=== PATIENT | male | born 1955 | race American Indian/Alaskan Native ===

== ENCOUNTER 2017-01-30 12:06 | Emergency (ER) | payer MEDICARE ==
[2017-01-30] MEDS ORDERED: THERMAZENE 50 GRAM TP ONE (14:55)
--- NOTE | 2017-01-30 14:55 | Emergency Department Report ---
ED Burn/Smoke HPI - General Chief complaint: Burn/Smoke Inhalation Stated complaint: RT FOOT BURNED TOES Time Seen by Provider: 01/30/17 14:39 Source: patient Mode of arrival: Ambulatory Limitations: Physical Limitation - History of Present Illness Initial comments: Patient here reports that he obtained waldrop to his right foot on all his toes last night while taking a shower. He said the hot water burn to him on his toes. He said he has blisters. Pain is 7 out of 10 and dull. Patient is a diabetic he said his blood sugar was 218 this morning in and he takes medication for diabetes. He also has neuropathy from diabetes. Patient has previous amputation of left low, pacemaker , CHF with EF of 30%, ME with CAD, TIA and chronic kidney disease. Patient said he does have a primary care physician and a french instructor that he follows frequently. He does not have a sharepoint manager. Denies any fever or chills. No [id number] medication taken for pain. MD Complaint: burn -: Last night Type of Exposure: hot liquid Smoke Inhalation: none Place: home Location - Extremities: Right: Foot (all toes) Severity: moderate Severity scale (0 -10): 7 Associated Symptoms: denies: headache, vision changes, cough, diaphoresis, fever /chills, chest pain, flushing, neck pain, nausea/vomiting Treatment Prior to Arrival: other - Related Data Home Medications Medication Instructions Recorded Confirmed Last Taken cloNIDine [Catapres] 0.1 mg PO DAILY 07/20/15 05/15/16 03/05/16 Previous Rx's Medication Instructions Recorded Last Taken Type Aspirin [Aspirin BABY CHEW TAB] 81 mg PO QDAY #30 tab.chew 06/10/15 03/05/16 Rx Metoprolol Xl [Metoprolol 100 mg PO QDAY #30 tablet 06/10/15 03/05/16 Rx SUCCINATE ER TAB] Pantoprazole [Protonix TAB] 40 mg PO QDAY #10 tablet 07/20/15 Unknown Rx NIFEdipine XL [Procardia Xl] 90 mg PO QDAY tablet 05/13/16 Unknown Rx Simvastatin [Zocor TAB] 10 mg PO QHS tablet 05/13/16 Unknown Rx ALBUTEROL NEB's [Proventil 0.083% 2.5 mg IH TIDRT PRN #1 nebu 05/25/16 Unknown Rx NEBS] Acetaminophen [Acetaminophen TAB] 650 mg PO Q4H PRN #1 tablet 05/25/16 Unknown Rx Bisacodyl [Dulcolax suppos] 10 mg NM QDAY PRN #1 supp.rect 05/25/16 Unknown Rx Docusate Sodium [Colace CAP] 100 mg PO BID capsule 05/25/16 Unknown Rx Epoetin Ben 10,000 Unit [Procrit] 10,000 unit SUB-Q QWEEK vial 05/25/16 Unknown Rx Furosemide [Lasix TAB] 80 mg PO 0600,1800 tablet 05/25/16 Unknown Rx Gabapentin [Neurontin] 100 mg PO Q8HR capsule 05/25/16 Unknown Rx Insulin Glargine [Lantus VIAL] 10 units SUB-Q QHS units 05/25/16 Unknown Rx Insulin Glulisine [Apidra] 0 units SUB-Q ACHS units 05/25/16 Unknown Rx Metolazone [Zaroxolyn] 5 mg PO QDAY tablet 05/25/16 Unknown Rx Sennosides Tab [Senokot] 8.6 mg PO Q12H PRN #1 tablet 05/25/16 Unknown Rx HYDROcodone/APAP 7.5-325 [[place] 1 each PO Q8H PRN #40 tablet 05/26/16 Unknown Rx 7.5-325 mg TAB] SILVER sulfADIAZINE 50 GRAM 1 applicatio TP BID #1 tube 01/30/17 Unknown Rx [Thermazene 50 Gram] Sulfamethoxazole/Trimethoprim 1 each PO BID #20 tablet 01/30/17 Unknown Rx [Bactrim DS TAB] traMADol [Ultram] 50 mg PO Q6HR PRN #12 tablet 01/30/17 Unknown Rx Allergies Allergy/AdvReac Type Severity Reaction Status Date / Time No Known Allergies Allergy Verified 01/30/17 13:11 Burn HPI - History Stated Complaint: RT FOOT BURNED TOES Chief Complaint: Burn/Smoke Inhalation Time Seen by Provider: 01/30/17 14:39 - Home Meds and Allergies Home Medications: Home Medications Medication Instructions Recorded Confirmed Last Taken cloNIDine [Catapres] 0.1 mg PO DAILY 07/20/15 05/15/16 03/05/16 Previous Rx's Medication Instructions Recorded Last Taken Type Aspirin [Aspirin BABY CHEW TAB] 81 mg PO QDAY #30 tab.chew 06/10/15 03/05/16 Rx Metoprolol Xl [Metoprolol 100 mg PO QDAY #30 tablet 06/10/15 03/05/16 Rx SUCCINATE ER TAB] Pantoprazole [Protonix TAB] 40 mg PO QDAY #10 tablet 07/20/15 Unknown Rx NIFEdipine XL [Procardia Xl] 90 mg PO QDAY tablet 05/13/16 Unknown Rx Simvastatin [Zocor TAB] 10 mg PO QHS tablet 05/13/16 Unknown Rx ALBUTEROL NEB's [Proventil 0.083% 2.5 mg IH TIDRT PRN #1 nebu 05/25/16 Unknown Rx NEBS] Acetaminophen [Acetaminophen TAB] 650 mg PO Q4H PRN #1 tablet 05/25/16 Unknown Rx Bisacodyl [Dulcolax suppos] 10 mg NM QDAY PRN #1 supp.rect 05/25/16 Unknown Rx Docusate Sodium [Colace CAP] 100 mg PO BID capsule 05/25/16 Unknown Rx Epoetin Ben 10,000 Unit [Procrit] 10,000 unit SUB-Q QWEEK vial 05/25/16 Unknown Rx Furosemide [Lasix TAB] 80 mg PO 0600,1800 tablet 05/25/16 Unknown Rx Gabapentin [Neurontin] 100 mg PO Q8HR capsule 05/25/16 Unknown Rx Insulin Glargine [Lantus VIAL] 10 units SUB-Q QHS units 05/25/16 Unknown Rx Insulin Glulisine [Apidra] 0 units SUB-Q ACHS units 05/25/16 Unknown Rx Metolazone [Zaroxolyn] 5 mg PO QDAY tablet 05/25/16 Unknown Rx Sennosides Tab [Senokot] 8.6 mg PO Q12H PRN #1 tablet 05/25/16 Unknown Rx HYDROcodone/APAP 7.5-325 [[place] 1 each PO Q8H PRN #40 tablet 05/26/16 Unknown Rx 7.5-325 mg TAB] SILVER sulfADIAZINE 50 GRAM 1 applicatio TP BID #1 tube 01/30/17 Unknown Rx [Thermazene 50 Gram] Sulfamethoxazole/Trimethoprim 1 each PO BID #20 tablet 01/30/17 Unknown Rx [Bactrim DS TAB] traMADol [Ultram] 50 mg PO Q6HR PRN #12 tablet 01/30/17 Unknown Rx Allergies/Adverse Reactions: Allergies Allergy/AdvReac Type Severity Reaction Status Date / Time No Known Allergies Allergy Verified 01/30/17 13:11 ED Review of Systems ROS: Stated complaint: RT FOOT BURNED TOES Other details as noted in HPI Comment: All other systems reviewed and negative Constitutional: denies: chills, fever Eyes: denies: eye pain, vision change ENT: denies: ear pain, throat pain, congestion Respiratory: no symptoms reported Cardiovascular: denies: chest pain, palpitations, edema, syncope Gastrointestinal: denies: nausea, vomiting, diarrhea, constipation Musculoskeletal: denies: back pain, joint swelling, arthralgia, myalgia Skin: denies: rash Neurological: denies: headache, weakness, numbness, paresthesias, confusion, abnormal gait, vertigo ED Past Medical Hx - Past Medical History Previous Medical History?: Yes Hx Hypertension: Yes (CHF EF 30%) Hx CVA: Yes (mini stroke) Hx Heart Attack/AMI: Yes Hx Congestive Heart Failure: Yes Hx Diabetes: Yes Hx Deep Vein Thrombosis: No Hx Renal Disease: Yes (creatinine 5.4) Hx Seizures: No Hx Asthma: No Hx COPD: No Hx HIV: No - Surgical History Past Surgical History?: Yes Hx Pacemaker: Yes (2006) Hx Internal Defibrillator: No Additional Surgical History: L great toe amputated - Family History Family history: CAD/ME, hypertension - Social History Smoking Status: Never Smoker Substance Use Type: None - Medications Home Medications: Home Medications Medication Instructions Recorded Confirmed Last Taken Type Aspirin [Aspirin BABY CHEW TAB] 81 mg PO QDAY #30 tab.chew 06/10/15 05/15/16 Rx Metoprolol Xl [Metoprolol 100 mg PO QDAY #30 tablet 06/10/15 05/15/16 03/05/16 Rx SUCCINATE ER TAB] Pantoprazole [Protonix TAB] 40 mg PO QDAY #10 tablet 07/20/15 05/15/16 Unknown Rx cloNIDine [Catapres] 0.1 mg PO DAILY 07/20/15 05/15/16 03/05/16 History NIFEdipine XL [Procardia Xl] 90 mg PO QDAY tablet 05/13/16 05/15/16 Unknown Rx Simvastatin [Zocor TAB] 10 mg PO QHS tablet 05/13/16 05/15/16 Unknown Rx ALBUTEROL NEB's [Proventil 0.083% 2.5 mg IH TIDRT PRN #1 nebu 05/25/16 Unknown Rx NEBS] Acetaminophen [Acetaminophen TAB] 650 mg PO Q4H PRN #1 tablet 05/25/16 Unknown Rx Bisacodyl [Dulcolax suppos] 10 mg NM QDAY PRN #1 supp.rect 05/25/16 Unknown Rx Docusate Sodium [Colace CAP] 100 mg PO BID capsule 05/25/16 Unknown Rx Epoetin Ben 10,000 Unit [Procrit] 10,000 unit SUB-Q QWEEK vial 05/25/16 Unknown Rx Furosemide [Lasix TAB] 80 mg PO 0600,1800 tablet 05/25/16 Unknown Rx Gabapentin [Neurontin] 100 mg PO Q8HR capsule 05/25/16 Unknown Rx Insulin Glargine [Lantus VIAL] 10 units SUB-Q QHS units 05/25/16 Unknown Rx Insulin Glulisine [Apidra] 0 units SUB-Q ACHS units 05/25/16 Unknown Rx Metolazone [Zaroxolyn] 5 mg PO QDAY tablet 05/25/16 Unknown Rx Sennosides Tab [Senokot] 8.6 mg PO Q12H PRN #1 tablet 05/25/16 Unknown Rx HYDROcodone/APAP 7.5-325 [[place] 1 each PO Q8H PRN #40 tablet 05/26/16 Unknown Rx 7.5-325 mg TAB] SILVER sulfADIAZINE 50 GRAM 1 applicatio TP BID #1 tube 01/30/17 Unknown Rx [Thermazene 50 Gram] Sulfamethoxazole/Trimethoprim 1 each PO BID #20 tablet 01/30/17 Unknown Rx [Bactrim DS TAB] traMADol [Ultram] 50 mg PO Q6HR PRN #12 tablet 01/30/17 Unknown Rx ED Physical Exam - General Limitations: Physical Limitation General appearance: alert, in no apparent distress - Head Head exam: Present: atraumatic, normocephalic, normal inspection - Eye Eye exam: Present: normal appearance, PERRL, EOMI. Absent: periorbital swelling , periorbital tenderness Pupils: Present: normal accommodation - ENT ENT exam: Present: normal exam, normal orophraynx, mucous membranes moist, TM's normal bilaterally, normal external ear exam - Neck Neck exam: Present: normal inspection, full ROM. Absent: tenderness, meningismus, lymphadenopathy - Expanded Neck Exam Expanded Neck exam: Absent: tenderness, midline deformity, anterior neck swelling, tracheal deviation - Respiratory Respiratory exam: Present: normal lung sounds bilaterally. Absent: respiratory distress, wheezes, rales, rhonchi, stridor, chest wall tenderness - Cardiovascular Cardiovascular Exam: Present: regular rate, normal rhythm, normal heart sounds - GI/Abdominal GI/Abdominal exam: Present: soft, normal bowel sounds. Absent: distended, tenderness, guarding, rebound, rigid - Extremities Exam Extremities exam: Present: normal inspection, full ROM, tenderness (tender to palpate at right great toe, second third fourth and fifth toe. Distal phalanx ) , normal capillary refill, other (patient with good color, sensation, temperature and movement to right foot. Pedal pulses at 2+. No neurovascular compromise. Capillary refill is less than 3 seconds. Patient with burn to distal phalanx at great to and second through fifth toe.). Absent: pedal edema , joint swelling, calf tenderness - Back Exam Back exam: Present: normal inspection, full ROM. Absent: tenderness - Neurological Exam Neurological exam: Present: alert, oriented X3, normal gait, reflexes normal. Absent: motor sensory deficit - Psychiatric Psychiatric exam: Present: normal affect, normal mood - Skin Skin exam: Present: warm, dry, other (second-degree burn to great toe and second through fifth toe with blister.) - Expanded Skin Exam Expanded Type of lesion: Present: other (burn) Distribution of rash: RLE (RT foot distal phalyns all toes) Description of rash: Present: tenderness, erythematous, swelling, blisters ( blisters, rt great second through fifth toes.), other. Absent: crusting, discharge ED Course Vital Signs 01/30/17 13:11 Temperature 98.1 F Pulse Rate 73 Respiratory 18 Rate Blood Pressure 147/63 O2 Sat by Pulse 95 Oximetry - Reevaluation(s) Reevaluation #1: 01/30/17 15:47 Patient reports that his tetanus vaccine is up-to-date. Right foot soaked in Betadine for 15 minutes, cleansed with normal saline. Blisters to al toes open opened. Silvadene ointment applied to site followed by nonadhesive and sterile gauze dressing. See procedure note for details on splinted. - Orthopedic Splinting/Casting Injury #1 Side: right Lower Extremity Immobilizer: post-op shoe ED Medical Decision Making - Medical Decision Making ED course: Patient with second degree waldrop to have right foot at distal phalanx great toe and second through fifth toe. Patient reports his tetanus vaccine is up-to-date. Area soaked with Betadine and flushed with normal saline. Silvadene cream placed to Derrek, nonadhesive dressing followed by Enrique dressing. Patient placed and postop shoe and to follow-up with sharepoint manager Dr. Boogie. I discussed the patient that he needs to refer to discharge instruction paperwork for Dr. Soler address and phone number and to call and Wednesday to schedule an appointment. Patient was understanding that diagnosis, treatment plan and importance of following up with sharepoint manager due to diabetic status. Patient discharged home with prescription for Bactrim, Ultram and Silvadene ointment. Critical care attestation.: If time is entered above; I have spent that time in minutes in the direct care of this critically ill patient, excluding procedure time. ED Disposition Clinical Impression: Arthralgia of right foot Second degree burn of right foot Qualifiers: Encounter type: initial encounter Qualified Code(s): T25.221A - Burn of second degree of right foot, initial encounter Disposition: TO HOME OR SELFCARE Is pt being admited?: No Does the pt Need Aspirin: No Condition: Stable Instructions: Arthralgia (ED), Acute Wound Care (ED) Additional Instructions: You have second-degree burn to toes on right foot. Due to your diabetic status , he will need to follow-up with a sharepoint manager for management of wound care to toes. If you develop fever, chills, drainage and crusting on toes you will need to return to the emergency room. Your sharepoint manager should be able to take care of burn sites to your foot. Please apply Silvadene antibiotic ointment twice daily followed by gauze dressing to right foot Please use post op shoe to prevent friction again this Natalia. Please take antibiotic as prescribed. Keep blood sugar level within normal limits to prevent infection Prescriptions: SILVER sulfADIAZINE 50 GRAM [Thermazene 50 Gram] 1 applicatio TP BID #1 tube Sulfamethoxazole/Trimethoprim [Bactrim DS TAB] 1 each PO BID #20 tablet traMADol [Ultram] 50 mg PO Q6HR PRN #12 tablet PRN Reason: Pain Referrals: PRIMARY CARE,MD [Primary Care Provider] - 2-3 Days TIMBO BOOGIE DPM [Staff Physician] - 2-3 Days
[2017-01-30 16:14] VITALS: BP 137/77
== END 2017-01-30 16:12 | disposition home or self-care (01) ==
LOC: ED 12:06
DX: T25.231A Burn of second degree of right toe(s) (nail), initial encounter (principal); T25.221A Burn of second degree of right foot, initial encounter; I10 Essential (primary) hypertension; I63.9 Cerebral infarction, unspecified; I25.2 Old myocardial infarction; I50.9 Heart failure, unspecified; E11.9 Type 2 diabetes mellitus without complications; Z79.82 Long term (current) use of aspirin; Z79.4 Long term (current) use of insulin; X11.8XXA Contact with other hot tap-water, initial encounter; Y93.9 Activity, unspecified; Y99.9 Unspecified external cause status; Y92.009 Unspecified place in unspecified non-institutional (private) residence as the place of occurrence of the external cause

== ENCOUNTER 2017-02-23 10:55 | Day surgery (SDC) | payer MEDICARE ==
[2017-02-23] MEDS ORDERED: NACL 0.9% 1,000 ML, VANCOMYCIN VIAL 1,000 MG IR NR (11:22)
[2017-02-23] MEDS ORDERED: ANCEF/STERILE WATER 2 GM/20 ML 2 GM/20 ML SYRINGE IV NR (12:00)
[2017-02-23] MEDS ORDERED: NACL 0.45% 1000 ML 1,000 ML IV SCH (12:00)
[2017-02-23 12:42] LABS: Basophils % (Auto) 0.9 % (0.0-1.8); Eosinophils % (Auto) 3.2 % (0.0-4.3); Hematocrit 34.8 % (35.5-45.6); Hemoglobin 11.6 gm/dl (11.8-15.2); Mean Corpuscular HGB Conc 33 % (32-34); Mean Corpuscular Hemoglobin 31 pg (28-32); Mean Corpuscular Volume 95 fl (84-94); Platelet Count 316 K/mm3 (140-440); Red Blood Count 3.68 M/mm3 (3.65-5.03); Red Cell Distribution Width 13.4 % (13.2-15.2); White Blood Count 10.3 K/mm3 (4.5-11.0)
[2017-02-23 12:53] LABS: INR 1.02 (0.87-1.13)
[2017-02-23 12:54] LABS: BUN/Creatinine Ratio 36.4; Calcium 9.3 mg/dL (8.4-10.2); Chloride 101.7 mmol/L (98-107); Potassium 4.7 mmol/L (3.6-5.0)
[2017-02-23 13:04] LABS: Partial Thromboplastin Time 24.5 Sec. (24.2-36.6)
[2017-02-23] MEDS ORDERED: NACL 0.9% 500 ML IR ONE (13:34)
[2017-02-23] MEDS ORDERED: ANCEF/STERILE WATER 2 GM/20 ML 2 GM/20 ML SYRINGE IV ONE (13:35)
[2017-02-23] MEDS ORDERED: MARCAINE 0.5% 60 ML INFILTRATI ONE (13:35)
[2017-02-23] MEDS: SUBLIMAZE ONE ×2 (14:30→14:40)
[2017-02-23] MEDS: VERSED ONE ×2 (14:32→14:42)
[2017-02-23] MEDS: XYLOCAINE 1% 20 mL ONE ×2 (14:32→14:38)
[2017-02-23] MEDS ORDERED: VANCOMYCIN VIAL 1,000 MG in NACL 0.9% 1,000 ML IRRIGATION ONE (14:33)
[2017-02-23] MEDS ORDERED: VERSED ONE (15:04)
[2017-02-23] MEDS ORDERED: SUBLIMAZE ONE (15:05)
[2017-02-23] MEDS ORDERED: APRESOLINE ONE (15:05)
--- NOTE | 2017-02-23 15:22 | Short Stay Summary ---
Short Stay Documentation Date of service: 02/23/17 Narrative H&P: see outpatient h and p from office - History H&P: obtained from office - Allergies and Medications Current Medications: Allergies No Known Allergies Allergy (Verified 01/30/17 13:11) Home Medications Medication Instructions Recorded Confirmed Last Taken Type Aspirin [Aspirin BABY CHEW TAB] 81 mg PO QDAY #30 tab.chew 06/10/15 02/23/17 Rx Pantoprazole [Protonix TAB] 40 mg PO QDAY #10 tablet 07/20/15 02/23/17 02/22/17 Rx Acetaminophen [Acetaminophen TAB] 650 mg PO Q4H PRN #1 tablet 05/25/16 02/23/17 Unknown Rx Gabapentin [Neurontin] 100 mg PO Q8HR capsule 05/25/16 02/23/17 02/22/17 Rx Insulin Glargine [Lantus VIAL] 10 units SUB-Q QHS units 05/25/16 02/23/1702/22 Rx Insulin Glulisine [Apidra] 0 units SUB-Q ACHS units 05/25/16 02/23/17 02/22/17 Rx traMADol [Ultram] 50 mg PO Q6HR PRN #12 tablet 01/30/17 02/23/17 02/22/17 Rx AtorvaSTATin [Lipitor] 40 mg PO DAILY 02/23/17 02/23/17 02/22/17 History Isosorbide Dinitrate [Isordil 20 mg PO TID 02/23/17 02/23/17 02/22/17 History Titradose] Klor-Con M10 10 meq PO DAILY 02/23/17 02/23/17 02/22/17 History Lisinopril [Zestril TAB] 20 mg PO DAILY 02/23/17 02/23/17 02/22/17 History Metolazone [Zaroxolyn] 5 mg PO 2XW 02/23/17 02/23/17 02/21/17 History Torsemide [Demadex] 20 mg PO DAILY 02/23/17 02/23/17 02/22/17 History hydrALAZINE [Apresoline TAB] 100 mg PO TID 02/23/17 02/23/17 02/22/17 History Active Medications Sodium Chloride 1,000 ml/ (Vancomycin HCl 1,000 mg) 0 ml IR INTRAOP NR Stop: 02/23/17 23:59 Sodium Chloride (Nacl 0.45% 1000 Ml) 1,000 mls @ 50 mls/hr IV DIRECT LOVE Last Admin: 02/23/17 12:29 Dose: 50 mls/hr Cefazolin Sodium (Ancef/Sterile Water 2 Gm/20 Ml) 2 gm in 20 mls @ 80 mls/hr IV PREOP NR PRN Reason: Protocol Stop: 02/23/17 23:59 - Brief post op/procedure progress note Date of procedure: 02/23/17 Procedure: Pacemaker generator change - see procedure report - Hospital course Hospital course: uncomplicated procedure - Disposition Condition at discharge: Good Disposition: [id number] TO HOME OR SELFCARE - Discharge Diagnoses (1) Pacemaker battery depletion Status: Acute Short Stay Discharge Plan Activity: no restrictions Diet: low fat, low cholesterol Wound: open to air Follow up with: ROB TREJO MD [Staff Physician] - 7 Days Prescriptions: Cephalexin [Keflex] 500 mg PO Q8HR #9 cap oxyCODONE /ACETAMINOPHEN [Percocet 5/325] 1 tab PO Q6HR PRN #10 tablet PRN Reason: Pain
[2017-02-23 16:52] VITALS: BP 159/71
== END 2017-02-23 17:35 | disposition home or self-care (01) ==
LOC: OPU 10:55
PROVIDERS: ATTEND Internal Medicine Cardiovascular Disease
DX: Z45.010 Encounter for checking and testing of cardiac pacemaker pulse generator [battery] (principal); K21.9 Gastro-esophageal reflux disease without esophagitis; E10.9 Type 1 diabetes mellitus without complications; E78.5 Hyperlipidemia, unspecified; I11.0 Hypertensive heart disease with heart failure; I50.23 Acute on chronic systolic (congestive) heart failure; I27.2 Other secondary pulmonary hypertension; F10.21 Alcohol dependence, in remission; J44.9 Chronic obstructive pulmonary disease, unspecified; I49.5 Sick sinus syndrome; Z79.82 Long term (current) use of aspirin; Z79.899 Other long term (current) drug therapy; Z79.4 Long term (current) use of insulin; Z86.73 Personal history of transient ischemic attack (TIA), and cerebral infarction without residual deficits; Z89.612 Acquired absence of left leg above knee; Z98.890 Other specified postprocedural states; Z86.79 Personal history of other diseases of the circulatory system; Z87.891 Personal history of nicotine dependence; Z83.49 Family history of other endocrine, nutritional and metabolic diseases; Z82.49 Family history of ischemic heart disease and other diseases of the circulatory system
CPT/HCPCS: 33228; 36415; 80048; 85025; 85610; 85730; 93005; 93010; C1781; C1785; J0360; J0690; J2250; J3010; J3370

== ENCOUNTER 2018-03-17 13:50 | Emergency (ER) | payer MEDICARE ==
--- NOTE | 2018-03-17 15:19 | Emergency Department Report ---
Blank Doc - Documentation Documentation: Patient is a 62-year-old [place] male who is presenting with right lower extremity swelling. Patient states is swollen for several days. Patient was sent here by his global process owner rule out DVT. Patient also has a history of congestive heart failure as well as a pacemaker. Patient denies any chest pain but does have exertional shortness of breath. His CHF and is definitely on the differential for this patient's leg swelling. Ultrasound be done with the patient also had a BMP and labs ordered as well. Patient be reassessed.
[2018-03-17 16:38] LABS: Basophils # (Auto) 0.2 K/mm3 (0.0-0.1); Basophils % (Auto) 1.4 % (0.0-1.8); Eosinophils # (Auto) 0.3 K/mm3 (0.0-0.4); Eosinophils % (Auto) 2.6 % (0.0-4.3); Hematocrit 29.4 % (35.5-45.6); Lymphocytes # (Auto) 1.8 K/mm3 (1.2-5.4); Lymphocytes % (Auto) 16.4 % (13.4-35.0); Mean Corpuscular HGB Conc 34 % (32-34); Mean Corpuscular Hemoglobin 32 pg (28-32); Mean Corpuscular Volume 94 fl (84-94); Monocytes % (Auto) 9.2 % (0.0-7.3); Platelet Count 445 K/mm3 (140-440); Red Blood Count 3.14 M/mm3 (3.65-5.03); Red Cell Distribution Width 14.1 % (13.2-15.2)
[2018-03-17 17:00] LABS: Calcium 9.2 mg/dL (8.4-10.2)
[2018-03-17 17:31] LABS: Chol/HDL Ratio 3.92 %
--- NOTE | 2018-03-17 17:32 | Emergency Department Report ---
Blank Doc - Documentation Documentation: Patient troponin is elevated and he is in renal failure acute versus chronic. His BNP is also elevated. Patient was moved to room 34 to be monitored and he is to go to the main side to be seen by M.D. notified charge nurse that patient needs to be transferred to the main side due to abnormal labs. Patient still shortness of breath but no chest pain at present.
[2018-03-17 17:49] VITALS: BP 163/69
--- NOTE | 2018-03-17 17:53 | Emergency Department Report ---
ED Extremity Problem HPI - General Chief complaint: Dyspnea/Respdistress Stated complaint: LEGS/ARMS SWOLLEN Time Seen by Provider: 03/17/18 15:06 Source: patient Mode of arrival: Ambulatory Limitations: No Limitations - History of Present Illness Initial comments: Patient is a 62-year-old [place] male who is presenting with right lower extremity swelling. Patient states is swollen for several days. Patient was sent here by his precision jig grinder rule out DVT. Patient also has a history of congestive heart failure as well as a pacemaker. Patient denies any chest pain but does have exertional shortness of breath. The patient is over his dry weight and took double dose of his Lasix yesterday and was instructed to take the same today according to his precision jig grinder. - Related Data Home Medications Medication Instructions Recorded Confirmed Last Taken AtorvaSTATin [Lipitor] 40 mg PO DAILY 02/23/17 02/26/18 02/22/17 Isosorbide Dinitrate [Isordil 20 mg PO TID 02/23/17 02/26/18 02/22/17 Titradose] Previous Rx's Medication Instructions Recorded Last Taken Type Gabapentin [Neurontin] 100 mg PO Q8HR capsule 05/25/16 02/22/17 Rx ALBUTEROL NEB's [Proventil 0.083% 2.5 mg IH Q4HRT PRN 30 Days #30 03/07/18 Unknown Rx NEBS] nebu Acetaminophen [Acetaminophen TAB] 650 mg PO Q6H PRN #30 tablet 03/07/18 Unknown Rx Insulin Glargine [Lantus VIAL] 10 units SUB-Q QHS 30 Days #100 03/07/18 Unknown Rx units Insulin Regular, Human [HumuLIN R] 1 dose SUB-Q ACHS PRN #30 units 03/07/18 Unknown Rx Levofloxacin [Levaquin TAB] 500 mg PO Q48H #1 tablet 03/07/18 Unknown Rx Pantoprazole [Protonix TAB] 40 mg PO QDAY #30 tablet 03/07/18 Unknown Rx Sodium Bicarbonate 650 mg PO TID #90 tablet 03/07/18 Unknown Rx hydrALAZINE [Apresoline TAB] 100 mg PO TID #90 tab 03/07/18 Unknown Rx oxyCODONE /ACETAMINOPHEN [Percocet 1 tab PO Q6HR PRN #12 tablet 03/07/18 Unknown Rx 5/325 mg] Allergies Allergy/AdvReac Type Severity Reaction Status Date / Time No Known Allergies Allergy Verified 03/17/18 14:47 ED Review of Systems ROS: Stated complaint: LEGS/ARMS SWOLLEN Other details as noted in HPI Comment: All other systems reviewed and negative ED Past Medical Hx - Past Medical History Previous Medical History?: Yes Hx Hypertension: Yes (CHF EF 45-50% (03/02/18)) Hx CVA: Yes (mini stroke) Hx Heart Attack/AMI: Yes (x 2 (2010, 2004)) Hx Congestive Heart Failure: Yes Hx Diabetes: Yes Hx Deep Vein Thrombosis: No Hx Renal Disease: Yes (creatinine 5.4 (CKD)) Hx Arthritis: Yes (hands) Hx Seizures: No Hx Asthma: No Hx COPD: No Hx HIV: No - Surgical History Past Surgical History?: Yes Hx Pacemaker: Yes (2006) Hx Internal Defibrillator: No Additional Surgical History: L BKA - Social History Smoking Status: Former Smoker Substance Use Type: Alcohol - Medications Home Medications: Home Medications Medication Instructions Recorded Confirmed Last Taken Type Gabapentin [Neurontin] 100 mg PO Q8HR capsule 05/25/16 02/26/18 02/22/17 Rx AtorvaSTATin [Lipitor] 40 mg PO DAILY 02/23/17 02/26/18 02/22/17 History Isosorbide Dinitrate [Isordil 20 mg PO TID 02/23/17 02/26/18 02/22/17 History Titradose] ALBUTEROL NEB's [Proventil 0.083% 2.5 mg IH Q4HRT PRN 30 Days #30 03/07/18 Unknown Rx NEBS] nebu Acetaminophen [Acetaminophen TAB] 650 mg PO Q6H PRN #30 tablet 03/07/18 Unknown Rx Insulin Glargine [Lantus VIAL] 10 units SUB-Q QHS 30 Days #100 03/07/18 Unknown Rx units Insulin Regular, Human [HumuLIN R] 1 dose SUB-Q ACHS PRN #30 units 03/07/18 Unknown Rx Levofloxacin [Levaquin TAB] 500 mg PO Q48H #1 tablet 03/07/18 Unknown Rx Pantoprazole [Protonix TAB] 40 mg PO QDAY #30 tablet 03/07/18 Unknown Rx Sodium Bicarbonate 650 mg PO TID #90 tablet 03/07/18 Unknown Rx hydrALAZINE [Apresoline TAB] 100 mg PO TID #90 tab 03/07/18 Unknown Rx oxyCODONE /ACETAMINOPHEN [Percocet 1 tab PO Q6HR PRN #12 tablet 03/07/18 Unknown Rx 5/325 mg] ED Physical Exam - General Limitations: No Limitations General appearance: alert, in no apparent distress - Head Head exam: Present: atraumatic, normocephalic - Eye Eye exam: Present: normal appearance - ENT ENT exam: Present: mucous membranes moist - Neck Neck exam: Present: normal inspection - Respiratory Respiratory exam: Present: normal lung sounds bilaterally. Absent: respiratory distress, wheezes, rales, rhonchi - Cardiovascular Cardiovascular Exam: Present: regular rate, normal rhythm. Absent: systolic murmur, diastolic murmur, rubs, gallop - GI/Abdominal GI/Abdominal exam: Present: soft, distended, normal bowel sounds. Absent: tenderness, guarding, rebound, rigid - Rectal Rectal exam: Present: deferred - Extremities Exam Extremities exam: Present: normal inspection, other (she has 2+ edema in the right lower extremity up to the knee. Patient is a amputee on the left lower extremity.) - Back Exam Back exam: Present: normal inspection - Neurological Exam Neurological exam: Present: alert, oriented X3 - Psychiatric Psychiatric exam: Present: normal affect, normal mood - Skin Skin exam: Present: warm, dry, intact, normal color. Absent: rash ED Course Vital Signs 03/17/18 14:44 Temperature 98.6 F Pulse Rate 95 H Respiratory 18 Rate Blood Pressure 142/54 O2 Sat by Pulse 99 Oximetry ED Medical Decision Making - Lab Data Result diagrams: 03/17/18 16:26 03/17/18 16:26 Labs 03/17/18 03/17/18 16:26 16:26 WBC 10.8 RBC 3.14 L Hgb 10.0 L Hct 29.4 L MCV 94 MCH 32 MCHC 34 RDW 14.1 Plt Count 445 H Lymph % (Auto) 16.4 Brantley % (Auto) 9.2 H Eos % (Auto) 2.6 Baso % (Auto) 1.4 Lymph # 1.8 Brantley # 1.0 H Eos # 0.3 Baso # 0.2 H Seg Neutrophils % 70.4 H Seg Neutrophils # 7.6 Sodium 139 Potassium 4.2 Chloride 96.6 L Carbon Dioxide 29 Anion Gap 18 BUN 46 H Creatinine 2.3 H Estimated GFR 35 BUN/Creatinine Ratio 20 Glucose 198 H Calcium 9.2 Troponin T 0.540 H* NT-Pro-B Natriuret Pep 2320 H Triglycerides 179 H Cholesterol 153 LDL Cholesterol Direct 98 HDL Cholesterol 39 L Cholesterol/HDL Ratio 3.92 - EKG Data -: EKG Interpreted by Me - EKG Data 03/17/18 17:52 Patient has a atrial paced rhythm at a rate of 78 patient has anterior Q waves as well as inferior Q waves present but no ST segment elevations or depressions patient has a leftward axis intervals are within normal limits. Temperature dictation 1441. - Radiology Data interpreted by me: Patient has a borderline enlarged cardiac silhouette with some mild pulmonary vascular congestion but no overt edema - Medical Decision Making Patient's ultrasound of his right lower extremity shows a small amount of of thrombophlebitis just distal to the knee in the posterior calf. There is no DVT present. Patient takes aspirin daily he has been told to use warm compresses area as well. Patient's leg swelling most likely secondary to mild CHF exacerbation. Patient has been instructed to increase his Lasix dose. Patient's renal function is at his baseline for the patient patient has no issues with urinating. Patient states he did have good diuresis last night with the first day of his increased dose of Lasix. Patient is does have a elevated troponin on his laboratory studies here in the emergency department however is chronically elevated. The patient's EKG is not consistent with an acute VA and the patient is chest pain-free. Critical care attestation.: If time is entered above; I have spent that time in minutes in the direct care of this critically ill patient, excluding procedure time. ED Disposition Clinical Impression: Superficial thrombophlebitis Qualifiers: Superficial thrombophlebitis-Involved body area: lower extremity Laterality: right Qualified Code(s): I80.01 - Phlebitis and thrombophlebitis of superficial vessels of right lower extremity Congestive heart failure Qualifiers: Heart failure type: systolic Heart failure chronicity: acute on chronic Qualified Code(s): I50.23 - Acute on chronic systolic (congestive) heart failure Disposition: TO HOME OR SELFCARE Is pt being admited?: No Does the pt Need Aspirin: No Condition: Stable Instructions: Heart Failure (ED), Superficial Thrombophlebitis (ED) Referrals: PRIMARY CARE,MD [Primary Care Provider] - 3-5 Days
--- NOTE | 2018-03-17 17:57 | XRay Report ---
FINAL REPORT EXAM: XR CHEST ROUTINE 2V HISTORY: WINN TECHNIQUE: 2 view examination of the chest PRIORS: One-view chest 02/27/[address] 03/05/2018 FINDINGS: Slight cardiomegaly persists. An electronic cardiac device remains in place and again obscures a portion of the left chest, limiting the examination. Cable entry is via the left subclavian vein.. no evidence of vascular congestion. Minimal new density in the right minor fissure suggestive of small pleural effusion. Visible CP angles remain sharp. No pneumothorax or new pulmonary consolidation. No acute displaced fracture. IMPRESSION: Suggestion of very small right pleural effusion tracking in the minor fissure Slight cardiomegaly
[2018-03-17] MEDS ORDERED: ASPIRIN PO SCH (18:00)
--- NOTE | 2018-03-21 15:17 | Vascular Lab Report ---
Right Lower Extremity Venous Duplex Study: Reason for Exam: Pain and swelling of the right lower extremity. Comments on the Right: Superficial venous thrombosis is seen in the lesser saphenous vein in the mid calf. The remaining veins visualized are freely compressible without evidence of internal echogenicity. Spontaneous and phasic flow is present proximally. A soft tissue change in the right knee area is consistent with a Michael's cyst. Comments on the Left: A limited duplex study was done of the proximal veins of the left lower extremity. All veins visualized are freely compressible without evidence of internal echogenicity. Flow is spontaneous and phasic throughout. No evidence of acute or chronic thrombus is seen in any of the vessels visualized. Impression: Superficial venous thrombosis of the right lesser saphenous vein. No evidence of acute deep venous thrombosis in the right lower extremity. A soft tissue change in the right knee area is consistent with a Michael's cyst.
== END 2018-03-17 18:04 | disposition home or self-care (01) ==
LOC: ED 13:50
DX: I80.01 Phlebitis and thrombophlebitis of superficial vessels of right lower extremity (principal); I50.23 Acute on chronic systolic (congestive) heart failure; I13.0 Hypertensive heart and chronic kidney disease with heart failure and stage 1 through stage 4 chronic kidney disease, or unspecified chronic kidney disease; E11.22 Type 2 diabetes mellitus with diabetic chronic kidney disease; N18.9 Chronic kidney disease, unspecified; I25.2 Old myocardial infarction; Z79.4 Long term (current) use of insulin; Z86.73 Personal history of transient ischemic attack (TIA), and cerebral infarction without residual deficits; Z87.891 Personal history of nicotine dependence; Z98.890 Other specified postprocedural states
CPT/HCPCS: 36415; 71046; 80048; 80061; 83880; 84484; 85025; 93005; 93010

== ENCOUNTER 2018-05-23 08:02 | Day surgery (SDC) | payer MEDICARE ==
[~2018-05-23 08:02] MED LIST: ANCEF/STERILE WATER 2 GM/20 ML 2 GM/20 ML SYRINGE IV NR; HEPARIN 10,000 UNITS/10 ML ONE; MARCAINE 0.5% INFILTRATI ONE; NACL 0.9% 1000 ML 1,000 ML IV SCH; NACL 0.9% 500 ML 0 ML ONE
[2018-05-23] MEDS ORDERED: SUBLIMAZE IV PRN (10:09)
--- NOTE | 2018-05-23 10:09 | Anesthesia Day of Surgery ---
Anesthesia Day of Surgery - Day of Surgery Patient Examined: Yes Patient H&P Reviewed: Yes Patient is NPO: Yes
--- NOTE | 2018-05-23 10:09 | Anesthesia Consultation ---
Anesthesia Consult and Med Hx Date of service: 05/23/18 - Airway Anesthetic Teeth Evaluation: Dentures, Partials ROM Head & Neck: Adequate Mental/Hyoid Distance: Adequate Mallampati Class: Class III Intubation Access Assessment: Possibly Difficult - Pulmonary Exam CTA: Yes - Cardiac Exam Cardiac Exam: RRR - Pre-Operative Health Status ASA Pre-Surgery Classification: ASA3 Proposed Anesthetic Plan: General - Pulmonary Hx Smoking: No (1 pk/week- Quit 2003) Hx Respiratory Symptoms: No COPD: No - Cardiovascular System Hx Hypertension: Yes Hx Heart Attack/AMI: Yes (x 2 (2010, 2004)) Hx Percutaneous Transluminal Coronary Angioplasty (PTCA): No Hx Cardia Arrhythmia: Yes (bradycardia) Hx Pacemaker: 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) Hx Internal Defibrillator: Yes - Central Nervous System Hx Seizures: No CVA: Yes (2 years ago, no residual weakness) Hx Psychiatric Problems: No - Gastrointestinal Hx Gastroesophageal Reflux Disease: No - Endocrine Hx End Stage Renal Disease: Yes (not yet started on HD.) Hx Insulin Dependent Diabetes: Yes Hx Thyroid Disease: No - Hematic Hx Anemia: Yes - Other Systems Hx Obesity: Yes - Additional Comments Anesthesia Medical History Comments: TTE on chart shows EF 45-50%. Reports 3 days of loose stool up to 3 bowel movements daily. Non-bloody. No abdominal pain , nausea, vomiting, fevers, or chills. No sick contact. Tolerating PO.
[2018-05-23] MEDS ORDERED: HumuLIN R SUB-Q NR (10:10)
[2018-05-23] MEDS ORDERED: HumuLIN R ONE (10:20)
[2018-05-23] MEDS ORDERED: VERSED IV NR (11:00)
[2018-05-23] MEDS ORDERED: MARCAINE 0.5% INFILTRATI ONE ×3 (11:03→12:01)
[2018-05-23] MEDS ORDERED: NACL 0.9% 500 ML 500 ML ONE (11:04)
[2018-05-23] MEDS ORDERED: RIFADIN ONE (11:04)
[2018-05-23] MEDS ORDERED: HEPARIN 10,000 UNITS/10 ML ONE (11:04)
[2018-05-23] MEDS ORDERED: NACL P/F VIAL (10 ML) 0 ML ONE (11:04)
[2018-05-23] MEDS ORDERED: XYLOCAINE MPF 2% ONE (11:05)
[2018-05-23] MEDS ORDERED: SUBLIMAZE ONE ×3 (11:06→13:15)
[2018-05-23] MEDS ORDERED: DIPRIVAN 10 MG/ML IV ONE ×2 (11:06→11:25)
[2018-05-23] MEDS ORDERED: HEPARIN 10,000 UNITS/10 ML 2,000 UNIT in NACL 0.9% 500 ML 500 ML IR ONE (11:40)
[2018-05-23] MEDS ORDERED: NACL 0.9% IR ONE (12:00)
[2018-05-23] MEDS ORDERED: NEO SYNEPHRINE/NS Syringe(OR USE) IV ONE ×2 (12:32→13:32)
[2018-05-23] MEDS ORDERED: ZOFRAN ONE ×2 (12:32→15:02)
[2018-05-23] MEDS ORDERED: ROBINUL ONE (12:32)
--- NOTE | 2018-05-23 14:26 | Short Stay Summary ---
Short Stay Documentation Date of service: 05/23/18 Narrative H&P: See H&P - History H&P: obtained from office - Allergies and Medications Current Medications: Allergies No Known Allergies Allergy (Verified 03/17/18 14:47) Home Medications Medication Instructions Recorded Confirmed Last Taken Type Gabapentin [Neurontin] 100 mg PO Q8HR capsule 05/25/16 04/26/18 02/22/17 Rx AtorvaSTATin [Lipitor] 40 mg PO DAILY 02/23/17 04/26/18 02/22/17 History Isosorbide Dinitrate [Isordil 20 mg PO TID 02/23/17 04/26/18 02/22/17 History Titradose] ALBUTEROL NEB's [Proventil 0.083% 2.5 mg IH Q4HRT PRN 30 Days #30 03/07/1804/26 Unknown Rx NEBS] nebu Insulin Glargine [Lantus VIAL] 10 units SUB-Q QHS 30 Days #100 03/07/18 Unknown Rx units Insulin Regular, Human [HumuLIN R] 1 dose SUB-Q ACHS PRN #30 units 03/07/1807/03 Unknown Rx Pantoprazole [Protonix TAB] 40 mg PO QDAY #30 tablet 03/07/18 04/26/18 Unknown Rx Sodium Bicarbonate 650 mg PO TID #90 tablet 03/07/18 04/26/18 Unknown Rx hydrALAZINE [Apresoline TAB] 100 mg PO TID #90 tab 03/07/18 04/26/18 Unknown Rx oxyCODONE /ACETAMINOPHEN [Percocet 1 tab PO Q6HR PRN #12 tablet 03/07/18 Unknown Rx 5/325 mg] Ferrous Sulfate [Feosol 325 MG tab] 325 mg PO BID #60 tablet 04/28/18 Unknown Rx Metoprolol Xl [Metoprolol 50 mg PO QDAY #30 tablet 04/28/18 Unknown Rx SUCCINATE ER TAB] Active Medications Fentanyl (Sublimaze) 50 mcg IV Q15MIN PRN PRN Reason: Pain , Severe (7-10) Stop: 05/23/18 20:00 Cefazolin Sodium (Ancef/Sterile Water 2 Gm/20 Ml) 2 gm in 20 mls @ 80 mls/hr IV PREOP NR; Protocol Stop: 05/23/18 23:59 Sodium Chloride (Nacl 0.9% 1000 Ml) 1,000 mls @ 42 mls/hr IV DIRECT LOVE Last Admin: 05/23/18 10:00 Dose: 42 mls/hr Midazolam HCl (Versed) 2 mg IV PREOP NR Stop: 05/23/18 23:59 Last Admin: 05/23/18 10:24 Dose: 2 mg - Brief post op/procedure progress note Date of procedure: 05/23/18 Pre-op diagnosis: End-Stage Renal Disease Post-op diagnosis: same Procedure: Creation of Left Brachial Basilic Arteriovenous Fistula Anesthesia: ERIKA Surgeon: BARBER BE Estimated blood loss: minimal Pathology: none Condition: stable - Disposition Condition at discharge: Good Disposition: DC-01 TO HOME OR SELFCARE Short Stay Discharge Plan Activity: other (no heavy lifting with left arm) Wound: open to air, keep clean and dry, other (okay to wash the wound with soap and water but do not soak in water) Follow up with: BARBER BE MD [Staff Physician] - 14 Days Prescriptions: HYDROcodone/APAP 7.5-325 [[place] 7.5/325] 1 each PO Q6HR PRN #40 tablet PRN Reason: Pain
--- NOTE | 2018-05-23 14:31 | Operative Report ---
Operative Report Operative Report: Date of procedure: 05/23/2018 Pre-operative diagnosis: End-stage Renal Disease Post-operative diagnosis: End-stage Renal Disease Procedure(s): Creation of Left Brachial Artery to Basilic Arteriovenous Fistula Surgeon: Michele Mitchell MD Upper Cutter: None Anesthesia: Gen. endotracheal anesthesia EBL: Minimal Counts: Correct Complications: None Condition: Stable Findings: Successful creation of left brachial basilic arteriovenous fistula palpable thrill and palpable radial pulse at the completion of the case. Specimen: None Indication: The patient is a 62-year-old male with a history of end-stage renal disease disease on hemodialysis through a right internal jugular permacath. He is in need of long-term access and had adequate vein for creation of an arteriovenous vessel. He was given the risks, benefits, and alternative procedures and consented to the procedure. Description of Procedure: The patient was brought to the operating room and laid in supine position after general endotracheal anesthesia was administered the patient was prepped and draped in normal sterile fashion. After anesthetizing the skin a transverse incision was created just below the antecubital crease. Dissection was carried down to the the basilic vein using sharp dissection. The vein was dissected out both proximally and distally and suture ligated and divided distally. I then ran a 3 Laura proximally in the vein, to ensure patency of the vein. I then flushed the vein with heparinized saline and controlled flow with a bulldog clamp. I then dissected out the brachial artery through this incision circumferentially both proximal and distal and controlled th artery with vessel loops. I placed the vessel loops on tension, controlling the flow through the artery, and created an arteriotomy using an 11 blade and Billy scissors. I created an end to side anastomosis between the basilic vein and brachial artery using a 6-0 Prolene in running fashion. Prior to completing the anastomosis I flushed the artery both proximally and distally and then advanced a 3 Laura proximally to break the spasm in the artery. I completed the anastomosis and removed all vessel loops allowing flow into the fistula which had an excellent thrill. I achieved hemostasis with a combination of direct pressure and electrocautery. Once hemostasis was achieved I anesthetized the wound with Marcaine. I closed the wound in 2 layers using 3-0 Vicryl in a running fashion to close the deep dermal layer and 4-0 Monocryl in a running fashion in the subcuticular layer. I dressed the wound with Surgicel. The patient tolerated the procedure well, all sponge needle and instrument counts were correct. The patient was taken to recovery in stable condition.
[2018-05-23] MEDS ORDERED: NORCO 7.5/325 PO ONE (15:52)
[2018-05-23 17:32] VITALS: BP 134/64
--- NOTE | 2018-05-23 20:16 | Post Anesthesia Evaluation ---
- Post Anesthesia Evaluation Patient Participated: Yes Airway Patent: Yes Stable Respiratory Function: Yes Nausea/Vomiting: No Temp > 96.8F: Yes Pain Manageable: Yes Adequeate Hydration: Yes Anesthesia Complications: No Block Receding Appropriately: Not Applicable Patient on Ventilator: No
== END 2018-05-23 17:17 | disposition home or self-care (01) ==
LOC: OR 08:02
PROVIDERS: ATTEND Surgery Vascular Surgery
DX: I13.2 Hypertensive heart and chronic kidney disease with heart failure and with stage 5 chronic kidney disease, or end stage renal disease (principal); E11.22 Type 2 diabetes mellitus with diabetic chronic kidney disease; N18.6 End stage renal disease; I50.23 Acute on chronic systolic (congestive) heart failure; E11.52 Type 2 diabetes mellitus with diabetic peripheral angiopathy with gangrene; E11.65 Type 2 diabetes mellitus with hyperglycemia; E11.69 Type 2 diabetes mellitus with other specified complication; I25.10 Atherosclerotic heart disease of native coronary artery without angina pectoris; E78.5 Hyperlipidemia, unspecified; I42.9 Cardiomyopathy, unspecified; I25.2 Old myocardial infarction; E78.00 Pure hypercholesterolemia, unspecified; M19.90 Unspecified osteoarthritis, unspecified site; E66.9 Obesity, unspecified; Z68.31 Body mass index [BMI] 31.0-31.9, adult; Z91.81 History of falling; Z79.899 Other long term (current) drug therapy; Z79.4 Long term (current) use of insulin; Z87.891 Personal history of nicotine dependence; Z89.512 Acquired absence of left leg below knee; Z98.41 Cataract extraction status, right eye; Z99.2 Dependence on renal dialysis; Z98.42 Cataract extraction status, left eye; Z86.73 Personal history of transient ischemic attack (TIA), and cerebral infarction without residual deficits; Z86.2 Personal history of diseases of the blood and blood-forming organs and certain disorders involving the immune mechanism; Z98.890 Other specified postprocedural states
CPT/HCPCS: 36415; 36821; 80048; 82962; C1757; J0690; J1644; J2250; J2370; J2405; J2704; J3010; J7030; J7040; J1815; J3490

== ENCOUNTER 2019-04-21 11:14 | Emergency (ER) | payer MEDICARE ==
[2019-04-21 11:58] VITALS: BP 141/58
--- NOTE | 2019-04-21 12:24 | Emergency Department Report ---
- General Chief complaint: Wound/Laceration Stated complaint: (L) LEG BRUISES/PAIN Time Seen by Provider: 04/21/19 12:17 Source: family Mode of arrival: Wheelchair Limitations: No Limitations - History of Present Illness Initial comments: 63 y/o male comes in for skin tear on left stump. Patient reports that he has just gotten a new prosthesis. Denies any fever or chills. No swelling or discharge from stump. Has history of diabetes. MD complaint: rash Onset/Timin -: days(s) Location: LLE ( stump) Severity: mild Quality: burning Consistency: constant Context: other (ne prosthesis) Associated symptoms: denies other symptoms - Related Data Home Medications Medication Instructions Recorded Confirmed Last Taken AtorvaSTATin [Lipitor] 40 mg PO DAILY 02/23/17 07/19/18 07/20/18 Isosorbide Dinitrate [Isordil 20 mg PO TID 02/23/17 07/19/18 07/20/18 Titradose] traMADol [Ultram] 50 mg PO QDAY 07/21/18 07/21/18 07/14/18 Previous Rx's Medication Instructions Recorded Last Taken Type Gabapentin [Neurontin] 100 mg PO Q8HR capsule 05/25/16 07/20/18 Rx ALBUTEROL NEB's [Proventil 0.083% 2.5 mg IH Q4HRT PRN 30 Days #30 03/07/18 07/07/18 Rx NEBS] nebu Insulin Glargine [Lantus VIAL] 10 units SUB-Q QHS 30 Days #100 03/07/18 07/20/18 19:00 Rx units Insulin Regular, Human [HumuLIN R] 1 dose SUB-Q ACHS PRN #30 units 03/07/18 07/20/18 Rx Pantoprazole [Protonix TAB] 40 mg PO QDAY #30 tablet 03/07/18 07/20/18 Rx Sodium Bicarbonate 650 mg PO TID #90 tablet 03/07/18 07/20/18 Rx hydrALAZINE [Apresoline TAB] 100 mg PO TID #90 tab 03/07/18 07/21/18 06:00 Rx oxyCODONE /ACETAMINOPHEN [Percocet 1 tab PO Q6HR PRN #12 tablet 03/07/18 07/20/18 Rx 5/325 mg] Ferrous Sulfate [Feosol 325 MG tab] 325 mg PO BID #60 tablet 04/28/18 07/19/18 Rx Metoprolol Xl [Metoprolol 50 mg PO QDAY #30 tablet 04/28/18 07/20/18 16:00 Rx SUCCINATE ER TAB] Oxycodone HCl/Acetaminophen 1 each PO Q6HR PRN #30 tablet 07/21/18 Unknown Rx [Percocet 7.5/325 mg] Allergies Allergy/AdvReac Type Severity Reaction Status Date / Time No Known Allergies Allergy Verified 04/21/19 11:20 Abscess Boil HPI - HPI Chief Complaint: Wound/Laceration Stated Complaint: (L) LEG BRUISES/PAIN Time Seen by Provider: 04/21/19 12:17 Home Medications: Home Medications Medication Instructions Recorded Confirmed Last Taken AtorvaSTATin [Lipitor] 40 mg PO DAILY 02/23/17 07/19/18 07/20/18 Isosorbide Dinitrate [Isordil 20 mg PO TID 02/23/17 07/19/18 07/20/18 Titradose] traMADol [Ultram] 50 mg PO QDAY 07/21/18 07/21/18 07/14/18 Previous Rx's Medication Instructions Recorded Last Taken Type Gabapentin [Neurontin] 100 mg PO Q8HR capsule 05/25/16 07/20/18 Rx ALBUTEROL NEB's [Proventil 0.083% 2.5 mg IH Q4HRT PRN 30 Days #30 03/07/18 07/07/18 Rx NEBS] nebu Insulin Glargine [Lantus VIAL] 10 units SUB-Q QHS 30 Days #100 03/07/18 07/20/18 19:00 Rx units Insulin Regular, Human [HumuLIN R] 1 dose SUB-Q ACHS PRN #30 units 03/07/18 07/20/18 Rx Pantoprazole [Protonix TAB] 40 mg PO QDAY #30 tablet 03/07/18 07/20/18 Rx Sodium Bicarbonate 650 mg PO TID #90 tablet 03/07/18 07/20/18 Rx hydrALAZINE [Apresoline TAB] 100 mg PO TID #90 tab 03/07/18 07/21/18 06:00 Rx oxyCODONE /ACETAMINOPHEN [Percocet 1 tab PO Q6HR PRN #12 tablet 03/07/18 07/20/18 Rx 5/325 mg] Ferrous Sulfate [Feosol 325 MG tab] 325 mg PO BID #60 tablet 04/28/18 07/19/18 Rx Metoprolol Xl [Metoprolol 50 mg PO QDAY #30 tablet 04/28/18 07/20/18 16:00 Rx SUCCINATE ER TAB] Oxycodone HCl/Acetaminophen 1 each PO Q6HR PRN #30 tablet 07/21/18 Unknown Rx [Percocet 7.5/325 mg] Allergies/Adverse Reactions: Allergies Allergy/AdvReac Type Severity Reaction Status Date / Time No Known Allergies Allergy Verified 04/21/19 11:20 ED Review of Systems ROS: Stated complaint: (L) LEG BRUISES/PAIN Other details as noted in HPI Comment: All other systems reviewed and negative 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) Hx Internal Defibrillator: Yes Additional Surgical History: L BKA - Social History Smoking Status: Former Smoker - Medications Home Medications: Home Medications Medication Instructions Recorded Confirmed Last Taken Type Gabapentin [Neurontin] 100 mg PO Q8HR capsule 05/25/16 07/19/18 07/20/18 Rx AtorvaSTATin [Lipitor] 40 mg PO DAILY 02/23/17 07/19/18 07/20/18 History Isosorbide Dinitrate [Isordil 20 mg PO TID 02/23/17 07/19/18 07/20/18 History Titradose] ALBUTEROL NEB's [Proventil 0.083% 2.5 mg IH Q4HRT PRN 30 Days #30 03/07/18 07/21/18 07/07/18 Rx NEBS] nebu Insulin Glargine [Lantus VIAL] 10 units SUB-Q QHS 30 Days #100 03/07/18 07/21/18 07/20/18 19:00 Rx units Insulin Regular, Human [HumuLIN R] 1 dose SUB-Q ACHS PRN #30 units 03/07/18 07/19/18 07/20/18 Rx Pantoprazole [Protonix TAB] 40 mg PO QDAY #30 tablet 03/07/18 07/19/18 07/20/18 Rx Sodium Bicarbonate 650 mg PO TID #90 tablet 03/07/18 07/19/18 07/20/18 Rx hydrALAZINE [Apresoline TAB] 100 mg PO TID #90 tab 03/07/18 07/19/18 07/21/18 06:00 Rx oxyCODONE /ACETAMINOPHEN [Percocet 1 tab PO Q6HR PRN #12 tablet 03/07/18 07/19/18 07/20/18 Rx 5/325 mg] Ferrous Sulfate [Feosol 325 MG tab] 325 mg PO BID #60 tablet 04/28/18 07/21/18 07/19/18 Rx Metoprolol Xl [Metoprolol 50 mg PO QDAY #30 tablet 04/28/18 07/21/18 07/20/18 16:00 Rx SUCCINATE ER TAB] Oxycodone HCl/Acetaminophen 1 each PO Q6HR PRN #30 tablet 07/21/18 Unknown Rx [Percocet 7.5/325 mg] traMADol [Ultram] 50 mg PO QDAY 07/21/18 07/21/18 07/14/18 History ED Physical Exam - General Limitations: No Limitations General appearance: alert, in no apparent distress - Head Head exam: Present: atraumatic, normocephalic - Eye Eye exam: Present: normal appearance - ENT ENT exam: Present: mucous membranes moist - Neurological Exam Neurological exam: Present: alert, oriented X3 - Psychiatric Psychiatric exam: Present: normal affect, normal mood - Expanded Skin Exam Expanded Type of lesion: Present: abrasion (Skin tear no edematous no drainage erythmatous. ) Description of rash: Present: tenderness ED Course Vital Signs 04/21/19 11:56 Temperature 98.5 F Pulse Rate 74 Respiratory 20 Rate Blood Pressure 141/58 [Right] O2 Sat by Pulse 95 Oximetry ED Medical Decision Making - Medical Decision Making 63 y/o male comes in for skin tear on left stump. Patient reports that he has just gotten a new prosthesis. Denies any fever or chills. No swelling or discharge from stump. Has history of diabetes. Clean wound with wound drain cleaner and referral to wound clinic. Critical care attestation.: If time is entered above; I have spent that time in minutes in the direct care of this critically ill patient, excluding procedure time. ED Disposition Clinical Impression: Skin tear of left lower leg without complication Disposition: DC-01 TO HOME OR SELFCARE Is pt being admited?: No Does the pt Need Aspirin: No Condition: Stable Instructions: Skin Tear (ED) Additional Instructions: keep wound clean and follow up at the wound clinic in the next 24-48 hours. Do Not Wear prosthesis until wound has healed. [facility]errals[facility]Outside[facility] - 3-5 Days Forms: Accompanied Note, Work/School Release Form(ED)
== END 2019-04-21 14:45 | disposition home or self-care (01) ==
LOC: ED 11:14
DX: S80.812A Abrasion, left lower leg, initial encounter (principal); I11.0 Hypertensive heart disease with heart failure; I50.9 Heart failure, unspecified; I25.2 Old myocardial infarction; M19.90 Unspecified osteoarthritis, unspecified site; E11.9 Type 2 diabetes mellitus without complications; Z95.5 Presence of coronary angioplasty implant and graft; Z79.899 Other long term (current) drug therapy; Z79.4 Long term (current) use of insulin; X58.XXXA Exposure to other specified factors, initial encounter; Y93.89 Activity, other specified; Y92.89 Other specified places as the place of occurrence of the external cause; Y99.8 Other external cause status
CPT/HCPCS: 99282

== ENCOUNTER 2019-07-21 08:01 | Inpatient (IN) | payer MEDICARE ==
--- NOTE | 2019-07-21 08:22 | Emergency Department Report ---
HPI - General Chief Complaint: Dyspnea/Respdistress Time Seen by Provider: 07/21/19 08:10 - HPI HPI: 63-year-old male presents to the emergency department with a complaint of a two-week history of progressively worsening shortness of breath and lower extremity swelling. He has a past medical history of NC 2, CVA 2 without residual deficits, insulin dependent diabetes, hypertension, CHF and chronic kidney disease. The patient has been using his home medications including Lasix, an inhaler, without any relief. His shortness of breath worsens with laying flat and he has been unable to get much sleep. No recent travel or sick contacts at home. His symptoms are also associated with an occasional cough and occasional wheezing. His primary care physician is Dr. Florian and his senior capital markets specialist is Dr Prasanth Andino. ED Past Medical Hx - Past Medical History Hx Hypertension: Yes Hx CVA: Yes (mini stroke) Hx Heart Attack/AMI: Yes (x 2 (2010, 2004)) Hx Congestive Heart Failure: Yes Hx Diabetes: Yes Hx Arthritis: Yes (hands) Additional medical history: h/o staph infection 2009 - Surgical History Hx Pacemaker: 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) Hx Internal Defibrillator: Yes Additional Surgical History: L BKA - Social History Smoking Status: Never Smoker Substance Use Type: None - Medications Home Medications: Home Medications Medication Instructions Recorded Confirmed Last Taken Type AtorvaSTATin [Lipitor] 40 mg PO QHS 07/21/19 07/21/19 Unknown History Insulin Aspart (Nf) [NovoLOG 8 units SUB-Q TID 07/21/19 07/21/19 Unknown History Flexpen] Insulin Degludec [Tresiba 40 unit SQ QDAY 07/21/19 07/21/19 Unknown History Flextouch U-100] Isosorbide Dinitrate [Isordil 20 mg PO TID 07/21/19 07/21/19 Unknown History Titradose] Metoprolol [Lopressor] 100 mg PO QDAY 07/21/19 07/21/19 Unknown History NIFEdipine [Nifedipine ER] 90 mg PO QDAY 07/21/19 07/21/19 Unknown History Nitroglycerin [Nitrostat] 0.4 mg SL QDAY 07/21/19 07/21/19 Unknown History Torsemide [Demadex] 20 mg PO TID 07/21/19 07/21/19 Unknown History hydrALAZINE [Apresoline TAB] 100 mg PO QDAY 07/21/19 07/21/19 Unknown History ED Review of Systems ROS: Stated complaint: SONIA Other details as noted in HPI Comment: All other systems reviewed and negative Constitutional: denies: chills, fever Eyes: denies: eye pain, vision change ENT: denies: ear pain, throat pain Respiratory: cough, orthopnea, shortness of breath, SOB with exertion, SOB at rest Cardiovascular: edema. denies: chest pain Gastrointestinal: denies: abdominal pain, vomiting Genitourinary: denies: dysuria, discharge Musculoskeletal: denies: back pain, arthralgia Skin: denies: rash, lesions Neurological: denies: headache, weakness Physical Exam - Physical Exam Vital Signs: Vital Signs 07/21/19 08:06 Temperature 97.7 F Pulse Rate 85 Respiratory 22 Rate Blood Pressure 128/50 O2 Sat by Pulse 91 Oximetry Physical Exam: GENERAL: The patient is well-developed well-nourished. HENT: Normocephalic. Atraumatic. Patient has moist mucous membranes. EYES: Extraocular motions are intact. NECK: Supple. Trachea is midline. CHEST/LUNGS: Coarse breath sounds throughout the chest. There is tachypnea but no accessory muscle use. Occasional productive sounding cough is heard during examination. There is no respiratory distress noted. HEART/CARDIOVASCULAR: Regular. There is no tachycardia. There is no murmur. ABDOMEN: Abdomen is soft, nontender. Patient has normal bowel sounds. There is no abdominal distention. SKIN: Skin is warm and dry. +2 pitting edema to the right lower extremity all the way up to the hip, as well as some swelling/edema to the abdominal wall. NEURO: The patient is awake, alert, and oriented. The patient is cooperative. The patient has no focal neurologic deficits. Normal speech. MUSCULOSKELETAL: There is no tenderness or deformity. Left below-knee amputation. There is no evidence of acute injury. ED Course Vital Signs 07/21/19 08:06 Temperature 97.7 F Pulse Rate 85 Respiratory 22 Rate Blood Pressure 128/50 O2 Sat by Pulse 91 Oximetry - ABG Interpretation Ph: 7.33 PCO2: 39 PO2: 104 Bicarbonate: 20 Interpretation: normal ED Medical Decision Making - Lab Data Result diagrams: 07/22/19 04:24 07/22/19 04:24 - EKG Data -: EKG Interpreted by Me - EKG Data Interpretation: unchanged when compared t (04/30/18), other (atrial paced, rate of 74, prolonged TN interval QTC intervals, left axis deviation, Q waves to the anterior and lateral leads, nonspecific intraventricular conduction delay) - Radiology Data Radiology results: report reviewed, image reviewed interpreted by me: Chest x-ray shows some pulmonary vascular congestion and cardiomegaly. Inhaled administration followed by immediate static images of chest in multiple projections coordinated with breathing instructions. Followed by immediate static images of chest in multiple projections post I.V. injection. 9.87 millicuries of 133 Xenon is administered by inhalation. Pulmonary wash-in, equilibrium, and washout phases are performed. Then, 4.66 millicuries of 99m Tc MAA is administered intravenously. FINDINGS: Chest imaging study same day is compared The ventilation scan is normal without evidence of delayed washout. The perfusion scan demonstrates homogeneous uptake without evidence of segmental or subsegmental defects. IMPRESSION: Normal lung scan. - Medical Decision Making This patient presented with progressively worsening shortness of breath and lower extremity swelling despite compliance with his medications including Lasix. Labs show acute on chronic renal insufficiency/failure, anemia of chronic kidney disease, elevated troponin and an elevated BNP level. Chest x-ra y shows some pulmonary vascular congestion but no overt pleural effusions. He had a elevated and equivocal d-dimer so a VQ scan was done that was low probability for a pulmonary embolism. Patient was given breathing treatments. I spoke with the patient's primary care physician, Dr Florian, who says that he no longer admits his own patients to this Hospital. Patient was accepted for admission by the hospitalist service. - Differential Diagnosis CHF, hyperkalemia, NC, PE, pneumonia Critical care attestation.: If time is entered above; I have spent that time in minutes in the direct care of this critically ill patient, excluding procedure time. ED Disposition Clinical Impression: Acute exacerbation of CHF (congestive heart failure), Acute on chronic renal failure, Elevated troponin Disposition: OP ADMIT IP TO THIS HOSP Is pt being admited?: Yes Condition: Fair Time of Disposition: 10:23
--- NOTE | 2019-07-21 09:07 | XRay Report ---
CHEST 1 VIEW INDICATION: SOB. COMPARISON: 04/24/2018 FINDINGS: Support devices: Pacemaker device is unchanged. Heart: Stable borderline cardiomegaly. Lungs/Pleura: Mild central pulmonary venous congestion has developed. No pleural effusion or pneumoth orax. Additional findings: None. IMPRESSION: Borderline heart size. Mild pulmonary venous congestion. Signer Name: Herrera Tanner Jr, MD Signed: 07/21/2019 9:03 AM Workstation Name: [id number]
[2019-07-21 09:36] LABS: Basophils # (Auto) 0.1 K/mm3 (0.0-0.1); Basophils % (Auto) 1.1 % (0.0-1.8); Eosinophils # (Auto) 0.1 K/mm3 (0.0-0.4); Eosinophils % (Auto) 1.5 % (0.0-4.3); Hematocrit 25.5 % (35.5-45.6); Hemoglobin 8.6 gm/dl (11.8-15.2); Lymphocytes # (Auto) 0.9 K/mm3 (1.2-5.4); Lymphocytes % (Auto) 9.9 % (13.4-35.0); Mean Corpuscular HGB Conc 34 % (32-34); Mean Corpuscular Volume 98 fl (84-94); Monocytes # (Auto) 0.7 K/mm3 (0.0-0.8); Monocytes % (Auto) 7.3 % (0.0-7.3); Platelet Count 239 K/mm3 (140-440); Red Blood Count 2.59 M/mm3 (3.65-5.03); Red Cell Distribution Width 14.8 % (13.2-15.2)
[2019-07-21 10:03] LABS: Albumin 3.9 g/dL (3.9-5); Calcium 8.8 mg/dL (8.4-10.2)
[2019-07-21] MEDS ORDERED: FUROSEMIDE 40 MG/4 ML INJ IV ONE (10:10)
[2019-07-21 10:21] LABS: Chol/HDL Ratio 2.56 %
--- NOTE | 2019-07-21 10:58 | Nuclear Medicine Report ---
TECHNICAL DATA: Inhaled administration followed by immediate static images of chest in multiple projections coordin ed with breathing instructions. Followed by immediate static images of chest in multiple projections post I.V. injection. 9.87 millicuries of 133 Xenon is administered by inhalation. Pulmonary wash-in, equilibrium, and washout phases are performed. Then, 4.66 millicuries of 99m Tc MA A is administered intravenously. FINDINGS: Chest imaging study same day is compared The ventilation scan is normal without evidence of delayed washout. The perfusion scan demonstrates h omogeneous uptake without evidence of segmental or subsegmental defects. IMPRESSION: Normal lung scan. Signer Name: Ganga Luis MD Signed: 07/21/2019 10:54 AM Workstation Name: [id number]
--- NOTE | 2019-07-21 13:16 | History and Physical Report ---
History of Present Illness Date of examination: 07/21/19 Date of admission: 07/21/19 10:23 Chief complaint: Shortness of breath History of present illness: Patient is a 63 yo AA man with a plethora of severe co-morbidities including hypertension, DM type 2, CKD 3, AOCD (s/p EGD/Colonoscopy on 03/04/18 with multiple large colonic polyps removed ), TIA, OA hands, AMI x 2, CHF with EF 30- 35%, UTI, chronic constipation, PAD and dyslipidemia who presents to [facility] ED with severe progressive worsening, constant shortness of breath over 2 weeks associated with increase leg swelling, decrease urinary output and weight gain. He takes 60mg of lasix at home and was told if he gains 3 lbs overnight to increase to 120mg of lasix/day which he did without any improvement in symptoms. There is no aggravating or relieving factors. He has symptoms related to orthopnea. The patient has been using his home medications including Lasix, an inhaler, without any relief. No recent travel or sick contacts at home. His symptoms are also associated with an occasional cough and occasional wheezing. His primary care physician is Dr. Florian, however, he does not admit to this hospital anymore (I spoke with him also) and his wheat grower is Dr Prasanth Andino. PMH: as hpi PSH: AICD/PPM, Left AKA SH: smoking (smoked for 20 years, QUIT IN 1999. ), alcohol abuse (abused alcohol for 15 years but quit in 2001), other (he denies illicit drug use) FH: cancer (pancreatic, lung and stomach), diabetes, hypertension ROS: Constitutional: denies: fever ENT: denies: throat or neck pain Respiratory: denies: cough, +shortness of breath Cardiovascular: denies: chest pain Endocrine: denies unexplained weight loss or gain Gastrointestinal: denies: abdominal pain, nausea +abd swelling, +constipation Genitourinary: denies: dysuria Rectal: denies no incontinence, no bleeding, no itching, no discharge Musculoskeletal: denies swelling, myaglia, muscle weakness Skin: denies: rash Neurological: denies: headache Hematological/Lymphatic: denies: easy bleeding or easy bruising Allergic/Immunologic: no urticaria, no allergic rhinitis, no anaphylaxis Psych: denies sadness or hopelessness, SI/HI Gen: chronically disable, ill appearing, mild increase accessory muscle usage, Awake, Alert, Orientated x 3 HEENT: NCAT, EOMI, PERRL, OP Clear Neck: supple, no adenopathy, no thyromegaly, JVD CVS/Heart: RRR, normal S1S2, pulses present bilaterally Chest/Lungs: diminished with bibasilar crackles, Symmetrical chest expansion, good air entry bilaterally GI/Abdomen: distended, nontender, good bowel sounds, no guarding or rebound /Bladder: no suprapubic tenderness, no CVA or paraspinal tenderness Extermity/Skin: pitting right leg, no obvious rash MSK: FROM x 3, left AKA with prosthesis intact Neuro: CN 2-12 grossly intact, no new focal deficits Psych: calm Medications and Allergies Allergies Allergy/AdvReac Type Severity Reaction Status Date / Time No Known Allergies Allergy Verified 07/21/19 08:02 Home Medications Medication Instructions Recorded Confirmed Last Taken Type AtorvaSTATin [Lipitor] 40 mg PO QHS 07/21/19 07/21/19 Unknown History Insulin Aspart (Nf) [NovoLOG 8 units SUB-Q TID 07/21/19 07/21/19 Unknown History Flexpen] Insulin Degludec [Tresiba 40 unit SQ QDAY 07/21/19 07/21/19 Unknown History Flextouch U-100] Isosorbide Dinitrate [Isordil 20 mg PO TID 07/21/19 07/21/19 Unknown History Titradose] Metoprolol [Lopressor] 100 mg PO QDAY 07/21/19 07/21/19 Unknown History NIFEdipine [Nifedipine ER] 90 mg PO QDAY 07/21/19 07/21/19 Unknown History Nitroglycerin [Nitrostat] 0.4 mg SL QDAY 07/21/19 07/21/19 Unknown History Torsemide [Demadex] 20 mg PO TID 07/21/19 07/21/19 Unknown History hydrALAZINE [Apresoline TAB] 100 mg PO QDAY 07/21/19 07/21/19 Unknown History Exam - Constitutional Vitals: Temp Pulse Resp BP Pulse Ox 97.7 F 80 16 142/73 98 07/21/19 08:06 07/21/19 11:00 07/21/19 11:00 07/21/19 11:00 07/21/19 11:00 Results - Labs CBC & Chem 7: 07/21/19 08:58 07/21/19 08:58 Labs: Laboratory Last Values WBC 8.9 K/mm3 (4.5-11.0) 07/21/19 08:58 RBC 2.59 M/mm3 (3.65-5.03) L 07/21/19 08:58 Hgb 8.6 gm/dl (11.8-15.2) L 07/21/19 08:58 Hct 25.5 % (35.5-45.6) L 07/21/19 08:58 MCV 98 fl (84-94) H 07/21/19 08:58 MCH 33 pg (28-32) H 07/21/19 08:58 MCHC 34 % (32-34) 07/21/19 08:58 RDW 14.8 % (13.2-15.2) 07/21/19 08:58 Plt Count 239 K/mm3 (140-440) 07/21/19 08:58 Lymph % (Auto) 9.9 % (13.4-35.0) L 07/21/19 08:58 Tyler % (Auto) 7.3 % (0.0-7.3) 07/21/19 08:58 Eos % (Auto) 1.5 % (0.0-4.3) 07/21/19 08:58 Baso % (Auto) 1.1 % (0.0-1.8) 07/21/19 08:58 Lymph # 0.9 K/mm3 (1.2-5.4) L 07/21/19 08:58 Tyler # 0.7 K/mm3 (0.0-0.8) 07/21/19 08:58 Eos # 0.1 K/mm3 (0.0-0.4) 07/21/19 08:58 Baso # 0.1 K/mm3 (0.0-0.1) 07/21/19 08:58 Seg Neutrophils % 80.2 % (40.0-70.0) H 07/21/19 08:58 Seg Neutrophils # 7.1 K/mm3 (1.8-7.7) 07/21/19 08:58 D-Dimer 274.10 ng/mlDDU (0-234) H 07/21/19 08:58 POC ABG pH 7.330 (7.35-7.45) L 07/21/19 09:46 POC ABG pCO2 39.0 (35-45) 07/21/19 09:46 POC ABG pO2 104 (80-105) 07/21/19 09:46 POC ABG HCO3 20.6 (22-26 mml/L) 07/21/19 09:46 POC ABG Total CO2 22 (23-27mmol/L) 07/21/19 09:46 POC ABG O2 Sat 98 07/21/19 09:46 POC ABG Base Excess -5 ((-2) - (+3)mmol/L) 07/21/19 09:46 FiO2 28 % 07/21/19 09:46 Sodium 143 mmol/L (137-145) 07/21/19 08:58 Potassium 3.9 mmol/L (3.6-5.0) 07/21/19 08:58 Chloride 106.3 mmol/L (98-107) 07/21/19 08:58 Carbon Dioxide 17 mmol/L (22-30) L 07/21/19 08:58 Anion Gap 24 mmol/L 07/21/19 08:58 BUN 82 mg/dL (9-20) H 07/21/19 08:58 Creatinine 3.0 mg/dL (0.8-1.5) H 07/21/19 08:58 Estimated GFR 26 ml/min 07/21/19 08:58 BUN/Creatinine Ratio 27 % 07/21/19 08:58 Glucose 148 mg/dL (75-100) H 07/21/19 08:58 Calcium 8.8 mg/dL (8.4-10.2) 07/21/19 08:58 Total Bilirubin 0.40 mg/dL (0.1-1.2) 07/21/19 08:58 AST 20 units/L (5-40) 07/21/19 08:58 ALT 33 units/L (7-56) 07/21/19 08:58 Alkaline Phosphatase 129 units/L (35-129) 07/21/19 08:58 Troponin T 0.388 ng/mL (0.00-0.029) H* 07/21/19 08:58 NT-Pro-B Natriuret Pep 4204 pg/mL (0-900) H 07/21/19 08:58 Total Protein 7.7 g/dL (6.3-8.2) 07/21/19 08:58 Albumin 3.9 g/dL (3.9-5) 07/21/19 08:58 Albumin/Globulin Ratio 1.0 % 07/21/19 08:58 Triglycerides 63 mg/dL (2-149) 07/21/19 08:58 Cholesterol 131 mg/dL (50-199) 07/21/19 08:58 LDL Cholesterol Direct 80 mg/dL (50-130) 07/21/19 08:58 HDL Cholesterol 51 mg/dL (40-59) 07/21/19 08:58 Cholesterol/HDL Ratio 2.56 % 07/21/19 08:58 Assessment and Plan Assessment and plan: Patient is a 63 yo AA man with a plethora of severe co-morbidities including hypertension, DM type 2, CKD 3, AOCD (s/p EGD/Colonoscopy on 03/04/18 with multiple large colonic polyps removed ), TIA, OA hands, AMI x 2, CHF with EF 30- 35%, UTI, chronic constipation, PAD and dyslipidemia who presents to [facility] ED with severe progressive worsening, constant shortness of breath over 2 weeks associated with increase leg swelling, decrease urinary output and weight gain. He takes 60mg of lasix at home and was told if he gains 3 lbs overnight to increase to 120mg of lasix/day which he did without any improvement in symptoms. There is no aggravating or relieving factors. He has symptoms related to orthopnea. The patient has been using his home medications including Lasix, an inhaler, without any relief. No recent travel or sick contacts at home. His symptoms are also associated with an occasional cough and occasional wheezing. His primary care physician is Dr. Florian, however, he does not admit to this hospital anymore (I spoke with him also) and his wheat grower is Dr Prasanth Andino. Acute and chronic decompensation of systolic heart failure -treat with IV lasix bid -Consulted cardiology Acute on chronic kidney disease stage IV -On IV diuretic, will monitor his renal function levels -Consult his bulb brander Elevated troponin probably NSTEMI type 2 -Tele monitoring -Consulted his wheat grower Acute metabolic acidosis secondary to the renal dysfunction -will monitor and replete as needed DM2 with hypoglycemia, poa -hold Lantus and treat with SSI -ada diet -accu check HTN, stable DVT Prophylaxis -sq heparin Constipation -Dulcolax pr -miralax daily Preventive health screening 16 minutes Advance Care planning 30 minutes
[2019-07-21] MEDS ORDERED: DEXTROSE 50% IN WATER (25GM) 50 ML SYRINGE IV ONE (13:39)
[2019-07-21] MEDS ORDERED: DEXTROSE 50% IN WATER (25GM) 50 ML SYRINGE IV PRN (13:39)
[2019-07-21] MEDS ORDERED: NON-FORMULARY EACH (Nifedipine [Nifedipine Er] 90 MG) PO SCH (13:45)
[2019-07-21] MEDS: ASPIRIN 81 MG TAB CHEW PO SCH (14:15)
[2019-07-21] MEDS: NIFEdipine XL 90 MG TAB PO SCH (14:15)
[2019-07-21] MEDS: METOPROLOL TARTRATE 100 MG TAB PO SCH (14:15)
[2019-07-21] MEDS: ISOSORBIDE DINITRATE 20 MG TAB PO SCH ×2 (14:16→21:26)
[2019-07-21] MEDS: POLYETHYLENE GLYCOL 3350 17 GM POWDER PO SCH (14:16)
--- NOTE | 2019-07-21 15:28 | XRay Report ---
ABDOMEN 2 VIEW(S) INDICATION / CLINICAL INFORMATION: abd distension. COMPARISON: None available. FINDINGS: TUBES / LINES: None. BOWEL GAS PATTERN: No significant abnormality. FREE AIR / EXTRALUMINAL GAS: None seen. ADDITIONAL FINDINGS: No significant additional findings. IMPRESSION: No significant abnormality. Signer Name: Herrera Tanner Jr, MD Signed: 07/21/2019 3:24 PM Workstation Name: [id number]
[2019-07-21] MEDS: INSULIN LISPRO 100 UNIT/ML SUB-Q SCH (17:17)
[2019-07-21] MEDS: FUROSEMIDE 40 MG/4 ML INJ IV SCH (17:18)
[2019-07-21] MEDS: HEPARIN 5,000 UNIT/1 ML VIAL SUB-Q SCH (21:26)
[2019-07-22] MEDS: INSULIN LISPRO 100 UNIT/ML SUB-Q SCH ×5 (01:30→21:37)
[2019-07-22 05:32] LABS: Hematocrit 26.7 % (35.5-45.6); Hemoglobin 8.9 gm/dl (11.8-15.2); Mean Corpuscular HGB Conc 33 % (32-34); Mean Corpuscular Volume 99 fl (84-94); Red Blood Count 2.71 M/mm3 (3.65-5.03); Red Cell Distribution Width 14.6 % (13.2-15.2)
[2019-07-22] MEDS: FUROSEMIDE 40 MG/4 ML INJ IV SCH ×3 (05:38→21:37)
[2019-07-22 05:55] LABS: Calcium 8.8 mg/dL (8.4-10.2)
--- NOTE | 2019-07-22 09:10 | Consultation ---
History of Present Illness Consult date: 07/22/19 Consult reason: congestive heart failure History of present illness: Patient is a 63 yo AA man with a history including hypertension, DM type 2, CKD 3, AOCD (s/p EGD/Colonoscopy on 03/04/18 with multiple large colonic polyps removed), TIA, OA hands, AMI x 2, CHF with EF 30-35%, UTI, chronic constipation, PAD and dyslipidemia who presents to [facility] ED with severe progressive worsening, constant shortness of breath over 2 weeks associated with increase leg swelling, decrease urinary output and weight gain. The patient notes that he takes lasix at home, but in the last several weeks the medication has not made him void. The patient endorses orthopnea, or pnd. Patient denies chest pain, dizzienss or syncope. Past History Past Medical History: diabetes, heart failure, stroke, other (kidney disease) Past Surgical History: Other (ppm) Medications and Allergies Allergies Allergy/AdvReac Type Severity Reaction Status Date / Time No Known Allergies Allergy Verified 07/21/19 08:02 Home Medications Medication Instructions Recorded Confirmed Last Taken Type AtorvaSTATin [Lipitor] 40 mg PO QHS 07/21/19 07/21/19 Unknown History Insulin Aspart (Nf) [NovoLOG 8 units SUB-Q TID 07/21/19 07/21/19 Unknown History Flexpen] Insulin Degludec [Tresiba 40 unit SQ QDAY 07/21/19 07/21/19 Unknown History Flextouch U-100] Isosorbide Dinitrate [Isordil 20 mg PO TID 07/21/19 07/21/19 Unknown History Titradose] Metoprolol [Lopressor] 100 mg PO QDAY 07/21/19 07/21/19 Unknown History NIFEdipine [Nifedipine ER] 90 mg PO QDAY 07/21/19 07/21/19 Unknown History Nitroglycerin [Nitrostat] 0.4 mg SL QDAY 07/21/19 07/21/19 Unknown History Torsemide [Demadex] 20 mg PO TID 07/21/19 07/21/19 Unknown History hydrALAZINE [Apresoline TAB] 100 mg PO QDAY 07/21/19 07/21/19 Unknown History Active Meds: Active Medications Aspirin (Baby Aspirin) 81 mg PO QDAY [facility] Last Admin: 07/21/19 14:15 Dose: 81 mg Documented by: Atorvastatin Calcium (Lipitor) 40 mg PO QHS [facility] Last Admin: 07/21/19 21:26 Dose: 40 mg Documented by: Dextrose (D50w (25gm) Syringe) 50 ml IV Q30MIN PRN; Protocol PRN Reason: Hypoglycemia Furosemide (Lasix) 40 mg IV 0600,1800 [facility] Last Admin: 07/22/19 05:38 Dose: 40 mg Documented by: Heparin Sodium (Porcine) (Heparin) 5,000 unit SUB-Q Q12HR [facility] Last Admin: 07/21/19 21:26 Dose: 5,000 unit Documented by: Hydralazine HCl (Apresoline) 100 mg PO QDAY [facility] Insulin Glargine (Lantus) 40 units SUB-Q QDAY [facility] Insulin Human Lispro (Humalog) 0 unit SUB-Q ACHS [facility]; Protocol Last Admin: 07/22/19 08:30 Dose: Not Given Documented by: Isosorbide Dinitrate (Isordil Titradose) 20 mg PO TID [facility] Last Admin: 07/21/19 21:26 Dose: 20 mg Documented by: Metoprolol Tartrate (Metoprolol) 100 mg PO QDAY [facility] Last Admin: 07/21/19 14:15 Dose: 100 mg Documented by: Nifedipine (Procardia Xl) 90 mg PO QDAY [facility] Last Admin: 07/21/19 14:15 Dose: 90 mg Documented by: Pneumococcal Polyvalent Vaccine (Pneumovax 23) 0.5 ml IM .ONCE ONE Stop: 07/22/19 12:01 Polyethylene Glycol (Miralax 3350) 17 gm PO QDAY [facility] Last Admin: 07/21/19 14:16 Dose: 17 gm Documented by: Physical Examination Vital Signs Temp Pulse Resp BP Pulse Ox 97.7 F 85 22 128/50 91 07/21/19 08:06 07/21/19 08:06 07/21/19 08:06 07/21/19 08:06 07/21/19 08:06 General appearance: no acute distress HEENT: Positive: PERRL, EOMI Neck: Positive: neck supple Cardiac: Positive: Reg Rate and Rhythm, S1/S2 Lungs: Positive: Rales Neuro: Positive: Grossly Intact Abdomen: Positive: Unremarkable, Soft Extremities: Present: +1 Edema Results 07/22/19 04:24 07/22/19 04:24 Cardiac Enzymes 07/21/19 Range/Units 08:58 AST 20 (5-40) units/L Lipids 07/21/19 Range/Units 08:58 Triglycerides 63 (2-149) mg/dL Cholesterol 131 (50-199) mg/dL HDL Cholesterol 51 (40-59) mg/dL Cholesterol/HDL Ratio 2.56 % CBC 07/21/19 07/22/19 Range/Units 08:58 04:24 WBC 8.9 8.7 (4.5-11.0) K/mm3 RBC 2.59 L 2.71 L (3.65-5.03) M/mm3 Hgb 8.6 L 8.9 L (11.8-15.2) gm/dl Hct 25.5 L 26.7 L (35.5-45.6) % Plt Count 239 (140-440) K/mm3 Lymph # 0.9 L (1.2-5.4) K/mm3 Armstrong # 0.7 (0.0-0.8) K/mm3 Eos # 0.1 (0.0-0.4) K/mm3 Baso # 0.1 (0.0-0.1) K/mm3 Comprehensive Metabolic Panel 07/21/19 07/22/19 Range/Units 08:58 04:24 Sodium 143 146 H (137-145) mmol/L Potassium 3.9 4.4 (3.6-5.0) mmol/L Chloride 106.3 109.1 H (98-107) mmol/L Carbon Dioxide 17 L 17 L (22-30) mmol/L BUN 82 H 82 H (9-20) mg/dL Creatinine 3.0 H 2.7 H (0.8-1.5) mg/dL Glucose 148 H 98 (75-100) mg/dL Calcium 8.8 8.8 (8.4-10.2) mg/dL AST 20 (5-40) units/L ALT 33 (7-56) units/L Alkaline Phosphatase 129 (35-129) units/L Total Protein 7.7 (6.3-8.2) g/dL Albumin 3.9 (3.9-5) g/dL Assessment and Plan 1. Acute and chronic decompensation of systolic heart failure - strict I/Os. daily weight. continue gentle diuresis. Continue goal directed medical therapy. check echo for evaluation of LV function. 2. Acute on chronic kidney disease stage IV - management per nephrology 3. Elevated troponin secondary NSTEMI type 2 in the setting of cardiomyopathy 4. Acute metabolic acidosis secondary to the renal dysfunction - management per nephrology 5. DM2 - management per primary 6. HTN - maximize medical therapy as blood pressure requires
[2019-07-22] MEDS: ASPIRIN 81 MG TAB CHEW PO SCH (09:20)
[2019-07-22] MEDS: METOPROLOL TARTRATE 100 MG TAB PO SCH (09:20)
[2019-07-22] MEDS: HEPARIN 5,000 UNIT/1 ML VIAL SUB-Q SCH ×2 (09:21→21:36)
[2019-07-22] MEDS: POLYETHYLENE GLYCOL 3350 17 GM POWDER PO SCH (09:21)
[2019-07-22] MEDS: hydrALAZINE 100 MG TAB PO SCH (09:21)
[2019-07-22] MEDS: ISOSORBIDE DINITRATE 20 MG TAB PO SCH ×3 (09:21→21:37)
[2019-07-22] MEDS: NIFEdipine XL 90 MG TAB PO SCH (09:21)
[2019-07-22] MEDS ORDERED: INSULIN DEGLUDEC 40 UNIT SQ SCH (10:00)
[2019-07-22 10:08] LABS: Platelet Count 241 K/mm3 (140-440)
[2019-07-22] MEDS: INSULIN GLARGINE 100 UNITS/ML SUB-Q SCH (10:44)
[2019-07-22] MEDS ORDERED: FLU VACC QUAD 2019-20 (3 YR UP)/PF 60 MCG/0.5 ML SYRINGE IM ONE (12:00)
[2019-07-22] MEDS ORDERED: PNEUMOCOCCAL 23 Valent 0.5 ML VIAL IM ONE (12:00)
--- NOTE | 2019-07-22 12:51 | Consultation ---
History of Present Illness - Reason for Consult Consult date: 07/22/19 chronic renal failure - History of Present Illness RFC: CKD, volume overload HPI: Mr Peres is a 63 year old M with a PMH of DM2, HTN, CKD, AOCD, TIA, OA, CHF, PAD, HLD who has been admitted to the [facility] with SHOB along with leg swelling. He has also had dec UOP and weight gain. He says his home lasix is not working much. He has 2-3+ RLE swelling (has left leg amputation). He currently denies N/V, CP, fever, belly pain, diarrhea. PMH: DM2, HTN, CKD, AOCD, TIA, OA, CHF, PAD, HLD PSH: AICD/PPM, Left AKA SH: smoking (smoked for 20 years, QUIT IN 1999. ), alcohol abuse (abused alcohol for 15 years but quit in 2001), other (he denies illicit drug use) FH: cancer (pancreatic, lung and stomach), diabetes, hypertension Past History Past Medical History: diabetes, heart failure, stroke, other (kidney disease) Past Surgical History: Other (ppm) Medications and Allergies Allergies Allergy/AdvReac Type Severity Reaction Status Date / Time No Known Allergies Allergy Verified 07/21/19 08:02 Home Medications Medication Instructions Recorded Confirmed Last Taken Type AtorvaSTATin [Lipitor] 40 mg PO QHS 07/21/19 07/21/19 Unknown History Insulin Aspart (Nf) [NovoLOG 8 units SUB-Q TID 07/21/19 07/21/19 Unknown History Flexpen] Insulin Degludec [Tresiba 40 unit SQ QDAY 07/21/19 07/21/19 Unknown History Flextouch U-100] Isosorbide Dinitrate [Isordil 20 mg PO TID 07/21/19 07/21/19 Unknown History Titradose] Metoprolol [Lopressor] 100 mg PO QDAY 07/21/19 07/21/19 Unknown History NIFEdipine [Nifedipine ER] 90 mg PO QDAY 07/21/19 07/21/19 Unknown History Nitroglycerin [Nitrostat] 0.4 mg SL QDAY 07/21/19 07/21/19 Unknown History Torsemide [Demadex] 20 mg PO TID 12/06/19 12/06/19 Unknown History hydrALAZINE [Apresoline TAB] 100 mg PO QDAY 07/21/19 07/21/19 Unknown History Active Meds: Active Medications Aspirin (Baby Aspirin) 81 mg PO QDAY [facility] Last Admin: 07/22/19 09:20 Dose: 81 mg Documented by: Atorvastatin Calcium (Lipitor) 40 mg PO QHS [facility] Last Admin: 07/21/19 21:26 Dose: 40 mg Documented by: Dextrose (D50w (25gm) Syringe) 50 ml IV Q30MIN PRN; Protocol PRN Reason: Hypoglycemia Furosemide (Lasix) 40 mg IV 0600,1800 [facility] Last Admin: 07/22/19 05:38 Dose: 40 mg Documented by: Heparin Sodium (Porcine) (Heparin) 5,000 unit SUB-Q Q12HR [facility] Last Admin: 07/22/19 09:21 Dose: 5,000 unit Documented by: Hydralazine HCl (Apresoline) 100 mg PO QDAY [facility] Last Admin: 07/22/19 09:21 Dose: 100 mg Documented by: Insulin Glargine (Lantus) 40 units SUB-Q QDAY [facility] Last Admin: 07/22/19 10:44 Dose: Not Given Documented by: Insulin Human Lispro (Humalog) 0 unit SUB-Q [facility]; Protocol Last Admin: 07/22/19 08:30 Dose: Not Given Documented by: Isosorbide Dinitrate (Isordil Titradose) 20 mg PO TID [facility] Last Admin: 07/22/19 09:21 Dose: 20 mg Documented by: Metoprolol Tartrate (Metoprolol) 100 mg PO QDAY [facility] Last Admin: 07/22/19 09:20 Dose: 100 mg Documented by: Nifedipine (Procardia Xl) 90 mg PO QDAY [facility] Last Admin: 07/22/19 09:21 Dose: 90 mg Documented by: Polyethylene Glycol (Miralax 3350) 17 gm PO QDAY [facility] Last Admin: 07/22/19 09:21 Dose: 17 gm Documented by: Exam - Vital Signs Vital signs: Vital Signs Temp Pulse Resp BP Pulse Ox 97.7 F 85 22 128/50 91 07/21/19 08:06 07/21/19 08:06 07/21/19 08:06 07/21/19 08:06 07/21/19 08:06 - Physical Exam Narrative exam: GE:AAOX3 HEENT:Normocephalic Neck:Supple Chest:BL Crackles CVS:RRR Abd:Soft/BS+ Ext:2-3+ RLE edema, Left leg amputated Neuro:AAOX3 Psyche:Appropriate mood Results - Lab Results 07/22/19 04:24 07/22/19 04:24 Most recent lab results Calcium 8.8 mg/dL (8.4-10.2) 07/22/19 04:24 Magnesium 2.30 mg/dL (1.7-2.3) 07/22/19 04:24 Assessment and Plan Acute Kidney injury likely cardiorenal syndrome on top of CKD: Volume overload: Hypoxic respiratory failure: Acute on chronic congestive CHF: Metabolic acidosis: Hypernatremia, Hypertonic: HTN: DM2: HLD: -Has leg edema, CXR congested -Inc lasix to 40 mg TID IV -Oral lasix has very erratic absorption and in CHF its absorption is even more reduced due to gut wall edema, he may need to be changed to PO bumex on discharge which is better absorbed -Monitor Renal function -Encourage PO water intake for hypernatremia (free water has minimal risk of volume overload as only 10% stays in the intravascular space) -Start Epogen for ACD -Check Iron panel for ACD in am -Start NaHCO3 tabs for acidosis -Renally dose all meds -Avoid Nephrotoxic meds -Strict I/Os Alessandro Brown MD [phone]
[2019-07-22] MEDS: SODIUM BICARBONATE 650 MG TAB PO SCH ×2 (14:00→21:37)
[2019-07-22] MEDS ORDERED: EPOETIN ALFA 10,000 UNIT/1 ML INJ SUB-Q PRN (14:00)
--- NOTE | 2019-07-22 16:13 | Progress Note ---
Assessment and Plan Assessment and plan: Patient is a 63 yo AA man with a plethora of severe co-morbidities including hypertension, DM type 2, CKD 5, AOCD (s/p EGD/Colonoscopy on 03/04/18 with multiple large colonic polyps removed ), TIA, OA hands, AMI x 2, CHF with EF 30- 35%, PPM, UTI, chronic constipation, PAD and dyslipidemia who presents to [facility] ED with severe progressive worsening, constant shortness of breath over 2 weeks associated with increase leg swelling, decrease urinary output and weight gain. He takes 60mg of lasix at home and was told if he gains 3 lbs overnight to increase to 120mg of lasix/day which he did without any improvement in symptoms. There is no aggravating or relieving factors. He has symptoms related to orthop lane. The patient has been using his home medications including Lasix, an inhaler, without any relief. No recent travel or sick contacts at home. His symptoms are also associated with an occasional cough and occasional wheezing. His primary care physician is Dr. Florian, however, he does not admit to this hospital anymore (I spoke with him also) and his [employer] dry [employer] manager is Dr Prasanth Andino. Acute and chronic decompensation of systolic heart failure -treat with IV lasix bid -Consulted cardiology Acute on chronic kidney disease stage 5 -On IV diuretic, will monitor his renal function levels -Consult his header up Elevated troponin probably NSTEMI type 2 -Tele monitoring -Consulted his [employer] manager Acute metabolic acidosis secondary to the renal dysfunction -will monitor and replete as needed DM2 with hypoglycemia, poa -hold Lantus and treat with SSI -ada diet -accu check HTN, stable DVT Prophylaxis -sq heparin Constipation -Dulcolax pr worked -miralax daily History Interval history: Patient was seen and examined. Follow-up on current diagnosis. No overnight events reported to me. Patient denies any chest pain, shortness breath, nausea/vomiting or severe headaches. Imaging, nursing note, chart, labs and old chart reviewed. Discussed with patient. Hospitalist Physical - Physical exam Narrative exam: Gen: chronically disable, ill appearing, NAD, Awake, Alert, Orientated x 3 HEENT: NCAT, EOMI, PERRL, OP Clear Neck: supple, no adenopathy, no thyromegaly, JVD CVS/Heart: RRR, normal S1S2, pulses present bilaterally Chest/Lungs: diminished with bibasilar crackles, Symmetrical chest expansion, good air entry bilaterally GI/Abdomen: distended, nontender, good bowel sounds, no guarding or rebound /Bladder: no suprapubic tenderness, no CVA or paraspinal tenderness Extermity/Skin: pitting right leg, no obvious rash MSK: FROM x 3, left AKA with prosthesis intact Neuro: CN 2-12 grossly intact, no new focal deficits Psych: calm - Constitutional Vitals: Temp Pulse Resp BP Pulse Ox 97.7 F 75 22 126/70 97 07/22/19 04:16 07/22/19 13:59 07/22/19 04:16 07/22/19 13:59 07/22/19 04:16 General appearance: Present: no acute distress Results - Labs CBC & Chem 7: 07/22/19 04:24 07/22/19 04:24 Labs: Laboratory Last Values WBC 8.7 K/mm3 (4.5-11.0) 07/22/19 04:24 RBC 2.71 M/mm3 (3.65-5.03) L 07/22/19 04:24 Hgb 8.9 gm/dl (11.8-15.2) L 07/22/19 04:24 Hct 26.7 % (35.5-45.6) L 07/22/19 04:24 MCV 99 fl (84-94) H 07/22/19 04:24 MCH 33 pg (28-32) H 07/22/19 04:24 MCHC 33 % (32-34) 07/22/19 04:24 RDW 14.6 % (13.2-15.2) 07/22/19 04:24 Plt Count 241 K/mm3 (140-440) 07/22/19 04:24 Lymph % (Auto) 9.9 % (13.4-35.0) L 07/21/19 08:58 Rapides % (Auto) 7.3 % (0.0-7.3) 07/21/19 08:58 Eos % (Auto) 1.5 % (0.0-4.3) 07/21/19 08:58 Baso % (Auto) 1.1 % (0.0-1.8) 07/21/19 08:58 Lymph # 0.9 K/mm3 (1.2-5.4) L 07/21/19 08:58 Rapides # 0.7 K/mm3 (0.0-0.8) 07/21/19 08:58 Eos # 0.1 K/mm3 (0.0-0.4) 07/21/19 08:58 Baso # 0.1 K/mm3 (0.0-0.1) 07/21/19 08:58 Seg Neutrophils % 80.2 % (40.0-70.0) H 07/21/19 08:58 Seg Neutrophils # 7.1 K/mm3 (1.8-7.7) 07/21/19 08:58 D-Dimer 274.10 ng/mlDDU (0-234) H 07/21/19 08:58 POC ABG pH 7.330 (7.35-7.45) L 07/21/19 09:46 POC ABG pCO2 39.0 (35-45) 07/21/19 09:46 POC ABG pO2 104 (80-105) 07/21/19 09:46 POC ABG HCO3 20.6 (22-26 mml/L) 07/21/19 09:46 POC ABG Total CO2 22 (23-27mmol/L) 07/21/19 09:46 POC ABG O2 Sat 98 07/21/19 09:46 POC ABG Base Excess -5 ((-2) - (+3)mmol/L) 07/21/19 09:46 FiO2 28 % 07/21/19 09:46 Sodium 146 mmol/L (137-145) H 07/22/19 04:24 Potassium 4.4 mmol/L (3.6-5.0) 07/22/19 04:24 Chloride 109.1 mmol/L (98-107) H 07/22/19 04:24 Carbon Dioxide 17 mmol/L (22-30) L 07/22/19 04:24 Anion Gap 24 mmol/L 07/22/19 04:24 BUN 82 mg/dL (9-20) H 07/22/19 04:24 Creatinine 2.7 mg/dL (0.8-1.5) H 07/22/19 04:24 Estimated GFR 29 ml/min 07/22/19 04:24 BUN/Creatinine Ratio 30 % 07/22/19 04:24 Glucose 98 mg/dL (75-100) 07/22/19 04:24 POC Glucose 177 (70-105) H 07/22/19 12:58 Calcium 8.8 mg/dL (8.4-10.2) 07/22/19 04:24 Magnesium 2.30 mg/dL (1.7-2.3) 07/22/19 04:24 Total Bilirubin 0.40 mg/dL (0.1-1.2) 07/21/19 08:58 AST 20 units/L (5-40) 07/21/19 08:58 ALT 33 units/L (7-56) 07/21/19 08:58 Alkaline Phosphatase 129 units/L (35-129) 07/21/19 08:58 Troponin T 0.356 ng/mL (0.00-0.029) H* 07/22/19 00:24 NT-Pro-B Natriuret Pep 4204 pg/mL (0-900) H 07/21/19 08:58 Total Protein 7.7 g/dL (6.3-8.2) 07/21/19 08:58 Albumin 3.9 g/dL (3.9-5) 07/21/19 08:58 Albumin/Globulin Ratio 1.0 % 07/21/19 08:58 Triglycerides 63 mg/dL (2-149) 07/21/19 08:58 Cholesterol 131 mg/dL (50-199) 07/21/19 08:58 LDL Cholesterol Direct 80 mg/dL (50-130) 07/21/19 08:58 HDL Cholesterol 51 mg/dL (40-59) 07/21/19 08:58 Cholesterol/HDL Ratio 2.56 % 07/21/19 08:58 Active Medications - Current Medications Current Medications: Generic Name Dose Route Start Last Admin Trade Name Freq PRN Reason Stop Dose Admin Aspirin 81 mg 07/21/19 14:00 07/22/19 09:20 Baby Aspirin PO 81 mg QDAY [facility] Administration Atorvastatin Calcium 40 mg 07/21/19 22:00 07/21/19 21:26 Lipitor PO 40 mg QHS [facility] Administration Dextrose 50 ml 07/21/19 13:39 D50w (25gm) Syringe IV Q30MIN PRN Hypoglycemia Protocol Epoetin Ben 10,000 unit 07/22/19 14:00 Procrit SUB-Q [facility] PRN DIALYSIS Furosemide 40 mg 07/22/19 14:00 07/22/19 14:00 Lasix IV 40 mg TID [facility] Administration Heparin Sodium (Porcine) 5,000 unit 07/21/19 22:00 07/22/19 09:21 Heparin SUB-Q 5,000 unit Q12HR [facility] Administration Hydralazine HCl 100 mg 07/22/19 10:00 07/22/19 09:21 Apresoline PO 100 mg QDAY [facility] Administration Insulin Glargine 40 units 07/22/19 10:00 07/22/19 10:44 Lantus SUB-Q Not Given QDAY [facility] Insulin Human Lispro 0 unit 07/21/19 16:30 07/22/19 14:08 Humalog SUB-Q 1 unit ACHS [facility] Administration Protocol Isosorbide Dinitrate 20 mg 07/21/19 14:00 07/22/19 13:59 Isordil Titradose PO 20 mg TID [facility] Administration Metoprolol Tartrate 100 mg 07/21/19 14:00 07/22/19 09:20 Metoprolol PO 100 mg QDAY [facility] Administration Nifedipine 90 mg 07/21/19 13:45 07/22/19 09:21 Procardia Xl PO 90 mg QDAY [facility] Administration Polyethylene Glycol 17 gm 07/21/19 14:00 07/22/19 09:21 Miralax 3350 PO 17 gm QDAY [facility] Administration Sodium Bicarbonate 650 mg 07/22/19 14:00 07/22/19 14:00 Sodium Bicarbonate PO 650 mg TID [facility] Administration
[2019-07-22] MEDS ORDERED: diphenhydrAMINE 25 MG CAP PO PRN (23:25)
[2019-07-23 08:10] LABS: Iron 31 ug/dL (49-181)
[2019-07-23 08:11] LABS: Total Iron Binding Capacity 253 mcg/dL (250-450)
--- NOTE | 2019-07-23 08:54 | Progress Note ---
Assessment and Plan 1. Acute and chronic decompensation of systolic heart failure - strict I/Os. daily weight. continue gentle diuresis. Continue goal directed medical therapy. Echo shows EF 45-50% with severe pulmonary hypertension. increase lasix as current dose is not resulting in significant output if okay with nephrology. 2. Acute on chronic kidney disease stage IV - management per nephrology 3. Elevated troponin secondary NSTEMI type 2 in the setting of cardiomyopathy 4. Acute metabolic acidosis secondary to the renal dysfunction - management per nephrology 5. DM2 - management per primary 6. HTN - maximize medical therapy as blood pressure requires Subjective Date of service: 07/23/19 Interval history: No acute events. Resting comfortably. No chest pain or SOB. Objective Vital Signs Temp Pulse Resp BP Pulse Ox 07/23/19 04:47 98.3 F 80 20 131/75 97 07/23/19 00:17 98.0 F 79 20 122/69 97 07/22/19 23:00 80 18 07/22/19 20:53 98.3 F 74 20 122/72 99 07/22/19 16:51 78 112/67 98 07/22/19 13:59 75 126/70 07/22/19 12:49 112/68 07/22/19 09:21 77 110/62 07/22/19 09:20 77 110/62 - Physical Examination HEENT: Positive: PERRL, EOMI Neck: Positive: neck supple Neuro: Positive: Grossly Intact Abdomen: Positive: Unremarkable, Soft Extremities: Present: +1 Edema - Labs and Meds CBC 07/22/19 Range/Units 04:24 Plt Count 241 (140-440) K/mm3
[2019-07-23] MEDS: INSULIN LISPRO 100 UNIT/ML SUB-Q SCH ×4 (10:12→22:18)
[2019-07-23] MEDS: FUROSEMIDE 40 MG/4 ML INJ IV SCH ×3 (10:31→22:20)
[2019-07-23] MEDS: HEPARIN 5,000 UNIT/1 ML VIAL SUB-Q SCH ×2 (10:31→22:18)
[2019-07-23] MEDS: ASPIRIN 81 MG TAB CHEW PO SCH (10:32)
[2019-07-23] MEDS: POLYETHYLENE GLYCOL 3350 17 GM POWDER PO SCH (10:32)
[2019-07-23] MEDS: NIFEdipine XL 90 MG TAB PO SCH (10:32)
[2019-07-23] MEDS: ISOSORBIDE DINITRATE 20 MG TAB PO SCH ×3 (10:40→22:17)
[2019-07-23] MEDS: SODIUM BICARBONATE 650 MG TAB PO SCH ×3 (10:40→22:17)
[2019-07-23] MEDS: hydrALAZINE 100 MG TAB PO SCH (10:41)
[2019-07-23] MEDS: METOPROLOL TARTRATE 100 MG TAB PO SCH (12:18)
--- NOTE | 2019-07-23 13:08 | Progress Note ---
Assessment and Plan Acute Kidney injury likely cardiorenal syndrome on top of CKD: Volume overload: Hypoxic respiratory failure: Acute on chronic congestive CHF: Metabolic acidosis: Hypernatremia, Hypertonic: HTN: DM2: HLD: -Has leg edema, CXR congested -On lasix to 40 mg TID IV. Will inc to QID as still having SHOB on exertion. -Need to monitor strict UOP. -Oral lasix has very erratic absorption and in CHF its absorption is even more reduced due to gut wall edema, he may need to be changed to PO bumex on discharge which is better absorbed -Monitor Renal function -Encourage PO water intake for hypernatremia (free water has minimal risk of volume overload as only 10% stays in the intravascular space) -Started Epogen for ACD -Started NaHCO3 tabs for acidosis -Renally dose all meds -Avoid Nephrotoxic meds -Strict I/Os Plan d/w bedside RN. Alessandro Brown MD [phone] Subjective Date of service: 07/23/19 Interval history: Making some urine. Having SHOB on exertion. Objective - Exam Narrative Exam: GE:AAOX3 HEENT:Normocephalic Neck:Supple Chest:BL Crackles CVS:RRR Abd:Soft/BS+ Ext:2-3+ RLE edema, Left leg amputated Neuro:AAOX3 Psyche:Appropriate mood - Vital Signs Vital signs: Vital Signs - 12hr 07/23/19 07/23/19 07/23/19 04:47 08:19 10:40 Temperature 98.3 F 97.7 F Pulse Rate 80 74 74 Respiratory 20 18 Rate Blood Pressure 131/75 132/72 132/72 O2 Sat by Pulse 97 97 Oximetry 07/23/19 07/23/19 11:29 12:18 Temperature 98.5 F Pulse Rate 73 73 Respiratory 18 Rate Blood Pressure 140/71 140/71 O2 Sat by Pulse 98 Oximetry - Lab 07/22/19 04:24 07/22/19 04:24 Most recent lab results Calcium 8.8 mg/dL (8.4-10.2) 07/22/19 04:24 Magnesium 2.30 mg/dL (1.7-2.3) 07/22/19 04:24 Medications & Allergies - Medications Allergies/Adverse Reactions: Allergies No Known Allergies Allergy (Verified 07/21/19 08:02) Home Medications: Home Medications Medication Instructions Recorded Confirmed Last Taken Type AtorvaSTATin [Lipitor] 40 mg PO QHS 07/21/19 07/21/19 Unknown History Insulin Aspart (Nf) [NovoLOG 8 units SUB-Q TID 07/21/19 07/21/19 Unknown History Flexpen] Insulin Degludec [Tresiba 40 unit SQ QDAY 07/21/19 07/21/19 Unknown History Flextouch U-100] Isosorbide Dinitrate [Isordil 20 mg PO TID 07/21/19 07/21/19 Unknown History Titradose] Metoprolol [Lopressor] 100 mg PO QDAY 07/21/19 07/21/19 Unknown History NIFEdipine [Nifedipine ER] 90 mg PO QDAY 07/21/19 07/21/19 Unknown History Nitroglycerin [Nitrostat] 0.4 mg SL QDAY 07/21/19 07/21/19 Unknown History Torsemide [Demadex] 20 mg PO TID 07/21/19 07/21/19 Unknown History hydrALAZINE [Apresoline TAB] 100 mg PO QDAY 07/21/19 07/21/19 Unknown History Active Medications: Generic Name Dose Route Start Last Admin Trade Name Freq PRN Reason Stop Dose Admin Aspirin 81 mg 07/21/19 14:00 07/23/19 10:32 Baby Aspirin PO 81 mg QDAY [facility] Administration Atorvastatin Calcium 40 mg 07/21/19 22:00 07/22/19 21:37 Lipitor PO 40 mg QHS [facility] Administration Dextrose 50 ml 07/21/19 13:39 D50w (25gm) Syringe IV Q30MIN PRN Hypoglycemia Protocol Diphenhydramine HCl 25 mg 07/22/19 23:25 07/22/19 23:40 Benadryl PO 25 mg QHS PRN Administration Sleep Epoetin Ben 10,000 unit 07/22/19 14:00 Procrit SUB-Q AUGIE PRN DIALYSIS Furosemide 40 mg 07/22/19 14:00 07/23/19 10:31 Lasix IV 40 mg TID LOVE Administration Heparin Sodium (Porcine) 5,000 unit 07/21/19 22:00 07/23/19 10:31 Heparin SUB-Q 5,000 unit Q12HR [facility] Administration Hydralazine HCl 100 mg 07/22/19 10:00 07/23/19 10:41 Apresoline PO 100 mg QDAY [facility] Administration Insulin Glargine 40 units 07/22/19 10:00 07/22/19 10:44 Lantus SUB-Q Not Given QDAY LOVE Insulin Human Lispro 0 unit 07/21/19 16:30 07/23/19 12:19 Humalog SUB-Q 1 unit ACHS [facility] Administration Protocol Isosorbide Dinitrate 20 mg 07/21/19 14:00 07/23/19 10:40 Isordil Titradose PO 20 mg TID [facility] Administration Metoprolol Tartrate 100 mg 07/21/19 14:00 07/23/19 12:18 Metoprolol PO 100 mg QDAY [facility] Administration Nifedipine 90 mg 07/21/19 13:45 07/23/19 10:32 Procardia Xl PO 90 mg QDAY [facility] Administration Polyethylene Glycol 17 gm 07/21/19 14:00 07/23/19 10:32 Miralax 3350 PO 17 gm QDAY [facility] Administration Sodium Bicarbonate 650 mg 07/22/19 14:00 07/23/19 10:40 Sodium Bicarbonate PO 650 mg TID [facility] Administration
[2019-07-23 14:35] LABS: Calcium 8.3 mg/dL (8.4-10.2)
[2019-07-23] MEDS: INSULIN GLARGINE 100 UNITS/ML SUB-Q SCH (14:36)
--- NOTE | 2019-07-23 15:53 | Progress Note ---
Assessment and Plan Assessment and plan: Patient is a 63 yo AA man with a plethora of severe co-morbidities including hypertension, DM type 2, CKD 5, AOCD (s/p EGD/Colonoscopy on 03/04/18 with multiple large colonic polyps removed ), TIA, OA hands, AMI x 2, CHF with EF 30- 35%, PPM, UTI, chronic constipation, PAD and dyslipidemia who presents to [facility] ED with severe progressive worsening, constant shortness of breath over 2 weeks associated with increase leg swelling, decrease urinary output and weight gain. He takes 60mg of lasix at home and was told if he gains 3 lbs overnight to increase to 120mg of lasix/day which he did without any improvement in symptoms. There is no aggravating or relieving factors. He has symptoms related to orthop lane. The patient has been using his home medications including Lasix, an inhaler, without any relief. No recent travel or sick contacts at home. His symptoms are also associated with an occasional cough and occasional wheezing. His primary care physician is Dr. Florian, however, he does not admit to this hospital anymore (I spoke with him also) and his rangelands conservation laborer is Dr Prasanth Andino. Acute and chronic decompensation of systolic heart failure -treat with IV lasix bid -Consulted cardiology Acute on chronic kidney disease stage 5 -On IV diuretic, will monitor his renal function levels -Consult his bag worker Elevated troponin probably NSTEMI type 2 -Tele monitoring -Consulted his [employer]angel[employer] conservation laborer Acute metabolic acidosis secondary to the renal dysfunction -will monitor and replete as needed DM2 with hypoglycemia, poa -hold Lantus and treat with SSI -ada diet -accu check HTN, stable DVT Prophylaxis -sq heparin Constipation -Dulcolax pr worked -miralax daily History Interval history: Patient was seen and examined. Follow-up on current diagnosis. No overnight events reported to me. Patient denies any chest pain, shortness breath, nausea/vomiting or severe headaches. Imaging, nursing note, chart, labs and old chart reviewed. Discussed with patient. Hospitalist Physical - Physical exam Narrative exam: Gen: chronically disable, ill appearing, NAD, Awake, Alert, Orientated x 3 HEENT: NCAT, EOMI, PERRL, OP Clear Neck: supple, no adenopathy, no thyromegaly, JVD CVS/Heart: RRR, normal S1S2, pulses present bilaterally Chest/Lungs: diminished with bibasilar crackles, Symmetrical chest expansion, good air entry bilaterally GI/Abdomen: distended, nontender, good bowel sounds, no guarding or rebound /Bladder: no suprapubic tenderness, no CVA or paraspinal tenderness Extermity/Skin: pitting right leg, no obvious rash MSK: FROM x 3, left AKA with prosthesis intact Neuro: CN 2-12 grossly intact, no new focal deficits Psych: calm - Constitutional Vitals: Temp Pulse Resp BP Pulse Ox 98.5 F 76 18 131/66 98 07/23/19 11:29 07/23/19 15:15 07/23/19 11:29 07/23/19 15:15 07/23/19 11:29 General appearance: Present: no acute distress Results - Labs CBC & Chem 7: 07/22/19 04:24 07/23/19 13:41 Labs: Laboratory Last Values WBC 8.7 K/mm3 (4.5-11.0) 07/22/19 04:24 RBC 2.71 M/mm3 (3.65-5.03) L 07/22/19 04:24 Hgb 8.9 gm/dl (11.8-15.2) L 07/22/19 04:24 Hct 26.7 % (35.5-45.6) L 07/22/19 04:24 MCV 99 fl (84-94) H 07/22/19 04:24 MCH 33 pg (28-32) H 07/22/19 04:24 MCHC 33 % (32-34) 07/22/19 04:24 RDW 14.6 % (13.2-15.2) 07/22/19 04:24 Plt Count 241 K/mm3 (140-440) 07/22/19 04:24 Lymph % (Auto) 9.9 % (13.4-35.0) L 07/21/19 08:58 Vernon % (Auto) 7.3 % (0.0-7.3) 07/21/19 08:58 Eos % (Auto) 1.5 % (0.0-4.3) 07/21/19 08:58 Baso % (Auto) 1.1 % (0.0-1.8) 07/21/19 08:58 Lymph # 0.9 K/mm3 (1.2-5.4) L 07/21/19 08:58 Vernon # 0.7 K/mm3 (0.0-0.8) 07/21/19 08:58 Eos # 0.1 K/mm3 (0.0-0.4) 07/21/19 08:58 Baso # 0.1 K/mm3 (0.0-0.1) 07/21/19 08:58 Seg Neutrophils % 80.2 % (40.0-70.0) H 07/21/19 08:58 Seg Neutrophils # 7.1 K/mm3 (1.8-7.7) 07/21/19 08:58 D-Dimer 274.10 ng/mlDDU (0-234) H 07/21/19 08:58 POC ABG pH 7.330 (7.35-7.45) L 07/21/19 09:46 POC ABG pCO2 39.0 (35-45) 07/21/19 09:46 POC ABG pO2 104 (80-105) 07/21/19 09:46 POC ABG HCO3 20.6 (22-26 mml/L) 07/21/19 09:46 POC ABG Total CO2 22 (23-27mmol/L) 07/21/19 09:46 POC ABG O2 Sat 98 07/21/19 09:46 POC ABG Base Excess -5 ((-2) - (+3)mmol/L) 07/21/19 09:46 FiO2 28 % 07/21/19 09:46 Sodium 142 mmol/L (137-145) 07/23/19 13:41 Potassium 4.5 mmol/L (3.6-5.0) 07/23/19 13:41 Chloride 107.3 mmol/L (98-107) H 07/23/19 13:41 Carbon Dioxide 21 mmol/L (22-30) L 07/23/19 13:41 Anion Gap 18 mmol/L 07/23/19 13:41 BUN 85 mg/dL (9-20) H 07/23/19 13:41 Creatinine 3.0 mg/dL (0.8-1.5) H 07/23/19 13:41 Estimated GFR 26 ml/min 07/23/19 13:41 BUN/Creatinine Ratio 28 % 07/23/19 13:41 Glucose 175 mg/dL (75-100) H 07/23/19 13:41 POC Glucose 198 (70-105) H 07/23/19 11:37 Calcium 8.3 mg/dL (8.4-10.2) L 07/23/19 13:41 Magnesium 2.30 mg/dL (1.7-2.3) 07/22/19 04:24 Iron 31 ug/dL (49-181) L 07/23/19 07:43 TIBC 253 mcg/dL (250-450) 07/23/19 07:43 Total Bilirubin 0.40 mg/dL (0.1-1.2) 07/21/19 08:58 AST 20 units/L (5-40) 07/21/19 08:58 ALT 33 units/L (7-56) 07/21/19 08:58 Alkaline Phosphatase 129 units/L (35-129) 07/21/19 08:58 Troponin T 0.356 ng/mL (0.00-0.029) H* 07/22/19 00:24 NT-Pro-B Natriuret Pep 4204 pg/mL (0-900) H 07/21/19 08:58 Total Protein 7.7 g/dL (6.3-8.2) 07/21/19 08:58 Albumin 3.9 g/dL (3.9-5) 07/21/19 08:58 Albumin/Globulin Ratio 1.0 % 07/21/19 08:58 Triglycerides 63 mg/dL (2-149) 07/21/19 08:58 Cholesterol 131 mg/dL (50-199) 07/21/19 08:58 LDL Cholesterol Direct 80 mg/dL (50-130) 07/21/19 08:58 HDL Cholesterol 51 mg/dL (40-59) 07/21/19 08:58 Cholesterol/HDL Ratio 2.56 % 07/21/19 08:58 Active Medications - Current Medications Current Medications: Generic Name Dose Route Start Last Admin Trade Name Freq PRN Reason Stop Dose Admin Aspirin 81 mg 07/21/19 14:00 07/23/19 10:32 Baby Aspirin PO 81 mg QDAY LOVE Administration Atorvastatin Calcium 40 mg 07/21/19 22:00 07/22/19 21:37 Lipitor PO 40 mg QHS LOVE Administration Dextrose 50 ml 07/21/19 13:39 D50w (25gm) Syringe IV Q30MIN PRN Hypoglycemia Protocol Diphenhydramine HCl 25 mg 07/22/19 23:25 07/22/19 23:40 Benadryl PO 25 mg QHS PRN Administration Sleep Epoetin Ben 10,000 unit 07/22/19 14:00 Procrit SUB-Q AUGIE PRN DIALYSIS Furosemide 40 mg 07/23/19 16:00 07/23/19 15:14 Lasix IV 40 mg Q6H LOVE Administration Heparin Sodium (Porcine) 5,000 unit 07/21/19 22:00 07/23/19 10:31 Heparin SUB-Q 5,000 unit Q12HR LOVE Administration Hydralazine HCl 100 mg 07/22/19 10:00 07/23/19 10:41 Apresoline PO 100 mg QDAY LOVE Administration Insulin Human Lispro 0 unit 07/21/19 16:30 07/23/19 12:19 Humalog SUB-Q 1 unit ACHS LOVE Administration Protocol Isosorbide Dinitrate 20 mg 07/21/19 14:00 07/23/19 15:15 Isordil Titradose PO 20 mg TID LOVE Administration Metoprolol Tartrate 100 mg 07/21/19 14:00 07/23/19 12:18 Metoprolol PO 100 mg QDAY LOVE Administration Nifedipine 90 mg 07/21/19 13:45 07/23/19 10:32 Procardia Xl PO 90 mg QDAY LOVE Administration Polyethylene Glycol 17 gm 07/21/19 14:00 07/23/19 10:32 Miralax 3350 PO 17 gm QDAY LOVE Administration Sodium Bicarbonate 650 mg 07/22/19 14:00 07/23/19 15:14 Sodium Bicarbonate PO 650 mg TID LOVE Administration
[2019-07-24] MEDS: FUROSEMIDE 40 MG/4 ML INJ IV SCH ×4 (05:04→22:37)
[2019-07-24] MEDS: INSULIN LISPRO 100 UNIT/ML SUB-Q SCH ×4 (08:26→21:42)
[2019-07-24] MEDS: SODIUM BICARBONATE 650 MG TAB PO SCH ×3 (08:47→21:43)
[2019-07-24] MEDS: ISOSORBIDE DINITRATE 20 MG TAB PO SCH ×3 (08:47→21:43)
[2019-07-24] MEDS: NIFEdipine XL 90 MG TAB PO SCH (10:32)
[2019-07-24] MEDS: hydrALAZINE 100 MG TAB PO SCH (10:32)
[2019-07-24] MEDS: HEPARIN 5,000 UNIT/1 ML VIAL SUB-Q SCH ×2 (10:32→21:43)
[2019-07-24] MEDS: ASPIRIN 81 MG TAB CHEW PO SCH (10:32)
[2019-07-24] MEDS: METOPROLOL TARTRATE 100 MG TAB PO SCH (10:32)
[2019-07-24] MEDS: POLYETHYLENE GLYCOL 3350 17 GM POWDER PO SCH (10:33)
--- NOTE | 2019-07-24 11:03 | Progress Note ---
Assessment and Plan Acute CHF exacerbation V/Q scan is negative for PE Volume overload Nonischemic cardiomyopathy -resolving EF 45-50% by echocardiogram this admission [facility] 2014: normal coronaries, EF 35% Chronic renal disease Anemia, chronic Diabetes Hypertension Prior left BKA Hx of SSS s/p pacemaker implant Hx of Transient Afib pt previously considered not a candidate for oral anticoagulation due to chronic anemia. on beta blockers for suppression. Recommend: Continue medical therapy for underlying, resolving nonischemic cardiomyopathy and paroxysmal afib. Subjective Date of service: 07/24/19 Interval history: Patient presented with shortness of breath and is admitted with volume overload and CHF exacerbation. He reports his breathing has improved since admission. Objective Vital Signs Temp Pulse Resp BP Pulse Ox 07/24/19 10:32 74 134/71 07/24/19 08:47 74 141/73 07/24/19 08:27 98.4 F 74 18 141/73 95 07/24/19 07:00 82 07/24/19 05:25 98.5 F 74 20 122/65 97 07/24/19 00:04 98.2 F 75 22 113/64 96 07/23/19 23:00 74 20 07/23/19 22:17 75 126/63 07/23/19 20:59 98.0 F 77 20 126/63 95 07/23/19 15:15 76 131/66 07/23/19 14:59 131/66 07/23/19 12:18 73 140/71 07/23/19 11:29 98.5 F 73 18 140/71 98 - Physical Examination General: No Apparent Distress HEENT: Positive: PERRL Neck: Positive: trachea midline Cardiac: Positive: Other (paced) Lungs: Positive: Decreased Breath Sounds Neuro: Positive: Grossly Intact Extremities: Present: +1 Edema, Other (left BKA) - Labs and Meds Comprehensive Metabolic Panel 07/23/19 Range/Units 13:41 Sodium 142 (137-145) mmol/L Potassium 4.5 (3.6-5.0) mmol/L Chloride 107.3 H (98-107) mmol/L Carbon Dioxide 21 L (22-30) mmol/L BUN 85 H (9-20) mg/dL Creatinine 3.0 H (0.8-1.5) mg/dL Glucose 175 H (75-100) mg/dL Calcium 8.3 L (8.4-10.2) mg/dL
[2019-07-24 12:07] LABS: Hematocrit 26.8 % (35.5-45.6); Hemoglobin 8.8 gm/dl (11.8-15.2); Mean Corpuscular HGB Conc 33 % (32-34); Mean Corpuscular Volume 98 fl (84-94); Platelet Count 253 K/mm3 (140-440); Red Blood Count 2.72 M/mm3 (3.65-5.03); Red Cell Distribution Width 14.6 % (13.2-15.2)
[2019-07-24 12:30] LABS: Calcium 8.6 mg/dL (8.4-10.2)
--- NOTE | 2019-07-24 15:23 | Progress Note ---
Assessment and Plan Acute Kidney injury likely cardiorenal syndrome on top of CKD: Volume overload: Hypoxic respiratory failure: Acute on chronic congestive CHF: Metabolic acidosis: Hypernatremia, Hypertonic: HTN: DM type 2: HLD: Plan: -Renal function reviewed, SCr level was 3.2 today, yesterday's SCr level was 3.0 -Obtain 24 hr urine creatinine clearance -On lasix to 40 mg IV QID for now -Oral lasix has very erratic absorption and in CHF its absorption is even more reduced due to gut wall edema, he may need to be changed to PO bumex on discharge which is better absorbed -Hypernatremia improved -Started Epogen for ACD -On sodium bicarbonate 650 mg po TID -Renally dose all meds -Avoid Nephrotoxic meds -Strict I/Os -Ramirez Catheter: No -Intake= 900 ml Output= 1320 ml ( Net= -420 ml) -Renal plan d/w Dr Corral Subjective Interval history: Pt seen in bed, c/o shortness of breath, states has good appetite, no acute distress, no family at bedside Objective - Vital Signs Vital signs: Vital Signs - 12hr 07/24/19 07/24/19 07/24/19 05:25 07:00 08:27 Temperature 98.5 F 98.4 F Pulse Rate 74 82 74 Respiratory 20 18 Rate Blood Pressure 122/65 141/73 O2 Sat by Pulse 97 95 Oximetry 07/24/19 07/24/19 07/24/19 08:47 10:31 10:32 Temperature Pulse Rate 74 74 Respiratory Rate Blood Pressure 141/73 134/71 134/71 O2 Sat by Pulse Oximetry 07/24/19 12:25 Temperature 97.9 F Pulse Rate 77 Respiratory 18 Rate Blood Pressure 138/73 O2 Sat by Pulse 98 Oximetry - General Appearance General appearance: well-developed EENT: ATNC Neck: supple Respiratory: Present: Decreased Breath Sounds Cardiology: regular, S1S2 Gastrointestinal: normoactive bowel sounds, distended Integumentary: warm and dry Neurologic: alert and oriented x3 Musculoskeletal: other (Left BKA with prothesis noted; Right LE 2+ edema) Psychiatric: cooperative - Lab 07/24/19 11:49 07/24/19 11:49 Most recent lab results Calcium 8.6 mg/dL (8.4-10.2) 07/24/19 11:49 Magnesium 2.30 mg/dL (1.7-2.3) 07/22/19 04:24 Medications & Allergies - Medications Allergies/Adverse Reactions: Allergies No Known Allergies Allergy (Verified 07/21/19 08:02) Home Medications: Home Medications Medication Instructions Recorded Confirmed Last Taken Type AtorvaSTATin [Lipitor] 40 mg PO QHS 07/21/19 07/21/19 Unknown History Insulin Aspart (Nf) [NovoLOG 8 units SUB-Q TID 07/21/19 07/21/19 Unknown History Flexpen] Insulin Degludec [Tresiba 40 unit SQ QDAY 07/21/19 07/21/19 Unknown History Flextouch U-100] Isosorbide Dinitrate [Isordil 20 mg PO TID 07/21/19 07/21/19 Unknown History Titradose] Metoprolol [Lopressor] 100 mg PO QDAY 07/21/19 07/21/19 Unknown History NIFEdipine [Nifedipine ER] 90 mg PO QDAY 07/21/19 07/21/19 Unknown History Nitroglycerin [Nitrostat] 0.4 mg SL QDAY 07/21/19 07/21/19 Unknown History Torsemide [Demadex] 20 mg PO TID 07/21/19 07/21/19 Unknown History hydrALAZINE [Apresoline TAB] 100 mg PO QDAY 07/21/19 07/21/19 Unknown History Active Medications: Generic Name Dose Route Start Last Admin Trade Name Freq PRN Reason Stop Dose Admin Aspirin 81 mg 07/21/19 14:00 07/24/19 10:32 Baby Aspirin PO 81 mg QDAY LOVE Administration Atorvastatin Calcium 40 mg 07/21/19 22:00 07/23/19 22:17 Lipitor PO 40 mg QHS LOVE Administration Dextrose 50 ml 07/21/19 13:39 D50w (25gm) Syringe IV Q30MIN PRN Hypoglycemia Protocol Diphenhydramine HCl 25 mg 07/22/19 23:25 07/22/19 23:40 Benadryl PO 25 mg QHS PRN Administration Sleep Epoetin Ben 10,000 unit 07/22/19 14:00 Procrit SUB-Q AUGIE PRN DIALYSIS Furosemide 40 mg 07/23/19 16:00 07/24/19 10:36 Lasix IV 40 mg Q6H LOVE Administration Heparin Sodium (Porcine) 5,000 unit 07/21/19 22:00 07/24/19 10:32 Heparin SUB-Q 5,000 unit Q12HR LOVE Administration Hydralazine HCl 100 mg 07/22/19 10:00 07/24/19 10:32 Apresoline PO 100 mg QDAY LOVE Administration Insulin Human Lispro 0 unit 07/21/19 16:30 07/24/19 08:26 Humalog SUB-Q Not Given ACHS [facility] Protocol Isosorbide Dinitrate 20 mg 07/21/19 14:00 07/24/19 08:47 Isordil Titradose PO 20 mg TID LOVE Administration Metoprolol Tartrate 100 mg 07/21/19 14:00 07/24/19 10:32 Metoprolol PO 100 mg QDAY LOVE Administration Nifedipine 90 mg 07/21/19 13:45 07/24/19 10:32 Procardia Xl PO 90 mg QDAY LOVE Administration Polyethylene Glycol 17 gm 07/21/19 14:00 07/24/19 10:33 Miralax 3350 PO 17 gm QDAY LOVE Administration Sodium Bicarbonate 650 mg 07/22/19 14:00 07/24/19 08:47 Sodium Bicarbonate PO 650 mg TID LOVE Administration
--- NOTE | 2019-07-24 15:53 | Progress Note ---
Assessment and Plan Assessment and plan: Patient is a 63 yo AA man with a plethora of severe co-morbidities including hypertension, DM type 2, CKD 5, AOCD (s/p EGD/Colonoscopy on 03/04/18 with multiple large colonic polyps removed ), TIA, OA hands, AMI x 2, CHF with EF 30- 35%, PPM, UTI, chronic constipation, PAD and dyslipidemia who presents to [facility] ED with severe progressive worsening, constant shortness of breath over 2 weeks associated with increase leg swelling, decrease urinary output and weight gain. He takes 60mg of lasix at home and was told if he gains 3 lbs overnight to increase to 120mg of lasix/day which he did without any improvement in symptoms. There is no aggravating or relieving factors. He has symptoms related to orthop lane. The patient has been using his home medications including Lasix, an inhaler, without any relief. No recent travel or sick contacts at home. His symptoms are also associated with an occasional cough and occasional wheezing. His primary care physician is Dr. Florian, however, he does not admit to this hospital anymore (I spoke with him also) and his dental laboratory technology teacher is Dr Prasanth Andino. Acute and chronic decompensation of systolic heart failure -treat with IV lasix bid -Consulted cardiology Acute on chronic kidney disease stage 5 -On IV diuretic, will monitor his renal function levels -Consult his rn cardiovascular Elevated troponin probably NSTEMI type 2 -Tele monitoring -Consulted his dental laboratory technology teacher Acute metabolic acidosis secondary to the renal dysfunction -will monitor and replete as needed DM2 with hypoglycemia, poa -hold Lantus and treat with SSI -ada diet -accu check HTN, stable DVT Prophylaxis -sq heparin Constipation -Dulcolax pr worked -miralax daily Disposition: continue inpatient care, still trying to wean off O2, started 40mg iv q6hr, await Cardiology clearance History Interval history: Patient was seen and examined. Follow-up on current diagnosis. No overnight events reported to me. Patient denies any chest pain, shortness breath, nausea/vomiting or severe headaches. Imaging, nursing note, chart, labs and old chart reviewed. Discussed with patient. Hospitalist Physical - Physical exam Narrative exam: Gen: chronically disable, ill appearing, NAD, Awake, Alert, Orientated x 3 HEENT: NCAT, EOMI, PERRL, OP Clear Neck: supple, no adenopathy, no thyromegaly, JVD CVS/Heart: RRR, normal S1S2, pulses present bilaterally Chest/Lungs: diminished with bibasilar crackles, Symmetrical chest expansion, good air entry bilaterally GI/Abdomen: distended, nontender, good bowel sounds, no guarding or rebound /Bladder: no suprapubic tenderness, no CVA or paraspinal tenderness Extermity/Skin: pitting right leg, no obvious rash MSK: FROM x 3, left AKA with prosthesis intact Neuro: CN 2-12 grossly intact, no new focal deficits Psych: calm - Constitutional Vitals: Temp Pulse Resp BP Pulse Ox 97.9 F 77 18 138/73 98 07/24/19 12:25 07/24/19 12:25 07/24/19 12:25 07/24/19 12:25 07/24/19 12:25 General appearance: Present: no acute distress Results - Labs CBC & Chem 7: 07/24/19 11:49 07/24/19 11:49 Labs: Laboratory Last Values WBC 7.2 K/mm3 (4.5-11.0) 07/24/19 11:49 RBC 2.72 M/mm3 (3.65-5.03) L 07/24/19 11:49 Hgb 8.8 gm/dl (11.8-15.2) L 07/24/19 11:49 Hct 26.8 % (35.5-45.6) L 07/24/19 11:49 MCV 98 fl (84-94) H 07/24/19 11:49 MCH 32 pg (28-32) 07/24/19 11:49 MCHC 33 % (32-34) 07/24/19 11:49 RDW 14.6 % (13.2-15.2) 07/24/19 11:49 Plt Count 253 K/mm3 (140-440) 07/24/19 11:49 Lymph % (Auto) 9.9 % (13.4-35.0) L 07/21/19 08:58 Lyman % (Auto) 7.3 % (0.0-7.3) 07/21/19 08:58 Eos % (Auto) 1.5 % (0.0-4.3) 07/21/19 08:58 Baso % (Auto) 1.1 % (0.0-1.8) 07/21/19 08:58 Lymph # 0.9 K/mm3 (1.2-5.4) L 07/21/19 08:58 Lyman # 0.7 K/mm3 (0.0-0.8) 07/21/19 08:58 Eos # 0.1 K/mm3 (0.0-0.4) 07/21/19 08:58 Baso # 0.1 K/mm3 (0.0-0.1) 07/21/19 08:58 Seg Neutrophils % 80.2 % (40.0-70.0) H 07/21/19 08:58 Seg Neutrophils # 7.1 K/mm3 (1.8-7.7) 07/21/19 08:58 D-Dimer 274.10 ng/mlDDU (0-234) H 07/21/19 08:58 POC ABG pH 7.330 (7.35-7.45) L 07/21/19 09:46 POC ABG pCO2 39.0 (35-45) 07/21/19 09:46 POC ABG pO2 104 (80-105) 07/21/19 09:46 POC ABG HCO3 20.6 (22-26 mml/L) 07/21/19 09:46 POC ABG Total CO2 22 (23-27mmol/L) 07/21/19 09:46 POC ABG O2 Sat 98 07/21/19 09:46 POC ABG Base Excess -5 ((-2) - (+3)mmol/L) 07/21/19 09:46 FiO2 28 % 07/21/19 09:46 Sodium 139 mmol/L (137-145) 07/24/19 11:49 Potassium 4.5 mmol/L (3.6-5.0) 07/24/19 11:49 Chloride 102.4 mmol/L (98-107) 07/24/19 11:49 Carbon Dioxide 20 mmol/L (22-30) L 07/24/19 11:49 Anion Gap 21 mmol/L 07/24/19 11:49 BUN 92 mg/dL (9-20) H 07/24/19 11:49 Creatinine 3.2 mg/dL (0.8-1.5) H 07/24/19 11:49 Estimated GFR 24 ml/min 07/24/19 11:49 BUN/Creatinine Ratio 29 % 07/24/19 11:49 Glucose 173 mg/dL (75-100) H 07/24/19 11:49 POC Glucose 155 (70-105) H 07/24/19 12:36 Calcium 8.6 mg/dL (8.4-10.2) 07/24/19 11:49 Magnesium 2.30 mg/dL (1.7-2.3) 07/22/19 04:24 Iron 31 ug/dL (49-181) L 07/23/19 07:43 TIBC 253 mcg/dL (250-450) 07/23/19 07:43 Total Bilirubin 0.40 mg/dL (0.1-1.2) 07/21/19 08:58 AST 20 units/L (5-40) 07/21/19 08:58 ALT 33 units/L (7-56) 07/21/19 08:58 Alkaline Phosphatase 129 units/L (35-129) 07/21/19 08:58 Troponin T 0.356 ng/mL (0.00-0.029) H* 07/22/19 00:24 NT-Pro-B Natriuret Pep 4204 pg/mL (0-900) H 07/21/19 08:58 Total Protein 7.7 g/dL (6.3-8.2) 07/21/19 08:58 Albumin 3.9 g/dL (3.9-5) 07/21/19 08:58 Albumin/Globulin Ratio 1.0 % 07/21/19 08:58 Triglycerides 63 mg/dL (2-149) 07/21/19 08:58 Cholesterol 131 mg/dL (50-199) 07/21/19 08:58 LDL Cholesterol Direct 80 mg/dL (50-130) 07/21/19 08:58 HDL Cholesterol 51 mg/dL (40-59) 07/21/19 08:58 Cholesterol/HDL Ratio 2.56 % 07/21/19 08:58 Active Medications - Current Medications Current Medications: Generic Name Dose Route Start Last Admin Trade Name Freq PRN Reason Stop Dose Admin Aspirin 81 mg 07/21/19 14:00 07/24/19 10:32 Baby Aspirin PO 81 mg QDAY LOVE Administration Atorvastatin Calcium 40 mg 07/21/19 22:00 07/23/19 22:17 Lipitor PO 40 mg QHS LOVE Administration Dextrose 50 ml 07/21/19 13:39 D50w (25gm) Syringe IV Q30MIN PRN Hypoglycemia Protocol Diphenhydramine HCl 25 mg 07/22/19 23:25 07/22/19 23:40 Benadryl PO 25 mg QHS PRN Administration Sleep Epoetin Ben 10,000 unit 07/22/19 14:00 Procrit SUB-Q AUGIE PRN DIALYSIS Furosemide 40 mg 07/23/19 16:00 07/24/19 10:36 Lasix IV 40 mg Q6H LOVE Administration Heparin Sodium (Porcine) 5,000 unit 07/21/19 22:00 07/24/19 10:32 Heparin SUB-Q 5,000 unit Q12HR LOVE Administration Hydralazine HCl 100 mg 07/22/19 10:00 07/24/19 10:32 Apresoline PO 100 mg QDAY LOVE Administration Insulin Human Lispro 0 unit 07/21/19 16:30 07/24/19 08:26 Humalog SUB-Q Not Given ACHS LOVE Protocol Isosorbide Dinitrate 20 mg 07/21/19 14:00 07/24/19 08:47 Isordil Titradose PO 20 mg TID LOVE Administration Metoprolol Tartrate 100 mg 07/21/19 14:00 07/24/19 10:32 Metoprolol PO 100 mg QDAY LOVE Administration Nifedipine 90 mg 07/21/19 13:45 07/24/19 10:32 Procardia Xl PO 90 mg QDAY LOVE Administration Polyethylene Glycol 17 gm 07/21/19 14:00 07/24/19 10:33 Miralax 3350 PO 17 gm QDAY LOVE Administration Sodium Bicarbonate 650 mg 07/22/19 14:00 07/24/19 08:47 Sodium Bicarbonate PO 650 mg TID LOVE Administration
[2019-07-25] MEDS: FUROSEMIDE 40 MG/4 ML INJ IV SCH ×4 (04:24→21:35)
[2019-07-25 05:36] LABS: Hematocrit 25.7 % (35.5-45.6); Hemoglobin 8.4 gm/dl (11.8-15.2); Mean Corpuscular HGB Conc 33 % (32-34); Mean Corpuscular Volume 99 fl (84-94); Platelet Count 263 K/mm3 (140-440); Red Blood Count 2.59 M/mm3 (3.65-5.03); Red Cell Distribution Width 14.5 % (13.2-15.2)
[2019-07-25 05:56] LABS: Calcium 8.5 mg/dL (8.4-10.2)
[2019-07-25] MEDS: INSULIN LISPRO 100 UNIT/ML SUB-Q SCH ×4 (08:23→21:35)
[2019-07-25] MEDS: SODIUM BICARBONATE 650 MG TAB PO SCH ×3 (08:26→21:34)
[2019-07-25] MEDS: ISOSORBIDE DINITRATE 20 MG TAB PO SCH ×3 (08:26→21:34)
--- NOTE | 2019-07-25 11:18 | Progress Note ---
Assessment and Plan Acute CHF exacerbation V/Q scan is negative for PE Volume overload Pulmonary Htn Nonischemic cardiomyopathy -resolving [facility] 2015: normal coronaries, EF 35% Chronic renal disease Anemia, chronic Diabetes Hypertension Prior left BKA Hx of SSS s/p pacemaker implant Hx of Transient Afib pt previously considered not a candidate for oral anticoagulation due to chronic anemia. on beta blockers for suppression. An echocardiogram on this presentation shows some significant resolution of his underlying cardiomyopathy, with ejection fraction now 45-50%. However, he has significant valvular disease with moderate to severe mitral regurgitation and at least moderate tricuspid regurgitation. In addition, there is persistence of his severe pulmonary hypertension, with pulmonary artery pressures measured at 72 by echo this admission Recommendations: Continue medical therapy for cardiomyopathy and systolic heart failure including diuretics, afterload agents and beta blockers as tolerated. Pulmonary evaluation of his severe pulmonary hypertension. Subjective Date of service: 07/25/19 Interval history: Patient is resting in bed comfortably. He reports shortness of breath on exertion overnight. Objective Vital Signs Temp Pulse Resp BP BP Pulse Ox 07/25/19 08:26 73 142/70 07/25/19 08:00 98.3 F 73 20 142/70 99 07/25/19 04:01 98.2 F 78 18 134/69 97 07/24/19 23:05 98.3 F 74 17 130/68 97 07/24/19 20:40 20 07/24/19 20:33 77 07/24/19 19:50 98.9 F 77 18 148/65 97 07/24/19 16:55 73 135/72 99 07/24/19 16:50 98.5 F 78 18 131/67 96 07/24/19 16:18 74 135/72 07/24/19 12:25 97.9 F 77 18 138/73 98 - Physical Examination General: No Apparent Distress HEENT: Positive: PERRL Neck: Positive: trachea midline Cardiac: Positive: Other (paced) Lungs: Positive: Decreased Breath Sounds Neuro: Positive: Grossly Intact Abdomen: Positive: Soft Extremities: Present: +1 Edema, Other (left BKA) - Labs and Meds CBC 07/24/19 07/25/19 Range/Units 11:49 04:13 WBC 7.2 6.9 (4.5-11.0) K/mm3 RBC 2.72 L 2.59 L (3.65-5.03) M/mm3 Hgb 8.8 L 8.4 L (11.8-15.2) gm/dl Hct 26.8 L 25.7 L (35.5-45.6) % Plt Count 253 263 (140-440) K/mm3 Comprehensive Metabolic Panel 07/24/19 07/25/19 Range/Units 11:49 04:13 Sodium 139 143 (137-145) mmol/L Potassium 4.5 4.5 (3.6-5.0) mmol/L Chloride 102.4 106.8 (98-107) mmol/L Carbon Dioxide 20 L 21 L (22-30) mmol/L BUN 92 H 95 H (9-20) mg/dL Creatinine 3.2 H 3.1 H (0.8-1.5) mg/dL Glucose 173 H 144 H (75-100) mg/dL Calcium 8.6 8.5 (8.4-10.2) mg/dL
--- NOTE | 2019-07-25 11:34 | Progress Note ---
Assessment and Plan Acute Kidney injury likely cardiorenal syndrome on top of CKD: Volume overload: Hypoxic respiratory failure: Acute on chronic congestive CHF: Metabolic acidosis: Hypernatremia, Hypertonic: HTN: DM type 2: HLD: Plan: -added Metolazone 5 mg to lasix -Obtain 24 hr urine creatinine clearance, may need to be started on HD -Epogen for ACD -On sodium bicarbonate 650 mg po TID -Renally dose all meds -Avoid Nephrotoxic meds -Strict I/Os -Ramirez Catheter: No Delvin Thompson MD [phone] Subjective Date of service: 07/25/19 Principal diagnosis: CKD Interval history: cont to have swelling Objective - Vital Signs Vital signs: Vital Signs - 12hr 07/25/19 07/25/19 07/25/19 04:01 08:00 08:26 Temperature 98.2 F 98.3 F Pulse Rate 78 73 73 Respiratory 18 20 Rate Blood Pressure 134/69 142/70 Blood Pressure 142/70 [Left] O2 Sat by Pulse 97 99 Oximetry - General Appearance General appearance: well-developed, well-nourished EENT: ATNC, PERRL Neck: no JVD, no carotid bruit Respiratory: Present: Clear to Ascultation. Absent: Rales, Ronchi Cardiology: regular, S1S2 Gastrointestinal: normoactive bowel sounds, no tenderness, distended Integumentary: no rash, warm and dry Neurologic: no focal deficit, no asterixis, alert and oriented x3 Musculoskeletal: other (edema in LLE) Psychiatric: mood/affect appropriate, cooperative - Lab 07/25/19 04:13 07/25/19 04:13 Most recent lab results Calcium 8.5 mg/dL (8.4-10.2) 07/25/19 04:13 Magnesium 2.30 mg/dL (1.7-2.3) 07/22/19 04:24 Medications & Allergies - Medications Allergies/Adverse Reactions: Allergies No Known Allergies Allergy (Verified 07/21/19 08:02) Home Medications: Home Medications Medication Instructions Recorded Confirmed Last Taken Type AtorvaSTATin [Lipitor] 40 mg PO QHS 07/21/19 07/21/19 Unknown History Insulin Aspart (Nf) [NovoLOG 8 units SUB-Q TID 07/21/19 07/21/19 Unknown History Flexpen] Insulin Degludec [Tresiba 40 unit SQ QDAY 07/21/19 07/21/19 Unknown History Flextouch U-100] Isosorbide Dinitrate [Isordil 20 mg PO TID 07/21/19 07/21/19 Unknown History Titradose] Metoprolol [Lopressor] 100 mg PO QDAY 07/21/19 07/21/19 Unknown History NIFEdipine [Nifedipine ER] 90 mg PO QDAY 07/21/19 07/21/19 Unknown History Nitroglycerin [Nitrostat] 0.4 mg SL QDAY 07/21/19 07/21/19 Unknown History Torsemide [Demadex] 20 mg PO TID 07/21/19 07/21/19 Unknown History hydrALAZINE [Apresoline TAB] 100 mg PO QDAY 07/21/19 07/21/19 Unknown History Active Medications: Generic Name Dose Route Start Last Admin Trade Name Freq PRN Reason Stop Dose Admin Acetaminophen 650 mg 07/25/19 09:00 Tylenol PO Q4H PRN Pain, Mild (1-3) Aspirin 81 mg 07/21/19 14:00 07/24/19 10:32 Baby Aspirin PO 81 mg QDAY LOVE Administration Atorvastatin Calcium 40 mg 07/21/19 22:00 07/24/19 21:43 Lipitor PO 40 mg QHS LOVE Administration Dextrose 50 ml 07/21/19 13:39 D50w (25gm) Syringe IV Q30MIN PRN Hypoglycemia Protocol Diphenhydramine HCl 25 mg 07/22/19 23:25 07/22/19 23:40 Benadryl PO 25 mg QHS PRN Administration Sleep Epoetin Ben 10,000 unit 07/22/19 14:00 Procrit SUB-Q AUGIE PRN DIALYSIS Furosemide 40 mg 07/23/19 16:00 07/25/19 04:24 Lasix IV 40 mg Q6H LOVE Administration Heparin Sodium (Porcine) 5,000 unit 07/21/19 22:00 07/24/19 21:43 Heparin SUB-Q 5,000 unit Q12HR LOVE Administration Hydralazine HCl 100 mg 07/22/19 10:00 07/24/19 10:32 Apresoline PO 100 mg QDAY LOVE Administration Insulin Human Lispro 0 unit 07/21/19 16:30 07/25/19 08:23 Humalog SUB-Q Not Given ACHS [facility] Protocol Isosorbide Dinitrate 20 mg 07/21/19 14:00 07/25/19 08:26 Isordil Titradose PO 20 mg TID LOVE Administration Metolazone 5 mg 07/25/19 12:00 Zaroxolyn PO QDAY LOVE Metoprolol Tartrate 100 mg 07/21/19 14:00 07/24/19 10:32 Metoprolol PO 100 mg QDAY LOVE Administration Nifedipine 90 mg 07/21/19 13:45 07/24/19 10:32 Procardia Xl PO 90 mg QDAY LOVE Administration Polyethylene Glycol 17 gm 07/21/19 14:00 07/24/19 10:33 Miralax 3350 PO 17 gm QDAY LOVE Administration Sodium Bicarbonate 650 mg 07/22/19 14:00 07/25/19 08:26 Sodium Bicarbonate PO 650 mg TID LOVE Administration
[2019-07-25] MEDS: ASPIRIN 81 MG TAB CHEW PO SCH (12:24)
[2019-07-25] MEDS: hydrALAZINE 100 MG TAB PO SCH (12:24)
[2019-07-25] MEDS: HEPARIN 5,000 UNIT/1 ML VIAL SUB-Q SCH ×2 (12:24→21:36)
[2019-07-25] MEDS: METOPROLOL TARTRATE 100 MG TAB PO SCH (12:25)
[2019-07-25] MEDS: POLYETHYLENE GLYCOL 3350 17 GM POWDER PO SCH (12:25)
[2019-07-25] MEDS: metOLazone 5 MG TAB PO SCH (12:26)
[2019-07-25] MEDS: NIFEdipine XL 90 MG TAB PO SCH (12:26)
[2019-07-25] MEDS: ACETAMINOPHEN 325 MG TAB PO PRN (12:30)
--- NOTE | 2019-07-25 13:48 | Consultation ---
History of Present Illness Consult date: 07/25/19 Reason for consult: dyspnea, other (peripheral edema) History of present illness: PULMONARY AND CRITICAL CARE CONSULTATION. DR. JAMISON THANK YOU FOR ASKING US TO PARTICIPATE IN THE CARE OF THIS PATIENT. 63-year-old male presents to the emergency department with a complaint of a two-week history of progressively worsening shortness of breath and lower extremity swelling. 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 The patient has been using his home medications including Lasix, an inhaler, without any relief. His shortness of breath worsens with laying flat and he has been unable to get much sleep. No recent travel or sick contacts at home. His symptoms are also associated with an occasional cough and occasional wheezing. Patient denies chest pain and has slight cough. No nasal congestion or sore throat. Patient has a history of smoking 2 packs a week for 20 years, stopped many years ago. History of alcohol abuse in the past. No history of drug abuse. Patient worked in [employer] before he retired. No known allergies. Patient and had one son who due to cardiac problems. Patient presently resting on 3L O2. O2 saturation is 99%. Patient's CXR shows borderline heart size and mild pulmonary vascular congestion. Patient had a pulmonary perfusion lung scan which was reported as normal. Past History Past Medical History: diabetes, heart failure, stroke, other (kidney disease) Past Surgical History: Other (ppm) Medications and Allergies Allergies Allergy/AdvReac Type Severity Reaction Status Date / Time No Known Allergies Allergy Verified 07/21/19 08:02 Home Medications Medication Instructions Recorded Confirmed Last Taken Type AtorvaSTATin [Lipitor] 40 mg PO QHS 07/21/19 07/21/19 Unknown History Insulin Aspart (Nf) [NovoLOG 8 units SUB-Q TID 07/21/19 07/21/19 Unknown History Flexpen] Insulin Degludec [Tresiba 40 unit SQ QDAY 07/21/19 07/21/19 Unknown History Flextouch U-100] Isosorbide Dinitrate [Isordil 20 mg PO TID 07/21/19 07/21/19 Unknown History Titradose] Metoprolol [Lopressor] 100 mg PO QDAY 07/21/19 07/21/19 Unknown History NIFEdipine [Nifedipine ER] 90 mg PO QDAY 07/21/19 07/21/19 Unknown History Nitroglycerin [Nitrostat] 0.4 mg SL QDAY 07/21/19 07/21/19 Unknown History Torsemide [Demadex] 20 mg PO TID 07/21/19 07/21/19 Unknown History hydrALAZINE [Apresoline TAB] 100 mg PO QDAY 07/21/19 07/21/19 Unknown History Active Meds: Active Medications Acetaminophen (Tylenol) 650 mg PO Q4H PRN PRN Reason: Pain, Mild (1-3) Last Admin: 07/25/19 12:30 Dose: 650 mg Documented by: Aspirin (Baby Aspirin) 81 mg PO QDAY [facility] Last Admin: 07/25/19 12:24 Dose: 81 mg Documented by: Atorvastatin Calcium (Lipitor) 40 mg PO QHS [facility] Last Admin: 07/24/19 21:43 Dose: 40 mg Documented by: Dextrose (D50w (25gm) Syringe) 50 ml IV Q30MIN PRN; Protocol PRN Reason: Hypoglycemia Diphenhydramine HCl (Benadryl) 25 mg PO QHS PRN PRN Reason: Sleep Last Admin: 07/22/19 23:40 Dose: 25 mg Documented by: Epoetin Ben (Procrit) 10,000 unit SUB-Q AUGIE PRN PRN Reason: DIALYSIS Furosemide (Lasix) 40 mg IV Q6H [facility] Last Admin: 07/25/19 12:24 Dose: 40 mg Documented by: Heparin Sodium (Porcine) (Heparin) 5,000 unit SUB-Q Q12HR [facility] Last Admin: 07/25/19 12:24 Dose: 5,000 unit Documented by: Hydralazine HCl (Apresoline) 100 mg PO QDAY [facility] Last Admin: 07/25/19 12:24 Dose: 100 mg Documented by: Insulin Human Lispro (Humalog) 0 unit SUB-Q [facility]; Protocol Last Admin: 07/25/19 12:53 Dose: 1 unit Documented by: Isosorbide Dinitrate (Isordil Titradose) 20 mg PO TID [facility] Last Admin: 07/25/19 08:26 Dose: 20 mg Documented by: Metolazone (Zaroxolyn) 5 mg PO QDAY [facility] Last Admin: 07/25/19 12:26 Dose: 5 mg Documented by: Metoprolol Tartrate (Metoprolol) 100 mg PO QDAY [facility] Last Admin: 07/25/19 12:25 Dose: 100 mg Documented by: Nifedipine (Procardia Xl) 90 mg PO QDAY [facility] Last Admin: 07/25/19 12:26 Dose: 90 mg Documented by: Polyethylene Glycol (Miralax 3350) 17 gm PO QDAY [facility] Last Admin: 07/25/19 12:25 Dose: 17 gm Documented by: Sodium Bicarbonate (Sodium Bicarbonate) 650 mg PO TID [facility] Last Admin: 07/25/19 08:26 Dose: 650 mg Documented by: Review of Systems All systems: negative Physical Examination Vital signs: Vital Signs Temp Pulse Resp BP Pulse Ox 97.7 F 85 22 128/50 91 07/21/19 08:06 07/21/19 08:06 07/21/19 08:06 07/21/19 08:06 07/21/19 08:06 General appearance: no acute distress, alert Eyes: non-icteric ENT: oropharynx moist Neck: supple, no JVD Ascultation: Bilateral: rales Cardiovascular: regular rate and rhythm Gastrointestinal: normoactive bowel sounds, soft, non-tender Integumentary: normal Extremities: edema Musculoskeletal: no deformities Gait: other (cannot assess now) normal mental status, non-focal exam, pupils equal and round, CN II-XII normal mood appropriate Results - Laboratory Findings CBC and BMP: 07/25/19 04:13 07/25/19 04:13 ABG POC ABG pH 7.330 (7.35-7.45) L 07/21/19 09:46 POC ABG pCO2 39.0 (35-45) 07/21/19 09:46 POC ABG pO2 104 (80-105) 07/21/19 09:46 POC ABG HCO3 20.6 (22-26 mml/L) 07/21/19 09:46 POC ABG Total CO2 22 (23-27mmol/L) 07/21/19 09:46 POC ABG O2 Sat 98 07/21/19 09:46 PT/INR, D-dimer D-Dimer 274.10 ng/mlDDU (0-234) H 07/21/19 08:58 Abnormal lab findings: Abnormal Labs 07/21/19 07/21/19 07/21/19 08:58 08:58 08:58 RBC 2.59 L Hgb 8.6 L Hct 25.5 L MCV 98 H MCH 33 H Lymph % (Auto) 9.9 L Lymph # 0.9 L Seg Neutrophils % 80.2 H D-Dimer 274.10 H POC ABG pH Sodium Chloride Carbon Dioxide 17 L BUN 82 H Creatinine 3.0 H Glucose 148 H POC Glucose Calcium Iron Troponin T NT-Pro-B Natriuret Pep 07/21/19 07/21/19 07/21/19 08:58 09:46 13:11 RBC Hgb Hct MCV MCH Lymph % (Auto) Lymph # Seg Neutrophils % D-Dimer POC ABG pH 7.330 L Sodium Chloride Carbon Dioxide BUN Creatinine Glucose POC Glucose 65 L Calcium Iron Troponin T 0.388 H* NT-Pro-B Natriuret Pep 4204 H 07/21/19 07/21/19 07/22/19 16:50 17:26 00:05 RBC Hgb Hct MCV MCH Lymph % (Auto) Lymph # Seg Neutrophils % D-Dimer POC ABG pH Sodium Chloride Carbon Dioxide BUN Creatinine Glucose POC Glucose 117 H 179 H Calcium Iron Troponin T 0.393 H* NT-Pro-B Natriuret Pep 07/22/19 07/22/19 07/22/19 00:24 04:24 04:24 RBC 2.71 L Hgb 8.9 L Hct 26.7 L MCV 99 H MCH 33 H Lymph % (Auto) Lymph # Seg Neutrophils % D-Dimer POC ABG pH Sodium 146 H Chloride 109.1 H Carbon Dioxide 17 L BUN 82 H Creatinine 2.7 H Glucose POC Glucose Calcium Iron Troponin T 0.356 H* NT-Pro-B Natriuret Pep 07/22/19 07/22/19 07/22/19 10:49 12:58 17:01 RBC Hgb Hct MCV MCH Lymph % (Auto) Lymph # Seg Neutrophils % D-Dimer POC ABG pH Sodium Chloride Carbon Dioxide BUN Creatinine Glucose POC Glucose 155 H 177 H 164 H Calcium Iron Troponin T NT-Pro-B Natriuret Pep 07/22/19 07/23/19 07/23/19 21:38 07:43 08:31 RBC Hgb Hct MCV MCH Lymph % (Auto) Lymph # Seg Neutrophils % D-Dimer POC ABG pH Sodium Chloride Carbon Dioxide BUN Creatinine Glucose POC Glucose 131 H 139 H Calcium Iron 31 L Troponin T NT-Pro-B Natriuret Pep 07/23/19 07/23/19 07/23/19 11:37 13:41 16:49 RBC Hgb Hct MCV MCH Lymph % (Auto) Lymph # Seg Neutrophils % D-Dimer POC ABG pH Sodium Chloride 107.3 H Carbon Dioxide 21 L BUN 85 H Creatinine 3.0 H Glucose 175 H POC Glucose 198 H 139 H Calcium 8.3 L Iron Troponin T NT-Pro-B Natriuret Pep 07/23/19 07/24/19 07/24/19 22:06 08:27 11:49 RBC 2.72 L Hgb 8.8 L Hct 26.8 L MCV 98 H MCH Lymph % (Auto) Lymph # Seg Neutrophils % D-Dimer POC ABG pH Sodium Chloride Carbon Dioxide BUN Creatinine Glucose POC Glucose 197 H 122 H Calcium Iron Troponin T NT-Pro-B Natriuret Pep 07/24/19 07/24/19 07/24/19 11:49 12:36 17:03 RBC Hgb Hct MCV MCH Lymph % (Auto) Lymph # Seg Neutrophils % D-Dimer POC ABG pH Sodium Chloride Carbon Dioxide 20 L BUN 92 H Creatinine 3.2 H Glucose 173 H POC Glucose 155 H 192 H Calcium Iron Troponin T NT-Pro-B Natriuret Pep 07/24/19 07/25/19 07/25/19 21:10 04:13 04:13 RBC 2.59 L Hgb 8.4 L Hct 25.7 L MCV 99 H MCH Lymph % (Auto) Lymph # Seg Neutrophils % D-Dimer POC ABG pH Sodium Chloride Carbon Dioxide 21 L BUN 95 H Creatinine 3.1 H Glucose 144 H POC Glucose 262 H Calcium Iron Troponin T NT-Pro-B Natriuret Pep 07/25/19 07/25/19 07:49 12:07 RBC Hgb Hct MCV MCH Lymph % (Auto) Lymph # Seg Neutrophils % D-Dimer POC ABG pH Sodium Chloride Carbon Dioxide BUN Creatinine Glucose POC Glucose 140 H 157 H Calcium Iron Troponin T NT-Pro-B Natriuret Pep - Diagnostic Findings Chest x-ray: report reviewed (REPORTED BIRDERLINE HEART SIZE AND MILD PULMONARY VASCULAR CONGESTION.), image reviewed Additional studies: Perfusion lung scan reported normal Assessment and Plan 63-year-old male presents to the emergency department with a complaint of a two-week history of progressively worsening shortness of breath and lower extremity swelling. 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 The patient has been using his home medications including Lasix, an inhaler, without any relief. His shortness of breath worsens with laying flat and he has been unable to get much sleep. No recent travel or sick contacts at home. His symptoms are also associated with an occasional cough and occasional wheezing. Patient denies chest pain and has slight cough. No nasal congestion or sore throat. Patient has a history of smoking 2 packs a week for 20 years, stopped many years ago. History of alcohol abuse in the past. No history of drug abuse. Patient worked in [employer] before he retired. No known allergies. Patient and had one son who due to cardiac problems. Patient presently resting on 3L O2. O2 saturation is 99%. Patient's CXR shows borderline heart size and mild pulmonary vascular congestion. Patient had a pulmonary perfusion lung scan which was reported as normal. - Patient Problems (1) Shortness of breath Current Visit: Yes Status: Acute Plan to address problem: O2 3L via nasal cannula albuterol and atrovent aerosol treatments q 6hrs Continue subq heparin recommend GI prophylaxis (2) Chest pain Current Visit: No Status: Acute Qualifiers: Chest pain type: unspecified Qualified Code(s): R07.9 - Chest pain, unspecified Plan to address problem: management as per cardiology (3) Acute exacerbation of CHF (congestive heart failure) Current Visit: Yes Status: Acute Plan to address problem: management as per cardiology (4) Acute on chronic renal failure Current Visit: Yes Status: Acute Plan to address problem: management as per nephrology
--- NOTE | 2019-07-25 16:22 | Progress Note ---
Assessment and Plan /Acute and chronic decompensation of systolic heart failure - Ef 30-35% -cont with IV diuretics -Consulted cardiology - monitor ins/os /Acute on chronic kidney disease stage 5 with cardiorenal syndrom -On IV diuretic, will monitor his renal function levels -Consulted his manager reading - getting 24 h urine collection - not diuresing well with diuretics - may need HD /Elevated troponin probably NSTEMI type 2 -Tele monitoring -Consulted his supervisor shearing /Acute metabolic acidosis secondary to the renal dysfunction -will monitor and replete as needed /DM2 with hypoglycemia, poa -hold Lantus and treat with SSI -ada diet -accu check /HTN, stable /DVT Prophylaxis -sq heparin /Constipation -Dulcolax pr worked -miralax daily Disposition: continue inpatient care, still trying to wean off O2, need renal clearance before discharge Brief History: Patient is a 63 yo AA man with a plethora of severe co-morbidities including hypertension, DM type 2, CKD 5, AOCD (s/p EGD/Colonoscopy on 03/04/18 with multip le large colonic polyps removed ), TIA, OA hands, AMI x 2, CHF with EF 30-35%, PPM, UTI, chronic constipation, PAD and dyslipidemia who presents to [facility] ED with severe progressive worsening, constant shortness of breath over 2 weeks associated with increase leg swelling, decrease urinary output and weight gain. Admitted for decompensated CHF and worsening renal function Hospitalist Physical Gen: chronically ill appearing, NAD, elderly male, Awake, Alert, Orientated x 3 HEENT: NCAT, EOMI, PERRL, OP Clear Neck: supple, no adenopathy, no thyromegaly, JVD CVS/Heart: RRR, normal S1S2, pulses present bilaterally Chest/Lungs: diminished with bibasilar crackles, Symmetrical chest expansion, good air entry bilaterally GI/Abdomen: distended, nontender, good bowel sounds, no guarding or rebound /Bladder: no suprapubic tenderness, no CVA or paraspinal tenderness Extermity/Skin: + pitting edema b/l, no obvious rash MSK: FROM x 3, left AKA with prosthesis intact Neuro: CN 2-12 grossly intact, no new focal deficits Psych: calm Subjective Date of service: 07/25/19 Principal diagnosis: CKD Interval history: Patient seen and examined denies chest pain still has significant B/L LE swelling states he feels tired and SOB even just going to rest room Objective - Constitutional Vitals: Vital Signs - 12hr 07/25/19 07/25/19 07/25/19 08:00 08:26 12:25 Temperature 98.3 F Pulse Rate 73 73 74 Respiratory 20 Rate Blood Pressure 142/70 153/72 Blood Pressure 142/70 [Left] O2 Sat by Pulse 99 Oximetry 07/25/19 15:42 Temperature Pulse Rate 75 Respiratory Rate Blood Pressure 128/79 Blood Pressure [Left] O2 Sat by Pulse Oximetry - Labs CBC & Chem 7: 07/27/19 07:22 07/27/19 03:55 Labs: Abnormal lab results 07/24/19 07/24/19 07/25/19 Range/Units 17:03 21:10 04:13 RBC 2.59 L (3.65-5.03) M/mm3 Hgb 8.4 L (11.8-15.2) gm/dl Hct 25.7 L (35.5-45.6) % MCV 99 H (84-94) fl Carbon Dioxide (22-30) mmol/L BUN (9-20) mg/dL Creatinine (0.8-1.5) mg/dL Glucose (75-100) mg/dL POC Glucose 192 H 262 H (70-105) 07/25/19 07/25/19 07/25/19 Range/Units 04:13 07:49 12:07 RBC (3.65-5.03) M/mm3 Hgb (11.8-15.2) gm/dl Hct (35.5-45.6) % MCV (84-94) fl Carbon Dioxide 21 L (22-30) mmol/L BUN 95 H (9-20) mg/dL Creatinine 3.1 H (0.8-1.5) mg/dL Glucose 144 H (75-100) mg/dL POC Glucose 140 H 157 H (70-105)
[2019-07-25 21:48] LABS: Patient Weight,Urine 243.8 lbs
[2019-07-26 05:06] LABS: Hematocrit 25.9 % (35.5-45.6); Hemoglobin 8.7 gm/dl (11.8-15.2); Mean Corpuscular HGB Conc 34 % (32-34); Mean Corpuscular Volume 97 fl (84-94); Platelet Count 257 K/mm3 (140-440); Red Blood Count 2.67 M/mm3 (3.65-5.03); Red Cell Distribution Width 14.4 % (13.2-15.2)
[2019-07-26 05:17] LABS: Calcium 8.7 mg/dL (8.4-10.2)
[2019-07-26] MEDS: FUROSEMIDE 40 MG/4 ML INJ IV SCH ×4 (05:50→22:01)
[2019-07-26] MEDS: INSULIN LISPRO 100 UNIT/ML SUB-Q SCH ×4 (08:06→22:02)
[2019-07-26] MEDS: ISOSORBIDE DINITRATE 20 MG TAB PO SCH ×3 (08:07→22:01)
[2019-07-26] MEDS: SODIUM BICARBONATE 650 MG TAB PO SCH ×3 (08:08→22:01)
[2019-07-26] MEDS: METOPROLOL TARTRATE 100 MG TAB PO SCH (09:48)
[2019-07-26] MEDS: NIFEdipine XL 90 MG TAB PO SCH (09:48)
[2019-07-26] MEDS: hydrALAZINE 100 MG TAB PO SCH (09:48)
[2019-07-26] MEDS: POLYETHYLENE GLYCOL 3350 17 GM POWDER PO SCH (09:48)
[2019-07-26] MEDS: ASPIRIN 81 MG TAB CHEW PO SCH (09:48)
[2019-07-26] MEDS: HEPARIN 5,000 UNIT/1 ML VIAL SUB-Q SCH ×2 (09:48→22:03)
[2019-07-26] MEDS: metOLazone 5 MG TAB PO SCH (09:49)
--- NOTE | 2019-07-26 10:28 | Progress Note ---
<NORBERTO DEAN - Last Filed: 07/26/19 10:26> Assessment and Plan Acute CHF exacerbation V/Q scan is negative for PE Volume overload Pulmonary Htn Nonischemic cardiomyopathy -resolving [facility] 2015: normal coronaries, EF 35% Chronic renal disease Anemia, chronic Diabetes Hypertension Prior left BKA Hx of SSS s/p pacemaker implant Hx of Transient Afib pt previously considered not a candidate for oral anticoagulation due to chronic anemia. on beta blockers for suppression. An echocardiogram on this presentation shows some significant resolution of his underlying cardiomyopathy, with ejection fraction now 45-50%. However, he has significant valvular disease with moderate to severe mitral regurgitation and at least moderate tricuspid regurgitation. In addition, there is persistence of his severe pulmonary hypertension, with pulmonary artery pressures measured at 72 by echo this admission Recommendations: Continue medical therapy for cardiomyopathy and systolic heart failure including diuretics, afterload agents and beta blockers as tolerated. Otherwise, conservative cardiac management. Subjective Date of service: 07/26/19 Principal diagnosis: CKD Interval history: Patient is resting in bed comfortably. No distress noted. Objective Vital Signs Temp Pulse Resp BP Pulse Ox 07/26/19 09:48 82 143/72 07/26/19 08:07 82 143/72 07/26/19 07:32 98.0 F 18 143/72 07/26/19 04:00 74 07/26/19 03:35 97.3 F L 74 18 128/71 98 07/25/19 23:02 98.5 F 74 18 135/62 97 07/25/19 21:34 81 131/65 07/25/19 19:36 74 07/25/19 19:25 95 07/25/19 19:16 98.4 F 81 18 131/65 88 07/25/19 17:01 98.3 F 74 20 128/66 96 07/25/19 15:44 128/79 07/25/19 15:42 75 128/79 07/25/19 12:25 74 153/72 07/25/19 12:23 74 98 07/25/19 12:22 74 153/72 96 07/25/19 12:00 80 - Physical Examination General: No Apparent Distress HEENT: Positive: PERRL Neck: Positive: trachea midline Cardiac: Positive: Other (paced) Lungs: Positive: Decreased Breath Sounds Neuro: Positive: Grossly Intact Abdomen: Positive: Soft Extremities: Present: +1 Edema, Other (left BKA) - Labs and Meds CBC 07/26/19 Range/Units 03:56 WBC 7.0 (4.5-11.0) K/mm3 RBC 2.67 L (3.65-5.03) M/mm3 Hgb 8.7 L (11.8-15.2) gm/dl Hct 25.9 L (35.5-45.6) % Plt Count 257 (140-440) K/mm3 Comprehensive Metabolic Panel 07/26/19 Range/Units 03:56 Sodium 144 (137-145) mmol/L Potassium 4.3 (3.6-5.0) mmol/L Chloride 105.7 (98-107) mmol/L Carbon Dioxide 25 (22-30) mmol/L BUN 97 H (9-20) mg/dL Creatinine 3.1 H (0.8-1.5) mg/dL Glucose 119 H (75-100) mg/dL Calcium 8.7 (8.4-10.2) mg/dL <DARIEN MERINO - Last Filed: 08/02/19 10:08> Assessment and Plan I have seen and evaluated the patient myself, and agree with the assessment and plan.
--- NOTE | 2019-07-26 13:45 | Progress Note ---
Assessment and Plan Patient alert and awake, resting on 3L O2. Pt says his breathing is better. No acute respiratory distress at rest. - Patient Problems (1) Shortness of breath Current Visit: Yes Status: Acute Plan to address problem: O2 3L via nasal cannula albuterol and atrovent aerosol treatments q 6hrs Continue subq heparin recommend GI prophylaxis (2) Chest pain Current Visit: No Status: Acute Qualifiers: Chest pain type: unspecified Qualified Code(s): R07.9 - Chest pain, unspecified Plan to address problem: management as per cardiology (3) Acute exacerbation of CHF (congestive heart failure) Current Visit: Yes Status: Acute Plan to address problem: management as per cardiology (4) Acute on chronic renal failure Current Visit: Yes Status: Acute Plan to address problem: management as per nephrology Subjective Date of service: 07/26/19 Principal diagnosis: CKD Interval history: Patient alert and awake, resting on 3L O2. Pt says his breathing is better. No acute respiratory distress at rest. Objective Vital Signs - 12hr 07/26/19 07/26/19 07/26/19 03:35 04:00 07:32 Temperature 97.3 F L 98.0 F Pulse Rate 74 74 Respiratory 18 18 Rate Blood Pressure 128/71 143/72 O2 Sat by Pulse 98 Oximetry 07/26/19 07/26/19 07/26/19 08:07 09:48 12:00 Temperature Pulse Rate 82 82 75 Respiratory Rate Blood Pressure 143/72 143/72 O2 Sat by Pulse Oximetry Constitutional: no acute distress, alert Eyes: non-icteric ENT: oropharynx moist Neck: supple, no JVD Ascultation: Bilateral: rales Cardiovascular: regular rate and rhythm Gastrointestinal: normoactive bowel sounds, soft, non-tender Integumentary: normal Extremities: edema Neurologic: normal mental status, non-focal exam, pupils equal and round, CN II- XII normal Psychiatric: mood appropriate CBC and BMP: 07/26/19 03:56 07/26/19 03:56 ABG, PT/INR, D-dimer: ABG POC ABG pH 7.330 (7.35-7.45) L 07/21/19 09:46 POC ABG pCO2 39.0 (35-45) 07/21/19 09:46 POC ABG pO2 104 (80-105) 07/21/19 09:46 POC ABG HCO3 20.6 (22-26 mml/L) 07/21/19 09:46 POC ABG Total CO2 22 (23-27mmol/L) 07/21/19 09:46 POC ABG O2 Sat 98 07/21/19 09:46 PT/INR, D-dimer D-Dimer 274.10 ng/mlDDU (0-234) H 07/21/19 08:58 Abnormal lab findings: Abnormal Labs 07/21/19 07/21/19 07/21/19 08:58 08:58 08:58 RBC 2.59 L Hgb 8.6 L Hct 25.5 L MCV 98 H MCH 33 H Lymph % (Auto) 9.9 L Lymph # 0.9 L Seg Neutrophils % 80.2 H D-Dimer 274.10 H POC ABG pH Sodium Chloride Carbon Dioxide 17 L BUN 82 H Creatinine 3.0 H Glucose 148 H POC Glucose Calcium Iron Troponin T NT-Pro-B Natriuret Pep Urine Creatinine 07/21/19 07/21/19 07/21/19 08:58 09:46 13:11 RBC Hgb Hct MCV MCH Lymph % (Auto) Lymph # Seg Neutrophils % D-Dimer POC ABG pH 7.330 L Sodium Chloride Carbon Dioxide BUN Creatinine Glucose POC Glucose 65 L Calcium Iron Troponin T 0.388 H* NT-Pro-B Natriuret Pep 4204 H Urine Creatinine 07/21/19 07/21/19 07/22/19 16:50 17:26 00:05 RBC Hgb Hct MCV MCH Lymph % (Auto) Lymph # Seg Neutrophils % D-Dimer POC ABG pH Sodium Chloride Carbon Dioxide BUN Creatinine Glucose POC Glucose 117 H 179 H Calcium Iron Troponin T 0.393 H* NT-Pro-B Natriuret Pep Urine Creatinine 07/22/19 07/22/19 07/22/19 00:24 04:24 04:24 RBC 2.71 L Hgb 8.9 L Hct 26.7 L MCV 99 H MCH 33 H Lymph % (Auto) Lymph # Seg Neutrophils % D-Dimer POC ABG pH Sodium 146 H Chloride 109.1 H Carbon Dioxide 17 L BUN 82 H Creatinine 2.7 H Glucose POC Glucose Calcium Iron Troponin T 0.356 H* NT-Pro-B Natriuret Pep Urine Creatinine 07/22/19 07/22/19 07/22/19 10:49 12:58 17:01 RBC Hgb Hct MCV MCH Lymph % (Auto) Lymph # Seg Neutrophils % D-Dimer POC ABG pH Sodium Chloride Carbon Dioxide BUN Creatinine Glucose POC Glucose 155 H 177 H 164 H Calcium Iron Troponin T NT-Pro-B Natriuret Pep Urine Creatinine 07/22/19 07/23/19 07/23/19 21:38 07:43 08:31 RBC Hgb Hct MCV MCH Lymph % (Auto) Lymph # Seg Neutrophils % D-Dimer POC ABG pH Sodium Chloride Carbon Dioxide BUN Creatinine Glucose POC Glucose 131 H 139 H Calcium Iron 31 L Troponin T NT-Pro-B Natriuret Pep Urine Creatinine 07/23/19 07/23/19 07/23/19 11:37 13:41 16:49 RBC Hgb Hct MCV MCH Lymph % (Auto) Lymph # Seg Neutrophils % D-Dimer POC ABG pH Sodium Chloride 107.3 H Carbon Dioxide 21 L BUN 85 H Creatinine 3.0 H Glucose 175 H POC Glucose 198 H 139 H Calcium 8.3 L Iron Troponin T NT-Pro-B Natriuret Pep Urine Creatinine 07/23/19 07/24/19 07/24/19 22:06 08:27 11:49 RBC 2.72 L Hgb 8.8 L Hct 26.8 L MCV 98 H MCH Lymph % (Auto) Lymph # Seg Neutrophils % D-Dimer POC ABG pH Sodium Chloride Carbon Dioxide BUN Creatinine Glucose POC Glucose 197 H 122 H Calcium Iron Troponin T NT-Pro-B Natriuret Pep Urine Creatinine 07/24/19 07/24/19 07/24/19 11:49 12:36 17:03 RBC Hgb Hct MCV MCH Lymph % (Auto) Lymph # Seg Neutrophils % D-Dimer POC ABG pH Sodium Chloride Carbon Dioxide 20 L BUN 92 H Creatinine 3.2 H Glucose 173 H POC Glucose 155 H 192 H Calcium Iron Troponin T NT-Pro-B Natriuret Pep Urine Creatinine 07/24/19 07/25/19 07/25/19 21:10 04:13 04:13 RBC 2.59 L Hgb 8.4 L Hct 25.7 L MCV 99 H MCH Lymph % (Auto) Lymph # Seg Neutrophils % D-Dimer POC ABG pH Sodium Chloride Carbon Dioxide BUN Creatinine Glucose POC Glucose 262 H Calcium Iron Troponin T NT-Pro-B Natriuret Pep Urine Creatinine 71.0 H 07/25/19 07/25/19 07/25/19 04:13 07:49 12:07 RBC Hgb Hct MCV MCH Lymph % (Auto) Lymph # Seg Neutrophils % D-Dimer POC ABG pH Sodium Chloride Carbon Dioxide 21 L BUN 95 H Creatinine 3.1 H Glucose 144 H POC Glucose 140 H 157 H Calcium Iron Troponin T NT-Pro-B Natriuret Pep Urine Creatinine 07/25/19 07/25/19 07/26/19 16:33 20:28 03:56 RBC 2.67 L Hgb 8.7 L Hct 25.9 L MCV 97 H MCH 33 H Lymph % (Auto) Lymph # Seg Neutrophils % D-Dimer POC ABG pH Sodium Chloride Carbon Dioxide BUN Creatinine Glucose POC Glucose 161 H 203 H Calcium Iron Troponin T NT-Pro-B Natriuret Pep Urine Creatinine 07/26/19 07/26/19 07/26/19 03:56 07:40 12:14 RBC Hgb Hct MCV MCH Lymph % (Auto) Lymph # Seg Neutrophils % D-Dimer POC ABG pH Sodium Chloride Carbon Dioxide BUN 97 H Creatinine 3.1 H Glucose 119 H POC Glucose 108 H 165 H Calcium Iron Troponin T NT-Pro-B Natriuret Pep Urine Creatinine
--- NOTE | 2019-07-26 15:25 | Progress Note ---
Assessment and Plan Acute Kidney injury likely cardiorenal syndrome on top of CKD: Volume overload: Hypoxic respiratory failure: Acute on chronic congestive CHF: Metabolic acidosis: Hypernatremia, Hypertonic: HTN: DM2: HLD: -Continue Lasix and Metolazone. -Obtain 24 hr urine creatinine clearance, may need to be started on HD -Need to monitor strict UOP. -Oral lasix has very erratic absorption and in CHF its absorption is even more reduced due to gut wall edema, he may need to be changed to PO bumex on discharge which is better absorbed -Monitor Renal function -On Epogen for ACD -On NaHCO3 tabs for acidosis -Renally dose all meds -Avoid Nephrotoxic meds -Strict I/Os Alessandro Brown MD [phone] Subjective Date of service: 07/26/19 Principal diagnosis: CKD Interval history: Making urine. Objective - Exam Narrative Exam: GE:AAOX3 HEENT:Normocephalic Neck:Supple Chest:Coarse BS BL CVS:RRR Abd:Soft/BS+ Ext:2-3+ RLE edema, Left leg amputated Neuro:AAOX3 Psyche:Appropriate mood - Vital Signs Vital signs: Vital Signs - 12hr 07/26/19 07/26/19 07/26/19 03:35 04:00 07:32 Temperature 97.3 F L 98.0 F Pulse Rate 74 74 Respiratory 18 18 Rate Blood Pressure 128/71 143/72 O2 Sat by Pulse 98 Oximetry 07/26/19 07/26/19 07/26/19 08:07 09:48 12:00 Temperature Pulse Rate 82 82 75 Respiratory Rate Blood Pressure 143/72 143/72 O2 Sat by Pulse Oximetry 07/26/19 14:50 Temperature Pulse Rate 75 Respiratory Rate Blood Pressure 130/75 O2 Sat by Pulse Oximetry - Lab 07/26/19 03:56 07/26/19 03:56 Most recent lab results Calcium 8.7 mg/dL (8.4-10.2) 07/26/19 03:56 Magnesium 2.30 mg/dL (1.7-2.3) 07/22/19 04:24 Urine Creatinine 71.0 mg/dL (0.1-20.0) H 07/25/19 04:13 Medications & Allergies - Medications Allergies/Adverse Reactions: Allergies No Known Allergies Allergy (Verified 07/21/19 08:02) Home Medications: Home Medications Medication Instructions Recorded Confirmed Last Taken Type AtorvaSTATin [Lipitor] 40 mg PO QHS 07/21/19 07/21/19 Unknown History Insulin Aspart (Nf) [NovoLOG 8 units SUB-Q TID 07/21/19 07/21/19 Unknown History Flexpen] Insulin Degludec [Tresiba 40 unit SQ QDAY 07/21/19 07/21/19 Unknown History Flextouch U-100] Isosorbide Dinitrate [Isordil 20 mg PO TID 07/21/19 07/21/19 Unknown History Titradose] Metoprolol [Lopressor] 100 mg PO QDAY 07/21/19 07/21/19 Unknown History NIFEdipine [Nifedipine ER] 90 mg PO QDAY 07/21/19 07/21/19 Unknown History Nitroglycerin [Nitrostat] 0.4 mg SL QDAY 07/21/19 07/21/19 Unknown History Torsemide [Demadex] 20 mg PO TID 07/21/19 07/21/19 Unknown History hydrALAZINE [Apresoline TAB] 100 mg PO QDAY 07/21/19 07/21/19 Unknown History Active Medications: Generic Name Dose Route Start Last Admin Trade Name Freq PRN Reason Stop Dose Admin Acetaminophen 650 mg 07/25/19 09:00 07/25/19 12:30 Tylenol PO 650 mg Q4H PRN Administration Pain, Mild (1-3) Aspirin 81 mg 07/21/19 14:00 07/26/19 09:48 Baby Aspirin PO 81 mg QDAY LOVE Administration Atorvastatin Calcium 40 mg 07/21/19 22:00 07/25/19 21:35 Lipitor PO 40 mg QHS LOVE Administration Dextrose 50 ml 07/21/19 13:39 D50w (25gm) Syringe IV Q30MIN PRN Hypoglycemia Protocol Diphenhydramine HCl 25 mg 07/22/19 23:25 07/22/19 23:40 Benadryl PO 25 mg QHS PRN Administration Sleep Epoetin Ben 10,000 unit 07/22/19 14:00 Procrit SUB-Q AUGIE PRN DIALYSIS Furosemide 40 mg 07/23/19 16:00 07/26/19 09:48 Lasix IV 40 mg Q6H LOVE Administration Heparin Sodium (Porcine) 5,000 unit 07/21/19 22:00 07/26/19 09:48 Heparin SUB-Q 5,000 unit Q12HR LOVE Administration Hydralazine HCl 100 mg 07/22/19 10:00 07/26/19 09:48 Apresoline PO 100 mg QDAY LOVE Administration Insulin Human Lispro 0 unit 07/21/19 16:30 07/26/19 12:49 Humalog SUB-Q 1 unit ACHS LOVE Administration Protocol Isosorbide Dinitrate 20 mg 07/21/19 14:00 07/26/19 14:50 Isordil Titradose PO 20 mg TID LOVE Administration Metolazone 5 mg 07/25/19 12:00 07/26/19 09:49 Zaroxolyn PO 5 mg QDAY LOVE Administration Metoprolol Tartrate 100 mg 07/21/19 14:00 07/26/19 09:48 Metoprolol PO 100 mg QDAY LOVE Administration Nifedipine 90 mg 07/21/19 13:45 07/26/19 09:48 Procardia Xl PO 90 mg QDAY LOVE Administration Polyethylene Glycol 17 gm 07/21/19 14:00 07/26/19 09:48 Miralax 3350 PO 17 gm QDAY LOVE Administration Sodium Bicarbonate 650 mg 07/22/19 14:00 07/26/19 14:50 Sodium Bicarbonate PO 650 mg TID LOVE Administration
--- NOTE | 2019-07-26 16:12 | Progress Note ---
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 /Acute metabolic acidosis secondary to the renal dysfunction -will monitor and replete as needed /DM2 with hypoglycemia, poa -hold Lantus and treat with SSI -ada diet -accu check /HTN, stable /DVT Prophylaxis -sq heparin /Constipation -Dulcolax pr worked -miralax daily Disposition: continue inpatient care, still trying to wean off O2, need renal clearance before discharge - may need to start on HD Brief History: Patient is a 63 yo AA man with a plethora of severe co-morbidities including hypertension, DM type 2, CKD 5, AOCD (s/p EGD/Colonoscopy on 03/04/18 with multiple large colonic polyps removed ), TIA, OA hands, AMI x 2, CHF with EF 30- 35%, PPM, UTI, chronic constipation, PAD and dyslipidemia who presents to [facility] ED with severe progressive worsening, constant shortness of breath over 2 weeks associated with increase leg swelling, decrease urinary output and weight gain. Admitted for decompensated CHF and worsening renal function Hospitalist Physical Gen: chronically ill appearing, NAD, elderly male, Awake, Alert, Orientated x 3 HEENT: NCAT, EOMI, PERRL, OP Clear Neck: supple, no adenopathy, no thyromegaly, JVD CVS/Heart: RRR, normal S1S2, pulses present bilaterally Chest/Lungs: diminished with bibasilar crackles, Symmetrical chest expansion, good air entry bilaterally GI/Abdomen: distended, nontender, good bowel sounds, no guarding or rebound /Bladder: no suprapubic tenderness, no CVA or paraspinal tenderness Extermity/Skin: + pitting edema b/l, no obvious rash MSK: FROM x 3, left AKA with prosthesis intact Neuro: CN 2-12 grossly intact, no new focal deficits Psych: calm Subjective Date of service: 07/26/19 Principal diagnosis: CKD Interval history: Patient seen and examined denies chest pain still has significant B/L LE swelling states he feels tired and SOB even just going to rest room 24h urine collection ends tonight Objective - Constitutional Vitals: Vital Signs - 12hr 07/26/19 07/26/19 07/26/19 07:32 08:07 09:48 Temperature 98.0 F Pulse Rate 82 82 Respiratory 18 Rate Blood Pressure 143/72 143/72 143/72 07/26/19 07/26/19 12:00 14:50 Temperature Pulse Rate 75 75 Respiratory Rate Blood Pressure 130/75 - Labs CBC & Chem 7: 07/27/19 07:22 07/27/19 03:55 Labs: Abnormal lab results 07/25/19 07/25/19 07/25/19 Range/Units 04:13 16:33 20:28 RBC (3.65-5.03) M/mm3 Hgb (11.8-15.2) gm/dl Hct (35.5-45.6) % MCV (84-94) fl MCH (28-32) pg BUN (9-20) mg/dL Creatinine (0.8-1.5) mg/dL Glucose (75-100) mg/dL POC Glucose 161 H 203 H (70-105) Urine Creatinine 71.0 H (0.1-20.0) mg/dL 07/26/19 07/26/19 07/26/19 Range/Units 03:56 03:56 07:40 RBC 2.67 L (3.65-5.03) M/mm3 Hgb 8.7 L (11.8-15.2) gm/dl Hct 25.9 L (35.5-45.6) % MCV 97 H (84-94) fl MCH 33 H (28-32) pg BUN 97 H (9-20) mg/dL Creatinine 3.1 H (0.8-1.5) mg/dL Glucose 119 H (75-100) mg/dL POC Glucose 108 H (70-105) Urine Creatinine (0.1-20.0) mg/dL 07/26/19 Range/Units 12:14 RBC (3.65-5.03) M/mm3 Hgb (11.8-15.2) gm/dl Hct (35.5-45.6) % MCV (84-94) fl MCH (28-32) pg BUN (9-20) mg/dL Creatinine (0.8-1.5) mg/dL Glucose (75-100) mg/dL POC Glucose 165 H (70-105) Urine Creatinine (0.1-20.0) mg/dL
[2019-07-27 05:16] LABS: Calcium 8.6 mg/dL (8.4-10.2)
[2019-07-27] MEDS: FUROSEMIDE 40 MG/4 ML INJ IV SCH ×4 (05:55→22:20)
[2019-07-27 08:21] LABS: Basophils % (Auto) 0.2 % (0.0-1.8); Eosinophils # (Auto) 0.2 K/mm3 (0.0-0.4); Eosinophils % (Auto) 2.7 % (0.0-4.3); Hemoglobin 8.4 gm/dl (11.8-15.2); Lymphocytes # (Auto) 0.9 K/mm3 (1.2-5.4); Lymphocytes % (Auto) 12.4 % (13.4-35.0); Mean Corpuscular HGB Conc 34 % (32-34); Mean Corpuscular Volume 98 fl (84-94); Monocytes # (Auto) 0.6 K/mm3 (0.0-0.8); Monocytes % (Auto) 7.8 % (0.0-7.3); Platelet Count 266 K/mm3 (140-440); Red Blood Count 2.56 M/mm3 (3.65-5.03); Red Cell Distribution Width 14.3 % (13.2-15.2)
[2019-07-27] MEDS: INSULIN LISPRO 100 UNIT/ML SUB-Q SCH ×4 (08:45→22:21)
[2019-07-27] MEDS: SODIUM BICARBONATE 650 MG TAB PO SCH ×3 (08:55→20:44)
[2019-07-27] MEDS: ISOSORBIDE DINITRATE 20 MG TAB PO SCH ×3 (08:56→20:44)
[2019-07-27] MEDS: NIFEdipine XL 90 MG TAB PO SCH (09:01)
[2019-07-27] MEDS: hydrALAZINE 100 MG TAB PO SCH (09:01)
[2019-07-27] MEDS: HEPARIN 5,000 UNIT/1 ML VIAL SUB-Q SCH ×2 (09:02→22:21)
[2019-07-27] MEDS: ASPIRIN 81 MG TAB CHEW PO SCH (09:02)
[2019-07-27] MEDS: metOLazone 5 MG TAB PO SCH (09:02)
[2019-07-27] MEDS: METOPROLOL TARTRATE 100 MG TAB PO SCH (09:02)
--- NOTE | 2019-07-27 09:08 | Progress Note ---
Assessment and Plan Acute Kidney injury likely cardiorenal syndrome on top of CKD: Volume overload: Hypoxic respiratory failure: Acute on chronic congestive CHF: Metabolic acidosis: Hypernatremia, Hypertonic: HTN: DM2: HLD: -Continue Lasix and Metolazone. -24 hours creatinine clearance was 14 ml/min, cont to have rising BUN and inade quate response to diuretics, R&B of dialysis explained to patient including risk of infection, low blood pressure and stroke, he verbalized understanding and agree with starting dialysis, vascular consult was placed, HD today and tomorrow after permcath placement, case management consult requested for HD placement in [facility] -Need to monitor strict UOP. -Monitor Renal function -On Epogen for ACD -On NaHCO3 tabs for acidosis -Renally dose all meds -Avoid Nephrotoxic meds -Strict I/Os Delvin vela MD [phone] Subjective Date of service: 07/27/19 Principal diagnosis: CKD Interval history: cont to have SOB and swelling Objective - Vital Signs Vital signs: Vital Signs - 12hr 07/26/19 07/26/19 07/27/19 22:01 23:17 03:29 Temperature 98.2 F Pulse Rate 76 75 74 Respiratory 18 Rate Blood Pressure 128/70 141/71 O2 Sat by Pulse 95 Oximetry 07/27/19 07/27/19 07/27/19 03:43 08:56 09:02 Temperature 98.2 F Pulse Rate 76 73 73 Respiratory 19 Rate Blood Pressure 141/65 151/71 151/71 O2 Sat by Pulse 92 Oximetry - General Appearance General appearance: well-developed, well-nourished, appears stated age EENT: ATNC, PERRL, mucous membranes moist Neck: no JVD, no carotid bruit Respiratory: Present: Decreased Breath Sounds. Absent: Rales, Ronchi Cardiology: regular, S1S2 Gastrointestinal: normoactive bowel sounds, no tenderness, distended Integumentary: no rash, warm and dry Neurologic: no focal deficit, no asterixis, alert and oriented x3 Musculoskeletal: other (edema in RLE) Psychiatric: mood/affect appropriate, cooperative - Lab 07/27/19 07:22 07/27/19 03:55 Most recent lab results Calcium 8.6 mg/dL (8.4-10.2) 07/27/19 03:55 Magnesium 2.30 mg/dL (1.7-2.3) 07/22/19 04:24 Urine Creatinine 71.0 mg/dL (0.1-20.0) H 07/25/19 04:13 Medications & Allergies - Medications Allergies/Adverse Reactions: Allergies No Known Allergies Allergy (Verified 07/21/19 08:02) Home Medications: Home Medications Medication Instructions Recorded Confirmed Last Taken Type AtorvaSTATin [Lipitor] 40 mg PO QHS 07/21/19 07/21/19 Unknown History Insulin Aspart (Nf) [NovoLOG 8 units SUB-Q TID 07/21/19 07/21/19 Unknown History Flexpen] Insulin Degludec [Tresiba 40 unit SQ QDAY 07/21/19 07/21/19 Unknown History Flextouch U-100] Isosorbide Dinitrate [Isordil 20 mg PO TID 07/21/19 07/21/19 Unknown History Titradose] Metoprolol [Lopressor] 100 mg PO QDAY 07/21/19 07/21/19 Unknown History NIFEdipine [Nifedipine ER] 90 mg PO QDAY 07/21/19 07/21/19 Unknown History Nitroglycerin [Nitrostat] 0.4 mg SL QDAY 07/21/19 07/21/19 Unknown History Torsemide [Demadex] 20 mg PO TID 07/21/19 07/21/19 Unknown History hydrALAZINE [Apresoline TAB] 100 mg PO QDAY 07/21/19 07/21/19 Unknown History Active Medications: Generic Name Dose Route Start Last Admin Trade Name Freq PRN Reason Stop Dose Admin Acetaminophen 650 mg 07/25/19 09:00 07/25/19 12:30 Tylenol PO 650 mg Q4H PRN Administration Pain, Mild (1-3) Aspirin 81 mg 07/21/19 14:00 07/27/19 09:02 Baby Aspirin PO 81 mg QDAY LOVE Administration Atorvastatin Calcium 40 mg 07/21/19 22:00 07/26/19 22:01 Lipitor PO 40 mg QHS LOVE Administration Dextrose 50 ml 07/21/19 13:39 D50w (25gm) Syringe IV Q30MIN PRN Hypoglycemia Protocol Diphenhydramine HCl 25 mg 07/22/19 23:25 07/22/19 23:40 Benadryl PO 25 mg QHS PRN Administration Sleep Epoetin Ben 10,000 unit 07/22/19 14:00 Procrit SUB-Q AUGIE PRN DIALYSIS Furosemide 40 mg 07/23/19 16:00 07/27/19 05:55 Lasix IV 40 mg Q6H LOVE Administration Heparin Sodium (Porcine) 5,000 unit 07/21/19 22:00 07/26/19 22:03 Heparin SUB-Q 5,000 unit Q12HR LOVE Administration Hydralazine HCl 100 mg 07/22/19 10:00 07/27/19 09:01 Apresoline PO 100 mg QDAY LOVE Administration Insulin Human Lispro 0 unit 07/21/19 16:30 07/27/19 08:45 Humalog SUB-Q Not Given [facility] Protocol Isosorbide Dinitrate 20 mg 07/21/19 14:00 07/27/19 08:56 Isordil Titradose PO 20 mg TID LOVE Administration Metolazone 5 mg 07/25/19 12:00 07/26/19 09:49 Zaroxolyn PO 5 mg QDAY LOVE Administration Metoprolol Tartrate 100 mg 07/21/19 14:00 07/27/19 09:02 Metoprolol PO 100 mg QDAY LOVE Administration Nifedipine 90 mg 07/21/19 13:45 07/27/19 09:01 Procardia Xl PO 90 mg QDAY LOVE Administration Polyethylene Glycol 17 gm 07/21/19 14:00 07/26/19 09:48 Miralax 3350 PO 17 gm QDAY LOVE Administration Sodium Bicarbonate 650 mg 07/22/19 14:00 07/27/19 08:55 Sodium Bicarbonate PO 650 mg TID LOVE Administration
[2019-07-27] MEDS: POLYETHYLENE GLYCOL 3350 17 GM POWDER PO SCH (09:14)
[2019-07-27] MEDS ORDERED: MIDAZOLAM 2 MG/2 ML INJ ONE (10:03)
[2019-07-27] MEDS ORDERED: fentaNYL 100 MCG/2 ML INJ ONE (10:03)
[2019-07-27] MEDS ORDERED: HEPARIN 10,000 UNITS/10 ML VIAL ONE (10:03)
[2019-07-27] MEDS ORDERED: HEPARIN/NS 5000 UNIT/500ML 500 ML IR ONE (10:03)
[2019-07-27] MEDS ORDERED: LIDOCAINE (2%) 20 MG/1 ML VIAL 20 ML MDV INFILTRATI ONE (10:04)
[2019-07-27] MEDS ORDERED: ceFAZolin/Water 2 GM/20 ML 2 GM/20 ML SYRINGE IV ONE (10:04)
[2019-07-27] MEDS ORDERED: SODIUM CHLORIDE 0.9% 250ML 250 ML ONE (10:29)
[2019-07-27 11:46] LABS: Hepatitis B Surface Antigen Non-Reactive (Negative); Hepatitis C Virus Antibody Non-Reactive (NonReactive)
--- NOTE | 2019-07-27 12:07 | Progress Note ---
Assessment and Plan Acute CHF exacerbation V/Q scan is negative for PE Volume overload Pulmonary Htn Nonischemic cardiomyopathy -resolving [facility] 2015: normal coronaries, EF 35% Chronic renal disease Anemia, chronic Diabetes Hypertension Prior left BKA Hx of SSS s/p pacemaker implant Hx of Transient Afib pt previously considered not a candidate for oral anticoagulation due to chronic anemia. on beta blockers for suppression. An echocardiogram on this presentation shows some significant resolution of his underlying cardiomyopathy, with ejection fraction now 45-50%. However, he has significant valvular disease with moderate to severe mitral regurgitation and at least moderate tricuspid regurgitation. In addition, there is persistence of his severe pulmonary hypertension, with pulmonary artery pressures measured at 72 by echo this admission. Recommend: Continue medical therapy for cardiomyopathy and systolic heart failure including diuretics, afterload agents and beta blockers as tolerated. Subjective Date of service: 07/27/19 Principal diagnosis: CKD Interval history: Patient is resting in bed comfortably. Lower extremity edema is slowly improving. Objective Vital Signs Temp Pulse Resp BP Pulse Ox 07/27/19 09:02 73 151/71 07/27/19 08:56 73 151/71 07/27/19 08:00 18 97 07/27/19 03:43 98.2 F 76 19 141/65 92 07/27/19 03:29 74 07/26/19 23:17 98.2 F 75 18 141/71 95 07/26/19 22:01 76 128/70 07/26/19 19:46 74 07/26/19 19:39 98.7 F 76 18 128/70 97 07/26/19 17:10 97.7 F 81 18 118/73 95 07/26/19 14:50 75 130/75 07/26/19 14:49 77 130/75 98 - Physical Examination General: No Apparent Distress HEENT: Positive: PERRL Neck: Positive: trachea midline Cardiac: Positive: Other (paced) Lungs: Positive: Decreased Breath Sounds Neuro: Positive: Grossly Intact Abdomen: Positive: Soft Extremities: Present: +1 Edema, Other (left BKA) - Labs and Meds CBC 07/27/19 Range/Units 07:22 WBC 7.3 (4.5-11.0) K/mm3 RBC 2.56 L (3.65-5.03) M/mm3 Hgb 8.4 L (11.8-15.2) gm/dl Hct 25.0 L (35.5-45.6) % Plt Count 266 (140-440) K/mm3 Lymph # 0.9 L (1.2-5.4) K/mm3 [place] # 0.6 (0.0-0.8) K/mm3 Eos # 0.2 (0.0-0.4) K/mm3 Baso # 0.0 (0.0-0.1) K/mm3 Comprehensive Metabolic Panel 07/27/19 Range/Units 03:55 Sodium 141 (137-145) mmol/L Potassium 5.0 (3.6-5.0) mmol/L Chloride 106.0 (98-107) mmol/L Carbon Dioxide 19 L (22-30) mmol/L BUN 102 H (9-20) mg/dL Creatinine 2.8 H (0.8-1.5) mg/dL Glucose 135 H (75-100) mg/dL Calcium 8.6 (8.4-10.2) mg/dL
--- NOTE | 2019-07-27 13:24 | Progress Note ---
Assessment and Plan Pulmonary Hypertension Shortness of breath Chest pain Acute exacerbation of CHF (HFrEF of 40%) Acute on chronic renal failure - tentatively to begin HD/UF - continue optimize cardiac therapy for combined heart failure - consider addition of Revatio - outpatient pulmonary clinic f/up - weight loss counseled - continue supplemental oxygen as needed to keep O2 sat's > 90% - prn bronchodilators with pulmonary hygiene per RT - continue diuresis per nephrology prescription - follow clinically off AB's - PT/OT as tolerated - mobility protocols for pressure ulcer prophylaxis - GI & VTE prophylaxis - tobacco abstinence strongly counseled at bedside - Flu & Pneumovax addressed per protocol .... re-evaluate in am & prn Subjective Date of service: 07/27/19 Principal diagnosis: Pulmonary HTN; SOB; Chest pain; Ac. exacerbation of CHF (HFrEF of 40%); SUJATHA Interval history: Patient is seen today for: Pulmonary Hypertension; Shortness of breath; Chest pain; Acute exacerbation of CHF (HFrEF of 40%); Acute on chronic renal failure Seen and examined at bedside; 24hour events reviewed; nursing and respiratory care staff consulted; no adverse overnight events reported to me; resting p eacefully in bed; tentatively to begin dialysis; no hemoptysis; denies acute chest pains or palpitations Objective Vital Signs - 12hr 07/27/19 07/27/19 07/27/19 03:29 03:43 07:20 Temperature 98.2 F Pulse Rate 74 76 74 Respiratory 19 Rate Blood Pressure 141/65 O2 Sat by Pulse 92 Oximetry 07/27/19 07/27/19 07/27/19 08:00 08:15 08:56 Temperature Pulse Rate 73 73 Respiratory 18 Rate Blood Pressure 151/71 151/71 O2 Sat by Pulse 97 95 Oximetry 07/27/19 07/27/19 09:02 11:58 Temperature Pulse Rate 73 Respiratory Rate Blood Pressure 151/71 131/69 O2 Sat by Pulse Oximetry Constitutional: no acute distress, alert Eyes: non-icteric ENT: oropharynx moist Neck: supple, no JVD, other (large neck circumference) Effort: mildly labored Ascultation: Bilateral: rales Percussion: Bilateral: not dull Cardiovascular: regular rate and rhythm Gastrointestinal: normoactive bowel sounds, soft, non-tender, non-distended, other (protuberant) Integumentary: normal Extremities: no cyanosis, pulses normal, no ischemia or petechiae, edema Neurologic: normal mental status, non-focal exam, pupils equal and round, CN II- XII normal Psychiatric: mood appropriate, affect normal CBC and BMP: 07/27/19 07:22 07/28/19 04:06 ABG, PT/INR, D-dimer: ABG POC ABG pH 7.330 (7.35-7.45) L 07/21/19 09:46 POC ABG pCO2 39.0 (35-45) 07/21/19 09:46 POC ABG pO2 104 (80-105) 07/21/19 09:46 POC ABG HCO3 20.6 (22-26 mml/L) 07/21/19 09:46 POC ABG Total CO2 22 (23-27mmol/L) 07/21/19 09:46 POC ABG O2 Sat 98 07/21/19 09:46 PT/INR, D-dimer D-Dimer 274.10 ng/mlDDU (0-234) H 07/21/19 08:58 Abnormal lab findings: Abnormal Labs 07/21/19 07/21/19 07/21/19 08:58 08:58 08:58 RBC 2.59 L Hgb 8.6 L Hct 25.5 L MCV 98 H MCH 33 H Lymph % (Auto) 9.9 L [place] % (Auto) Lymph # 0.9 L Seg Neutrophils % 80.2 H D-Dimer 274.10 H POC ABG pH Sodium Chloride Carbon Dioxide 17 L BUN 82 H Creatinine 3.0 H Glucose 148 H POC Glucose Calcium Iron Troponin T NT-Pro-B Natriuret Pep Urine Creatinine 07/21/19 07/21/19 07/21/19 08:58 09:46 13:11 RBC Hgb Hct MCV MCH Lymph % (Auto) [place] % (Auto) Lymph # Seg Neutrophils % D-Dimer POC ABG pH 7.330 L Sodium Chloride Carbon Dioxide BUN Creatinine Glucose POC Glucose 65 L Calcium Iron Troponin T 0.388 H* NT-Pro-B Natriuret Pep 4204 H Urine Creatinine 07/21/19 07/21/19 07/22/19 16:50 17:26 00:05 RBC Hgb Hct MCV MCH Lymph % (Auto) [place] % (Auto) Lymph # Seg Neutrophils % D-Dimer POC ABG pH Sodium Chloride Carbon Dioxide BUN Creatinine Glucose POC Glucose 117 H 179 H Calcium Iron Troponin T 0.393 H* NT-Pro-B Natriuret Pep Urine Creatinine 07/22/19 07/22/19 07/22/19 00:24 04:24 04:24 RBC 2.71 L Hgb 8.9 L Hct 26.7 L MCV 99 H MCH 33 H Lymph % (Auto) [place] % (Auto) Lymph # Seg Neutrophils % D-Dimer POC ABG pH Sodium 146 H Chloride 109.1 H Carbon Dioxide 17 L BUN 82 H Creatinine 2.7 H Glucose POC Glucose Calcium Iron Troponin T 0.356 H* NT-Pro-B Natriuret Pep Urine Creatinine 07/22/19 07/22/19 07/22/19 10:49 12:58 17:01 RBC Hgb Hct MCV MCH Lymph % (Auto) [place] % (Auto) Lymph # Seg Neutrophils % D-Dimer POC ABG pH Sodium Chloride Carbon Dioxide BUN Creatinine Glucose POC Glucose 155 H 177 H 164 H Calcium Iron Troponin T NT-Pro-B Natriuret Pep Urine Creatinine 07/22/19 07/23/19 07/23/19 21:38 07:43 08:31 RBC Hgb Hct MCV MCH Lymph % (Auto) [place] % (Auto) Lymph # Seg Neutrophils % D-Dimer POC ABG pH Sodium Chloride Carbon Dioxide BUN Creatinine Glucose POC Glucose 131 H 139 H Calcium Iron 31 L Troponin T NT-Pro-B Natriuret Pep Urine Creatinine 07/23/19 07/23/19 07/23/19 11:37 13:41 16:49 RBC Hgb Hct MCV MCH Lymph % (Auto) [place] % (Auto) Lymph # Seg Neutrophils % D-Dimer POC ABG pH Sodium Chloride 107.3 H Carbon Dioxide 21 L BUN 85 H Creatinine 3.0 H Glucose 175 H POC Glucose 198 H 139 H Calcium 8.3 L Iron Troponin T NT-Pro-B Natriuret Pep Urine Creatinine 07/23/19 07/24/19 07/24/19 22:06 08:27 11:49 RBC 2.72 L Hgb 8.8 L Hct 26.8 L MCV 98 H MCH Lymph % (Auto) [place] % (Auto) Lymph # Seg Neutrophils % D-Dimer POC ABG pH Sodium Chloride Carbon Dioxide BUN Creatinine Glucose POC Glucose 197 H 122 H Calcium Iron Troponin T NT-Pro-B Natriuret Pep Urine Creatinine 07/24/19 07/24/19 07/24/19 11:49 12:36 17:03 RBC Hgb Hct MCV MCH Lymph % (Auto) [place] % (Auto) Lymph # Seg Neutrophils % D-Dimer POC ABG pH Sodium Chloride Carbon Dioxide 20 L BUN 92 H Creatinine 3.2 H Glucose 173 H POC Glucose 155 H 192 H Calcium Iron Troponin T NT-Pro-B Natriuret Pep Urine Creatinine 07/24/19 07/25/19 07/25/19 21:10 04:13 04:13 RBC 2.59 L Hgb 8.4 L Hct 25.7 L MCV 99 H MCH Lymph % (Auto) [place] % (Auto) Lymph # Seg Neutrophils % D-Dimer POC ABG pH Sodium Chloride Carbon Dioxide BUN Creatinine Glucose POC Glucose 262 H Calcium Iron Troponin T NT-Pro-B Natriuret Pep Urine Creatinine 71.0 H 07/25/19 07/25/19 07/25/19 04:13 07:49 12:07 RBC Hgb Hct MCV MCH Lymph % (Auto) [place] % (Auto) Lymph # Seg Neutrophils % D-Dimer POC ABG pH Sodium Chloride Carbon Dioxide 21 L BUN 95 H Creatinine 3.1 H Glucose 144 H POC Glucose 140 H 157 H Calcium Iron Troponin T NT-Pro-B Natriuret Pep Urine Creatinine 07/25/19 07/25/19 07/26/19 16:33 20:28 03:56 RBC 2.67 L Hgb 8.7 L Hct 25.9 L MCV 97 H MCH 33 H Lymph % (Auto) [place] % (Auto) Lymph # Seg Neutrophils % D-Dimer POC ABG pH Sodium Chloride Carbon Dioxide BUN Creatinine Glucose POC Glucose 161 H 203 H Calcium Iron Troponin T NT-Pro-B Natriuret Pep Urine Creatinine 07/26/19 07/26/19 07/26/19 03:56 07:40 12:14 RBC Hgb Hct MCV MCH Lymph % (Auto) [place] % (Auto) Lymph # Seg Neutrophils % D-Dimer POC ABG pH Sodium Chloride Carbon Dioxide BUN 97 H Creatinine 3.1 H Glucose 119 H POC Glucose 108 H 165 H Calcium Iron Troponin T NT-Pro-B Natriuret Pep Urine Creatinine 07/26/19 07/26/19 07/27/19 17:09 21:09 03:55 RBC Hgb Hct MCV MCH Lymph % (Auto) [place] % (Auto) Lymph # Seg Neutrophils % D-Dimer POC ABG pH Sodium Chloride Carbon Dioxide 19 L BUN 102 H Creatinine 2.8 H Glucose 135 H POC Glucose 166 H 217 H Calcium Iron Troponin T NT-Pro-B Natriuret Pep Urine Creatinine 07/27/19 07/27/19 07/27/19 07:22 08:25 12:06 RBC 2.56 L Hgb 8.4 L Hct 25.0 L MCV 98 H MCH 33 H Lymph % (Auto) 12.4 L [place] % (Auto) 7.8 H Lymph # 0.9 L Seg Neutrophils % 76.9 H D-Dimer POC ABG pH Sodium Chloride Carbon Dioxide BUN Creatinine Glucose POC Glucose 136 H 126 H Calcium Iron Troponin T NT-Pro-B Natriuret Pep Urine Creatinine Chest x-ray: image reviewed (cardiomegaly and ICD) Allied health notes reviewed: nursing
--- NOTE | 2019-07-27 13:48 | Consultation ---
History of Present Illness - Reason for Consult Consult date: 07/27/19 end-stage renal disease requiring dialysis access - History of Present Illness Patient with a history of end-stage renal disease but now requires placement of the catheter for dialysis access. The patient has an established relationship with [facility]. [facility] were consulted to provide care for the patient in a non-emergent setting, but despite being active staff members of [facility], they refused and therefore our group was consult for placement of permacath. Past History Past Medical History: diabetes, ESRD, heart failure, stroke, other (kidney disease) Past Surgical History: Other (ppm) Medications and Allergies Allergies Allergy/AdvReac Type Severity Reaction Status Date / Time No Known Allergies Allergy Verified 07/21/19 08:02 Home Medications Medication Instructions Recorded Confirmed Last Taken Type AtorvaSTATin [Lipitor] 40 mg PO QHS 07/21/19 07/21/19 Unknown History Insulin Aspart (Nf) [NovoLOG 8 units SUB-Q TID 07/21/19 07/21/19 Unknown History Flexpen] Insulin Degludec [Tresiba 40 unit SQ QDAY 07/21/19 07/21/19 Unknown History Flextouch U-100] Isosorbide Dinitrate [Isordil 20 mg PO TID 07/21/19 07/21/19 Unknown History Titradose] Metoprolol [Lopressor] 100 mg PO QDAY 07/21/19 07/21/19 Unknown History NIFEdipine [Nifedipine ER] 90 mg PO QDAY 07/21/19 07/21/19 Unknown History Nitroglycerin [Nitrostat] 0.4 mg SL QDAY 07/21/19 07/21/19 Unknown History Torsemide [Demadex] 20 mg PO TID 07/21/19 07/21/19 Unknown History hydrALAZINE [Apresoline TAB] 100 mg PO QDAY 07/21/19 07/21/19 Unknown History Active Meds: Active Medications Acetaminophen (Tylenol) 650 mg PO Q4H PRN PRN Reason: Pain, Mild (1-3) Last Admin: 07/25/19 12:30 Dose: 650 mg Documented by: Aspirin (Baby Aspirin) 81 mg PO QDAY [facility] Last Admin: 07/27/19 09:02 Dose: 81 mg Documented by: Atorvastatin Calcium (Lipitor) 40 mg PO QHS [facility] Last Admin: 07/26/19 22:01 Dose: 40 mg Documented by: Dextrose (D50w (25gm) Syringe) 50 ml IV Q30MIN PRN; Protocol PRN Reason: Hypoglycemia Diphenhydramine HCl (Benadryl) 25 mg PO QHS PRN PRN Reason: Sleep Last Admin: 07/22/19 23:40 Dose: 25 mg Documented by: Epoetin Ben (Procrit) 10,000 unit SUB-Q AUGIE PRN PRN Reason: DIALYSIS Furosemide (Lasix) 40 mg IV Q6H [facility] Last Admin: 07/27/19 09:13 Dose: 40 mg Documented by: Heparin Sodium (Porcine) (Heparin) 5,000 unit SUB-Q Q12HR [facility] Last Admin: 07/27/19 09:02 Dose: 5,000 unit Documented by: Hydralazine HCl (Apresoline) 100 mg PO QDAY [facility] Last Admin: 07/27/19 09:01 Dose: 100 mg Documented by: Insulin Human Lispro (Humalog) 0 unit SUB-Q ACHS [facility]; Protocol Last Admin: 07/27/19 12:01 Dose: Not Given Documented by: Isosorbide Dinitrate (Isordil Titradose) 20 mg PO TID [facility] Last Admin: 07/27/19 08:56 Dose: 20 mg Documented by: Metolazone (Zaroxolyn) 5 mg PO QDAY [facility] Last Admin: 07/27/19 09:02 Dose: 5 mg Documented by: Metoprolol Tartrate (Metoprolol) 100 mg PO QDAY [facility] Last Admin: 07/27/19 09:02 Dose: 100 mg Documented by: Nifedipine (Procardia Xl) 90 mg PO QDAY [facility] Last Admin: 07/27/19 09:01 Dose: 90 mg Documented by: Polyethylene Glycol (Miralax 3350) 17 gm PO QDAY [facility] Last Admin: 07/27/19 09:14 Dose: Not Given Documented by: Sodium Bicarbonate (Sodium Bicarbonate) 650 mg PO TID [facility] Last Admin: 07/27/19 08:55 Dose: 650 mg Documented by: Review of Systems All systems: negative Exam - Constitutional Vitals: Temp Pulse Resp BP Pulse Ox 98.2 F 73 18 131/69 95 07/27/19 03:43 07/27/19 09:02 07/27/19 08:00 07/27/19 11:58 07/27/19 08:15 General appearance: Present: no acute distress - EENT Eyes: Present: EOM intact ENT: hearing intact - Neck Neck: Present: supple, normal ROM - Respiratory Respiratory effort: normal - Cardiovascular Rhythm: regular - Abdominal General gastrointestinal: Present: deferred Male genitourinary: Present: deferred - Rectal Rectal Exam: deferred - Psychiatric Psychiatric: appropriate mood/affect, cooperative Results - Labs CBC & Chem 7: 07/27/19 07:22 07/27/19 03:55 Labs: Abnormal lab results 07/26/19 07/26/19 07/27/19 Range/Units 17:09 21:09 03:55 RBC (3.65-5.03) M/mm3 Hgb (11.8-15.2) gm/dl Hct (35.5-45.6) % MCV (84-94) fl MCH (28-32) pg Lymph % (Auto) (13.4-35.0) % [place] % (Auto) (0.0-7.3) % Lymph # (1.2-5.4) K/mm3 Seg Neutrophils % (40.0-70.0) % Carbon Dioxide 19 L (22-30) mmol/L BUN 102 H (9-20) mg/dL Creatinine 2.8 H (0.8-1.5) mg/dL Glucose 135 H (75-100) mg/dL POC Glucose 166 H 217 H (70-105) 07/27/19 07/27/19 07/27/19 Range/Units 07:22 08:25 12:06 RBC 2.56 L (3.65-5.03) M/mm3 Hgb 8.4 L (11.8-15.2) gm/dl Hct 25.0 L (35.5-45.6) % MCV 98 H (84-94) fl MCH 33 H (28-32) pg Lymph % (Auto) 12.4 L (13.4-35.0) % [place] % (Auto) 7.8 H (0.0-7.3) % Lymph # 0.9 L (1.2-5.4) K/mm3 Seg Neutrophils % 76.9 H (40.0-70.0) % Carbon Dioxide (22-30) mmol/L BUN (9-20) mg/dL Creatinine (0.8-1.5) mg/dL Glucose (75-100) mg/dL POC Glucose 136 H 126 H (70-105) Assessment and Plan Patient will be scheduled for placement of permacath today.
--- NOTE | 2019-07-27 17:00 | Progress Note ---
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 /Acute metabolic acidosis secondary to the renal dysfunction -will monitor and replete as needed /DM2 with hypoglycemia, poa -hold Lantus and treat with SSI -ada diet -accu check /HTN, stable /DVT Prophylaxis -sq heparin /Constipation -Dulcolax pr worked -miralax daily Disposition: continue inpatient care, still trying to wean off O2, need renal clearance before discharge - may need to start on HD Brief History: Patient is a 63 yo AA man with a plethora of severe co-morbidities including hypertension, DM type 2, CKD 5, AOCD (s/p EGD/Colonoscopy on 03/04/18 with multiple large colonic polyps removed ), TIA, OA hands, AMI x 2, CHF with EF 30- 35%, PPM, UTI, chronic constipation, PAD and dyslipidemia who presents to [facility] ED with severe progressive worsening, constant shortness of breath over 2 weeks associated with increase leg swelling, decrease urinary output and weight gain. Admitted for decompensated CHF and worsening renal function Hospitalist Physical Gen: chronically ill appearing, NAD, elderly male, Awake, Alert, Orientated x 3 HEENT: NCAT, EOMI, PERRL, OP Clear Neck: supple, no adenopathy, no thyromegaly, JVD CVS/Heart: RRR, normal S1S2, pulses present bilaterally Chest/Lungs: diminished with bibasilar crackles, Symmetrical chest expansion, good air entry bilaterally GI/Abdomen: distended, nontender, good bowel sounds, no guarding or rebound /Bladder: no suprapubic tenderness, no CVA or paraspinal tenderness Extermity/Skin: + pitting edema b/l, no obvious rash MSK: FROM x 3, left AKA with prosthesis intact Neuro: CN 2-12 grossly intact, no new focal deficits Psych: calm Subjective Date of service: 07/27/19 Principal diagnosis: Pulmonary HTN; SOB; Chest pain; Ac. exacerbation of CHF (HFrEF of 40%); SUJATHA Interval history: Patient seen and examined denies chest pain still has significant B/L LE swelling Plan for HD today Objective - Constitutional Vitals: Vital Signs - 12hr 07/27/19 07/27/19 07/27/19 07:20 08:00 08:15 Pulse Rate 74 73 Respiratory 18 Rate Blood Pressure 151/71 O2 Sat by Pulse 97 95 Oximetry 07/27/19 07/27/19 07/27/19 08:56 09:02 11:58 Pulse Rate 73 73 Respiratory Rate Blood Pressure 151/71 151/71 131/69 O2 Sat by Pulse Oximetry - Labs CBC & Chem 7: 07/27/19 07:22 07/28/19 04:06 Labs: Abnormal lab results 07/26/19 07/26/19 07/27/19 Range/Units 17:09 21:09 03:55 RBC (3.65-5.03) M/mm3 Hgb (11.8-15.2) gm/dl Hct (35.5-45.6) % MCV (84-94) fl MCH (28-32) pg Lymph % (Auto) (13.4-35.0) % [place] % (Auto) (0.0-7.3) % Lymph # (1.2-5.4) K/mm3 Seg Neutrophils % (40.0-70.0) % Carbon Dioxide 19 L (22-30) mmol/L BUN 102 H (9-20) mg/dL Creatinine 2.8 H (0.8-1.5) mg/dL Glucose 135 H (75-100) mg/dL POC Glucose 166 H 217 H (70-105) 07/27/19 07/27/19 07/27/19 Range/Units 07:22 08:25 12:06 RBC 2.56 L (3.65-5.03) M/mm3 Hgb 8.4 L (11.8-15.2) gm/dl Hct 25.0 L (35.5-45.6) % MCV 98 H (84-94) fl MCH 33 H (28-32) pg Lymph % (Auto) 12.4 L (13.4-35.0) % [place] % (Auto) 7.8 H (0.0-7.3) % Lymph # 0.9 L (1.2-5.4) K/mm3 Seg Neutrophils % 76.9 H (40.0-70.0) % Carbon Dioxide (22-30) mmol/L BUN (9-20) mg/dL Creatinine (0.8-1.5) mg/dL Glucose (75-100) mg/dL POC Glucose 136 H 126 H (70-105)
[2019-07-28] MEDS: FUROSEMIDE 40 MG/4 ML INJ IV SCH ×4 (04:48→22:55)
[2019-07-28 05:07] LABS: Calcium 8.6 mg/dL (8.4-10.2)
[2019-07-28] MEDS: INSULIN LISPRO 100 UNIT/ML SUB-Q SCH ×4 (07:12→22:55)
[2019-07-28] MEDS: ISOSORBIDE DINITRATE 20 MG TAB PO SCH ×3 (08:14→21:40)
[2019-07-28] MEDS: SODIUM BICARBONATE 650 MG TAB PO SCH ×3 (08:15→21:40)
[2019-07-28] MEDS: ACETAMINOPHEN 325 MG TAB PO PRN (08:46)
--- NOTE | 2019-07-28 10:08 | Progress Note ---
Assessment and Plan severe renal failure, likely progression of CKD Volume overload: Hypoxic respiratory failure: Acute on chronic congestive CHF: Metabolic acidosis: Hypernatremia, Hypertonic: HTN: DM2: HLD: -HD again today, can be discharged tomorrow after HD if dialysis placement was secured -Monitor Renal function -On Epogen for ACD -On NaHCO3 tabs for acidosis -Renally dose all meds -Avoid Nephrotoxic meds -Strict I/Os Delvin vela MD [phone] Subjective Date of service: 07/28/19 Principal diagnosis: Pulmonary HTN; SOB; Chest pain; Ac. exacerbation of CHF (HFrEF of 40%); SUJATHA Interval history: tolerated permcath placement and dialysis yesterday Objective - Vital Signs Vital signs: Vital Signs - 12hr 07/27/19 07/28/19 07/28/19 23:39 04:37 05:25 Temperature 98.0 F 98.0 F Pulse Rate 74 74 74 Respiratory 18 18 Rate Blood Pressure 137/63 142/69 O2 Sat by Pulse 95 96 Oximetry 07/28/19 08:46 Temperature Pulse Rate Respiratory 20 Rate Blood Pressure O2 Sat by Pulse Oximetry - General Appearance General appearance: well-developed, well-nourished EENT: ATNC, PERRL, mucous membranes moist Neck: no JVD, no carotid bruit Respiratory: Present: Clear to Ascultation. Absent: Rales, Ronchi Cardiology: regular, S1S2 Gastrointestinal: normoactive bowel sounds, no tenderness, no distended Integumentary: no rash, warm and dry Neurologic: no focal deficit, no asterixis, alert and oriented x3 Musculoskeletal: other (edema in RLE) Psychiatric: mood/affect appropriate, cooperative - Lab 07/27/19 07:22 07/28/19 04:06 Most recent lab results Calcium 8.6 mg/dL (8.4-10.2) 07/28/19 04:06 Magnesium 2.30 mg/dL (1.7-2.3) 07/22/19 04:24 Urine Creatinine 71.0 mg/dL (0.1-20.0) H 07/25/19 04:13 Medications & Allergies - Medications Allergies/Adverse Reactions: Allergies No Known Allergies Allergy (Verified 07/21/19 08:02) Home Medications: Home Medications Medication Instructions Recorded Confirmed Last Taken Type AtorvaSTATin [Lipitor] 40 mg PO QHS 07/21/19 07/21/19 Unknown History Insulin Aspart (Nf) [NovoLOG 8 units SUB-Q TID 07/21/19 07/21/19 Unknown History Flexpen] Insulin Degludec [Tresiba 40 unit SQ QDAY 07/21/19 07/21/19 Unknown History Flextouch U-100] Isosorbide Dinitrate [Isordil 20 mg PO TID 07/21/19 07/21/19 Unknown History Titradose] Metoprolol [Lopressor] 100 mg PO QDAY 07/21/19 07/21/19 Unknown History NIFEdipine [Nifedipine ER] 90 mg PO QDAY 07/21/19 07/21/19 Unknown History Nitroglycerin [Nitrostat] 0.4 mg SL QDAY 07/21/19 07/21/19 Unknown History Torsemide [Demadex] 20 mg PO TID 07/21/19 07/21/19 Unknown History hydrALAZINE [Apresoline TAB] 100 mg PO QDAY 07/21/19 07/21/19 Unknown History Active Medications: Generic Name Dose Route Start Last Admin Trade Name Freq PRN Reason Stop Dose Admin Acetaminophen 650 mg 07/25/19 09:00 07/28/19 08:46 Tylenol PO 650 mg Q4H PRN Administration Pain, Mild (1-3) Aspirin 81 mg 07/21/19 14:00 07/27/19 09:02 Baby Aspirin PO 81 mg QDAY LOVE Administration Atorvastatin Calcium 40 mg 07/21/19 22:00 07/27/19 22:20 Lipitor PO 40 mg QHS LOVE Administration Dextrose 50 ml 07/21/19 13:39 D50w (25gm) Syringe IV Q30MIN PRN Hypoglycemia Protocol Diphenhydramine HCl 25 mg 07/22/19 23:25 07/22/19 23:40 Benadryl PO 25 mg QHS PRN Administration Sleep Epoetin Ben 10,000 unit 07/22/19 14:00 Procrit SUB-Q AUGIE PRN DIALYSIS Furosemide 40 mg 07/23/19 16:00 07/28/19 04:48 Lasix IV 40 mg Q6H LOVE Administration Heparin Sodium (Porcine) 5,000 unit 07/21/19 22:00 07/27/19 22:21 Heparin SUB-Q 5,000 unit Q12HR LOVE Administration Hydralazine HCl 100 mg 07/22/19 10:00 07/27/19 09:01 Apresoline PO 100 mg QDAY [facility] Administration Insulin Human Lispro 0 unit 07/21/19 16:30 07/27/19 22:21 Humalog SUB-Q 2 unit ACHS LOVE Administration Protocol Isosorbide Dinitrate 20 mg 07/21/19 14:00 07/27/19 20:44 Isordil Titradose PO 20 mg TID LOVE Administration Metolazone 5 mg 07/25/19 12:00 07/27/19 09:02 Zaroxolyn PO 5 mg QDAY [facility] Administration Metoprolol Tartrate 100 mg 07/21/19 14:00 07/27/19 09:02 Metoprolol PO 100 mg QDAY [facility] Administration Nifedipine 90 mg 07/21/19 13:45 07/27/19 09:01 Procardia Xl PO 90 mg QDAY [facility] Administration Polyethylene Glycol 17 gm 07/21/19 14:00 07/27/19 09:14 Miralax 3350 PO Not Given QDAY [facility] Sodium Bicarbonate 650 mg 07/22/19 14:00 07/27/19 20:44 Sodium Bicarbonate PO 650 mg TID LOVE Administration
[2019-07-28] MEDS: hydrALAZINE 100 MG TAB PO SCH (10:17)
[2019-07-28] MEDS: ASPIRIN 81 MG TAB CHEW PO SCH (10:18)
[2019-07-28] MEDS: HEPARIN 5,000 UNIT/1 ML VIAL SUB-Q SCH ×2 (10:19→22:55)
[2019-07-28] MEDS: METOPROLOL TARTRATE 100 MG TAB PO SCH (10:19)
[2019-07-28] MEDS: POLYETHYLENE GLYCOL 3350 17 GM POWDER PO SCH (10:20)
[2019-07-28] MEDS: NIFEdipine XL 90 MG TAB PO SCH (10:20)
--- NOTE | 2019-07-28 10:35 | Progress Note ---
Assessment and Plan Acute CHF exacerbation V/Q scan is negative for PE Volume overload Pulmonary Htn Nonischemic cardiomyopathy -resolving [facility] 2015: normal coronaries, EF 35% Chronic renal disease -initiated on dialysis this admission Anemia, chronic Diabetes Hypertension Prior left BKA Hx of SSS s/p pacemaker implant Hx of Transient Afib pt previously considered not a candidate for oral anticoagulation due to chronic anemia. on beta blockers for suppression. An echocardiogram on this presentation shows some significant resolution of his underlying cardiomyopathy, with ejection fraction now 45-50%. However, he has significant valvular disease with moderate to severe mitral regurgitation and at least moderate tricuspid regurgitation. In addition, there is persistence of his severe pulmonary hypertension, with pulmonary artery pressures measured at 72 by echo this admission. Recommend: Dialysis for fluid removal. Continue medical therapy for cardiomyopathy and systolic heart failure with afterload agents and beta blockers as tolerated. Subjective Date of service: 07/28/19 Principal diagnosis: Pulmonary HTN; SOB; Chest pain; Ac. exacerbation of CHF (HFrEF of 40%); SUJATHA Interval history: Patient has been initiated on dialysis for volume removal. Lower extremity edema is slowly improving. Objective Vital Signs Temp Pulse Resp BP Pulse Ox 07/28/19 08:46 20 07/28/19 05:25 98.0 F 74 18 142/69 96 07/28/19 04:37 74 07/27/19 23:39 98.0 F 74 18 137/63 95 07/27/19 20:44 75 144/71 07/27/19 19:41 98.0 F 75 18 144/71 93 07/27/19 19:38 76 07/27/19 17:15 98.2 F 73 18 134/71 07/27/19 17:00 73 127/74 07/27/19 16:30 73 132/72 07/27/19 16:15 73 139/74 07/27/19 16:00 76 139/70 07/27/19 15:45 80 137/75 07/27/19 15:30 74 132/72 07/27/19 15:20 73 123/62 07/27/19 15:16 98.2 F 73 19 130/73 07/27/19 11:58 131/69 - Physical Examination General: No Apparent Distress HEENT: Positive: PERRL Neck: Positive: trachea midline Cardiac: Positive: Other (paced) Lungs: Positive: Decreased Breath Sounds Neuro: Positive: Grossly Intact Abdomen: Positive: Soft Extremities: Present: +1 Edema, Other (left BKA) - Labs and Meds Comprehensive Metabolic Panel 07/28/19 Range/Units 04:06 Sodium 142 (137-145) mmol/L Potassium 4.3 (3.6-5.0) mmol/L Chloride 101.8 (98-107) mmol/L Carbon Dioxide 29 D (22-30) mmol/L BUN 71 H (9-20) mg/dL Creatinine 2.6 H (0.8-1.5) mg/dL Glucose 188 H (75-100) mg/dL Calcium 8.6 (8.4-10.2) mg/dL
--- NOTE | 2019-07-28 10:48 | Progress Note ---
Assessment and Plan Pulmonary Hypertension Shortness of breath Chest pain Acute exacerbation of CHF (HFrEF of 40%) Acute on chronic renal failure - HD/UF per nephrology - continue optimize cardiac therapy for combined heart failure - consider addition of Revatio - outpatient pulmonary clinic f/up - weight loss counseled - continue supplemental oxygen as needed to keep O2 sat's > 90% - prn bronchodilators with pulmonary hygiene per RT - continue diuresis per nephrology prescription - follow clinically off AB's - PT/OT as tolerated - mobility protocols for pressure ulcer prophylaxis - GI & VTE prophylaxis - tobacco abstinence strongly counseled at bedside - Flu & Pneumovax addressed per protocol .... re-evaluate in am & prn Subjective Date of service: 07/28/19 Principal diagnosis: Pulmonary HTN; SOB; Chest pain; Ac. exacerbation of CHF (HFrEF of 40%); SUJATHA Interval history: Patient is seen today for: Pulmonary Hypertension; Shortness of breath; Chest pain; Acute exacerbation of CHF (HFrEF of 40%); Acute on chronic renal failure Seen and examined at bedside; 24hour events reviewed; nursing and respiratory care staff consulted; no adverse overnight events reported to me; resting peacefully in bed; no acute chest pain; no syncope; no palpitations Objective Vital Signs - 12hr 07/27/19 07/28/19 07/28/19 23:39 04:37 05:25 Temperature 98.0 F 98.0 F Pulse Rate 74 74 74 Respiratory 18 18 Rate Blood Pressure 137/63 142/69 O2 Sat by Pulse 95 96 Oximetry 07/28/19 08:46 Temperature Pulse Rate Respiratory 20 Rate Blood Pressure O2 Sat by Pulse Oximetry Constitutional: no acute distress, alert Eyes: non-icteric ENT: oropharynx moist Neck: supple, no JVD, other (large neck circumference) Effort: mildly labored Ascultation: Bilateral: rales Percussion: Bilateral: not dull Cardiovascular: regular rate and rhythm Gastrointestinal: normoactive bowel sounds, soft, non-tender, non-distended, other (protuberant) Integumentary: normal Extremities: no cyanosis, pulses normal, no ischemia or petechiae, edema Neurologic: normal mental status, non-focal exam, pupils equal and round, CN II- XII normal Psychiatric: mood appropriate, affect normal CBC and BMP: 07/27/19 07:22 07/28/19 04:06 ABG, PT/INR, D-dimer: ABG POC ABG pH 7.330 (7.35-7.45) L 07/21/19 09:46 POC ABG pCO2 39.0 (35-45) 07/21/19 09:46 POC ABG pO2 104 (80-105) 07/21/19 09:46 POC ABG HCO3 20.6 (22-26 mml/L) 07/21/19 09:46 POC ABG Total CO2 22 (23-27mmol/L) 07/21/19 09:46 POC ABG O2 Sat 98 07/21/19 09:46 PT/INR, D-dimer D-Dimer 274.10 ng/mlDDU (0-234) H 07/21/19 08:58 Abnormal lab findings: Abnormal Labs 07/21/19 07/21/19 07/21/19 08:58 08:58 08:58 RBC 2.59 L Hgb 8.6 L Hct 25.5 L MCV 98 H MCH 33 H Lymph % (Auto) 9.9 L Cassia % (Auto) Lymph # 0.9 L Seg Neutrophils % 80.2 H D-Dimer 274.10 H POC ABG pH Sodium Chloride Carbon Dioxide 17 L BUN 82 H Creatinine 3.0 H Glucose 148 H POC Glucose Calcium Iron Troponin T NT-Pro-B Natriuret Pep Urine Creatinine 07/21/19 07/21/19 07/21/19 08:58 09:46 13:11 RBC Hgb Hct MCV MCH Lymph % (Auto) Cassia % (Auto) Lymph # Seg Neutrophils % D-Dimer POC ABG pH 7.330 L Sodium Chloride Carbon Dioxide BUN Creatinine Glucose POC Glucose 65 L Calcium Iron Troponin T 0.388 H* NT-Pro-B Natriuret Pep 4204 H Urine Creatinine 07/21/19 07/21/19 07/22/19 16:50 17:26 00:05 RBC Hgb Hct MCV MCH Lymph % (Auto) Cassia % (Auto) Lymph # Seg Neutrophils % D-Dimer POC ABG pH Sodium Chloride Carbon Dioxide BUN Creatinine Glucose POC Glucose 117 H 179 H Calcium Iron Troponin T 0.393 H* NT-Pro-B Natriuret Pep Urine Creatinine 07/22/19 07/22/19 07/22/19 00:24 04:24 04:24 RBC 2.71 L Hgb 8.9 L Hct 26.7 L MCV 99 H MCH 33 H Lymph % (Auto) Cassia % (Auto) Lymph # Seg Neutrophils % D-Dimer POC ABG pH Sodium 146 H Chloride 109.1 H Carbon Dioxide 17 L BUN 82 H Creatinine 2.7 H Glucose POC Glucose Calcium Iron Troponin T 0.356 H* NT-Pro-B Natriuret Pep Urine Creatinine 07/22/19 07/22/19 07/22/19 10:49 12:58 17:01 RBC Hgb Hct MCV MCH Lymph % (Auto) Cassia % (Auto) Lymph # Seg Neutrophils % D-Dimer POC ABG pH Sodium Chloride Carbon Dioxide BUN Creatinine Glucose POC Glucose 155 H 177 H 164 H Calcium Iron Troponin T NT-Pro-B Natriuret Pep Urine Creatinine 07/22/19 07/23/19 07/23/19 21:38 07:43 08:31 RBC Hgb Hct MCV MCH Lymph % (Auto) Cassia % (Auto) Lymph # Seg Neutrophils % D-Dimer POC ABG pH Sodium Chloride Carbon Dioxide BUN Creatinine Glucose POC Glucose 131 H 139 H Calcium Iron 31 L Troponin T NT-Pro-B Natriuret Pep Urine Creatinine 07/23/19 07/23/19 07/23/19 11:37 13:41 16:49 RBC Hgb Hct MCV MCH Lymph % (Auto) Cassia % (Auto) Lymph # Seg Neutrophils % D-Dimer POC ABG pH Sodium Chloride 107.3 H Carbon Dioxide 21 L BUN 85 H Creatinine 3.0 H Glucose 175 H POC Glucose 198 H 139 H Calcium 8.3 L Iron Troponin T NT-Pro-B Natriuret Pep Urine Creatinine 07/23/19 07/24/19 07/24/19 22:06 08:27 11:49 RBC 2.72 L Hgb 8.8 L Hct 26.8 L MCV 98 H MCH Lymph % (Auto) Cassia % (Auto) Lymph # Seg Neutrophils % D-Dimer POC ABG pH Sodium Chloride Carbon Dioxide BUN Creatinine Glucose POC Glucose 197 H 122 H Calcium Iron Troponin T NT-Pro-B Natriuret Pep Urine Creatinine 07/24/19 07/24/19 07/24/19 11:49 12:36 17:03 RBC Hgb Hct MCV MCH Lymph % (Auto) Cassia % (Auto) Lymph # Seg Neutrophils % D-Dimer POC ABG pH Sodium Chloride Carbon Dioxide 20 L BUN 92 H Creatinine 3.2 H Glucose 173 H POC Glucose 155 H 192 H Calcium Iron Troponin T NT-Pro-B Natriuret Pep Urine Creatinine 07/24/19 07/25/19 07/25/19 21:10 04:13 04:13 RBC 2.59 L Hgb 8.4 L Hct 25.7 L MCV 99 H MCH Lymph % (Auto) Cassia % (Auto) Lymph # Seg Neutrophils % D-Dimer POC ABG pH Sodium Chloride Carbon Dioxide BUN Creatinine Glucose POC Glucose 262 H Calcium Iron Troponin T NT-Pro-B Natriuret Pep Urine Creatinine 71.0 H 07/25/19 07/25/19 07/25/19 04:13 07:49 12:07 RBC Hgb Hct MCV MCH Lymph % (Auto) Cassia % (Auto) Lymph # Seg Neutrophils % D-Dimer POC ABG pH Sodium Chloride Carbon Dioxide 21 L BUN 95 H Creatinine 3.1 H Glucose 144 H POC Glucose 140 H 157 H Calcium Iron Troponin T NT-Pro-B Natriuret Pep Urine Creatinine 07/25/19 07/25/19 07/26/19 16:33 20:28 03:56 RBC 2.67 L Hgb 8.7 L Hct 25.9 L MCV 97 H MCH 33 H Lymph % (Auto) Cassia % (Auto) Lymph # Seg Neutrophils % D-Dimer POC ABG pH Sodium Chloride Carbon Dioxide BUN Creatinine Glucose POC Glucose 161 H 203 H Calcium Iron Troponin T NT-Pro-B Natriuret Pep Urine Creatinine 07/26/19 07/26/19 07/26/19 03:56 07:40 12:14 RBC Hgb Hct MCV MCH Lymph % (Auto) Cassia % (Auto) Lymph # Seg Neutrophils % D-Dimer POC ABG pH Sodium Chloride Carbon Dioxide BUN 97 H Creatinine 3.1 H Glucose 119 H POC Glucose 108 H 165 H Calcium Iron Troponin T NT-Pro-B Natriuret Pep Urine Creatinine 07/26/19 07/26/19 07/27/19 17:09 21:09 03:55 RBC Hgb Hct MCV MCH Lymph % (Auto) Cassia % (Auto) Lymph # Seg Neutrophils % D-Dimer POC ABG pH Sodium Chloride Carbon Dioxide 19 L BUN 102 H Creatinine 2.8 H Glucose 135 H POC Glucose 166 H 217 H Calcium Iron Troponin T NT-Pro-B Natriuret Pep Urine Creatinine 07/27/19 07/27/19 07/27/19 07:22 08:25 12:06 RBC 2.56 L Hgb 8.4 L Hct 25.0 L MCV 98 H MCH 33 H Lymph % (Auto) 12.4 L Cassia % (Auto) 7.8 H Lymph # 0.9 L Seg Neutrophils % 76.9 H D-Dimer POC ABG pH Sodium Chloride Carbon Dioxide BUN Creatinine Glucose POC Glucose 136 H 126 H Calcium Iron Troponin T NT-Pro-B Natriuret Pep Urine Creatinine 07/27/19 07/27/19 07/28/19 18:07 20:58 04:06 RBC Hgb Hct MCV MCH Lymph % (Auto) Cassia % (Auto) Lymph # Seg Neutrophils % D-Dimer POC ABG pH Sodium Chloride Carbon Dioxide BUN 71 H Creatinine 2.6 H Glucose 188 H POC Glucose 192 H 232 H Calcium Iron Troponin T NT-Pro-B Natriuret Pep Urine Creatinine 07/28/19 07:49 RBC Hgb Hct MCV MCH Lymph % (Auto) Cassia % (Auto) Lymph # Seg Neutrophils % D-Dimer POC ABG pH Sodium Chloride Carbon Dioxide BUN Creatinine Glucose POC Glucose 187 H Calcium Iron Troponin T NT-Pro-B Natriuret Pep Urine Creatinine Allied health notes reviewed: nursing
--- NOTE | 2019-07-28 12:56 | Discharge Summary ---
Providers - Providers Date of Admission: 07/21/19 10:23 Date of discharge: 07/29/19 Attending physician: ARIS RIVERA 07/21/19 13:35 Consult to Physician [CONS] Routine Comment: Consulting Provider: MARLEY PONCE Physician Instructions: Reason For Exam: CHF, your patient 07/21/19 13:46 Consult to Physician [CONS] Routine Comment: Consulting Provider: FELIX BRADFORD Physician Instructions: Reason For Exam: ESRD not on HD yet, pt known to you 07/25/19 09:20 Consult to Physician [CONS] Routine Comment: Consulting Provider: NATALIA ROSA Physician Instructions: Reason For Exam: PHTN 07/27/19 08:55 Consult to Physician [CONS] Routine Comment: SPOKE WITH TRAVON. Consulting Provider: LUANA HANSON Physician Instructions: permcath placement Reason For Exam: ESRD 07/27/19 09:08 Consult to Case Management [CONS] Routine Services Needed at Discharge: Other Notified:: LABEL FOLDER Additional Physician Instructions: outpatient dialysis in [facility] Address: [address] [place] [address] Primary care physician: CRISTINA JOSE Hospitalization Condition: Fair Pertinent studies: VQ scan Abdominal xry CXR Hospital course: Patient is a 63 yo AA man with a plethora of severe co-morbidities including hypertension, DM type 2, CKD 5, AOCD (s/p EGD/Colonoscopy on 03/04/18 with multiple large colonic polyps removed ), TIA, OA hands, AMI x 2, CHF with EF 30- 35%, PPM, UTI, chronic constipation, PAD and dyslipidemia who presents to [facility] ED with severe progressive worsening, constant shortness of breath over 2 weeks associated with increase leg swelling, decrease urinary output and weight gain. 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 his hydraulic assembler - didnot diuresed well with diuretics -started on HD since 07/27/19 - perm cath placed by vascular, has outpt HD set up following discharge /Acute and chronic decompensation of systolic heart failure - Ef 30-35% -cont with IV diuretics -Consulted cardiology - monitor ins/os /Elevated troponin probably NSTEMI type 2 -Tele monitoring -Consulted his finance analyst /Acute metabolic acidosis secondary to the renal dysfunction -on bicarbonate po /DM2 with hypoglycemia, poa -held Lantus and treated with SSI -Placed on consistent carb diet /HTN, stable /PVD s/p Left BKA - supportive care /DVT Prophylaxis -sq heparin /Constipation -Dulcolax prn worked -miralax daily Disposition: DC- TO HOME OR SELFCARE Time spent for discharge: 34 minutes Core Measure Documentation - Palliative Care Palliative Care/ Comfort Measures: Not Applicable - Core Measures Any of the following diagnoses?: heart failure - Heart Failure Discharge Requirements ELLE/ARB for LVSD if EF <40%: No Reason for no ELLE/ARB: Renal impairment Beta eliseo at discharge: Yes Exam - Constitutional Vitals: Temp Pulse Resp BP Pulse Ox 98.0 F 79 20 141/75 96 07/28/19 09:13 07/28/19 12:15 07/28/19 09:13 07/28/19 12:15 07/28/19 05:25 Plan Activity: advance as tolerated Weight Bearing Status: Non-Weight Bearing Diet: renal Special Instructions: restrict fluid intake to (1.2L per day), no heavy lifting Follow up with: PRIMARY CARE, [Referring] - 3-5 Days Prescriptions: Aspirin [Aspirin BABY CHEW TAB] 81 mg PO QDAY #30 tab.chew Polyethylene Glycol 3350 [Miralax 3350] 17 gm PO QDAY #10 powd.pack Sodium Bicarbonate 650 mg PO TID #30 tablet metOLazone [Zaroxolyn] 5 mg PO QDAY #30 tablet
[2019-07-28] MEDS ORDERED: SODIUM CHLORIDE*PRIMING MACHINE ONLY FOR DIALYSIS MC ONE (16:59)
[2019-07-29] MEDS: FUROSEMIDE 40 MG/4 ML INJ IV SCH ×3 (05:00→16:43)
[2019-07-29] MEDS: metOLazone 5 MG TAB PO SCH ×2 (07:07→16:43)
[2019-07-29] MEDS: INSULIN LISPRO 100 UNIT/ML SUB-Q SCH ×3 (07:30→16:44)
--- NOTE | 2019-07-29 09:08 | Progress Note ---
Assessment and Plan 1. 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 Dilated nonischemic cardiomyopathy LVEF 45=50% severe MR 3. End-stage renal disease 4. Type 2 diabetes mellitus 5. Essential hypertension 6. Peripheral vascular disease status post left BKA 7. Presence of cardiac pacemaker Plan. Continue present cardiac medication hemodialysis for fluid management. out patient evaluation with [facility] for Mitral valve repair Subjective Date of service: 07/29/19 Principal diagnosis: Pulmonary HTN; SOB; Chest pain; Ac. exacerbation of CHF (HFrEF of 40%); SUJATHA Interval history: No cardiac symptoms. Objective Vital Signs Temp Pulse Pulse Pulse Resp BP Pulse Ox 07/29/19 08:05 98.6 F 74 18 151/70 96 07/29/19 05:22 98.5 F 80 20 138/72 94 07/29/19 04:00 77 07/28/19 23:23 98.7 F 74 20 141/68 96 07/28/19 22:00 75 75 18 98 07/28/19 21:40 75 133/63 07/28/19 20:22 98.5 F 75 20 133/63 89 07/28/19 20:00 74 07/28/19 17:16 75 130/54 79 L 07/28/19 12:49 98.2 F 80 18 133/64 93 07/28/19 12:25 98.0 F 73 20 143/79 07/28/19 12:15 79 141/75 07/28/19 12:00 76 151/75 07/28/19 11:45 79 139/79 07/28/19 11:30 76 143/78 07/28/19 11:15 75 146/77 07/28/19 11:00 73 144/73 07/28/19 10:45 73 148/77 07/28/19 10:30 73 143/77 07/28/19 10:15 73 143/72 07/28/19 10:00 73 141/67 97 07/28/19 09:45 73 142/74 07/28/19 09:30 75 146/75 07/28/19 09:20 73 154/72 07/28/19 09:13 98.0 F 75 20 145/71 - Physical Examination General: No Apparent Distress HEENT: Positive: PERRL Neck: Positive: trachea midline. Negative: JVD/HJR Cardiac: Positive: Regular Rate, S1/S2, PMI, Laterally Displaced. Negative: S3 Lungs: Positive: clear to auscultation, No Wheeze, Rales, Rhonchi Neuro: Positive: Grossly Intact Abdomen: Positive: Soft, Active Bowel Sounds Extremities: Present: +1 Edema, Other (left BKA) - Allied health notes Allied health notes reviewed: nursing
--- NOTE | 2019-07-29 09:50 | Progress Note ---
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 - didnot diuresed well with diuretics -started on HD since 07/27/19 - perm cath placed by vascular, has outpt HD set up following discharge /Acute and chronic decompensation of systolic heart failure - Ef 30-35% -diuretics changed to po -Consulted cardiology - monitor ins/os /Elevated troponin probably NSTEMI type 2 -Tele monitoring, medical mx /Acute metabolic acidosis secondary to the renal dysfunction -on bicarbonate po /DM2 with hypoglycemia, poa -held Lantus and treated with SSI -Placed on consistent carb diet /HTN, stable /PVD s/p Left BKA - supportive care /DVT Prophylaxis -sq heparin /Constipation -Dulcolax prn worked -miralax daily Disposition: home with HH - pending as patient's appealed for discharge Brief History: Patient is a 63 yo AA man with a plethora of severe co-morbidities including hypertension, DM type 2, CKD 5, AOCD (s/p EGD/Colonoscopy on 03/04/18 with multiple large colonic polyps removed ), TIA, OA hands, AMI x 2, CHF with EF 30- 35%, PPM, UTI, chronic constipation, PAD and dyslipidemia who presents to [facility] ED with severe progressive worsening, constant shortness of breath over 2 weeks associated with increase leg swelling, decrease urinary output and weight gain. Admitted for decompensated CHF and worsening renal function Hospitalist Physical Gen: chronically ill appearing, NAD, elderly male, Awake, Alert, Orientated x 3 HEENT: NCAT, EOMI, PERRL, OP Clear Neck: supple, no adenopathy, no thyromegaly, JVD CVS/Heart: RRR, normal S1S2, pulses present bilaterally Chest/Lungs: diminished with bibasilar crackles, Symmetrical chest expansion, good air entry bilaterally GI/Abdomen: distended, nontender, good bowel sounds, no guarding or rebound /Bladder: no suprapubic tenderness, no CVA or paraspinal tenderness Extermity/Skin: + pitting edema b/l, no obvious rash MSK: FROM x 3, left AKA with prosthesis intact Neuro: CN 2-12 grossly intact, no new focal deficits Psych: calm Subjective Date of service: 07/28/19 Principal diagnosis: Pulmonary HTN; SOB; Chest pain; Ac. exacerbation of CHF (HFrEF of 40%); SUJATHA Interval history: Patient seen and examined denies chest pain, tolerating HD refused to home as because he thinks he won't be able to go to HD center tomorrow, appealed for discharge Objective - Constitutional Vitals: Vital Signs - 12hr 07/28/19 07/28/19 07/29/19 22:00 23:23 04:00 Temperature 98.7 F Pulse Rate 74 77 Pulse Rate [ 75 Apical] Pulse Rate [ 75 Radial] Respiratory 18 20 Rate Blood Pressure 141/68 O2 Sat by Pulse 98 96 Oximetry 07/29/19 07/29/19 05:22 08:05 Temperature 98.5 F 98.6 F Pulse Rate 80 74 Pulse Rate [ Apical] Pulse Rate [ Radial] Respiratory 20 18 Rate Blood Pressure 138/72 151/70 O2 Sat by Pulse 94 96 Oximetry - Labs CBC & Chem 7: 07/27/19 07:22 07/28/19 04:06 Labs: Abnormal lab results 07/28/19 07/28/19 07/28/19 Range/Units 12:58 17:04 22:03 POC Glucose 165 H 224 H 244 H (70-105) 07/29/19 Range/Units 08:14 POC Glucose 169 H (70-105)
[2019-07-29] MEDS: SODIUM BICARBONATE 650 MG TAB PO SCH ×2 (10:28→16:41)
[2019-07-29] MEDS: HEPARIN 5,000 UNIT/1 ML VIAL SUB-Q SCH (10:28)
[2019-07-29] MEDS: ISOSORBIDE DINITRATE 20 MG TAB PO SCH ×2 (10:28→16:41)
--- NOTE | 2019-07-29 11:34 | Progress Note ---
Assessment and Plan Pulmonary Hypertension Shortness of breath Chest pain Acute exacerbation of CHF (HFrEF of 40%) Acute on chronic renal failure - continue optimize cardiac therapy for combined heart failure - outpatient pulmonary clinic f/up - weight loss counseled - continue supplemental oxygen as needed to keep O2 sat's > 90% - prn bronchodilators with pulmonary hygiene per RT - continue diuresis per nephrology prescription - follow clinically off AB's - PT/OT as tolerated - mobility protocols for pressure ulcer prophylaxis - GI & VTE prophylaxis - tobacco abstinence strongly counseled at bedside - Flu & Pneumovax addressed per protocol Subjective Date of service: 07/29/19 Principal diagnosis: Pulmonary HTN; SOB; Chest pain; Ac. exacerbation of CHF (HFrEF of 40%); SUJATHA Interval history: Patient is seen today for: Pulmonary Hypertension; Shortness of breath; Chest pain; Acute exacerbation of CHF (HFrEF of 40%); Acute on chronic renal failure Seen and examined at bedside; 24hour events reviewed; nursing and respiratory care staff consulted; no adverse overnight events reported to me; resting peace fully in bed; tentatively to begin dialysis; no hemoptysis; denies acute chest pains or palpitations Objective Vital Signs - 12hr 07/29/19 07/29/19 07/29/19 04:00 05:22 08:00 Temperature 98.5 F Pulse Rate 77 80 74 Pulse Rate [ 74 Apical] Respiratory 20 Rate Blood Pressure 138/72 O2 Sat by Pulse 94 Oximetry 07/29/19 07/29/19 08:05 10:51 Temperature 98.6 F 98.6 F Pulse Rate 74 75 Pulse Rate [ Apical] Respiratory 18 20 Rate Blood Pressure 151/70 145/67 O2 Sat by Pulse 96 92 Oximetry Constitutional: no acute distress, alert Eyes: non-icteric ENT: oropharynx moist Neck: supple, no JVD, other (large neck circumference) Effort: mildly labored Ascultation: Bilateral: rales Percussion: Bilateral: not dull Cardiovascular: regular rate and rhythm Gastrointestinal: normoactive bowel sounds, soft, non-tender, non-distended, other (protuberant) Integumentary: normal Extremities: no cyanosis, pulses normal, no ischemia or petechiae, edema Neurologic: normal mental status, non-focal exam, pupils equal and round, CN II- XII normal Psychiatric: mood appropriate, affect normal CBC and BMP: 07/27/19 07:22 07/28/19 04:06 ABG, PT/INR, D-dimer: ABG POC ABG pH 7.330 (7.35-7.45) L 07/21/19 09:46 POC ABG pCO2 39.0 (35-45) 07/21/19 09:46 POC ABG pO2 104 (80-105) 07/21/19 09:46 POC ABG HCO3 20.6 (22-26 mml/L) 07/21/19 09:46 POC ABG Total CO2 22 (23-27mmol/L) 07/21/19 09:46 POC ABG O2 Sat 98 07/21/19 09:46 PT/INR, D-dimer D-Dimer 274.10 ng/mlDDU (0-234) H 07/21/19 08:58 Abnormal lab findings: Abnormal Labs 07/21/19 07/21/19 07/21/19 08:58 08:58 08:58 RBC 2.59 L Hgb 8.6 L Hct 25.5 L MCV 98 H MCH 33 H Lymph % (Auto) 9.9 L [place] % (Auto) Lymph # 0.9 L Seg Neutrophils % 80.2 H D-Dimer 274.10 H POC ABG pH Sodium Chloride Carbon Dioxide 17 L BUN 82 H Creatinine 3.0 H Glucose 148 H POC Glucose Calcium Iron Troponin T NT-Pro-B Natriuret Pep Urine Creatinine 07/21/19 07/21/19 07/21/19 08:58 09:46 13:11 RBC Hgb Hct MCV MCH Lymph % (Auto) [place] % (Auto) Lymph # Seg Neutrophils % D-Dimer POC ABG pH 7.330 L Sodium Chloride Carbon Dioxide BUN Creatinine Glucose POC Glucose 65 L Calcium Iron Troponin T 0.388 H* NT-Pro-B Natriuret Pep 4204 H Urine Creatinine 07/21/19 07/21/19 07/22/19 16:50 17:26 00:05 RBC Hgb Hct MCV MCH Lymph % (Auto) [place] % (Auto) Lymph # Seg Neutrophils % D-Dimer POC ABG pH Sodium Chloride Carbon Dioxide BUN Creatinine Glucose POC Glucose 117 H 179 H Calcium Iron Troponin T 0.393 H* NT-Pro-B Natriuret Pep Urine Creatinine 07/22/19 07/22/19 07/22/19 00:24 04:24 04:24 RBC 2.71 L Hgb 8.9 L Hct 26.7 L MCV 99 H MCH 33 H Lymph % (Auto) [place] % (Auto) Lymph # Seg Neutrophils % D-Dimer POC ABG pH Sodium 146 H Chloride 109.1 H Carbon Dioxide 17 L BUN 82 H Creatinine 2.7 H Glucose POC Glucose Calcium Iron Troponin T 0.356 H* NT-Pro-B Natriuret Pep Urine Creatinine 07/22/19 07/22/19 07/22/19 10:49 12:58 17:01 RBC Hgb Hct MCV MCH Lymph % (Auto) [place] % (Auto) Lymph # Seg Neutrophils % D-Dimer POC ABG pH Sodium Chloride Carbon Dioxide BUN Creatinine Glucose POC Glucose 155 H 177 H 164 H Calcium Iron Troponin T NT-Pro-B Natriuret Pep Urine Creatinine 07/22/19 07/23/19 07/23/19 21:38 07:43 08:31 RBC Hgb Hct MCV MCH Lymph % (Auto) [place] % (Auto) Lymph # Seg Neutrophils % D-Dimer POC ABG pH Sodium Chloride Carbon Dioxide BUN Creatinine Glucose POC Glucose 131 H 139 H Calcium Iron 31 L Troponin T NT-Pro-B Natriuret Pep Urine Creatinine 07/23/19 07/23/19 07/23/19 11:37 13:41 16:49 RBC Hgb Hct MCV MCH Lymph % (Auto) [place] % (Auto) Lymph # Seg Neutrophils % D-Dimer POC ABG pH Sodium Chloride 107.3 H Carbon Dioxide 21 L BUN 85 H Creatinine 3.0 H Glucose 175 H POC Glucose 198 H 139 H Calcium 8.3 L Iron Troponin T NT-Pro-B Natriuret Pep Urine Creatinine 07/23/19 07/24/19 07/24/19 22:06 08:27 11:49 RBC 2.72 L Hgb 8.8 L Hct 26.8 L MCV 98 H MCH Lymph % (Auto) [place] % (Auto) Lymph # Seg Neutrophils % D-Dimer POC ABG pH Sodium Chloride Carbon Dioxide BUN Creatinine Glucose POC Glucose 197 H 122 H Calcium Iron Troponin T NT-Pro-B Natriuret Pep Urine Creatinine 07/24/19 07/24/19 07/24/19 11:49 12:36 17:03 RBC Hgb Hct MCV MCH Lymph % (Auto) [place] % (Auto) Lymph # Seg Neutrophils % D-Dimer POC ABG pH Sodium Chloride Carbon Dioxide 20 L BUN 92 H Creatinine 3.2 H Glucose 173 H POC Glucose 155 H 192 H Calcium Iron Troponin T NT-Pro-B Natriuret Pep Urine Creatinine 07/24/19 07/25/19 07/25/19 21:10 04:13 04:13 RBC 2.59 L Hgb 8.4 L Hct 25.7 L MCV 99 H MCH Lymph % (Auto) [place] % (Auto) Lymph # Seg Neutrophils % D-Dimer POC ABG pH Sodium Chloride Carbon Dioxide BUN Creatinine Glucose POC Glucose 262 H Calcium Iron Troponin T NT-Pro-B Natriuret Pep Urine Creatinine 71.0 H 07/25/19 07/25/19 07/25/19 04:13 07:49 12:07 RBC Hgb Hct MCV MCH Lymph % (Auto) [place] % (Auto) Lymph # Seg Neutrophils % D-Dimer POC ABG pH Sodium Chloride Carbon Dioxide 21 L BUN 95 H Creatinine 3.1 H Glucose 144 H POC Glucose 140 H 157 H Calcium Iron Troponin T NT-Pro-B Natriuret Pep Urine Creatinine 07/25/19 07/25/19 07/26/19 16:33 20:28 03:56 RBC 2.67 L Hgb 8.7 L Hct 25.9 L MCV 97 H MCH 33 H Lymph % (Auto) [place] % (Auto) Lymph # Seg Neutrophils % D-Dimer POC ABG pH Sodium Chloride Carbon Dioxide BUN Creatinine Glucose POC Glucose 161 H 203 H Calcium Iron Troponin T NT-Pro-B Natriuret Pep Urine Creatinine 07/26/19 07/26/19 07/26/19 03:56 07:40 12:14 RBC Hgb Hct MCV MCH Lymph % (Auto) [place] % (Auto) Lymph # Seg Neutrophils % D-Dimer POC ABG pH Sodium Chloride Carbon Dioxide BUN 97 H Creatinine 3.1 H Glucose 119 H POC Glucose 108 H 165 H Calcium Iron Troponin T NT-Pro-B Natriuret Pep Urine Creatinine 07/26/19 07/26/19 07/27/19 17:09 21:09 03:55 RBC Hgb Hct MCV MCH Lymph % (Auto) [place] % (Auto) Lymph # Seg Neutrophils % D-Dimer POC ABG pH Sodium Chloride Carbon Dioxide 19 L BUN 102 H Creatinine 2.8 H Glucose 135 H POC Glucose 166 H 217 H Calcium Iron Troponin T NT-Pro-B Natriuret Pep Urine Creatinine 07/27/19 07/27/19 07/27/19 07:22 08:25 12:06 RBC 2.56 L Hgb 8.4 L Hct 25.0 L MCV 98 H MCH 33 H Lymph % (Auto) 12.4 L [place] % (Auto) 7.8 H Lymph # 0.9 L Seg Neutrophils % 76.9 H D-Dimer POC ABG pH Sodium Chloride Carbon Dioxide BUN Creatinine Glucose POC Glucose 136 H 126 H Calcium Iron Troponin T NT-Pro-B Natriuret Pep Urine Creatinine 07/27/19 07/27/19 07/28/19 18:07 20:58 04:06 RBC Hgb Hct MCV MCH Lymph % (Auto) [place] % (Auto) Lymph # Seg Neutrophils % D-Dimer POC ABG pH Sodium Chloride Carbon Dioxide BUN 71 H Creatinine 2.6 H Glucose 188 H POC Glucose 192 H 232 H Calcium Iron Troponin T NT-Pro-B Natriuret Pep Urine Creatinine 07/28/19 07/28/19 07/28/19 07:49 12:58 17:04 RBC Hgb Hct MCV MCH Lymph % (Auto) [place] % (Auto) Lymph # Seg Neutrophils % D-Dimer POC ABG pH Sodium Chloride Carbon Dioxide BUN Creatinine Glucose POC Glucose 187 H 165 H 224 H Calcium Iron Troponin T NT-Pro-B Natriuret Pep Urine Creatinine 07/28/19 07/29/19 07/29/19 22:03 08:14 10:57 RBC Hgb Hct MCV MCH Lymph % (Auto) [place] % (Auto) Lymph # Seg Neutrophils % D-Dimer POC ABG pH Sodium Chloride Carbon Dioxide BUN Creatinine Glucose POC Glucose 244 H 169 H 195 H Calcium Iron Troponin T NT-Pro-B Natriuret Pep Urine Creatinine Allied health notes reviewed: nursing
--- NOTE | 2019-07-29 14:02 | Progress Note ---
Assessment and Plan severe renal failure, likely progression of CKD Volume overload: Hypoxic respiratory failure: Acute on chronic congestive CHF: Metabolic acidosis: Hypernatremia, Hypertonic: HTN: DM2: HLD: -can be discharged from renal standpoint post HD -Monitor Renal function -On Epogen for ACD -Renally dose all meds -Avoid Nephrotoxic meds -Strict I/Os Delvin vela MD [phone] Subjective Date of service: 07/29/19 Principal diagnosis: Pulmonary HTN; SOB; Chest pain; Ac. exacerbation of CHF (HFrEF of 40%); SUJATHA Interval history: in HD this afternoon Objective - Vital Signs Vital signs: Vital Signs - 12hr 07/29/19 07/29/19 07/29/19 04:00 05:22 08:00 Temperature 98.5 F Pulse Rate 77 80 74 Pulse Rate [ 74 Apical] Respiratory 20 Rate Blood Pressure 138/72 O2 Sat by Pulse 94 Oximetry 07/29/19 07/29/19 07/29/19 08:05 10:51 11:00 Temperature 98.6 F 98.6 F 98.6 F Pulse Rate 74 75 78 Pulse Rate [ Apical] Respiratory 18 20 20 Rate Blood Pressure 151/70 145/67 143/74 O2 Sat by Pulse 96 92 Oximetry 07/29/19 07/29/19 07/29/19 11:05 11:15 11:30 Temperature Pulse Rate 75 73 73 Pulse Rate [ Apical] Respiratory Rate Blood Pressure 151/69 140/68 127/68 O2 Sat by Pulse Oximetry 07/29/19 07/29/19 07/29/19 11:45 12:00 12:15 Temperature Pulse Rate 79 80 79 Pulse Rate [ Apical] Respiratory Rate Blood Pressure 122/69 140/71 131/68 O2 Sat by Pulse Oximetry 07/29/19 07/29/19 07/29/19 12:30 12:45 13:00 Temperature Pulse Rate 80 73 76 Pulse Rate [ Apical] Respiratory Rate Blood Pressure 126/72 129/70 110/67 O2 Sat by Pulse Oximetry 07/29/19 13:15 Temperature Pulse Rate 73 Pulse Rate [ Apical] Respiratory Rate Blood Pressure 125/69 O2 Sat by Pulse Oximetry - Lab 07/27/19 07:22 07/28/19 04:06 Most recent lab results Calcium 8.6 mg/dL (8.4-10.2) 07/28/19 04:06 Magnesium 2.30 mg/dL (1.7-2.3) 07/22/19 04:24 Urine Creatinine 71.0 mg/dL (0.1-20.0) H 07/25/19 04:13 Medications & Allergies - Medications Allergies/Adverse Reactions: Allergies No Known Allergies Allergy (Verified 07/21/19 08:02) Home Medications: Home Medications Medication Instructions Recorded Confirmed Last Taken Type AtorvaSTATin [Lipitor] 40 mg PO QHS 07/21/19 07/21/19 Unknown History Insulin Aspart (Nf) [NovoLOG 8 units SUB-Q TID 07/21/19 07/21/19 Unknown History Flexpen] Insulin Degludec [Tresiba 40 unit SQ QDAY 07/21/19 07/21/19 Unknown History Flextouch U-100] Isosorbide Dinitrate [Isordil 20 mg PO TID 07/21/19 07/21/19 Unknown History Titradose] Metoprolol [Lopressor TAB] 100 mg PO QDAY 07/21/19 07/21/19 Unknown History NIFEdipine [Nifedipine ER] 90 mg PO QDAY 07/21/19 07/21/19 Unknown History Nitroglycerin [Nitrostat] 0.4 mg SL QDAY 07/21/19 07/21/19 Unknown History hydrALAZINE [Apresoline TAB] 100 mg PO QDAY 07/21/19 07/21/19 Unknown History Aspirin [Aspirin BABY CHEW TAB] 81 mg PO QDAY #30 tab.chew 07/28/19 Unknown Rx Polyethylene Glycol 3350 [Miralax 17 gm PO QDAY #10 powd.pack 07/28/19 Unknown Rx 3350] Sodium Bicarbonate 650 mg PO TID #30 tablet 07/28/19 Unknown Rx metOLazone [Zaroxolyn] 5 mg PO QDAY #30 tablet 07/28/19 Unknown Rx Active Medications: Generic Name Dose Route Start Last Admin Trade Name Freq PRN Reason Stop Dose Admin Acetaminophen 650 mg 07/25/19 09:00 07/28/19 08:46 Tylenol PO 650 mg Q4H PRN Administration Pain, Mild (1-3) Aspirin 81 mg 07/21/19 14:00 07/28/19 10:18 Baby Aspirin PO Not Given QDAY LOVE Atorvastatin Calcium 40 mg 07/21/19 22:00 07/28/19 22:55 Lipitor PO 40 mg QHS LOVE Administration Dextrose 50 ml 07/21/19 13:39 D50w (25gm) Syringe IV Q30MIN PRN Hypoglycemia Protocol Diphenhydramine HCl 25 mg 07/22/19 23:25 07/22/19 23:40 Benadryl PO 25 mg QHS PRN Administration Sleep Epoetin Ben 10,000 unit 07/22/19 14:00 07/28/19 11:39 Procrit SUB-Q 10,000 unit AUGIE PRN Administration DIALYSIS Furosemide 40 mg 07/23/19 16:00 07/29/19 10:28 Lasix IV Not Given Q6H [facility] Heparin Sodium (Porcine) 5,000 unit 07/21/19 22:00 07/29/19 10:28 Heparin SUB-Q Not Given Q12HR [facility] Hydralazine HCl 100 mg 07/22/19 10:00 07/28/19 10:17 Apresoline PO Not Given QDAY [facility] Insulin Human Lispro 0 unit 07/21/19 16:30 07/29/19 11:10 Humalog SUB-Q Not Given ACHS [facility] Protocol Isosorbide Dinitrate 20 mg 07/21/19 14:00 07/29/19 10:28 Isordil Titradose PO Not Given TID [facility] Metolazone 5 mg 07/25/19 12:00 07/29/19 07:07 Zaroxolyn PO Not Given QDAY [facility] Metoprolol Tartrate 100 mg 07/21/19 14:00 07/28/19 10:19 Metoprolol PO Not Given QDAY [facility] Nifedipine 90 mg 07/21/19 13:45 07/28/19 10:20 Procardia Xl PO Not Given QDAY [facility] Polyethylene Glycol 17 gm 07/21/19 14:00 07/28/19 10:20 Miralax 3350 PO Not Given QDAY [facility] Sodium Bicarbonate 650 mg 07/22/19 14:00 07/29/19 10:28 Sodium Bicarbonate PO Not Given TID [facility]
[2019-07-29 16:10] VITALS: BP 144/74
[2019-07-29] MEDS: ASPIRIN 81 MG TAB CHEW PO SCH (16:41)
[2019-07-29] MEDS: hydrALAZINE 100 MG TAB PO SCH (16:41)
[2019-07-29] MEDS: NIFEdipine XL 90 MG TAB PO SCH (16:41)
[2019-07-29] MEDS: POLYETHYLENE GLYCOL 3350 17 GM POWDER PO SCH (16:42)
[2019-07-29] MEDS: METOPROLOL TARTRATE 100 MG TAB PO SCH (16:42)
--- NOTE | 2019-07-31 08:08 | Operative Report ---
Operative Report Operative Report: Exam: Ultrasound and fluoroscopic guided placement of tunneled hemodialysis catheter Clinical indication: Patient with end-stage renal disease requiring dialysis access Date:07/27/2019 Procedure: Following an explanation of the risks, benefits and alternatives; written informed consent was obtained. The patient was brought to the angiographic suite and placed in supine position on the examination table. Initial ultrasound evaluation of his right neck demonstrated a patent right internal jugular vein. The patient's right neck and chest wall were prepped and draped in the usual sterile fashion. 1% lidocaine was used for anesthesia. Under ultrasound guidance, the right internal jugular vein was cannulated with a 7 cm 18-gauge needle. A 0.035 guidewire was advanced centrally under fluoroscopy. The guidewire was advanced into the IVC to document intravenous positioning and for anchoring. The needle was removed. An appropriate catheter exit site was chosen along the right lateral chest wall. 1% lidocaine was used for anesthesia at the catheter exit site and along the tunnel tract. A Bard Glidepath tunneled hemodialysis catheter was then tunneled antegrade from the catheter exit site to the venotomy site. Following serial dilation over the guidewire under fluoroscopy, a 15 [place] peel-away sheath was placed over the guidewire under fluoroscopy and advanced centrally. The guidewire and trocar were removed. The catheter was then inserted through the peel-away sheath and the peel-away sheath removed. The catheter tip was positioned in the proximal right atrium. Both ports flushed and aspirated easily and were then locked with appropriate volumes of heparin. The venotomy site was closed using 4-0 Vicryl suture and Dermabond. 4-0 Vicryl suture and Dermabond were also used to approximate the catheter exit site. Sterile dressings were then applied. The patient tolerated the procedure well. There were no immediate post procedure complications. Conscious sedation was performed under the guidance of radiologic nursing. Continuous cardiopulmonary monitoring was utilized. Impression: Ultrasound and fluoroscopic guided placement of tunneled hemodialysis catheter via the right internal jugular vein.
== END 2019-07-29 18:13 | disposition home or self-care (01) | DRG 673 ==
LOC: ED 08:01 → 4A 10:23
PROVIDERS: ADMIT Internal Medicine; ATTEND Internal Medicine
PROC: 4A033R1 Measurement of Arterial Saturation, Peripheral, Percutaneous Approach (ICD-10-PCS; 2019-07-21)
PROC: 3E0234Z Introduction of Serum, Toxoid and Vaccine into Muscle, Percutaneous Approach (ICD-10-PCS; 2019-07-22)
PROC: 0JH63XZ Insertion of Tunneled Vascular Access Device into Chest Subcutaneous Tissue and Fascia, Percutaneous Approach (ICD-10-PCS; principal; 2019-07-27)
PROC: 02H633Z Insertion of Infusion Device into Right Atrium, Percutaneous Approach (ICD-10-PCS; 2019-07-27)
PROC: B5181ZA Fluoroscopy of Superior Vena Cava using Low Osmolar Contrast, Guidance (ICD-10-PCS; 2019-07-27)
PROC: B543ZZA Ultrasonography of Right Jugular Veins, Guidance (ICD-10-PCS; 2019-07-27)
PROC: 5A1D70Z Performance of Urinary Filtration, Intermittent, Less than 6 Hours Per Day (ICD-10-PCS; 2019-07-27)
PROC: 5A1D70Z Performance of Urinary Filtration, Intermittent, Less than 6 Hours Per Day (ICD-10-PCS; 2019-07-28)
PROC: 5A1D70Z Performance of Urinary Filtration, Intermittent, Less than 6 Hours Per Day (ICD-10-PCS; 2019-07-29)
DX: N17.9 Acute kidney failure, unspecified (principal); I21.A1 Myocardial infarction type 2; J96.91 Respiratory failure, unspecified with hypoxia; I50.43 Acute on chronic combined systolic (congestive) and diastolic (congestive) heart failure; I13.2 Hypertensive heart and chronic kidney disease with heart failure and with stage 5 chronic kidney disease, or end stage renal disease; E87.2 Acidosis; E87.0 Hyperosmolality and hypernatremia; I42.0 Dilated cardiomyopathy; N18.6 End stage renal disease; E11.649 Type 2 diabetes mellitus with hypoglycemia without coma; E11.22 Type 2 diabetes mellitus with diabetic chronic kidney disease; M19.90 Unspecified osteoarthritis, unspecified site; K59.09 Other constipation; I27.20 Pulmonary hypertension, unspecified; G47.33 Obstructive sleep apnea (adult) (pediatric); E11.51 Type 2 diabetes mellitus with diabetic peripheral angiopathy without gangrene; E78.5 Hyperlipidemia, unspecified; Z95.810 Presence of automatic (implantable) cardiac defibrillator; Z89.612 Acquired absence of left leg above knee; Z79.4 Long term (current) use of insulin; Z79.899 Other long term (current) drug therapy; Z86.73 Personal history of transient ischemic attack (TIA), and cerebral infarction without residual deficits; I25.2 Old myocardial infarction; Z87.891 Personal history of nicotine dependence; Z82.49 Family history of ischemic heart disease and other diseases of the circulatory system; Z83.3 Family history of diabetes mellitus; Z80.1 Family history of malignant neoplasm of trachea, bronchus and lung; Z80.8 Family history of malignant neoplasm of other organs or systems; Z87.440 Personal history of urinary (tract) infections; Z23 Encounter for immunization
CPT/HCPCS: 36415; 36558; 71045; 74019; 77001; 78582; 80048; 80053; 80061; 80074; 82565; 82570; 82575; 82803; 82962; 83550; 83735; 83880; 84484; 85025; 85027; 85379; 90471; 90686; 90732; 93005; 93010; 93306; 96374; G0378; A9270-GY; A9540; A9558; C1750; C1769; G0008; G0009; J0690; J0885; J1644; J1815; J1940; J2250; J3010; J7030; J7050

== ENCOUNTER 2020-07-15 13:36 | Emergency (ER) | payer MEDICARE ==
[2020-07-15 16:32] VITALS: BP 134/44
--- NOTE | 2020-07-15 17:33 | Event Note ---
ED Screening Note ED Screening Note: 07/04/2020 was at [facility] in [place] stayed inpatient pt is a dialysis patient states he feels like he needs to urinate states he had a catheter in but they took it out states for a week having suprapubic pain, and feels like he needs to dialysis states he goes to dialysis T, TH, Sat last went to dialysis two days ago PMHx pacemaker, DM, HTN, history of amputation, HLD This initial assessment/diagnostic orders/clinical plan/treatment(s) is/are subject to change based on patients health status, clinical progression and re- assessment by fellow clinical providers in the ED. Further treatment and workup at subsequent clinical providers discretion. Patient/guardian urged not to elope from the ED as their condition may be serious if not clinically assessed and managed. Initial orders include: labs, CT abd pelvis
[2020-07-15 18:11] LABS: Basophils # (Auto) 0.1 K/mm3 (0.0-0.1); Basophils % (Auto) 1.3 % (0.0-1.8); Eosinophils # (Auto) 0.3 K/mm3 (0.0-0.4); Eosinophils % (Auto) 2.8 % (0.0-4.3); Hematocrit 31.3 % (35.5-45.6); Hemoglobin 10.5 gm/dl (11.8-15.2); Lymphocytes # (Auto) 1.6 K/mm3 (1.2-5.4); Lymphocytes % (Auto) 14.4 % (13.4-35.0); Mean Corpuscular HGB Conc 34 % (32-34); Mean Corpuscular Volume 103 fl (84-94); Monocytes # (Auto) 1.4 K/mm3 (0.0-0.8); Monocytes % (Auto) 12.7 % (0.0-7.3); Platelet Count 328 K/mm3 (140-440); Red Blood Count 3.03 M/mm3 (3.65-5.03); Red Cell Distribution Width 16.9 % (13.2-15.2)
[2020-07-15 18:16] LABS: Albumin 3.9 g/dL (3.9-5); Calcium 8.8 mg/dL (8.4-10.2)
--- NOTE | 2020-07-15 18:40 | Cat Scan Report ---
CT abdomen pelvis wo con INDICATION / CLINICAL INFORMATION: lower abd pain. TECHNIQUE: All CT scans at this location are performed using CT dose reduction for ALARA by means of automated e xposure control. COMPARISON: 03/05/2018 FINDINGS: No free fluid is seen in the abdomen. Atherosclerotic changes present without evidence for an aneurys m. The adrenal glands are prominent unchanged from the prior study. The liver, spleen, kidneys, pancr eas are unremarkable. No enlarged mesenteric or retroperitoneal lymph nodes are seen. In the pelvis, no free fluid is seen. The bladder wall is mildly thickened. No enlarged lymph nodes a re seen. The appendix is normal. No significant skeletal abnormality is identified. IMPRESSION: 1. Mildly thickened bladder wall with moderate distention possibly due to bladder outlet obstruction 2. Adrenal prominence unchanged from prior examination dated 03/05/2018 Signer Name: Pasha Proctor MD FACR Signed: 07/15/2020 6:35 PM Workstation Name: [id number]
[2020-07-15] MEDS ORDERED: LIDOCAINE-MPF (1%) 10 MG/1 ML VIAL 5 ML INFILTRATI ONE (19:47)
[2020-07-15 20:16] LABS: Bacteria,Urine 2+ /HPF (Negative); Bilirubin,Urine NEG (Negative); Blood,Urine MOD (Negative); Color,Urine Yellow (Yellow); Urobilinogen,Urine < 2.0 mg/dL (<2.0)
[2020-07-15 20:19] LABS: WBC,Urine > 182.0 /HPF (0.0-6.0)
[2020-07-15] MEDS ORDERED: ACETAMINOPHEN 500 MG TAB PO ONE (20:23)
--- NOTE | 2020-07-15 21:37 | Emergency Department Report ---
ED Male HPI - General Chief complaint: Urogenital-Male Stated complaint: CANT URINATE Time Seen by Provider: 07/15/20 17:29 Source: patient Mode of arrival: Ambulatory Limitations: No Limitations - History of Present Illness Initial comments: 64-year-old F [place]ien male with known history of end-stage renal disease currently starting weeks ago and due to follow-up for dialysis tomorrow morning presents emerge department complaining of inability to urinate over the last 24 hours with increased suprapubic pressure he states he had a similar episode on the this month requiring a straight cath to resolve the issue and he has been able to urinate since that time. Reports no hematuria no fever, chills, sweats no chest pain no palpitations no nausea vomiting. Ports no trauma. No testicular pain noted no penile discharge. MD Complaint: dysuria -: Gradual, days(s) (1) Location: abdomen Radiation: none Severity: mild (Suprapubic region), moderate Quality: dull Consistency: constant Improves with: urination Worsens with: movement (Palpation) denies other symptoms, urinary retention. denies: discharge, swelling, blood in urine, nausea/vomiting, incontinence - Related Data Sexually active: No Home Medications Medication Instructions Recorded Confirmed Last Taken AtorvaSTATin [Lipitor] 40 mg PO QHS 07/21/19 07/21/19 Unknown Insulin Aspart (Nf) [NovoLOG 8 units SUB-Q TID 07/21/19 07/21/19 Unknown Flexpen] Insulin Degludec [Tresiba 40 unit SQ QDAY 07/21/19 07/21/19 Unknown Flextouch U-100] Isosorbide Dinitrate [Isordil] 20 mg PO TID 07/21/19 07/21/19 Unknown Metoprolol [Lopressor TAB] 100 mg PO QDAY 07/21/19 07/21/19 Unknown NIFEdipine [Nifedipine ER] 90 mg PO QDAY 07/21/19 07/21/19 Unknown Nitroglycerin [Nitrostat] 0.4 mg SL QDAY 07/21/19 07/21/19 Unknown hydrALAZINE [Apresoline TAB] 100 mg PO QDAY 07/21/19 07/21/19 Unknown Previous Rx's Medication Instructions Recorded Last Taken Type Aspirin [Aspirin BABY CHEW TAB] 81 mg PO QDAY #30 tab.chew 07/28/19 Unknown Rx Sodium Bicarbonate 650 mg PO TID #30 tablet 07/28/19 Unknown Rx metOLazone [Zaroxolyn] 5 mg PO QDAY #30 tablet 07/28/19 Unknown Rx polyethylene glycoL 3350 [Miralax 17 gm PO QDAY #10 powd.pack 07/28/19 Unknown Rx 3350] Cefdinir 300 mg PO Q48HR #5 capsule 07/15/20 Unknown Rx Allergies Allergy/AdvReac Type Severity Reaction Status Date / Time No Known Allergies Allergy Verified 07/21/19 08:02 ED Review of Systems ROS: Stated complaint: CANT URINATE Other details as noted in HPI Comment: All other systems reviewed and negative ED Past Medical Hx - Past Medical History Hx Hypertension: Yes Hx CVA: Yes (mini stroke) Hx Heart Attack/AMI: Yes (x 2 (2010, 2004)) Hx Congestive Heart Failure: Yes Hx Diabetes: Yes Hx Arthritis: Yes (hands) Additional medical history: h/o staph infection 2009 - Surgical History Hx Pacemaker: 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) Hx Internal Defibrillator: Yes Additional Surgical History: L BKA - Social History Smoking Status: Never Smoker Substance Use Type: None - Medications Home Medications: Home Medications Medication Instructions Recorded Confirmed Last Taken Type AtorvaSTATin [Lipitor] 40 mg PO QHS 07/21/19 07/21/19 Unknown History Insulin Aspart (Nf) [NovoLOG 8 units SUB-Q TID 07/21/19 07/21/19 Unknown History Flexpen] Insulin Degludec [Tresiba 40 unit SQ QDAY 07/21/19 07/21/19 Unknown History Flextouch U-100] Isosorbide Dinitrate [Isordil] 20 mg PO TID 07/21/19 07/21/19 Unknown History Metoprolol [Lopressor TAB] 100 mg PO QDAY 07/21/19 07/21/19 Unknown History NIFEdipine [Nifedipine ER] 90 mg PO QDAY 07/21/19 07/21/19 Unknown History Nitroglycerin [Nitrostat] 0.4 mg SL QDAY 07/21/19 07/21/19 Unknown History hydrALAZINE [Apresoline TAB] 100 mg PO QDAY 07/21/19 07/21/19 Unknown History Aspirin [Aspirin BABY CHEW TAB] 81 mg PO QDAY #30 tab.chew 07/28/19 Unknown Rx Sodium Bicarbonate 650 mg PO TID #30 tablet 07/28/19 Unknown Rx metOLazone [Zaroxolyn] 5 mg PO QDAY #30 tablet 07/28/19 Unknown Rx polyethylene glycoL 3350 [Miralax 17 gm PO QDAY #10 powd.pack 07/28/19 Unknown Rx 3350] Cefdinir 300 mg PO Q48HR #5 capsule 07/15/20 Unknown Rx ED Physical Exam - General Limitations: No Limitations General appearance: alert, in no apparent distress - Head Head exam: Present: atraumatic, normocephalic - Eye Eye exam: Present: normal appearance, PERRL, EOMI Pupils: Present: normal accommodation - ENT ENT exam: Present: normal exam, mucous membranes moist - Neck Neck exam: Present: normal inspection - Respiratory Respiratory exam: Present: normal lung sounds bilaterally. Absent: respiratory distress - Cardiovascular Cardiovascular Exam: Present: regular rate, normal rhythm. Absent: systolic murmur, diastolic murmur, rubs, gallop - GI/Abdominal GI/Abdominal exam: Present: soft, tenderness (Suprapubic pressure noted), normal bowel sounds - Rectal Rectal exam: Present: deferred - exam: Present: normal inspection External exam: Present: normal external exam - Extremities Exam Extremities exam: Present: normal inspection, full ROM, normal capillary refill - Back Exam Back exam: Present: normal inspection. Absent: CVA tenderness (R), CVA tenderness (L) - Neurological Exam Neurological exam: Present: alert, oriented X3, CN II-XII intact, normal gait - Psychiatric Psychiatric exam: Present: normal affect, normal mood - Skin Skin exam: Present: warm, dry, intact, normal color. Absent: rash ED Course Vital Signs 07/15/20 16:27 Temperature 97.9 F Pulse Rate 77 Respiratory 18 Rate Blood Pressure 134/44 [Right] O2 Sat by Pulse 96 Oximetry ED Medical Decision Making - Lab Data Result diagrams: 07/15/20 17:49 07/15/20 17:49 - Radiology Data Radiology results: report reviewed - Medical Decision Making This 4-year-old male with no history of urinary retention and renal insufficiency presents emerged department with an exacerbation he was straight cath and will be able to 500 cc of fluid was did show up to have urinary tract infection. Start him on antibiotics after he received an injection. In the several forms family that there is no renal adjustment needed with the Rocephin. He was discharged home on cefdinir which was adjusted is been advised to follow his dialysis tomorrow and start taking antibiotics after his dialysis session. This present time no evidence of any sepsis or urosepsis. Critical care attestation.: If time is entered above; I have spent that time in minutes in the direct care of this critically ill patient, excluding procedure time. ED Disposition Clinical Impression: UTI (urinary tract infection), Urinary retention Disposition: TO HOME OR SELFCARE Is pt being admited?: No Does the pt Need Aspirin: No Condition: Stable Instructions: Ureteroscopy, Urinary Tract Infection, Adult, Urodynamic Testing, [id number] Additional Instructions: Please be sure to keep the appointment with your dialysis tomorrow and follow-up with the urologist and contracting executive in regards to your urinary retention issue as a second time you have had a problem this year will able to have a repeat evacuate nearly 600 cc of fluid after your straight catheter Prescriptions: Cefdinir 300 mg PO Q48HR #5 capsule Referrals: [facility] [Provider Group] - 3-5 Days ANTHONY DELGADO MD [Staff Physician] - 3-5 Days PRIMARY MD MAE [Primary Care Provider] - 3-5 Days
== END 2020-07-15 21:45 | disposition home or self-care (01) ==
LOC: ED 13:36
DX: N39.0 Urinary tract infection, site not specified (principal); R33.9 Retention of urine, unspecified; R10.2 Pelvic and perineal pain; I10 Essential (primary) hypertension; I50.9 Heart failure, unspecified; E11.9 Type 2 diabetes mellitus without complications; M19.91 Primary osteoarthritis, unspecified site; Z98.890 Other specified postprocedural states; Z79.899 Other long term (current) drug therapy
CPT/HCPCS: 36415; 51702; 74176; 80053; 81001; 85025; 96372; 99284; J0696

== ENCOUNTER 2020-08-17 18:29 | Emergency (ER) | payer MEDICARE ==
--- NOTE | 2020-08-17 18:41 | Event Note ---
ED Screening Note Date of service: 08/17/20 Time: 18:40 ED Screening Note: Complains of abdominal fullness and pain Dialysis patient, however states he believes he has urine retention Patient states he has not made urine in 3 months since being on dialysis Denies fever This initial assessment/diagnostic orders/clinical plan/treatment(s) is/are subject to change based on patients health status, clinical progression and re- assessment by fellow clinical providers in the ED. Further treatment and workup at subsequent clinical providers discretion. Patient/guardian urged not to elope from the ED as their condition may be serious if not clinically assessed and managed. Initial orders include: Labs Straight cath
[2020-08-17 18:43] VITALS: BP 144/62
[2020-08-17 19:32] LABS: Basophils # (Auto) 0.2 K/mm3 (0.0-0.1); Basophils % (Auto) 2.5 % (0.0-1.8); Eosinophils # (Auto) 0.1 K/mm3 (0.0-0.4); Eosinophils % (Auto) 1.7 % (0.0-4.3); Hematocrit 32.3 % (35.5-45.6); Hemoglobin 11.1 gm/dl (11.8-15.2); Lymphocytes # (Auto) 1.5 K/mm3 (1.2-5.4); Lymphocytes % (Auto) 18.2 % (13.4-35.0); Mean Corpuscular HGB Conc 34 % (32-34); Mean Corpuscular Volume 103 fl (84-94); Monocytes # (Auto) 0.7 K/mm3 (0.0-0.8); Monocytes % (Auto) 8.3 % (0.0-7.3); Platelet Count 318 K/mm3 (140-440); Red Blood Count 3.14 M/mm3 (3.65-5.03); Red Cell Distribution Width 14.7 % (13.2-15.2)
[2020-08-17 19:32] LABS: Bilirubin,Urine NEG (Negative); Blood,Urine MOD (Negative); Color,Urine Amber (Yellow); Urobilinogen,Urine < 2.0 mg/dL (<2.0)
[2020-08-17 19:34] LABS: Protein,Urine >500 mg/dL (Negative); WBC,Urine > 182.0 /HPF (0.0-6.0)
[2020-08-17 19:51] LABS: Albumin 4.2 g/dL (3.9-5); Calcium 9.6 mg/dL (8.4-10.2)
[2020-08-17] MEDS ORDERED: SULFAMETHOXAZOLE/TRIMETHOPRIM 800/160MG DS TAB PO ONE (22:19)
--- NOTE | 2020-08-17 22:24 | Emergency Department Report ---
HPI - General Chief Complaint: Urogenital-Male Time Seen by Provider: 08/17/20 18:39 - HPI HPI: This is a 64-year-old -[place] male presents to the emergency department with the complaint of a 3-day history of progressively worsening lower abdominal and/or suprapubic pain and fullness. The patient is end-stage renal disease on hemodialysis on Wednesday//Wednesday and did have dialysis today. He also says that while he has not made urine in the past 3 months while undergoing dialysis, the patient does have a previous history of issues with urinary retention and says that this feels similar. The patient had a straight cath done prior to my initial evaluation and urine was drained. He appears to have a urinary tract infection. At this time the patient says that he "feels great" and is currently asymptomatic. He also has a past medical history of osteoarthritis of the hands, CHF, previous TIA, diabetes, coronary disease with previous PR, hypertension and has an AICD in place. He did not take anything for his symptoms prior to presentation today. He denies any fever, constipation, diarrhea, back pain, shortness of breath or chest pain. No recent travel or sick contacts at home. 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) Hx Internal Defibrillator: Yes Additional Surgical History: L BKA - Social History Smoking Status: Never Smoker Substance Use Type: None - Medications Home Medications: Home Medications Medication Instructions Recorded Confirmed Last Taken Type AtorvaSTATin [Lipitor] 40 mg PO QHS 07/21/19 07/21/19 Unknown History Insulin Aspart (Nf) [NovoLOG 8 units SUB-Q TID 07/21/19 07/21/19 Unknown History Flexpen] Insulin Degludec [Tresiba 40 unit SQ QDAY 07/21/19 07/21/19 Unknown History Flextouch U-100] Isosorbide Dinitrate [Isordil] 20 mg PO TID 07/21/19 07/21/19 Unknown History Metoprolol [Lopressor TAB] 100 mg PO QDAY 07/21/19 07/21/19 Unknown History NIFEdipine [Nifedipine ER] 90 mg PO QDAY 07/21/19 07/21/19 Unknown History Nitroglycerin [Nitrostat] 0.4 mg SL QDAY 07/21/19 07/21/19 Unknown History hydrALAZINE [Apresoline TAB] 100 mg PO QDAY 07/21/19 07/21/19 Unknown History Aspirin [Aspirin BABY CHEW TAB] 81 mg PO QDAY #30 tab.chew 07/28/19 Unknown Rx Sodium Bicarbonate 650 mg PO TID #30 tablet 07/28/19 Unknown Rx metOLazone [Zaroxolyn] 5 mg PO QDAY #30 tablet 07/28/19 Unknown Rx polyethylene glycoL 3350 [Miralax 17 gm PO QDAY #10 powd.pack 07/28/19 Unknown Rx 3350] Cefdinir 300 mg PO Q48HR #5 capsule 07/15/20 Unknown Rx Sulfamethoxazole/Trimethoprim 1 each PO BID #14 tablet 08/17/20 Unknown Rx [Bactrim DS TAB] ED Review of Systems ROS: Stated complaint: CAN'T URINE Other details as noted in HPI Comment: All other systems reviewed and negative Constitutional: denies: chills, fever Eyes: denies: eye pain, vision change ENT: denies: ear pain, throat pain Respiratory: denies: cough, shortness of breath Cardiovascular: denies: chest pain, palpitations Gastrointestinal: abdominal pain. denies: vomiting Genitourinary: other (urinary retention). denies: discharge Musculoskeletal: denies: back pain, arthralgia Skin: denies: rash, lesions Neurological: denies: headache, weakness Physical Exam - Physical Exam Vital Signs: Vital Signs 08/17/20 18:40 Temperature 97.9 F Pulse Rate 103 H Respiratory 22 Rate Blood Pressure 144/62 O2 Sat by Pulse 97 Oximetry Physical Exam: GENERAL: The patient is well-developed well-nourished. HENT: Normocephalic. Atraumatic. Patient has moist mucous membranes. EYES: Extraocular motions are intact. NECK: Supple. Trachea is midline. CHEST/LUNGS: Clear to auscultation. There is no respiratory distress noted. HEART/CARDIOVASCULAR: Regular. There is no tachycardia. ABDOMEN: Abdomen is soft, nontender. Patient has normal bowel sounds. There is no abdominal distention. SKIN: Skin is warm and dry. NEURO: The patient is awake, alert, and oriented. The patient is cooperative. The patient has no focal neurologic deficits. Normal speech. MUSCULOSKELETAL: There is no tenderness or deformity. ED Course Vital Signs 08/17/20 18:40 Temperature 97.9 F Pulse Rate 103 H Respiratory 22 Rate Blood Pressure 144/62 O2 Sat by Pulse 97 Oximetry ED Medical Decision Making - Lab Data Result diagrams: 08/17/20 18:43 08/17/20 18:43 Lab Results 08/17/20 08/17/20 08/17/20 Range/Units 18:43 18:43 19:11 WBC 8.4 (4.5-11.0) K/mm3 RBC 3.14 L (3.65-5.03) M/mm3 Hgb 11.1 L (11.8-15.2) gm/dl Hct 32.3 L (35.5-45.6) % MCV 103 H (84-94) fl MCH 35 H (28-32) pg MCHC 34 (32-34) % RDW 14.7 (13.2-15.2) % Plt Count 318 (140-440) K/mm3 Lymph % (Auto) 18.2 (13.4-35.0) % [place] % (Auto) 8.3 H (0.0-7.3) % Eos % (Auto) 1.7 (0.0-4.3) % Baso % (Auto) 2.5 H (0.0-1.8) % Lymph # (Auto) 1.5 (1.2-5.4) K/mm3 [place] # (Auto) 0.7 (0.0-0.8) K/mm3 Eos # (Auto) 0.1 (0.0-0.4) K/mm3 Baso # (Auto) 0.2 H (0.0-0.1) K/mm3 Seg Neutrophils % 69.3 (40.0-70.0) % Seg Neutrophils # 5.9 (1.8-7.7) K/mm3 Sodium 139 (137-145) mmol/L Potassium 4.1 (3.6-5.0) mmol/L Chloride 87.6 L (98-107) mmol/L Carbon Dioxide 39 H (22-30) mmol/L Anion Gap 17 mmol/L BUN 24 H (9-20) mg/dL Creatinine 5.5 H (0.8-1.3) mg/dL Estimated GFR 13 ml/min BUN/Creatinine Ratio 4 % Glucose 277 H (75-100) mg/dL Calcium 9.6 (8.4-10.2) mg/dL Total Bilirubin 0.20 (0.1-1.2) mg/dL AST 26 (5-40) units/L ALT 37 (7-56) units/L Alkaline Phosphatase 172 H (35-129) units/L Total Protein 9.3 H (6.3-8.2) g/dL Albumin 4.2 (3.9-5) g/dL Albumin/Globulin Ratio 0.8 % Urine Color [place] (Yellow) Urine Turbidity Cloudy (Clear) Urine pH 6.0 (5.0-7.0) Ur Specific [place] 1.017 (1.003-1.030) Urine Protein >500 (Negative) mg/dL Urine Glucose (UA) Neg (Negative) mg/dL Urine Ketones Neg (Negative) mg/dL Urine Blood Mod (Negative) Urine Nitrite Neg (Negative) Urine Bilirubin Neg (Negative) Urine Urobilinogen < 2.0 (<2.0) mg/dL Ur Leukocyte Esterase Lg (Negative) Urine WBC (Auto) > 182.0 H (0.0-6.0) /HPF Urine RBC (Auto) 82.0 (0.0-6.0) /HPF U Epithel Cells (Auto) < 1.0 (0-13.0) /HPF - Medical Decision Making This patient presented to the emergency department as he was having progressively worsening lower abdominal and suprapubic discomfort that felt consistent with previous episodes of urinary retention. Patient had a straight cath performed through triage and the patient did have some urinary retention. The resulting urine was sent to the lab and the patient has a urinary tract infection. The rest the patient's blood work is mostly unremarkable except for the renal insufficiency consistent with his end-stage renal disease. The patie nt was started on antibiotics for the UTI. The patient says that he previously did not make any significant urine for the past 3 months other than the urine collected today. Vital signs have been reassuring throughout his ED course. At the time of my examination, after the straight cath was performed, the patient says that he is feeling back at baseline and has no abdominal or suprapubic discomfort. He has good outpatient follow-up with primary care and nephrology, and has also been given a referral for urology. Critical Care Time: No Critical care attestation.: If time is entered above; I have spent that time in minutes in the direct care of this critically ill patient, excluding procedure time. ED Disposition Clinical Impression: Urinary retention, ESRD on hemodialysis UTI (urinary tract infection) Qualifiers: Urinary tract infection type: acute cystitis Hematuria presence: without hematuria Qualified Code(s): N30.00 - Acute cystitis without hematuria Disposition: TO HOME OR SELFCARE Is pt being admited?: No Condition: Stable Instructions: Urinary Tract Infection, Adult, Acute Urinary Retention, Male Additional Instructions: Please follow-up with your primary care physician and laborer tanbark. Continue with your normal dialysis regiment. I am giving you a referral for a local urologist, Dr. Mejía, to follow-up regarding this urinary retention. Take the antibiotics, as well as the rest of your home medications, as prescribed. Return to the emergency department with any worsening of your symptoms, new or concerning symptoms not addressed during this current emergency department visit, or with any acute distress. Prescriptions: Sulfamethoxazole/Trimethoprim [Bactrim DS TAB] 1 each PO BID #14 tablet Referrals: PCP, Your [Other] - 3-5 Days Diamond Polisher, Your [Other] - 3-5 Days MIRELA MEJÍA MD [Staff Physician] - 3-5 Days Time of Disposition: 22:24
== END 2020-08-17 22:40 | disposition home or self-care (01) ==
LOC: ED 18:29
DX: N39.0 Urinary tract infection, site not specified (principal); R33.9 Retention of urine, unspecified; E11.22 Type 2 diabetes mellitus with diabetic chronic kidney disease; I13.2 Hypertensive heart and chronic kidney disease with heart failure and with stage 5 chronic kidney disease, or end stage renal disease; I50.9 Heart failure, unspecified; N18.6 End stage renal disease; Z98.890 Other specified postprocedural states; Z79.4 Long term (current) use of insulin; Z79.899 Other long term (current) drug therapy
CPT/HCPCS: 36415; 80053; 81001; 85025

== ENCOUNTER 2020-09-03 13:23 | Emergency (ER) | payer MEDICARE ==
--- NOTE | 2020-09-03 13:54 | Event Note ---
ED Screening Note ED Screening Note: R HEEL WOUND NON HEALING DM ON INSULIN HAS LLE PROSTHESIS PMH DM HTN HLD CAD PPM SEE MEDS IN MED REC PT STATES THEY ARE CORRECT HE IS TAKING MEDS NO FEVER This initial assessment/diagnostic orders/clinical plan/treatment(s) is/are subject to change based on patients health status, clinical progression and re- assessment by fellow clinical providers in the ED. Further treatment and workup at subsequent clinical providers discretion. Patient/guardian urged not to elope from the ED as their condition may be serious if not clinically assessed and managed. Initial orders include: RO INFECTION/ DIABETIC WOUND/OSTEO
--- NOTE | 2020-09-03 14:31 | XRay Report ---
RIGHT FOOT 3 VIEWS INDICATION / CLINICAL INFORMATION: Right foot pain. COMPARISON: None available. FINDINGS: BONES/JOINT(S): No acute fracture or subluxation. Mild DJD first MTP joint. No focal bone destruction to suggest osteomyelitis. SOFT TISSUES: Diffuse atherosclerotic vascular calcification. No soft tissue gas or radiopaque foreig n bodies. ADDITIONAL FINDINGS: None. Signer Name: Kuldeep Long MD Signed: 09/03/2020 2:27 PM Workstation Name: [id number]
[2020-09-03 14:48] LABS: Mean Corpuscular HGB Conc 34 % (32-34); Mean Corpuscular Volume 107 fl (84-94); Platelet Count 260 K/mm3 (140-440); Red Cell Distribution Width 15.5 % (13.2-15.2)
[2020-09-03 15:22] LABS: Calcium 8.1 mg/dL (8.4-10.2)
[2020-09-03 15:27] VITALS: BP 136/82
[2020-09-03] MEDS ORDERED: SODIUM CHLORIDE 0.9% 500 ML 500 ML IV ONE (16:06)
[2020-09-03] MEDS ORDERED: VANCOMYCIN/NS 1 GM/250 ML 1 GM/250 ML BAG IV ONE (16:06)
--- NOTE | 2020-09-03 16:06 | Emergency Department Report ---
HPI - General Chief Complaint: Extremity Problem,Nontraumatic Time Seen by Provider: 09/03/20 13:53 - HPI HPI: This is a 64-year-old -[place] male presents to the emergency department with a complaint of a wound to the outside of the right heel that has developed into a sore or ulcer. The patient says that he first noticed it on Wednesday, 3 days ago. He denies any pain. He denies any bleeding or discharge from the wound. He denies any fever. 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 His primary care physician is Dr. Jose. ED Past Medical Hx - Past Medical History Hx Hypertension: Yes Hx CVA: Yes (mini stroke) Hx Heart Attack/AMI: Yes (x 2 (2010, 2004)) Hx Congestive Heart Failure: Yes Hx Diabetes: Yes Hx Arthritis: Yes (hands) Additional medical history: h/o staph infection 2009 - Surgical History Hx Pacemaker: 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) Hx Internal Defibrillator: Yes Additional Surgical History: L BKA - Social History Smoking Status: Never Smoker - Medications Home Medications: Home Medications Medication Instructions Recorded Confirmed Last Taken Type AtorvaSTATin [Lipitor] 40 mg PO QHS 07/21/19 07/21/19 Unknown History Insulin Aspart (Nf) [NovoLOG 8 units SUB-Q TID 07/21/19 07/21/19 Unknown History Flexpen] Insulin Degludec [Tresiba 40 unit SQ QDAY 07/21/19 07/21/19 Unknown History Flextouch U-100] Isosorbide Dinitrate [Isordil] 20 mg PO TID 07/21/19 07/21/19 Unknown History Metoprolol [Lopressor TAB] 100 mg PO QDAY 07/21/19 07/21/19 Unknown History NIFEdipine [Nifedipine ER] 90 mg PO QDAY 07/21/19 07/21/19 Unknown History Nitroglycerin [Nitrostat] 0.4 mg SL QDAY 07/21/19 07/21/19 Unknown History hydrALAZINE [Apresoline TAB] 100 mg PO QDAY 07/21/19 07/21/19 Unknown History Aspirin [Aspirin BABY CHEW TAB] 81 mg PO QDAY #30 tab.chew 07/28/19 Unknown Rx Sodium Bicarbonate 650 mg PO TID #30 tablet 07/28/19 Unknown Rx metOLazone [Zaroxolyn] 5 mg PO QDAY #30 tablet 07/28/19 Unknown Rx polyethylene glycoL 3350 [Miralax 17 gm PO QDAY #10 powd.pack 07/28/19 Unknown Rx 3350] Cefdinir 300 mg PO Q48HR #5 capsule 07/15/20 Unknown Rx Sulfamethoxazole/Trimethoprim 1 each PO BID #14 tablet 08/17/20 Unknown Rx [Bactrim DS TAB] Clindamycin [Clindamycin CAP] 300 mg PO Q6H #28 capsule 09/03/20 Unknown Rx ED Review of Systems ROS: Stated complaint: RT FOOT PAIN Other details as noted in HPI Comment: All other systems reviewed and negative Constitutional: denies: chills, fever Eyes: denies: eye pain, vision change ENT: denies: ear pain, throat pain Respiratory: denies: cough, shortness of breath Cardiovascular: denies: chest pain, palpitations Gastrointestinal: denies: abdominal pain, vomiting Genitourinary: denies: dysuria, discharge Musculoskeletal: denies: joint swelling, arthralgia Skin: lesions (right heel ulcer/sore) Neurological: denies: numbness, paresthesias Physical Exam - Physical Exam Vital Signs: Vital Signs 09/03/20 09/03/20 13:56 15:24 Temperature 98.2 F 98.6 F Pulse Rate 88 86 Respiratory 16 18 Rate Blood Pressure 136/82 Blood Pressure 113/42 [Right] O2 Sat by Pulse 99 100 Oximetry Physical Exam: GENERAL: The patient is well-developed well-nourished. HENT: Normocephalic. Atraumatic. Patient has moist mucous membranes. EYES: Extraocular motions are intact. NECK: Supple. Trachea is midline. CHEST/LUNGS: Clear to auscultation. There is no respiratory distress noted. HEART/CARDIOVASCULAR: Regular. There is no tachycardia. There is no murmur. ABDOMEN: Abdomen is soft, nontender. Patient has normal bowel sounds. SKIN: Skin is warm and dry. There is a stage II circular ulcer to the right lateral heel. No erythema. No crepitus. No bleeding or drainage. NEURO: The patient is awake, alert, and oriented. The patient is cooperative. The patient has no focal neurologic deficits. Normal speech. MUSCULOSKELETAL: There is no tenderness or deformity. Left BKA. +2/4 dorsalis pedis pulse to the right foot. ED Course Vital Signs 09/03/20 09/03/20 13:56 15:24 Temperature 98.2 F 98.6 F Pulse Rate 88 86 Respiratory 16 18 Rate Blood Pressure 136/82 Blood Pressure 113/42 [Right] O2 Sat by Pulse 99 100 Oximetry ED Medical Decision Making - Lab Data Result diagrams: 09/03/20 14:14 09/03/20 14:14 Lab Results 09/03/20 09/03/20 09/03/20 Range/Units 14:14 14:14 14:14 WBC 8.6 (4.5-11.0) K/mm3 RBC 2.80 L (3.65-5.03) M/mm3 Hgb 10.0 L (11.8-15.2) gm/dl Hct 30.0 L (35.5-45.6) % MCV 107 H (84-94) fl MCH 36 H (28-32) pg MCHC 34 (32-34) % RDW 15.5 H (13.2-15.2) % Plt Count 260 (140-440) K/mm3 Sodium 142 (137-145) mmol/L Potassium 3.5 L (3.6-5.0) mmol/L Chloride 91.8 L (98-107) mmol/L Carbon Dioxide 41 H* (22-30) mmol/L Anion Gap 13 mmol/L BUN 25 H (9-20) mg/dL Creatinine 6.3 H (0.8-1.3) mg/dL Estimated GFR 11 ml/min BUN/Creatinine Ratio 4 % Glucose 133 H (75-100) mg/dL Lactic Acid 3.00 H* (0.7-2.0) mmol/L Calcium 8.1 L (8.4-10.2) mg/dL 09/03/20 09/03/20 Range/Units 15:11 17:58 WBC (4.5-11.0) K/mm3 RBC (3.65-5.03) M/mm3 Hgb (11.8-15.2) gm/dl Hct (35.5-45.6) % MCV (84-94) fl MCH (28-32) pg MCHC (32-34) % RDW (13.2-15.2) % Plt Count (140-440) K/mm3 Sodium (137-145) mmol/L Potassium (3.6-5.0) mmol/L Chloride (98-107) mmol/L Carbon Dioxide (22-30) mmol/L Anion Gap mmol/L BUN (9-20) mg/dL Creatinine (0.8-1.3) mg/dL Estimated GFR ml/min BUN/Creatinine Ratio % Glucose (75-100) mg/dL Lactic Acid 3.60 H* 1.70 (0.7-2.0) mmol/L Calcium (8.4-10.2) mg/dL - Radiology Data Radiology results: image reviewed interpreted by me: X-ray of the right foot does not show any fracture, dislocation, foreign body or signs of osteomyelitis. - Medical Decision Making This patient presents with complaint of a wound to the right lateral heel that he noticed a few days ago. He denies any pain or swelling. He has a circular stage II ulcer to that area. He has palpable pedal pulses to the right foot. An x-ray was done through triage that does not show any signs of osteomyelitis or any other acute processes. Patient's labs shows some renal insufficiency consistent with his end-stage renal disease. The patient does have an elevated bicarb level but his vital signs have been reassuring throughout his ED course including being afebrile, no hypoxia, and the patient does not have any complaints of shortness of breath. The patient did have an elevated lactic acid level through triage as well. An IV was placed and the patient was given 500 cc of IV fluid resuscitation and a dose of vancomycin. The lactic acid level was repeated and was within normal limits. Patient appears safe for discharge home at this time. However, he has been given a prescription for antibiotics and outpatient referrals for podiatry and the wound care clinic. We discussed signs/symptoms of infection for which patient should return to the emergency department. Critical Care Time: No Critical care attestation.: If time is entered above; I have spent that time in minutes in the direct care of this critically ill patient, excluding procedure time. ED Disposition Clinical Impression: ESRD (end stage renal disease) on dialysis Diabetic foot ulcer Qualifiers: Diabetic foot ulcer location: heel Diabetes mellitus type: type 2 Laterality: right Non-pressure ulcer stage: unspecified non-pressure ulcer stage Qualified Code(s): E11.621 - Type 2 diabetes mellitus with foot ulcer; L97.419 - Non- pressure chronic ulcer of right heel and midfoot with unspecified severity Disposition: TO HOME OR SELFCARE Is pt being admited?: No Condition: Stable Instructions: Diabetes Mellitus and Foot Care, Wound Care, Adult, Diabetes Mellitus Type 2 in Adults (ED) Additional Instructions: Please follow-up with your primary care physician. I am giving you a referral for a local merry go round attendant, Dr. Boogie, as well as a referral for the wound care clinic. Clean the area with soap and water and then make sure it remains dry. Take the antibiotics as prescribed. Please make sure you are seen immediately with any signs/symptoms of infection such as increased pain, increased swelling, surrounding redness, development of fever, discharge of pus, or with any acute distress. Return to the emergency department with any worsening of your symptoms, new or concerning symptoms not addressed during this current emergency department v isit, or with any acute distress. Prescriptions: Clindamycin [Clindamycin CAP] 300 mg PO Q6H #28 capsule Referrals: CRISTINA JOSE MD [Staff Physician] - 2-3 Days TIMBO BOOGIE DPM [Staff Physician] - 2-3 Days [facility] [Outside] - 2-3 Days Time of Disposition: 18:46
== END 2020-09-03 19:06 | disposition home or self-care (01) ==
LOC: ED 13:23
DX: I13.2 Hypertensive heart and chronic kidney disease with heart failure and with stage 5 chronic kidney disease, or end stage renal disease (principal); E11.621 Type 2 diabetes mellitus with foot ulcer; E11.22 Type 2 diabetes mellitus with diabetic chronic kidney disease; N18.6 End stage renal disease; I50.9 Heart failure, unspecified; L97.419 Non-pressure chronic ulcer of right heel and midfoot with unspecified severity; I25.2 Old myocardial infarction; Z79.899 Other long term (current) drug therapy; Z86.73 Personal history of transient ischemic attack (TIA), and cerebral infarction without residual deficits; Z98.890 Other specified postprocedural states
CPT/HCPCS: 36415; 73620; 80048; 82140; 85027; 96365; 99284; J3370; J7040

== ENCOUNTER 2020-09-06 07:11 | Inpatient (IN) | payer MEDICARE ==
[2020-09-06] MEDS ORDERED: PANTOPRAZOLE 40 MG INJ IV ONE (09:03)
[2020-09-06 09:40] LABS: Basophils # (Auto) 0.1 K/mm3 (0.0-0.1); Basophils % (Auto) 0.5 % (0.0-1.8); Lymphocytes % (Auto) 8.1 % (13.4-35.0); Mean Corpuscular HGB Conc 33 % (32-34); Mean Corpuscular Volume 110 fl (84-94); Monocytes # (Auto) 0.8 K/mm3 (0.0-0.8); Monocytes % (Auto) 6.4 % (0.0-7.3); Platelet Count 134 K/mm3 (140-440); Red Blood Count 1.26 M/mm3 (3.65-5.03); Red Cell Distribution Width 19.2 % (13.2-15.2)
--- NOTE | 2020-09-06 09:40 | XRay Report ---
CHEST 1 VIEW INDICATION: SONIA. COMPARISON: 07/21/2019 FINDINGS: Support devices: 2-lead pacemaker device remains in the same position. Heart: Stable borderline heart size. Lungs/Pleura: No acute air space or interstitial disease. No pleural effusion or pneumothorax. Additional findings: None. IMPRESSION: No acute findings. Signer Name: Herrera Tanner Jr, MD Signed: 09/06/2020 9:35 AM Workstation Name: [id number]
[2020-09-06 09:43] LABS: Hematocrit 13.8 % (35.5-45.6); Hemoglobin 4.5 gm/dl (11.8-15.2)
[2020-09-06] MEDS ORDERED: SODIUM CHLORIDE 0.9% 500 ML 500 ML IV ONE (09:43)
[2020-09-06 09:48] LABS: INR 1.4 (0.87-1.13)
[2020-09-06 09:49] LABS: Partial Thromboplastin Time 27.5 Sec. (24.2-36.6)
--- NOTE | 2020-09-06 09:57 | Emergency Department Report ---
ED Chest Pain HPI - General Chief Complaint: Weakness Stated Complaint: LOW BLOOD PRESSURE Time Seen by Provider: 09/06/20 09:02 Source: EMS Mode of arrival: Stretcher Limitations: No Limitations - History of Present Illness Initial Comments: This is a 64-year-old man who is an inpatient at [facility]. He states that he developed a gradual onset of substernal chest pain. He cannot describe it. He cannot even select the closest multiple-choice quality. It did not radiate. It was nonpleuritic. It was not associated with nausea or vomiting coughing sweating or difficulty in breathing. He states he had this once before 5 years ago. He states he was not hospitalized at that time. Sometimes in the past he had a stress test and cannot report any abnormality. However the record indicates that the patient has had 2 previous myocardial infarction. He actually states that he has no history of heart problems. Remarkably the record indicates he has an AICD. He has had a cholecystectomy in the past. He states "I know it is not that". He states he thinks the problem is due to reflux. MD Complaint: chest pain -: Gradual, hour(s) (1 hour duration now resolved) Onset: during rest Pain Location: substernal Pain Radiation: none Severity: moderate Quality: other (Cannot describe) Consistency: now resolved Improves With: nothing Worsens With: nothing Context: other (Psychiatric hospitalizations) re: denies: nausea, vomting, diaphoresis, dyspnea, sense of impending doom Other Symptoms: denies: cough, fever, syncope Treatments Prior to Arrival: none - Related Data Home Medications Medication Instructions Recorded Confirmed Last Taken AtorvaSTATin [Lipitor] 40 mg PO QHS 07/21/19 07/21/19 Unknown Insulin Aspart (Nf) [NovoLOG 8 units SUB-Q TID 07/21/19 07/21/19 Unknown Flexpen] Insulin Degludec [Tresiba 40 unit SQ QDAY 07/21/19 07/21/19 Unknown Flextouch U-100] Isosorbide Dinitrate [Isordil] 20 mg PO TID 07/21/19 07/21/19 Unknown Metoprolol [Lopressor TAB] 100 mg PO QDAY 07/21/19 07/21/19 Unknown NIFEdipine [Nifedipine ER] 90 mg PO QDAY 07/21/19 07/21/19 Unknown Nitroglycerin [Nitrostat] 0.4 mg SL QDAY 07/21/19 07/21/19 Unknown hydrALAZINE [Apresoline TAB] 100 mg PO QDAY 07/21/19 07/21/19 Unknown Previous Rx's Medication Instructions Recorded Last Taken Type Aspirin [Aspirin BABY CHEW TAB] 81 mg PO QDAY #30 tab.chew 07/28/19 Unknown Rx Sodium Bicarbonate 650 mg PO TID #30 tablet 07/28/19 Unknown Rx metOLazone [Zaroxolyn] 5 mg PO QDAY #30 tablet 07/28/19 Unknown Rx polyethylene glycoL 3350 [Miralax 17 gm PO QDAY #10 powd.pack 07/28/19 Unknown Rx 3350] Cefdinir 300 mg PO Q48HR #5 capsule 07/15/20 Unknown Rx Sulfamethoxazole/Trimethoprim 1 each PO BID #14 tablet 08/17/20 Unknown Rx [Bactrim DS TAB] Clindamycin [Clindamycin CAP] 300 mg PO Q6H #28 capsule 09/03/20 Unknown Rx Allergies Allergy/AdvReac Type Severity Reaction Status Date / Time No Known Allergies Allergy Verified 07/21/19 08:02 Heart Score - HEART Score History: Moderately suspicious EKG: Non-specific Age: 45-65 Risk factors: > 3 risk factors or hx of atherosclerotic disease ED Review of Systems ROS: Stated complaint: LOW BLOOD PRESSURE Other details as noted in HPI Constitutional: denies: chills, fever Eyes: denies: eye pain, vision change ENT: denies: ear pain, throat pain Respiratory: denies: cough, shortness of breath, wheezing Cardiovascular: chest pain. denies: palpitations Endocrine: no symptoms reported Gastrointestinal: denies: abdominal pain, nausea, diarrhea Genitourinary: denies: urgency, dysuria Musculoskeletal: denies: back pain, joint swelling, arthralgia Skin: denies: rash, lesions Neurological: denies: headache, weakness, paresthesias Psychiatric: anxiety, depression Hematological/Lymphatic: denies: easy bleeding, easy bruising 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) Hx Internal Defibrillator: Yes Additional Surgical History: L BKA, L arm fistula - Social History Smoking Status: Unknown if ever smoked Substance Use Type: None - Medications Home Medications: Home Medications Medication Instructions Recorded Confirmed Last Taken Type AtorvaSTATin [Lipitor] 40 mg PO QHS 07/21/19 07/21/19 Unknown History Insulin Aspart (Nf) [NovoLOG 8 units SUB-Q TID 07/21/19 07/21/19 Unknown History Flexpen] Insulin Degludec [Tresiba 40 unit SQ QDAY 07/21/19 07/21/19 Unknown History Flextouch U-100] Isosorbide Dinitrate [Isordil] 20 mg PO TID 07/21/19 07/21/19 Unknown History Metoprolol [Lopressor TAB] 100 mg PO QDAY 07/21/19 07/21/19 Unknown History NIFEdipine [Nifedipine ER] 90 mg PO QDAY 07/21/19 07/21/19 Unknown History Nitroglycerin [Nitrostat] 0.4 mg SL QDAY 07/21/19 07/21/19 Unknown History hydrALAZINE [Apresoline TAB] 100 mg PO QDAY 07/21/19 07/21/19 Unknown History Aspirin [Aspirin BABY CHEW TAB] 81 mg PO QDAY #30 tab.chew 07/28/19 Unknown Rx Sodium Bicarbonate 650 mg PO TID #30 tablet 07/28/19 Unknown Rx metOLazone [Zaroxolyn] 5 mg PO QDAY #30 tablet 07/28/19 Unknown Rx polyethylene glycoL 3350 [Miralax 17 gm PO QDAY #10 powd.pack 07/28/19 Unknown Rx 3350] Cefdinir 300 mg PO Q48HR #5 capsule 07/15/20 Unknown Rx Sulfamethoxazole/Trimethoprim 1 each PO BID #14 tablet 08/17/20 Unknown Rx [Bactrim DS TAB] Clindamycin [Clindamycin CAP] 300 mg PO Q6H #28 capsule 09/03/20 Unknown Rx ED Physical Exam - General Limitations: Physical Limitation General appearance: obese - Head Head exam: Present: atraumatic, normocephalic - Eye Eye exam: Present: normal appearance - ENT ENT exam: Present: mucous membranes moist - Neck Neck exam: Present: normal inspection - Respiratory Respiratory exam: Present: normal lung sounds bilaterally. Absent: respiratory distress - Cardiovascular Cardiovascular Exam: Present: regular rate, normal rhythm. Absent: systolic murmur, diastolic murmur, rubs, gallop - GI/Abdominal GI/Abdominal exam: Present: soft, normal bowel sounds. Absent: distended, tenderness, guarding, rebound - Rectal Rectal exam: Present: deferred - Extremities Exam Extremities exam: Present: normal inspection. Absent: calf tenderness - Back Exam Back exam: Present: normal inspection - Neurological Exam Neurological exam: Present: alert, oriented X3, CN II-XII intact. Absent: motor sensory deficit - Psychiatric Psychiatric exam: Present: anxious, flat affect - Skin Skin exam: Present: warm, dry, intact, normal color. Absent: rash ED Course Vital Signs 09/06/20 09/06/20 09/06/20 06:30 07:00 07:30 Pulse Rate 108 H 108 H 103 H Respiratory 23 26 H 28 H Rate Blood Pressure O2 Sat by Pulse Oximetry 09/06/20 09/06/20 09/06/20 07:50 08:02 08:30 Pulse Rate 104 H 104 H 101 H Respiratory 26 H 20 18 Rate Blood Pressure 90/50 98/44 O2 Sat by Pulse 100 97 Oximetry ED Medical Decision Making - Lab Data Result diagrams: 09/06/20 Unknown 09/06/20 Unknown Laboratory Results - last 24 hr 09/06/20 09/06/20 09/06/20 Unknown Unknown Unknown WBC 12.6 H RBC 1.26 L Hgb 4.5 L* D Hct 13.8 L* D MCV 110 H MCH 36 H MCHC 33 RDW 19.2 H Plt Count 134 L Lymph % (Auto) 8.1 L Luna % (Auto) 6.4 Eos % (Auto) 0.0 Baso % (Auto) 0.5 Lymph # (Auto) 1.0 L Luna # (Auto) 0.8 Eos # (Auto) 0.0 Baso # (Auto) 0.1 Seg Neutrophils % 85.0 H Seg Neutrophils # 10.7 H PT 17.1 H INR 1.40 H APTT 27.5 NT-Pro-B Natriuret Pep [id number] H Critical care attestation.: If time is entered above; I have spent that time in minutes in the direct care of this critically ill patient, excluding procedure time. ED Disposition Condition: Stable Referrals: PRIMARY CARE,MD [Primary Care Provider] - 3-5 Days
[2020-09-06 10:00] LABS: Alanine Aminotransferase 18 units/L (7-56); Albumin 2.9 g/dL (3.9-5); Blood Urea Nitrogen 88 mg/dL (9-20); Hemolysis Index 5
[2020-09-06 10:02] LABS: BUN/Creatinine Ratio 12; Bilirubin,Direct < 0.2 mg/dL (0-0.2)
--- NOTE | 2020-09-06 10:07 | Emergency Department Report ---
ED General Adult HPI - General Chief complaint: Weakness Stated complaint: LOW BLOOD PRESSURE Time Seen by Provider: 09/06/20 09:02 Source: EMS Mode of arrival: Stretcher Limitations: No Limitations - History of Present Illness Initial comments: This is a 64-year old man with history of diabetes and end-stage renal disease. Thinks he may have been dialyzed last yesterday. He is a poor historian. He states that he did note black stool yesterday. He vomited coffee-ground material prior to arrival and EMS was summoned. He is not complaining of abdominal pain. The nurse informed me prior to my encounter that his clothes were removed and there was definitely coffee-ground emesis. The patient is does not report a history of prior GI bleeding. He did remember a transfusion sometime ago. -: days(s) Consistency: intermittent Improves with: none Worsens with: none Associated Symptoms: denies other symptoms, weakness Treatments Prior to Arrival: none - Related Data Home Medications Medication Instructions Recorded Confirmed Last Taken AtorvaSTATin [Lipitor] 40 mg PO QHS 07/21/19 07/21/19 Unknown Insulin Aspart (Nf) [NovoLOG 8 units SUB-Q TID 07/21/19 07/21/19 Unknown Flexpen] Insulin Degludec [Tresiba 40 unit SQ QDAY 07/21/19 07/21/19 Unknown Flextouch U-100] Isosorbide Dinitrate [Isordil] 20 mg PO TID 07/21/19 07/21/19 Unknown Metoprolol [Lopressor TAB] 100 mg PO QDAY 07/21/19 07/21/19 Unknown NIFEdipine [Nifedipine ER] 90 mg PO QDAY 07/21/19 07/21/19 Unknown Nitroglycerin [Nitrostat] 0.4 mg SL QDAY 07/21/19 07/21/19 Unknown hydrALAZINE [Apresoline TAB] 100 mg PO QDAY 07/21/19 07/21/19 Unknown Previous Rx's Medication Instructions Recorded Last Taken Type Aspirin [Aspirin BABY CHEW TAB] 81 mg PO QDAY #30 tab.chew 07/28/19 Unknown Rx Sodium Bicarbonate 650 mg PO TID #30 tablet 07/28/19 Unknown Rx metOLazone [Zaroxolyn] 5 mg PO QDAY #30 tablet 07/28/19 Unknown Rx polyethylene glycoL 3350 [Miralax 17 gm PO QDAY #10 powd.pack 07/28/19 Unknown Rx 3350] Cefdinir 300 mg PO Q48HR #5 capsule 07/15/20 Unknown Rx Sulfamethoxazole/Trimethoprim 1 each PO BID #14 tablet 08/17/20 Unknown Rx [Bactrim DS TAB] Clindamycin [Clindamycin CAP] 300 mg PO Q6H #28 capsule 09/03/20 Unknown Rx Allergies Allergy/AdvReac Type Severity Reaction Status Date / Time No Known Allergies Allergy Verified 07/21/19 08:02 ED Review of Systems ROS: Stated complaint: LOW BLOOD PRESSURE Other details as noted in HPI Constitutional: weakness. denies: chills, fever Eyes: eye discharge. denies: eye pain, vision change ENT: denies: ear pain, throat pain Respiratory: denies: cough, shortness of breath (Did not complain of this) Cardiovascular: denies: chest pain, palpitations Endocrine: no symptoms reported Gastrointestinal: as per HPI, vomiting, hematemesis, melena Genitourinary: as per HPI (End-stage renal dialysis yesterday) Musculoskeletal: denies: back pain, arthralgia Skin: denies: rash, lesions Neurological: denies: headache, weakness, paresthesias Psychiatric: denies: anxiety, depression Hematological/Lymphatic: denies: easy bleeding, easy bruising 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) Hx Internal Defibrillator: Yes Additional Surgical History: L BKA, L arm fistula - Social History Smoking Status: Unknown if ever smoked Substance Use Type: None - Medications Home Medications: Home Medications Medication Instructions Recorded Confirmed Last Taken Type AtorvaSTATin [Lipitor] 40 mg PO QHS 07/21/19 07/21/19 Unknown History Insulin Aspart (Nf) [NovoLOG 8 units SUB-Q TID 07/21/19 07/21/19 Unknown History Flexpen] Insulin Degludec [Tresiba 40 unit SQ QDAY 07/21/19 07/21/19 Unknown History Flextouch U-100] Isosorbide Dinitrate [Isordil] 20 mg PO TID 07/21/19 07/21/19 Unknown History Metoprolol [Lopressor TAB] 100 mg PO QDAY 07/21/19 07/21/19 Unknown History NIFEdipine [Nifedipine ER] 90 mg PO QDAY 07/21/19 07/21/19 Unknown History Nitroglycerin [Nitrostat] 0.4 mg SL QDAY 07/21/19 07/21/19 Unknown History hydrALAZINE [Apresoline TAB] 100 mg PO QDAY 07/21/19 07/21/19 Unknown History Aspirin [Aspirin BABY CHEW TAB] 81 mg PO QDAY #30 tab.chew 07/28/19 Unknown Rx Sodium Bicarbonate 650 mg PO TID #30 tablet 07/28/19 Unknown Rx metOLazone [Zaroxolyn] 5 mg PO QDAY #30 tablet 07/28/19 Unknown Rx polyethylene glycoL 3350 [Miralax 17 gm PO QDAY #10 powd.pack 07/28/19 Unknown Rx 3350] Cefdinir 300 mg PO Q48HR #5 capsule 07/15/20 Unknown Rx Sulfamethoxazole/Trimethoprim 1 each PO BID #14 tablet 08/17/20 Unknown Rx [Bactrim DS TAB] Clindamycin [Clindamycin CAP] 300 mg PO Q6H #28 capsule 09/03/20 Unknown Rx ED Physical Exam - General Limitations: Physical Limitation General appearance: alert, in no apparent distress - Head Head exam: Present: atraumatic, normocephalic - Eye Eye exam: Present: normal appearance. Absent: scleral icterus - ENT ENT exam: Present: mucous membranes moist - Neck Neck exam: Present: normal inspection - Respiratory Respiratory exam: Present: normal lung sounds bilaterally. Absent: respiratory distress - Cardiovascular Cardiovascular Exam: Present: regular rate, normal rhythm. Absent: systolic murmur, diastolic murmur, rubs, gallop - GI/Abdominal GI/Abdominal exam: Present: soft, normal bowel sounds. Absent: distended, tenderness, guarding, rebound - Rectal Rectal exam: Present: deferred - Extremities Exam Extremities exam: Present: other (Left BKA) - Back Exam Back exam: Present: normal inspection - Neurological Exam Neurological exam: Present: alert, oriented X3, CN II-XII intact. Absent: motor sensory deficit - Psychiatric Psychiatric exam: Present: normal affect, normal mood - Skin Skin exam: Present: warm, dry, intact, normal color. Absent: rash ED Course Vital Signs 09/06/20 09/06/20 09/06/20 06:30 07:00 07:30 Temperature Pulse Rate 108 H 108 H 103 H Respiratory 23 26 H 28 H Rate Blood Pressure O2 Sat by Pulse Oximetry 09/06/20 09/06/20 09/06/20 07:50 08:02 08:30 Temperature Pulse Rate 104 H 104 H 101 H Respiratory 26 H 20 18 Rate Blood Pressure 90/50 98/44 O2 Sat by Pulse 100 97 Oximetry 09/06/20 10:14 Temperature 98 F Pulse Rate 100 H Respiratory 26 H Rate Blood Pressure 93/40 O2 Sat by Pulse 97 Oximetry - Reevaluation(s) Reevaluation #1: Nurses could not find peripheral access. I placed a 20-gauge double-lumen Y site in the right EJ without difficulty and blood was drawn. I discussed the patient with Dr. Thompson his soapstoner. He is consulted. The blood to that I opal, the blood bank tells me was not properly labeled by the nurse. I discovered this shortly after being informed of his critical hemoglobin. The blood bank does have his blood type of record. Therefore I decided to proceed with type-specific transfusion as his blood pressure was somewhat below 90, GI bleeding and very low hemoglobin. Transfusion is in progress. Spoke with hospitalist. The patient will be admitted to the IMCU. Awaiting call back from GI specialist. 09/06/20 10:17 - EJ/Peripheral Line Neck R Time Out Performed: No Indications: nurses unable to establis Skin Cleansed in Sterile Fashion: Yes Size: 20 Dressing Placed: Tegaderm Patient Tolerated Procedure: well ED Medical Decision Making - Lab Data Result diagrams: 09/06/20 Unknown 09/06/20 Unknown Laboratory Results - last 24 hr 09/06/20 09/06/20 09/06/20 Unknown Unknown Unknown WBC 12.6 H RBC 1.26 L Hgb 4.5 L* D Hct 13.8 L* D MCV 110 H MCH 36 H MCHC 33 RDW 19.2 H Plt Count 134 L Lymph % (Auto) 8.1 L [place] % (Auto) 6.4 Eos % (Auto) 0.0 Baso % (Auto) 0.5 Lymph # (Auto) 1.0 L [place] # (Auto) 0.8 Eos # (Auto) 0.0 Baso # (Auto) 0.1 Seg Neutrophils % 85.0 H Seg Neutrophils # 10.7 H PT 17.1 H INR 1.40 H APTT 27.5 Sodium 142 Potassium 4.7 D Chloride 93.4 L Carbon Dioxide 28 D Anion Gap 25 BUN 88 H Creatinine 7.3 H Estimated GFR 9 BUN/Creatinine Ratio 12 Glucose 138 H Calcium 7.0 L Phosphorus 3.50 Magnesium 1.90 Total Bilirubin 0.20 Direct Bilirubin < 0.2 Indirect Bilirubin 0.0 AST 25 ALT 18 Alkaline Phosphatase 98 NT-Pro-B Natriuret Pep 31008 H Total Protein 5.4 L Albumin 2.9 L Albumin/Globulin Ratio 1.2 - EKG Data -: EKG Interpreted by Me (Yet pending) - Radiology Data Radiology results: report reviewed (No acute finding. "2-lead pacemaker device".) Critical Care Time: Yes Critical care time in (mins) excluding proc time.: 60 Critical care attestation.: If time is entered above; I have spent that time in minutes in the direct care of this critically ill patient, excluding procedure time. ED Disposition Clinical Impression: Upper GI bleeding, End stage renal disease, Symptomatic anemia, Insulin dependent diabetes mellitus Hypotension Qualifiers: Hypotension type: unspecified hypotension type Qualified Code(s): I95.9 - Hypotension, unspecified Disposition: 09 OP ADMIT IP TO THIS HOSP Is pt being admited?: Yes Does the pt Need Aspirin: No Condition: Stable Instructions: Diabetes Mellitus Type 2 in Adults (ED) Referrals: PRIMARY CARE, [Primary Care Provider] - 3-5 Days Time of Disposition: 10:22
--- NOTE | 2020-09-06 10:41 | History and Physical Report ---
<KEMI HENDERSON - Last Filed: 09/06/20 16:20> History of Present Illness Date of examination: 09/06/20 Chief complaint: Weakness and ground-level fall History of present illness: This is a 64-year old man with CVA, AR (1999, 12 5) s/p PPM/AICD, CVA (2006), hypertension, hyperlipidemia, CHF, ESRD on HD, anemia of chronic disease, left BKA, and arthritis who presents to the emergency department on 09/06 for black tarry stool on 09/05 and coffee-ground emesis. Patient describes syncopal episode resulting in ground-level fall and liquid dark stool x2 however he stat es that he has dark stools from his multivitamin and iron supplementation. Patient denies any chest pain, shortness of breath, fevers, chills, night sweats, recent weight loss, recent travel, recent sick contacts or known exposure to COVID-19. Work-up in the emergency department reveals acute blood loss anemia superimposed on anemia of chronic disease with an H/H of 4.5/13.8, GI bleed, supratherapeutic INR, lactic acidosis, leukocytosis, thrombocytopenia, elevated proBNP and hypochloremia and hypocalcemia. GI was consulted in the ED, nephrology GI, nephrology and cardiology were consulted. Patient will be admitted to the hospital service with acute blood loss anemia, GI bleed and acute exacerbation of congestive heart failure/volume overload. Prior visits reviewed, home medications reconciled and advanced care planning conducted in the emergency department. Past History Past Medical History: anemia, diabetes, dialysis, ESRD, heart failure, hy pertension, hyperlipidemia, other (Left BKA) Past Surgical History: Other (PPM/AICD placement, left upper extremity aVF, left BKA) Social history: (), lives with family, full code. denies: smoking, alcohol abuse, prescription drug abuse, IV drug use Family history: hypertension Medications and Allergies Allergies Allergy/AdvReac Type Severity Reaction Status Date / Time No Known Allergies Allergy Verified 07/21/19 08:02 Home Medications Medication Instructions Recorded Confirmed Last Taken Type AtorvaSTATin [Lipitor] 40 mg PO QHS 07/21/19 07/21/19 Unknown History Insulin Aspart (Nf) [NovoLOG 8 units SUB-Q TID 07/21/19 07/21/19 Unknown History Flexpen] Insulin Degludec [Tresiba 40 unit SQ QDAY 07/21/19 07/21/19 Unknown History Flextouch U-100] Isosorbide Dinitrate [Isordil] 20 mg PO TID 07/21/19 07/21/19 Unknown History Metoprolol [Lopressor TAB] 100 mg PO QDAY 07/21/19 07/21/19 Unknown History NIFEdipine [Nifedipine ER] 90 mg PO QDAY 07/21/19 07/21/19 Unknown History Nitroglycerin [Nitrostat] 0.4 mg SL QDAY 07/21/19 07/21/19 Unknown History hydrALAZINE [Apresoline TAB] 100 mg PO QDAY 07/21/19 07/21/19 Unknown History Aspirin [Aspirin BABY CHEW TAB] 81 mg PO QDAY #30 tab.chew 07/28/19 Unknown Rx Sodium Bicarbonate 650 mg PO TID #30 tablet 07/28/19 Unknown Rx metOLazone [Zaroxolyn] 5 mg PO QDAY #30 tablet 07/28/19 Unknown Rx polyethylene glycoL 3350 [Miralax 17 gm PO QDAY #10 powd.pack 07/28/19 Unknown Rx 3350] Cefdinir 300 mg PO Q48HR #5 capsule 07/15/20 Unknown Rx Sulfamethoxazole/Trimethoprim 1 each PO BID #14 tablet 08/17/20 Unknown Rx [Bactrim DS TAB] Clindamycin [Clindamycin CAP] 300 mg PO Q6H #28 capsule 09/03/20 Unknown Rx Review of Systems Constitutional: no weight loss, no weight gain, no fever, no chills, no sweats, no night sweats, no anorexia, no fatigue, no weakness Eyes: bilateral: discharge (Clear discharge) Ears, nose, mouth and throat: no ear pain, no ear discharge, no tinnitis, no decreased hearing, no nose pain, no nasal congestion, no nasal discharge, no sinus pressure, no sinus pain, no epistaxis, no bleeding gums, no dental pain, no mouth pain, no sore throat, no post-nasal drip Cardiovascular: syncope, lightheadedness, high blood pressure, no chest pain, no orthopnea, no palpitations, no rapid/irregular heart beat, no edema, no leg edema Respiratory: no cough, no cough with sputum, no excessive sputum, no hemoptysis, no shortness of breath, no dyspnea on exertion, no congestion, no wheezing, no pleurisy, no pain on inspiration Gastrointestinal: nausea, vomiting, coffee ground emesis, melena, no abdominal pain, no BRBPR, no hematochezia, no heartburn Genitourinary Male: no dysuria, no hematuria, no flank pain, no discharge, no urinary frequency, no urinary hesitancy, no nocturia Rectal: no pain, no bleeding, no itching, no hemorrhoids Musculoskeletal: leg numbness/tingling, frequent falls, prior amputations, no neck stiffness, no neck pain, no shooting arm pain, no arm numbness/tingling, no low back pain, no shooting leg pain, no redness of joints, no hot joints, no muscle weakness, no muscle cramps Integumentary: sores Neurological: numbness, tingling, no head injury, no transient paralysis, no paralysis, no weakness, no parathesias, no seizures, no syncope, no tremors, no headaches, no confusion, no changes in smell/taste, no sensory deficit Psychiatric: no anxiety, no memory loss, no change in sleep habits, no sleep disturbances, no insomnia, no hypersomnia, no suicidal ideation, no depression Endocrine: no cold intolerance, no heat intolerance, no polyphagia, no excessive thirst, no polydipsia, no polyuria, no nocturia, no excessive sweating, no increase in ring/shoe/hat size, no high blood sugars Hematologic/Lymphatic: no easy bruising, no easy bleeding Allergic/Immunologic: no allergic rhinitis, no persistent infections Exam - Constitutional Vitals: Temp Pulse Resp BP Pulse Ox 98 F 99 H 18 103/47 100 09/06/20 10:14 09/06/20 10:15 09/06/20 10:15 09/06/20 10:15 09/06/20 10:15 General appearance: Present: no acute distress - EENT Eyes: Present: PERRL, EOM intact ENT: hearing intact, clear oral mucosa - Neck Neck: Present: normal ROM - Respiratory Respiratory effort: normal Respiratory: bilateral: CTA - Cardiovascular Rhythm: regular Heart Sounds: Present: S1 & S2. Absent: systolic murmur, diastolic murmur - Extremities Extremities: no ischemia, pulses intact, pulses symmetrical, No edema, Full ROM Peripheral Pulses: within normal limits - Abdominal General gastrointestinal: Present: soft, non-tender, non-distended, normal bowel sounds - Integumentary Integumentary: Present: clear, warm, dry - Musculoskeletal Musculoskeletal: strength equal bilaterally - Psychiatric Psychiatric: cooperative - Neurologic Neurologic: CNII-XII intact, no focal deficits, other (Left BKA) Results - Labs CBC & Chem 7: 09/06/20 Unknown 09/06/20 Unknown Labs: Abnormal lab results 09/06/20 09/06/20 09/06/20 Range/Units 10:05 Unknown Unknown WBC 12.6 H (4.5-11.0) K/mm3 RBC 1.26 L (3.65-5.03) M/mm3 Hgb 4.5 L* D (11.8-15.2) gm/dl Hct 13.8 L* D (35.5-45.6) % MCV 110 H (84-94) fl MCH 36 H (28-32) pg RDW 19.2 H (13.2-15.2) % Plt Count 134 L (140-440) K/mm3 Lymph % (Auto) 8.1 L (13.4-35.0) % Lymph # (Auto) 1.0 L (1.2-5.4) K/mm3 Seg Neutrophils % 85.0 H (40.0-70.0) % Seg Neutrophils # 10.7 H (1.8-7.7) K/mm3 PT 17.1 H (12.2-14.9) Sec. INR 1.40 H (0.87-1.13) Chloride (98-107) mmol/L BUN (9-20) mg/dL Creatinine (0.8-1.3) mg/dL Glucose (75-100) mg/dL Calcium (8.4-10.2) mg/dL NT-Pro-B Natriuret Pep (0-900) pg/mL Total Protein (6.3-8.2) g/dL Albumin (3.9-5) g/dL Crossmatch See Detail 09/06/20 Range/Units Unknown WBC (4.5-11.0) K/mm3 RBC (3.65-5.03) M/mm3 Hgb (11.8-15.2) gm/dl Hct (35.5-45.6) % MCV (84-94) fl MCH (28-32) pg RDW (13.2-15.2) % Plt Count (140-440) K/mm3 Lymph % (Auto) (13.4-35.0) % Lymph # (Auto) (1.2-5.4) K/mm3 Seg Neutrophils % (40.0-70.0) % Seg Neutrophils # (1.8-7.7) K/mm3 PT (12.2-14.9) Sec. INR (0.87-1.13) Chloride 93.4 L (98-107) mmol/L BUN 88 H (9-20) mg/dL Creatinine 7.3 H (0.8-1.3) mg/dL Glucose 138 H (75-100) mg/dL Calcium 7.0 L (8.4-10.2) mg/dL NT-Pro-B Natriuret Pep 15260 H (0-900) pg/mL Total Protein 5.4 L (6.3-8.2) g/dL Albumin 2.9 L (3.9-5) g/dL Crossmatch - Imaging and Cardiology Chest x-ray: report reviewed (09/06 CXR shows 2-lead pacemaker device, stable borderline heart size, no pleural effusion or pneumothorax (imaging not available)) Assessment and Plan Acute blood loss anemia/anemia of chronic disease -Presented with a H/H of 4.5/13.8 -Stat type and cross in the ED -ED ordered 2 unit PRBC -Posttransfusion CBC -Transfuse for hemoglobin less than 7 -Trend CBC GI bleed -Patient presented with coffee-ground emesis and dark tarry stool prior to admission -GI consulted, appreciate recommendations -S/p 80 mg Protonix IV x1 in the ED -IV Protonix twice daily -Trend CBC -Supportive care -NPO Supratherapeutic INR -Presented with INR of 1.4 -Patient's home medications include aspirin -Trend INR Leukocytosis -Presented with a WBC of 12.6 -Likely reactive -Trend CBC Thrombocytopenia -Presented with a platelet of 134 -Trend CBC -Transfuse as needed Lactic acidosis -S/p 500 mL normal saline in the ED -09/06 lactic acid 8 -Trend lactic acid -Patient has a history of CHF and ESRD Diabetes mellitus -N.p.o. for now -SSI -Accu-Cheks every 4 while n.p.o. then AC at bedtime when we cleared for diet -CC cardiac renal diet when cleared by GI ESRD on HD -Per patient he believes his last HD session was 09/05 -Present to BUN/creatinine 7.3/88 -Nephrology consulted in the ED, appreciate recommendations -Renally dose medications -Avoid nephrotoxic medications -Strict intake and output -Daily weights -HD per nephrology CHF/[place] overload [place] [id number] -09/06 CXR shows 2-lead pacemaker device, stable borderline heart size, no pleura l effusion or pneumothorax (imaging not available) -07/2019 echocardiogram showed severe LVH, diffuse global hypokinesis of the left ventricle, estimated ejection fraction 45 to 50%, diastolic dysfunction, severe MR, TR, severe pulmonary hypertension and RSVP is calculated at 72 mmHg -09/06 [place] [address] -Cardiology consulted, appreciate recommendations Hypochloremia -Presented with a chloride of 93.4 -Trend BMP -Electrolyte correction per renal team with HD Hypocalcemia -Presented with a calcium of 7 -Electrolyte correction per renal team with HD DVT prophylaxis -SCDs to bilateral lower extremities while in bed -Chemical prophylaxis contraindicated in setting of acute GI bleed and anemia Full code <NICOLEARIS R - Last Filed: 09/07/20 11:17> History of Present Illness Date of admission: 09/06/20 10:30 Medications and Allergies Active Meds: Active Medications Acetaminophen (Acetaminophen 650 Mg Rect Supp) 650 mg MS Q6H PRN PRN Reason: Pain MILD(1-3)/Fever >100.5/MATHEW Albuterol (Albuterol 2.5 Mg/3 Ml Nebu) 2.5 mg IH Q3HRT PRN PRN Reason: Shortness Of Breath Atorvastatin Calcium (Atorvastatin 40 Mg Tab) 40 mg PO QHS LOVE Last Admin: 09/06/20 23:11 Dose: Not Given Documented by: Dextrose (Dextrose 50% In Water (25gm) 50 Ml Syringe) 50 ml IV Q30MIN PRN; Prot ocol PRN Reason: Hypoglycemia Insulin Human Regular (Insulin Regular, Human 100 Units/1 Ml) 0 units SUB-Q Q4H LOVE; Protocol Last Admin: 09/07/20 08:42 Dose: Not Given Documented by: Nitroglycerin (Nitroglycerin 0.4 Mg Tab Subl) 0.4 mg SL QDAY [facility] Last Admin: 09/07/20 10:58 Dose: Not Given Documented by: Ondansetron HCl (Ondansetron 4 Mg/2 Ml Inj) 4 mg IV Q8H PRN PRN Reason: Nausea And Vomiting Pantoprazole Sodium (Pantoprazole 40 Mg Inj) 40 mg IV BID [facility] Last Admin: 09/07/20 10:55 Dose: 40 mg Documented by: Polyethylene Glycol (Polyethylene Glycol 3350 17 Gm Powder) 17 gm PO QDAY [facility] Last Admin: 09/07/20 10:55 Dose: 17 gm Documented by: Sodium Chloride (Sodium Chloride 0.9% 10 Ml Flush Syringe) 10 ml IV BID [facility] Last Admin: 09/06/20 23:11 Dose: 10 ml Documented by: Sodium Chloride (Sodium Chloride 0.9% 10 Ml Flush Syringe) 10 ml IV PRN PRN PRN Reason: LINE FLUSH Last Admin: 09/07/20 10:55 Dose: 10 ml Documented by: Exam - Constitutional Vitals: Temp Pulse Resp BP Pulse Ox 98.9 F 77 17 101/42 95 09/07/20 07:20 09/07/20 10:58 09/07/20 10:00 09/07/20 10:58 09/07/20 10:00 Results - Labs CBC & Chem 7: 09/07/20 04:16 09/07/20 04:16 Labs: Abnormal lab results 09/06/20 09/06/20 09/06/20 Range/Units 10:05 13:38 15:00 WBC (4.5-11.0) K/mm3 RBC (3.65-5.03) M/mm3 Hgb 7.2 L (11.8-15.2) gm/dl Hct 20.8 L D (35.5-45.6) % MCV (84-94) fl MCH (28-32) pg Plt Count (140-440) K/mm3 [place] % (Auto) (0.0-7.3) % [place] # (Auto) (0.0-0.8) K/mm3 Seg Neutrophils % (40.0-70.0) % Seg Neutrophils # (1.8-7.7) K/mm3 Chloride (98-107) mmol/L BUN (9-20) mg/dL Creatinine (0.8-1.3) mg/dL Glucose (75-100) mg/dL POC Glucose 124 H (70-105) mg/dL Lactic Acid (0.7-2.0) mmol/L Calcium (8.4-10.2) mg/dL Crossmatch See Detail 09/06/20 09/06/20 09/06/20 Range/Units 16:07 16:16 22:10 WBC (4.5-11.0) K/mm3 RBC (3.65-5.03) M/mm3 Hgb (11.8-15.2) gm/dl Hct (35.5-45.6) % MCV (84-94) fl MCH (28-32) pg Plt Count (140-440) K/mm3 [place] % (Auto) (0.0-7.3) % [place] # (Auto) (0.0-0.8) K/mm3 Seg Neutrophils % (40.0-70.0) % Seg Neutrophils # (1.8-7.7) K/mm3 Chloride (98-107) mmol/L BUN (9-20) mg/dL Creatinine (0.8-1.3) mg/dL Glucose (75-100) mg/dL POC Glucose 133 H 137 H (70-105) mg/dL Lactic Acid 3.90 H* (0.7-2.0) mmol/L Calcium (8.4-10.2) mg/dL Crossmatch 09/06/20 09/07/20 09/07/20 Range/Units 23:38 04:16 04:16 WBC 12.0 H (4.5-11.0) K/mm3 RBC 2.01 L (3.65-5.03) M/mm3 Hgb 5.8 L* 6.8 L (11.8-15.2) gm/dl Hct 16.5 L* 20.2 L (35.5-45.6) % MCV 100 H (84-94) fl MCH 34 H (28-32) pg Plt Count 91 L (140-440) K/mm3 [place] % (Auto) 8.0 H (0.0-7.3) % [place] # (Auto) 1.0 H (0.0-0.8) K/mm3 Seg Neutrophils % 76.2 H (40.0-70.0) % Seg Neutrophils # 9.1 H (1.8-7.7) K/mm3 Chloride 95.2 L (98-107) mmol/L BUN 140 H (9-20) mg/dL Creatinine 8.8 H (0.8-1.3) mg/dL Glucose 167 H (75-100) mg/dL POC Glucose (70-105) mg/dL Lactic Acid (0.7-2.0) mmol/L Calcium 6.6 L (8.4-10.2) mg/dL Crossmatch 09/07/20 09/07/20 Range/Units 06:06 08:40 WBC (4.5-11.0) K/mm3 RBC (3.65-5.03) M/mm3 Hgb (11.8-15.2) gm/dl Hct (35.5-45.6) % MCV (84-94) fl MCH (28-32) pg Plt Count (140-440) K/mm3 [place] % (Auto) (0.0-7.3) % [place] # (Auto) (0.0-0.8) K/mm3 Seg Neutrophils % (40.0-70.0) % Seg Neutrophils # (1.8-7.7) K/mm3 Chloride (98-107) mmol/L BUN (9-20) mg/dL Creatinine (0.8-1.3) mg/dL Glucose (75-100) mg/dL POC Glucose 152 H 134 H (70-105) mg/dL Lactic Acid (0.7-2.0) mmol/L Calcium (8.4-10.2) mg/dL Crossmatch Assessment and Plan I saw and evaluated the patient. I agree with the findings and the plan of care as documented in the Nurse Practitioner's~note,
[2020-09-06] MEDS ORDERED: ALBUTEROL 2.5 MG/3 ML NEBU IH PRN (10:55)
[2020-09-06] MEDS ORDERED: DEXTROSE 50% IN WATER (25GM) 50 ML SYRINGE IV PRN (10:55)
[2020-09-06] MEDS ORDERED: ONDANSETRON 4 MG/2 ML INJ IV PRN (10:55)
--- NOTE | 2020-09-06 12:21 | Consultation ---
History of Present Illness - Reason for Consult Consult date: 09/06/20 end stage renal disease - History of Present Illness This is a 64 year old male who presents to the hospital with a chief complaint of passing out. Patient states he passed out at home yesterday evening in his bathroom. His sister was home with him who call ed 911. He states his stools are always black since being started on Velphoro his phosphorus binder that contains iron. On evaluation in E.R, patient's HGB was severely low at 4.5. Patient is currently awake and alert and is receiving 1 unit of blood. Patient is compliant with hemodialysis and did receive treatment yesterday. Patient has history of ESRD, Hypertension, CHF, CVA and left BKA. We are being consulted for management of this patient's ESRD. Past History Past Medical History: anemia, dialysis, ESRD, heart failure, hypertension Past Surgical History: Other (Left BKA, AVF) Social history: no significant social history Family history: no significant family history Medications and Allergies Allergies Allergy/AdvReac Type Severity Reaction Status Date / Time No Known Allergies Allergy Verified 07/21/19 08:02 Home Medications Medication Instructions Recorded Confirmed Last Taken Type AtorvaSTATin [Lipitor] 40 mg PO QHS 07/21/19 07/21/19 Unknown History Insulin Aspart (Nf) [NovoLOG 8 units SUB-Q TID 07/21/19 07/21/19 Unknown History Flexpen] Insulin Degludec [Tresiba 40 unit SQ QDAY 07/21/19 07/21/19 Unknown History Flextouch U-100] Isosorbide Dinitrate [Isordil] 20 mg PO TID 07/21/19 07/21/19 Unknown History Metoprolol [Lopressor TAB] 100 mg PO QDAY 07/21/19 07/21/19 Unknown History NIFEdipine [Nifedipine ER] 90 mg PO QDAY 07/21/19 07/21/19 Unknown History Nitroglycerin [Nitrostat] 0.4 mg SL QDAY 07/21/19 07/21/19 Unknown History hydrALAZINE [Apresoline TAB] 100 mg PO QDAY 07/21/19 07/21/19 Unknown History Aspirin [Aspirin BABY CHEW TAB] 81 mg PO QDAY #30 tab.chew 07/28/19 Unknown Rx Sodium Bicarbonate 650 mg PO TID #30 tablet 07/28/19 Unknown Rx metOLazone [Zaroxolyn] 5 mg PO QDAY #30 tablet 07/28/19 Unknown Rx polyethylene glycoL 3350 [Miralax 17 gm PO QDAY #10 powd.pack 07/28/19 Unknown Rx 3350] Cefdinir 300 mg PO Q48HR #5 capsule 07/15/20 Unknown Rx Sulfamethoxazole/Trimethoprim 1 each PO BID #14 tablet 08/17/20 Unknown Rx [Bactrim DS TAB] Clindamycin [Clindamycin CAP] 300 mg PO Q6H #28 capsule 09/03/20 Unknown Rx Active Meds: Active Medications Acetaminophen (Acetaminophen 650 Mg Rect Supp) 650 mg PA Q6H PRN PRN Reason: Pain MILD(1-3)/Fever >100.5/MATHEW Albuterol (Albuterol 2.5 Mg/3 Ml Nebu) 2.5 mg IH Q3HRT PRN PRN Reason: Shortness Of Breath Atorvastatin Calcium (Atorvastatin 40 Mg Tab) 40 mg PO QHS LOVE Dextrose (Dextrose 50% In Water (25gm) 50 Ml Syringe) 50 ml IV Q30MIN PRN; Protocol PRN Reason: Hypoglycemia Insulin Human Regular (Insulin Regular, Human 100 Units/1 Ml) 0 units SUB-Q Q4H LOVE; Protocol Nitroglycerin (Nitroglycerin 0.4 Mg Tab Subl) 0.4 mg SL QDAY LOVE Ondansetron HCl (Ondansetron 4 Mg/2 Ml Inj) 4 mg IV Q8H PRN PRN Reason: Nausea And Vomiting Pantoprazole Sodium (Pantoprazole 40 Mg Inj) 40 mg IV BID LOVE Polyethylene Glycol (Polyethylene Glycol 3350 17 Gm Powder) 17 gm PO QDAY LOVE Sodium Chloride (Sodium Chloride 0.9% 10 Ml Flush Syringe) 10 ml IV BID LOVE Sodium Chloride (Sodium Chloride 0.9% 10 Ml Flush Syringe) 10 ml IV PRN PRN PRN Reason: LINE FLUSH Review of Systems Constitutional: fatigue, no weight loss, no weight gain, no fever, no chills Ears, nose, mouth and throat: no ear pain, no ear discharge, no tinnitis, no decreased hearing, no nose pain, no nasal congestion Cardiovascular: no chest pain, no orthopnea, no palpitations, no rapid/irregular heart beat, no edema, no syncope, no lightheadedness, no shortness of breath Respiratory: no cough, no cough with sputum, no excessive sputum, no hemoptysis, no shortness of breath, no dyspnea on exertion Gastrointestinal: no abdominal pain, no nausea, no vomiting, no diarrhea, no constipation, no change in bowel habits, no hematemesis, no coffee ground emesis Genitourinary Male: no dysuria, no hematuria, no flank pain, no discharge, no urinary frequency, no urinary hesitancy Musculoskeletal: other (left BKA) Integumentary: sores, no rash, no pruritis, no redness Neurological: no head injury, no transient paralysis, no paralysis, no weakness, no parathesias, no numbness, no tingling, no seizures Psychiatric: no anxiety, no memory loss, no change in sleep habits, no sleep disturbances, no insomnia, no hypersomnia, no change in appetite Endocrine: no cold intolerance, no heat intolerance, no polyphagia, no excessive thirst, no polydipsia, no polyuria Exam - Vital Signs Vital signs: Vital Signs Pulse Resp 108 H 23 09/06/20 06:30 09/06/20 06:30 - General Appearance General appearance: well-developed, appears stated age, fatigue EENT: ATNC, PERRL, hearing intact, vision intact Neck: Present: neck supple, trachea midline Respiratory: Decreased Breath Sounds Heart: S1S2 Gastrointestinal: Present: normoactive bowel sounds Integumentary: warm and dry Neurologic: alert and oriented x3 Musculoskeletal: Present: other (Left BKA) Psychiatric: cooperative Results - Lab Results 09/06/20 Unknown 09/06/20 Unknown Most recent lab results Calcium 7.0 mg/dL (8.4-10.2) L 09/06/20 Unknown Phosphorus 3.50 mg/dL (2.5-4.5) 09/06/20 Unknown Magnesium 1.90 mg/dL (1.7-2.3) 09/06/20 Unknown Assessment and Plan Assessment: End Stage Renal Disease Severe Anemia GI Bleed Hypertension, now Hypotensive Diabetes Mellitus Plan: Hemodialysis tomorrow for UF and clearance Fluid restriction of 1 liter per day Anemia-transfuse as needed. Epogen dosing. GI consult. Renal diet when no longer NPO Obtain daily weights Monitor I/O's daily Assess dialysis needs daily
--- NOTE | 2020-09-06 12:30 | Consultation ---
History of Present Illness Consult date: 09/06/20 Consult reason: congestive heart failure History of present illness: This is a 64-year old M with multiple medical problems. He has a cardiac history of dilated nonischemic cardiomyopathy. A cardiac catheterization showed no significant coronary disease, but a dilated nonischemic cardiomyopathy with ejection fraction 30%. At that procedure, he was also found with severe pulmonary hypertension with pulmonary artery systolic pressure of 83. A follow up echocardiogram a year ago, showed resolution of his underlying cardiomyopathy, with ejection fraction of 45-50%. However, there was significant valvular disease with moderate to severe mitral regurgitation and at least moderate tricuspid regurgitation. In addition, there was severe pulmonary hypertension, with pulmonary artery pressures measured at 72. The patient has a history of paroxysmal atrial fibrillation, previously considered not a candidate for oral anticoagulation due to severe anemia and dual-chamber cardiac pacemaker in situ for sinus node dysfunction. He presents to the hospital and admitted with severe anemia, hematocrit of 13.8 and awaits GI evaluation and workup. A cardiac consultation has been requested for "CHF". Patient denies shortness of breath. There is no report of missed dialysis session. Chest x-ray reports no acute findings, no evidence of interstitial edema. 12 lead ECG is unavailable for review. Past History Past Medical History: diabetes, ESRD, heart failure, hypertension, hyperlipidemia, other (pulmonary htn) Past Surgical History: Other (PPM) Social history: lives with family Medications and Allergies Allergies Allergy/AdvReac Type Severity Reaction Status Date / Time No Known Allergies Allergy Verified 07/21/19 08:02 Home Medications Medication Instructions Recorded Confirmed Last Taken Type AtorvaSTATin [Lipitor] 40 mg PO QHS 07/21/19 07/21/19 Unknown History Insulin Aspart (Nf) [NovoLOG 8 units SUB-Q TID 07/21/19 07/21/19 Unknown History Flexpen] Insulin Degludec [Tresiba 40 unit SQ QDAY 07/21/19 07/21/19 Unknown History Flextouch U-100] Isosorbide Dinitrate [Isordil] 20 mg PO TID 07/21/19 07/21/19 Unknown History Metoprolol [Lopressor TAB] 100 mg PO QDAY 07/21/19 07/21/19 Unknown History NIFEdipine [Nifedipine ER] 90 mg PO QDAY 07/21/19 07/21/19 Unknown History Nitroglycerin [Nitrostat] 0.4 mg SL QDAY 07/21/19 07/21/19 Unknown History hydrALAZINE [Apresoline TAB] 100 mg PO QDAY 07/21/19 07/21/19 Unknown History Aspirin [Aspirin BABY CHEW TAB] 81 mg PO QDAY #30 tab.chew 07/28/19 Unknown Rx Sodium Bicarbonate 650 mg PO TID #30 tablet 07/28/19 Unknown Rx metOLazone [Zaroxolyn] 5 mg PO QDAY #30 tablet 07/28/19 Unknown Rx polyethylene glycoL 3350 [Miralax 17 gm PO QDAY #10 powd.pack 07/28/19 Unknown Rx 3350] Cefdinir 300 mg PO Q48HR #5 capsule 07/15/20 Unknown Rx Sulfamethoxazole/Trimethoprim 1 each PO BID #14 tablet 08/17/20 Unknown Rx [Bactrim DS TAB] Clindamycin [Clindamycin CAP] 300 mg PO Q6H #28 capsule 09/03/20 Unknown Rx Active Meds: Active Medications Acetaminophen (Acetaminophen 650 Mg Rect Supp) 650 mg MT Q6H PRN PRN Reason: Pain MILD(1-3)/Fever >100.5/MATHEW Albuterol (Albuterol 2.5 Mg/3 Ml Nebu) 2.5 mg IH Q3HRT PRN PRN Reason: Shortness Of Breath Atorvastatin Calcium (Atorvastatin 40 Mg Tab) 40 mg PO QHS LOVE Dextrose (Dextrose 50% In Water (25gm) 50 Ml Syringe) 50 ml IV Q30MIN PRN; Protocol PRN Reason: Hypoglycemia Insulin Human Regular (Insulin Regular, Human 100 Units/1 Ml) 0 units SUB-Q Q4H LOVE; Protocol Nitroglycerin (Nitroglycerin 0.4 Mg Tab Subl) 0.4 mg SL QDAY LOVE Ondansetron HCl (Ondansetron 4 Mg/2 Ml Inj) 4 mg IV Q8H PRN PRN Reason: Nausea And Vomiting Pantoprazole Sodium (Pantoprazole 40 Mg Inj) 40 mg IV BID LOVE Polyethylene Glycol (Polyethylene Glycol 3350 17 Gm Powder) 17 gm PO QDAY LOVE Sodium Chloride (Sodium Chloride 0.9% 10 Ml Flush Syringe) 10 ml IV BID LOVE Sodium Chloride (Sodium Chloride 0.9% 10 Ml Flush Syringe) 10 ml IV PRN PRN PRN Reason: LINE FLUSH Physical Examination Vital Signs Pulse Resp 108 H 23 09/06/20 06:30 09/06/20 06:30 General appearance: no acute distress HEENT: Positive: PERRL Neck: Positive: trachea midline Cardiac: Positive: Reg Rate and Rhythm Lungs: Positive: Decreased Breath Sounds Results 09/06/20 Unknown 09/06/20 Unknown Cardiac Enzymes 09/06/20 Range/Units Unknown AST 25 (5-40) units/L Coagulation 09/06/20 Range/Units Unknown PT 17.1 H (12.2-14.9) Sec. INR 1.40 H (0.87-1.13) APTT 27.5 (24.2-36.6) Sec. CBC 09/06/20 Range/Units Unknown WBC 12.6 H (4.5-11.0) K/mm3 RBC 1.26 L (3.65-5.03) M/mm3 Hgb 4.5 L* D (11.8-15.2) gm/dl Hct 13.8 L* D (35.5-45.6) % Plt Count 134 L (140-440) K/mm3 Lymph # (Auto) 1.0 L (1.2-5.4) K/mm3 [place] # (Auto) 0.8 (0.0-0.8) K/mm3 Eos # (Auto) 0.0 (0.0-0.4) K/mm3 Baso # (Auto) 0.1 (0.0-0.1) K/mm3 Comprehensive Metabolic Panel 09/06/20 Range/Units Unknown Sodium 142 (137-145) mmol/L Potassium 4.7 D (3.6-5.0) mmol/L Chloride 93.4 L (98-107) mmol/L Carbon Dioxide 28 D (22-30) mmol/L BUN 88 H (9-20) mg/dL Creatinine 7.3 H (0.8-1.3) mg/dL Glucose 138 H (75-100) mg/dL Calcium 7.0 L (8.4-10.2) mg/dL Direct Bilirubin < 0.2 (0-0.2) mg/dL Indirect Bilirubin 0.0 mg/dL AST 25 (5-40) units/L ALT 18 (7-56) units/L Alkaline Phosphatase 98 (35-129) units/L Total Protein 5.4 L (6.3-8.2) g/dL Albumin 2.9 L (3.9-5) g/dL Assessment and Plan Nonischemic cardiomyopathy -resolving 2019 Echo: LV ejection fraction of 45-50%. [facility] 2015: normal coronaries, EF 35% Valvular disease with moderate to severe mitral regurgitation and at least moderate tricuspid regurgitation by echo in 2019. Hx of SSS s/p pacemaker implant Hx of paroxysmal Afib pt previously considered not a candidate for oral anticoagulation due to chronic anemia. Volume overload Pulmonary Htn End-stage renal disease on dialysis Severe Anemia, HCT 13.8 on presentation Diabetes Hypertension Prior left BKA
[2020-09-06] MEDS: INSULIN REGULAR, HUMAN 100 UNITS/1 ML SUB-Q SCH ×3 (13:30→22:12)
[2020-09-06 16:19] LABS: Hematocrit 20.8 % (35.5-45.6); Hemoglobin 7.2 gm/dl (11.8-15.2)
[2020-09-06 16:48] LABS: Hepatitis B Surface Antigen Non-Reactive (Negative); Hepatitis C Virus Antibody Non-Reactive (NonReactive)
--- NOTE | 2020-09-06 18:23 | Consultation ---
REFERRING PHYSICIAN: Dr. Jen Sewell. INDICATIONS: 1. Anemia. 2. GI bleed. HISTORY OF PRESENT ILLNESS: A 64-year-old male with history of CVA, PR, status post AICD placement as well as hypertension, high cholesterol as well as CHF, end-stage renal disease, anemia of chronic disease, and a left BKA. The patient presented with 1-2 days of black tarry stools and coffee-ground emesis. The patient reportedly had a syncopal-like episode. He subsequently was brought to the Emergency Room, where he was noted to be anemic, admitted, and GI consulted. The patient was also noted to have a supratherapeutic INR with lactic acidosis, thrombocytopenia, and hypertension. No other specific complaints. PAST MEDICAL HISTORY: 1. Anemia. 2. Diabetes. 3. End-stage renal disease, on dialysis. 4. CHF. 5. Left BKA. MEDICATIONS: Reviewed and updated in chart. ALLERGIES: No known drug allergies. SOCIAL HISTORY: Denies alcohol or tobacco. FAMILY HISTORY: Negative for colon cancer. REVIEW OF SYSTEMS: GENERAL: Some weakness. HEENT: No visual complaints or tinnitus. PULMONARY: Some shortness of breath. No cough. No chest pain. GASTROINTESTINAL: Reports hematemesis and dark stools. All points of 13-point review of systems otherwise negative. PHYSICAL EXAMINATION: VITAL SIGNS: Temperature of 98.7, pulse 90, respirations 20, blood pressure 136/49. GENERAL: Fairly-nourished black male in no acute distress. HEENT: Pupils are round and reactive. PULMONARY: Clear to auscultation bilaterally. CARDIOVASCULAR: Regular rate and rhythm. Normal S1, S2. ABDOMEN: Positive bowel sounds, soft. SKIN: No obvious rashes. LABORATORY DATA: Pertinent for white count 12.6, hemoglobin and hematocrit of 4.5 and 13.8, platelet count of 134. Chem-7 pertinent for BUN and creatinine of 88 and 7.3. LFTs, stable. INR of 1.4. ASSESSMENT AND PLAN: A 64-year-old male with multiple medical problems, now admitted with signs and symptoms of upper gastrointestinal bleed. The patient's hemoglobin is currently only 4.5. Management is noted below. PLAN: 1. PPI IV drip. 2. Transfuse to hemoglobin over 7. 3. N.p.o. for now. 4. We would recommend Cardiology input. 5. Consider EGD based on progress. JOB# [id number] CAB/NTS
[2020-09-07 00:21] LABS: Hematocrit 16.5 % (35.5-45.6); Hemoglobin 5.8 gm/dl (11.8-15.2)
[2020-09-07] MEDS ORDERED: SODIUM CHLORIDE 0.9% 500 ML 500 ML IV ONE ×2 (00:47→18:32)
[2020-09-07 05:53] LABS: Basophils # (Auto) 0.1 K/mm3 (0.0-0.1); Basophils % (Auto) 0.5 % (0.0-1.8); Eosinophils # (Auto) 0.1 K/mm3 (0.0-0.4); Eosinophils % (Auto) 0.9 % (0.0-4.3); Hematocrit 20.2 % (35.5-45.6); Hemoglobin 6.8 gm/dl (11.8-15.2); Lymphocytes # (Auto) 1.7 K/mm3 (1.2-5.4); Lymphocytes % (Auto) 14.4 % (13.4-35.0); Mean Corpuscular HGB Conc 34 % (32-34); Mean Corpuscular Volume 100 fl (84-94); Red Blood Count 2.01 M/mm3 (3.65-5.03); Red Cell Distribution Width 14.7 % (13.2-15.2)
[2020-09-07 05:58] LABS: Calcium 6.6 mg/dL (8.4-10.2)
[2020-09-07 06:19] LABS: Platelet Count 91 K/mm3 (140-440)
[2020-09-07] MEDS: INSULIN REGULAR, HUMAN 100 UNITS/1 ML SUB-Q SCH ×5 (06:19→17:33)
[2020-09-07] MEDS ORDERED: PANTOPRAZOLE 40 MG INJ IV SCH (10:00)
--- NOTE | 2020-09-07 10:38 | Progress Note ---
Assessment and Plan Assessment: End Stage Renal Disease Severe Anemia GI Bleed Hypertension, now Hypotensive Diabetes Mellitus Plan: Hemodialysis today for UF and clearance Significantly elevated BUN level of 140 likely due to GI bleed Fluid restriction of 1 liter per day Anemia-transfuse as needed. Epogen dosing. GI consult. Renal diet when no longer NPO Obtain daily weights Monitor I/O's daily Assess dialysis needs daily Subjective Date of service: 09/07/20 Principal diagnosis: GI Bleed Interval history: Patient seen lying in bed. No family at bedside. Objective - Vital Signs Vital signs: Vital Signs - 12hr 09/06/20 09/07/20 09/07/20 23:00 00:00 01:00 Temperature Pulse Rate 88 87 83 Respiratory 19 20 17 Rate Blood Pressure 152/46 135/49 121/44 Blood Pressure [Right] O2 Sat by Pulse 95 100 Oximetry 09/07/20 09/07/20 09/07/20 01:19 01:25 01:35 Temperature 99 F 99.4 F 99.6 F Pulse Rate 88 83 76 Respiratory 20 21 18 Rate Blood Pressure 121/44 122/46 117/72 Blood Pressure [Right] O2 Sat by Pulse 100 97 100 Oximetry 09/07/20 09/07/20 09/07/20 01:40 01:57 02:10 Temperature 99.5 F 99.6 F 99 F Pulse Rate 83 86 86 Respiratory 19 18 19 Rate Blood Pressure 124/44 122/44 132/46 Blood Pressure [Right] O2 Sat by Pulse 99 99 Oximetry 09/07/20 09/07/20 09/07/20 02:40 02:46 03:00 Temperature 98.6 F 98.3 F Pulse Rate 83 83 86 Respiratory 20 20 17 Rate Blood Pressure 143/55 143/55 149/48 Blood Pressure [Right] O2 Sat by Pulse 98 98 93 Oximetry 09/07/20 09/07/20 09/07/20 04:00 05:00 06:00 Temperature Pulse Rate 76 79 80 Respiratory 19 21 19 Rate Blood Pressure 133/50 114/49 120/46 Blood Pressure [Right] O2 Sat by Pulse 100 92 94 Oximetry 09/07/20 09/07/20 09/07/20 07:00 07:20 07:37 Temperature 98.9 F Pulse Rate 85 82 Respiratory 20 18 18 Rate Blood Pressure 128/47 Blood Pressure 129/47 [Right] O2 Sat by Pulse 81 L 95 95 Oximetry 09/07/20 09/07/20 09/07/20 08:00 09:00 10:00 Temperature Pulse Rate 79 78 81 Respiratory 14 11 L 17 Rate Blood Pressure 89/36 118/40 122/45 Blood Pressure [Right] O2 Sat by Pulse 99 96 95 Oximetry - General Appearance General appearance: well-developed, appears stated age, fatigue EENT: ATNC, PERRL, hearing intact, vision intact Neck: no JVD, supple Respiratory: Present: Decreased Breath Sounds Cardiology: S1S2 Gastrointestinal: normoactive bowel sounds Integumentary: warm and dry Neurologic: alert and oriented x3 Musculoskeletal: decreased ROM, other (Left BKA) - Lab 09/07/20 04:16 09/07/20 04:16 Most recent lab results Calcium 6.6 mg/dL (8.4-10.2) L 09/07/20 04:16 Phosphorus 3.50 mg/dL (2.5-4.5) 09/06/20 Unknown Magnesium 1.90 mg/dL (1.7-2.3) 09/06/20 Unknown Medications & Allergies - Medications Allergies/Adverse Reactions: Allergies No Known Allergies Allergy (Verified 07/21/19 08:02) Home Medications: Home Medications Medication Instructions Recorded Confirmed Last Taken Type AtorvaSTATin [Lipitor] 40 mg PO QHS 07/21/19 07/21/19 Unknown History Insulin Aspart (Nf) [NovoLOG 8 units SUB-Q TID 07/21/19 07/21/19 Unknown History Flexpen] Insulin Degludec [Tresiba 40 unit SQ QDAY 07/21/19 07/21/19 Unknown History Flextouch U-100] Isosorbide Dinitrate [Isordil] 20 mg PO TID 07/21/19 07/21/19 Unknown History Metoprolol [Lopressor TAB] 100 mg PO QDAY 07/21/19 07/21/19 Unknown History NIFEdipine [Nifedipine ER] 90 mg PO QDAY 07/21/19 07/21/19 Unknown History Nitroglycerin [Nitrostat] 0.4 mg SL QDAY 07/21/19 07/21/19 Unknown History hydrALAZINE [Apresoline TAB] 100 mg PO QDAY 07/21/19 07/21/19 Unknown History Aspirin [Aspirin BABY CHEW TAB] 81 mg PO QDAY #30 tab.chew 07/28/19 Unknown Rx Sodium Bicarbonate 650 mg PO TID #30 tablet 07/28/19 Unknown Rx metOLazone [Zaroxolyn] 5 mg PO QDAY #30 tablet 07/28/19 Unknown Rx polyethylene glycoL 3350 [Miralax 17 gm PO QDAY #10 powd.pack 07/28/19 Unknown Rx 3350] Cefdinir 300 mg PO Q48HR #5 capsule 07/15/20 Unknown Rx Sulfamethoxazole/Trimethoprim 1 each PO BID #14 tablet 08/17/20 Unknown Rx [Bactrim DS TAB] Clindamycin [Clindamycin CAP] 300 mg PO Q6H #28 capsule 09/03/20 Unknown Rx Active Medications: Generic Name Dose Route Start Last Admin Trade Name Freq PRN Reason Stop Dose Admin Acetaminophen 650 mg 09/06/20 10:55 Acetaminophen 650 Mg Rect Supp ID Q6H PRN Pain MILD(1-3)/Fever >100.5/MATHEW Albuterol 2.5 mg 09/06/20 10:55 Albuterol 2.5 Mg/3 Ml Nebu IH Q3HRT PRN Shortness Of Breath Atorvastatin Calcium 40 mg 09/06/20 22:00 09/06/20 23:11 Atorvastatin 40 Mg Tab PO Not Given QHS LOVE Dextrose 50 ml 09/06/20 10:55 Dextrose 50% In Water (25gm) 50 Ml Syringe IV Q30MIN PRN Hypoglycemia Protocol Insulin Human Regular 0 units 09/06/20 12:00 09/07/20 08:42 Insulin Regular, Human 100 Units/1 Ml SUB-Q Not Given Q4H [facility] Protocol Nitroglycerin 0.4 mg 09/07/20 10:00 Nitroglycerin 0.4 Mg Tab Subl SL QDAY LOVE Ondansetron HCl 4 mg 09/06/20 10:55 Ondansetron 4 Mg/2 Ml Inj IV Q8H PRN Nausea And Vomiting Pantoprazole Sodium 40 mg 09/07/20 10:00 Pantoprazole 40 Mg Inj IV BID LOVE Polyethylene Glycol 17 gm 09/07/20 10:00 Polyethylene Glycol 3350 17 Gm Powder PO QDAY LOVE Sodium Chloride 10 ml 09/06/20 22:00 09/06/20 23:11 Sodium Chloride 0.9% 10 Ml Flush Syringe IV 10 ml BID LOVE Administration Sodium Chloride 10 ml 09/06/20 10:55 Sodium Chloride 0.9% 10 Ml Flush Syringe IV PRN PRN LINE FLUSH
[2020-09-07] MEDS: POLYETHYLENE GLYCOL 3350 17 GM POWDER PO SCH (10:55)
[2020-09-07] MEDS: NITROGLYCERIN 0.4 MG TAB SUBL SL SCH (10:58)
[2020-09-07] MEDS ORDERED: SODIUM CHLORIDE 0.9% 500 ML 500 ML IV SCH (11:27)
--- NOTE | 2020-09-07 11:28 | Progress Note ---
Assessment and Plan Acute blood loss anemia -Presented with a H/H of 4.5/13.8 -S/p 4 units PRBC, Hb still 5.8 with active GI bleed with stool -Transfuse 2 more units for hemoglobin less than 7 -Trend CBC Acute GI bleed -Patient presented with coffee-ground emesis and dark tarry stool prior to admission and also today -GI consulted, appreciate recommendations -S/p 80 mg Protonix IV x1 in the ED -cont IV Protonix -Trend CBC -Supportive care -NPO Supratherapeutic INR -Presented with INR of 1.4 -Patient's home medications include aspirin -Trend INR Leukocytosis -Presented with a WBC of 12.6 -Likely reactive -Trend CBC Thrombocytopenia -Presented with a platelet of 134 -Trend CBC -Transfuse as needed Lactic acidosis -S/p 500 mL normal saline in the ED -09/06 lactic acid 8 -Trend lactic acid -Patient has a history of CHF and ESRD Diabetes mellitus -SSI -Accu-Cheks every 4 while n.p.o. then AC at bedtime when we cleared for diet -clear liquid diet for now ESRD on HD -Per patient he believes his last HD session was 09/05 -Present to BUN/creatinine 7.3/88 -Nephrology consulted in the ED, appreciate recommendations -Renally dose medications -Avoid nephrotoxic medications -Strict intake and output -Daily weights -HD per nephrology Chronic [place] [address] -09/06 CXR shows 2-lead pacemaker device, stable borderline heart size, no pleural effusion or pneumothorax (imaging not available) -07/2019 echocardiogram showed severe LVH, diffuse global hypokinesis of the left ventricle, estimated ejection fraction 45 to 50%, diastolic dysfunction, severe MR, TR, severe pulmonary hypertension and RSVP is calculated at 72 mmHg -09/06 [place] [id number] -Cardiology consulted, appreciate recommendations Hypochloremia -Presented with a chloride of 93.4 -Trend BMP -Electrolyte correction per renal team with HD Hypocalcemia -Presented with a calcium of 7 -Electrolyte correction per renal team with HD DVT prophylaxis -SCDs to bilateral lower extremities while in bed -Chemical prophylaxis contraindicated in setting of acute GI bleed and anemia Full code daily course: 09/07: Hb 5.8 today, transfuse additional two unit. HD today, follow BMP and h/h. planned for EGD on Wednesday Subjective Date of service: 09/07/20 Principal diagnosis: GI Bleed Interval history: Patient seen and examined Had a BM with black tremaine stool Hb further dropped today denies any abdominal pain Objective - Exam Narrative Exam: GENERAL: well-developed and well-nourished -Mal[place]ian male lying on bed appeared to be in no discomfort. HEENT: Normocephalic. Atraumatic. No conjunctival congestion or icterus. Patient has moist mucous membranes. NECK: Supple. Trachea midline. CHEST/LUNGS: Clear to auscultated bilaterally, breathing nonlabored. No wheezes crackles or rhonchi. HEART/CARDIOVASCULAR: Regular in rate and rhythm. S1 and S2 positive. ABDOMEN: Abdomen is soft, nontender. Patient has normal bowel sounds. SKIN: There is no rash. Warm and dry. NEURO: No focal motor deficit. Follows command. MUSCULOSKELETAL: No joint effusion or tenderness. Left leg BKA EXTRIMITY: No edema, no cyanosis or clubbing. PSYCH: Cooperative. - Constitutional Vitals: Vital Signs - 12hr 09/07/20 09/07/20 09/07/20 00:00 01:00 01:19 Temperature 99 F Pulse Rate 87 83 88 Respiratory 20 17 20 Rate Blood Pressure 135/49 121/44 121/44 Blood Pressure [Right] O2 Sat by Pulse 100 100 Oximetry 09/07/20 09/07/20 09/07/20 01:25 01:35 01:40 Temperature 99.4 F 99.6 F 99.5 F Pulse Rate 83 76 83 Respiratory 21 18 19 Rate Blood Pressure 122/46 117/72 124/44 Blood Pressure [Right] O2 Sat by Pulse 97 100 99 Oximetry 09/07/20 09/07/20 09/07/20 01:57 02:10 02:40 Temperature 99.6 F 99 F 98.6 F Pulse Rate 86 86 83 Respiratory 18 19 20 Rate Blood Pressure 122/44 132/46 143/55 Blood Pressure [Right] O2 Sat by Pulse 99 98 Oximetry 09/07/20 09/07/20 09/07/20 02:46 03:00 04:00 Temperature 98.3 F Pulse Rate 83 86 76 Respiratory 20 17 19 Rate Blood Pressure 143/55 149/48 133/50 Blood Pressure [Right] O2 Sat by Pulse 98 93 100 Oximetry 09/07/20 09/07/20 09/07/20 05:00 06:00 07:00 Temperature Pulse Rate 79 80 85 Respiratory 21 19 20 Rate Blood Pressure 114/49 120/46 128/47 Blood Pressure [Right] O2 Sat by Pulse 92 94 81 L Oximetry 09/07/20 09/07/20 09/07/20 07:20 07:37 08:00 Temperature 98.9 F Pulse Rate 82 79 Respiratory 18 18 14 Rate Blood Pressure 89/36 Blood Pressure 129/47 [Right] O2 Sat by Pulse 95 95 99 Oximetry 09/07/20 09/07/20 09/07/20 09:00 10:00 10:58 Temperature Pulse Rate 78 81 77 Respiratory 11 L 17 Rate Blood Pressure 118/40 122/45 101/42 Blood Pressure [Right] O2 Sat by Pulse 96 95 Oximetry - Labs CBC & Chem 7: 09/08/20 08:19 09/09/20 08:20 Labs: Abnormal lab results 09/06/20 09/06/20 09/06/20 Range/Units 10:05 13:38 15:00 WBC (4.5-11.0) K/mm3 RBC (3.65-5.03) M/mm3 Hgb 7.2 L (11.8-15.2) gm/dl Hct 20.8 L D (35.5-45.6) % MCV (84-94) fl MCH (28-32) pg Plt Count (140-440) K/mm3 [place] % (Auto) (0.0-7.3) % [place] # (Auto) (0.0-0.8) K/mm3 Seg Neutrophils % (40.0-70.0) % Seg Neutrophils # (1.8-7.7) K/mm3 Chloride (98-107) mmol/L BUN (9-20) mg/dL Creatinine (0.8-1.3) mg/dL Glucose (75-100) mg/dL POC Glucose 124 H (70-105) mg/dL Lactic Acid (0.7-2.0) mmol/L Calcium (8.4-10.2) mg/dL Crossmatch See Detail 09/06/20 09/06/20 09/06/20 Range/Units 16:07 16:16 22:10 WBC (4.5-11.0) K/mm3 RBC (3.65-5.03) M/mm3 Hgb (11.8-15.2) gm/dl Hct (35.5-45.6) % MCV (84-94) fl MCH (28-32) pg Plt Count (140-440) K/mm3 [place] % (Auto) (0.0-7.3) % [place] # (Auto) (0.0-0.8) K/mm3 Seg Neutrophils % (40.0-70.0) % Seg Neutrophils # (1.8-7.7) K/mm3 Chloride (98-107) mmol/L BUN (9-20) mg/dL Creatinine (0.8-1.3) mg/dL Glucose (75-100) mg/dL POC Glucose 133 H 137 H (70-105) mg/dL Lactic Acid 3.90 H* (0.7-2.0) mmol/L Calcium (8.4-10.2) mg/dL Crossmatch 09/06/20 09/07/20 09/07/20 Range/Units 23:38 04:16 04:16 WBC 12.0 H (4.5-11.0) K/mm3 RBC 2.01 L (3.65-5.03) M/mm3 Hgb 5.8 L* 6.8 L (11.8-15.2) gm/dl Hct 16.5 L* 20.2 L (35.5-45.6) % MCV 100 H (84-94) fl MCH 34 H (28-32) pg Plt Count 91 L (140-440) K/mm3 [place] % (Auto) 8.0 H (0.0-7.3) % [place] # (Auto) 1.0 H (0.0-0.8) K/mm3 Seg Neutrophils % 76.2 H (40.0-70.0) % Seg Neutrophils # 9.1 H (1.8-7.7) K/mm3 Chloride 95.2 L (98-107) mmol/L BUN 140 H (9-20) mg/dL Creatinine 8.8 H (0.8-1.3) mg/dL Glucose 167 H (75-100) mg/dL POC Glucose (70-105) mg/dL Lactic Acid (0.7-2.0) mmol/L Calcium 6.6 L (8.4-10.2) mg/dL Crossmatch 09/07/20 09/07/20 Range/Units 06:06 08:40 WBC (4.5-11.0) K/mm3 RBC (3.65-5.03) M/mm3 Hgb (11.8-15.2) gm/dl Hct (35.5-45.6) % MCV (84-94) fl MCH (28-32) pg Plt Count (140-440) K/mm3 [place] % (Auto) (0.0-7.3) % [place] # (Auto) (0.0-0.8) K/mm3 Seg Neutrophils % (40.0-70.0) % Seg Neutrophils # (1.8-7.7) K/mm3 Chloride (98-107) mmol/L BUN (9-20) mg/dL Creatinine (0.8-1.3) mg/dL Glucose (75-100) mg/dL POC Glucose 152 H 134 H (70-105) mg/dL Lactic Acid (0.7-2.0) mmol/L Calcium (8.4-10.2) mg/dL Crossmatch
[2020-09-07 14:58] LABS: Hematocrit 17.7 % (35.5-45.6); Hemoglobin 5.8 gm/dl (11.8-15.2)
--- NOTE | 2020-09-07 16:02 | Progress Note ---
Assessment and Plan 1. Melena - worrisome for UGI bleed. Pt was transfused to Hgb 6.8, and has dropped to 5.8 today. Has melena, concerning for UGI bleed source. Otherwise asymptomatic, and not tachycardic. - PPI drip - transfuse as needed, and monitor H/H - if Hgb fails to respond appropriately, or pt develops tachycardia, and requires urgent EGD, will need to transfer to other facility, as we do NOT have endoscopic capability until 09/09, AM. Discussed with Dr. Conteh. Subjective Date of service: 09/07/20 Principal diagnosis: GI Bleed Interval history: Pt comfortable, in bed. States he had 2 black stools today. No abd pain, N/V. Objective - Constitutional Vitals: Vital Signs - 12hr 09/07/20 09/07/20 09/07/20 04:00 05:00 06:00 Temperature Pulse Rate 76 79 80 Respiratory 19 21 19 Rate Blood Pressure 133/50 114/49 120/46 Blood Pressure [Right] O2 Sat by Pulse 100 92 94 Oximetry 09/07/20 09/07/20 09/07/20 07:00 07:20 07:37 Temperature 98.9 F Pulse Rate 85 82 Respiratory 20 18 18 Rate Blood Pressure 128/47 Blood Pressure 129/47 [Right] O2 Sat by Pulse 81 L 95 95 Oximetry 09/07/20 09/07/20 09/07/20 08:00 09:00 10:00 Temperature Pulse Rate 79 78 81 Respiratory 14 11 L 17 Rate Blood Pressure 89/36 118/40 122/45 Blood Pressure [Right] O2 Sat by Pulse 99 96 95 Oximetry 09/07/20 09/07/20 09/07/20 10:58 12:05 13:24 Temperature 98.5 F 98.5 F Pulse Rate 77 80 80 Respiratory 18 18 Rate Blood Pressure 101/42 Blood Pressure 106/47 106/47 [Right] O2 Sat by Pulse 100 100 Oximetry 09/07/20 14:19 Temperature Pulse Rate 87 Respiratory Rate Blood Pressure Blood Pressure [Right] O2 Sat by Pulse Oximetry General appearance: Present: no acute distress - EENT Eyes: PERRL, EOM intact ENT: hearing intact - Respiratory Respiratory effort: normal - Cardiovascular Rhythm: regular Heart Sounds: Present: S1 & S2 - Gastrointestinal General gastrointestinal: Present: soft, non-tender - Labs CBC & Chem 7: 09/07/20 14:31 09/07/20 04:16 Labs: Abnormal lab results 09/06/20 09/06/20 09/06/20 Range/Units 10:05 15:00 16:07 WBC (4.5-11.0) K/mm3 RBC (3.65-5.03) M/mm3 Hgb 7.2 L (11.8-15.2) gm/dl Hct 20.8 L D (35.5-45.6) % MCV (84-94) fl MCH (28-32) pg Plt Count (140-440) K/mm3 [place] % (Auto) (0.0-7.3) % [place] # (Auto) (0.0-0.8) K/mm3 Seg Neutrophils % (40.0-70.0) % Seg Neutrophils # (1.8-7.7) K/mm3 Chloride (98-107) mmol/L BUN (9-20) mg/dL Creatinine (0.8-1.3) mg/dL Glucose (75-100) mg/dL POC Glucose 133 H (70-105) mg/dL Lactic Acid (0.7-2.0) mmol/L Calcium (8.4-10.2) mg/dL Crossmatch See Detail 09/06/20 09/06/20 09/06/20 Range/Units 16:16 22:10 23:38 WBC (4.5-11.0) K/mm3 RBC (3.65-5.03) M/mm3 Hgb 5.8 L* (11.8-15.2) gm/dl Hct 16.5 L* (35.5-45.6) % MCV (84-94) fl MCH (28-32) pg Plt Count (140-440) K/mm3 [place] % (Auto) (0.0-7.3) % [place] # (Auto) (0.0-0.8) K/mm3 Seg Neutrophils % (40.0-70.0) % Seg Neutrophils # (1.8-7.7) K/mm3 Chloride (98-107) mmol/L BUN (9-20) mg/dL Creatinine (0.8-1.3) mg/dL Glucose (75-100) mg/dL POC Glucose 137 H (70-105) mg/dL Lactic Acid 3.90 H* (0.7-2.0) mmol/L Calcium (8.4-10.2) mg/dL Crossmatch 09/07/20 09/07/20 09/07/20 Range/Units 04:16 04:16 06:06 WBC 12.0 H (4.5-11.0) K/mm3 RBC 2.01 L (3.65-5.03) M/mm3 Hgb 6.8 L (11.8-15.2) gm/dl Hct 20.2 L (35.5-45.6) % MCV 100 H (84-94) fl MCH 34 H (28-32) pg Plt Count 91 L (140-440) K/mm3 [place] % (Auto) 8.0 H (0.0-7.3) % [place] # (Auto) 1.0 H (0.0-0.8) K/mm3 Seg Neutrophils % 76.2 H (40.0-70.0) % Seg Neutrophils # 9.1 H (1.8-7.7) K/mm3 Chloride 95.2 L (98-107) mmol/L BUN 140 H (9-20) mg/dL Creatinine 8.8 H (0.8-1.3) mg/dL Glucose 167 H (75-100) mg/dL POC Glucose 152 H (70-105) mg/dL Lactic Acid (0.7-2.0) mmol/L Calcium 6.6 L (8.4-10.2) mg/dL Crossmatch 09/07/20 09/07/20 09/07/20 Range/Units 08:40 11:59 14:31 WBC (4.5-11.0) K/mm3 RBC (3.65-5.03) M/mm3 Hgb 5.8 L* (11.8-15.2) gm/dl Hct 17.7 L* (35.5-45.6) % MCV (84-94) fl MCH (28-32) pg Plt Count (140-440) K/mm3 [place] % (Auto) (0.0-7.3) % [place] # (Auto) (0.0-0.8) K/mm3 Seg Neutrophils % (40.0-70.0) % Seg Neutrophils # (1.8-7.7) K/mm3 Chloride (98-107) mmol/L BUN (9-20) mg/dL Creatinine (0.8-1.3) mg/dL Glucose (75-100) mg/dL POC Glucose 134 H 154 H (70-105) mg/dL Lactic Acid (0.7-2.0) mmol/L Calcium (8.4-10.2) mg/dL Crossmatch Medications & Allergies - Medications Allergies/Adverse Reactions: Allergies No Known Allergies Allergy (Verified 07/21/19 08:02) Home Medications: Home Medications Medication Instructions Recorded Confirmed Last Taken Type AtorvaSTATin [Lipitor] 40 mg PO QHS 07/21/19 07/21/19 Unknown History Insulin Aspart (Nf) [NovoLOG 8 units SUB-Q TID 07/21/19 07/21/19 Unknown History Flexpen] Insulin Degludec [Tresiba 40 unit SQ QDAY 07/21/19 07/21/19 Unknown History Flextouch U-100] Isosorbide Dinitrate [Isordil] 20 mg PO TID 07/21/19 07/21/19 Unknown History Metoprolol [Lopressor TAB] 100 mg PO QDAY 07/21/19 07/21/19 Unknown History NIFEdipine [Nifedipine ER] 90 mg PO QDAY 07/21/19 07/21/19 Unknown History Nitroglycerin [Nitrostat] 0.4 mg SL QDAY 07/21/19 07/21/19 Unknown History hydrALAZINE [Apresoline TAB] 100 mg PO QDAY 07/21/19 07/21/19 Unknown History Aspirin [Aspirin BABY CHEW TAB] 81 mg PO QDAY #30 tab.chew 07/28/19 Unknown Rx Sodium Bicarbonate 650 mg PO TID #30 tablet 07/28/19 Unknown Rx metOLazone [Zaroxolyn] 5 mg PO QDAY #30 tablet 07/28/19 Unknown Rx polyethylene glycoL 3350 [Miralax 17 gm PO QDAY #10 powd.pack 07/28/19 Unknown Rx 3350] Cefdinir 300 mg PO Q48HR #5 capsule 07/15/20 Unknown Rx Sulfamethoxazole/Trimethoprim 1 each PO BID #14 tablet 08/17/20 Unknown Rx [Bactrim DS TAB] Clindamycin [Clindamycin CAP] 300 mg PO Q6H #28 capsule 09/03/20 Unknown Rx Active Medications: Generic Name Dose Route Start Last Admin Trade Name Freq PRN Reason Stop Dose Admin Acetaminophen 650 mg 09/06/20 10:55 Acetaminophen 650 Mg Rect Supp [place] Q6H PRN Pain MILD(1-3)/Fever >100.5/MATHEW Albuterol 2.5 mg 09/06/20 10:55 Albuterol 2.5 Mg/3 Ml Nebu IH Q3HRT PRN Shortness Of Breath Atorvastatin Calcium 40 mg 09/06/20 22:00 09/06/20 23:11 Atorvastatin 40 Mg Tab PO Not Given QHS LOVE Dextrose 50 ml 09/06/20 10:55 Dextrose 50% In Water (25gm) 50 Ml Syringe IV Q30MIN PRN Hypoglycemia Protocol Sodium Chloride 500 mls @ 0 mls/hr 09/07/20 11:27 Nacl 0.9% 500 Ml IV 09/08/20 11:26 ONCE LOVE As Directed Insulin Human Regular 0 units 09/07/20 16:00 Insulin Regular, Human 100 Units/1 Ml SUB-Q Q6H LOVE Protocol Nitroglycerin 0.4 mg 09/07/20 10:00 09/07/20 10:58 Nitroglycerin 0.4 Mg Tab Subl SL Not Given QDAY LOVE Ondansetron HCl 4 mg 09/06/20 10:55 Ondansetron 4 Mg/2 Ml Inj IV Q8H PRN Nausea And Vomiting Pantoprazole Sodium 40 mg 09/07/20 10:00 09/07/20 10:55 Pantoprazole 40 Mg Inj IV 40 mg BID LOVE Administration Polyethylene Glycol 17 gm 09/07/20 10:00 09/07/20 10:55 Polyethylene Glycol 3350 17 Gm Powder PO 17 gm QDAY LOVE Administration Sodium Chloride 10 ml 09/06/20 22:00 09/07/20 14:32 Sodium Chloride 0.9% 10 Ml Flush Syringe IV Not Given BID LOVE Sodium Chloride 10 ml 09/06/20 10:55 09/07/20 10:55 Sodium Chloride 0.9% 10 Ml Flush Syringe IV 10 ml PRN PRN Administration LINE FLUSH
--- NOTE | 2020-09-07 18:09 | Progress Note ---
Assessment and Plan Improved Nonischemic cardiomyopathy -resolving 03/2020 Echo: LV ejection fraction of 50-55% [facility] 2015: normal coronaries, EF 35% Valvular disease with moderate mitral regurgitation and moderate tricuspid regurgitation Hx of SSS s/p pacemaker implant Volume overload Pulmonary Htn End-stage renal disease on dialysis Severe Anemia, HCT 13.8 on presentation Diabetes Hypertension Prior left BKA Recommend: Continue current therapy Trasfuse with PRBCs as needed Proceed with needed GI evaluation including endoscopy/colonoscopy. Subjective Date of service: 09/07/20 Principal diagnosis: GI Bleed Interval history: Ongoing anemia/melena noted Objective Vital Signs Temp Pulse Resp BP BP Pulse Ox 09/07/20 18:00 98.0 F 88 20 116/50 09/07/20 17:45 90 112/50 09/07/20 17:35 97.5 F L 92 H 20 98/46 09/07/20 17:30 92 H 98/46 09/07/20 17:20 97.4 F L 93 H 20 107/48 09/07/20 17:15 93 H 107/48 09/07/20 17:00 89 100/49 09/07/20 16:45 87 99/49 09/07/20 15:18 97.7 F 90 18 114/46 97 09/07/20 14:19 87 09/07/20 13:24 98.5 F 80 18 106/47 100 09/07/20 12:05 98.5 F 80 18 106/47 100 09/07/20 11:31 81 13 95/25 100 09/07/20 10:58 77 101/42 09/07/20 10:00 81 17 122/45 95 09/07/20 09:00 78 11 L 118/40 96 09/07/20 08:00 79 14 89/36 99 09/07/20 07:37 18 95 09/07/20 07:20 98.9 F 82 18 129/47 95 09/07/20 07:00 85 20 128/47 81 L 09/07/20 06:00 80 19 120/46 94 09/07/20 05:00 79 21 114/49 92 09/07/20 04:00 76 19 133/50 100 09/07/20 03:00 86 17 149/48 93 09/07/20 02:46 98.3 F 83 20 143/55 98 09/07/20 02:40 98.6 F 83 20 143/55 98 09/07/20 02:10 99 F 86 19 132/46 09/07/20 01:57 99.6 F 86 18 122/44 99 09/07/20 01:40 99.5 F 83 19 124/44 99 09/07/20 01:35 99.6 F 76 18 117/72 100 09/07/20 01:25 99.4 F 83 21 122/46 97 09/07/20 01:19 99 F 88 20 121/44 100 09/07/20 01:00 83 17 121/44 09/07/20 00:00 87 20 135/49 100 09/06/20 23:00 88 19 152/46 95 09/06/20 22:30 84 16 150/50 96 09/06/20 22:00 85 18 146/52 100 09/06/20 21:30 82 22 145/50 98 09/06/20 21:00 81 17 131/42 98 09/06/20 20:30 83 22 135/44 98 09/06/20 20:00 82 18 131/41 100 09/06/20 19:32 16 09/06/20 19:30 81 24 115/42 98 09/06/20 18:30 82 19 133/44 98 - Physical Examination HEENT: Positive: PERRL Neck: Positive: trachea midline Cardiac: Positive: Reg Rate and Rhythm Lungs: Positive: clear to auscultation - Labs and Meds CBC 09/06/20 09/07/20 09/07/20 Range/Units 23:38 04:16 14:31 WBC 12.0 H (4.5-11.0) K/mm3 RBC 2.01 L (3.65-5.03) M/mm3 Hgb 5.8 L* 6.8 L 5.8 L* (11.8-15.2) gm/dl Hct 16.5 L* 20.2 L 17.7 L* (35.5-45.6) % Plt Count 91 L (140-440) K/mm3 Lymph # (Auto) 1.7 (1.2-5.4) K/mm3 [place] # (Auto) 1.0 H (0.0-0.8) K/mm3 Eos # (Auto) 0.1 (0.0-0.4) K/mm3 Baso # (Auto) 0.1 (0.0-0.1) K/mm3 Comprehensive Metabolic Panel 09/07/20 Range/Units 04:16 Sodium 142 (137-145) mmol/L Potassium 4.7 (3.6-5.0) mmol/L Chloride 95.2 L (98-107) mmol/L Carbon Dioxide 29 (22-30) mmol/L BUN 140 H (9-20) mg/dL Creatinine 8.8 H (0.8-1.3) mg/dL Glucose 167 H (75-100) mg/dL Calcium 6.6 L (8.4-10.2) mg/dL
[2020-09-07] MEDS: PANTOPRAZOLE 80 MG in SODIUM CHLORIDE 0.9% 100 ML IV SCH ×2 (19:00→21:37)
[2020-09-07] MEDS: ACETAMINOPHEN 650 MG RECT SUPP PR PRN (20:42)
[2020-09-07 23:34] LABS: Hemoglobin 6.3 gm/dl (11.8-15.2)
[2020-09-07 23:51] LABS: Hematocrit 18.5 % (35.5-45.6)
[2020-09-08] MEDS: INSULIN REGULAR, HUMAN 100 UNITS/1 ML SUB-Q SCH ×5 (01:40→17:24)
[2020-09-08] MEDS ORDERED: SODIUM CHLORIDE 0.9% 500 ML 500 ML IV ONE ×2 (01:57→17:00)
[2020-09-08] MEDS: PANTOPRAZOLE 80 MG in SODIUM CHLORIDE 0.9% 100 ML IV SCH (08:08)
[2020-09-08 09:31] LABS: Hematocrit 20.2 % (35.5-45.6); Hemoglobin 6.9 gm/dl (11.8-15.2); Mean Corpuscular HGB Conc 34 % (32-34); Mean Corpuscular Volume 100 fl (84-94); Red Blood Count 2.03 M/mm3 (3.65-5.03); Red Cell Distribution Width 13.5 % (13.2-15.2)
[2020-09-08 09:36] LABS: Platelet Count 27 K/mm3 (140-440)
--- NOTE | 2020-09-08 10:36 | Progress Note ---
Assessment and Plan Assessment: End Stage Renal Disease Severe Anemia GI Bleed Hypertension, now Hypotensive Diabetes Mellitus Plan: S/P hemodialysis yesterday Significantly elevated BUN level likely due to GI bleed Fluid restriction of 1 liter per day Anemia-transfuse as needed. Epogen dosing. GI onboard Renal diet when no longer NPO Obtain daily weights Monitor I/O's daily Assess dialysis needs daily Subjective Date of service: 09/05/20 Principal diagnosis: GI Bleed Interval history: Patient seen lying in bed. No family at bedside. Objective - Vital Signs Vital signs: Vital Signs - 12hr 09/07/20 09/08/20 09/08/20 23:09 02:30 02:45 Temperature 100.3 F H 98.6 F 98.6 F Pulse Rate 86 88 85 Respiratory 20 20 20 Rate Blood Pressure 113/40 109/39 119/36 O2 Sat by Pulse 95 95 95 Oximetry 09/08/20 09/08/20 09/08/20 03:39 05:00 08:13 Temperature 97.2 F L 97.2 F L 97.5 F L Pulse Rate 80 81 79 Respiratory 18 18 22 Rate Blood Pressure 129/34 134/42 112/42 O2 Sat by Pulse 95 100 100 Oximetry 09/08/20 08:34 Temperature Pulse Rate Respiratory Rate Blood Pressure O2 Sat by Pulse 99 Oximetry - General Appearance General appearance: well-developed, appears stated age EENT: ATNC, PERRL, hearing intact, vision intact Neck: no JVD, supple Respiratory: Present: Decreased Breath Sounds Cardiology: S1S2 Gastrointestinal: normoactive bowel sounds Integumentary: warm and dry Neurologic: alert and oriented x3 Musculoskeletal: other (No edema) - Lab 09/08/20 08:19 09/08/20 02:20 Most recent lab results Calcium 7.0 mg/dL (8.4-10.2) L 09/08/20 02:20 Phosphorus 3.50 mg/dL (2.5-4.5) 09/06/20 Unknown Magnesium 1.90 mg/dL (1.7-2.3) 09/06/20 Unknown Medications & Allergies - Medications Allergies/Adverse Reactions: Allergies No Known Allergies Allergy (Verified 07/21/19 08:02) Home Medications: Home Medications Medication Instructions Recorded Confirmed Last Taken Type AtorvaSTATin [Lipitor] 40 mg PO QHS 07/21/19 09/07/20 Unknown History Insulin Aspart (Nf) [NovoLOG 8 units SUB-Q TID 07/21/19 09/07/20 Unknown History Flexpen] Insulin Degludec [Tresiba 40 unit SQ QDAY 07/21/19 09/07/20 Unknown History Flextouch U-100] Isosorbide Dinitrate [Isordil] 20 mg PO TID 07/21/19 09/07/20 Unknown History Metoprolol [Lopressor TAB] 100 mg PO QDAY 07/21/19 09/07/20 Unknown History NIFEdipine [Nifedipine ER] 90 mg PO QDAY 07/21/19 09/07/20 Unknown History Nitroglycerin [Nitrostat] 0.4 mg SL QDAY 07/21/19 09/07/20 Unknown History hydrALAZINE [Apresoline TAB] 100 mg PO QDAY 07/21/19 09/07/20 Unknown History Aspirin [Aspirin BABY CHEW TAB] 81 mg PO QDAY #30 tab.chew 07/28/19 09/07/20 Unknown Rx Sodium Bicarbonate 650 mg PO TID #30 tablet 07/28/19 09/07/20 Unknown Rx metOLazone [Zaroxolyn] 5 mg PO QDAY #30 tablet 07/28/19 09/07/20 Unknown Rx polyethylene glycoL 3350 [Miralax 17 gm PO QDAY #10 powd.pack 07/28/19 09/07/20 Unknown Rx 3350] Cefdinir 300 mg PO Q48HR #5 capsule 07/15/20 09/07/20 Unknown Rx Sulfamethoxazole/Trimethoprim 1 each PO BID #14 tablet 08/17/20 09/07/20 Unknown Rx [Bactrim DS TAB] Clindamycin [Clindamycin CAP] 300 mg PO Q6H #28 capsule 09/03/20 09/07/20 Unknown Rx Active Medications: Generic Name Dose Route Start Last Admin Trade Name Freq PRN Reason Stop Dose Admin Acetaminophen 650 mg 09/06/20 10:55 09/07/20 20:42 Acetaminophen 650 Mg Rect Supp [place] 650 mg Q6H PRN Administration Pain MILD(1-3)/Fever >100.5/MATHEW Albuterol 2.5 mg 09/06/20 10:55 Albuterol 2.5 Mg/3 Ml Nebu IH Q3HRT PRN Shortness Of Breath Atorvastatin Calcium 40 mg 09/06/20 22:00 09/07/20 21:37 Atorvastatin 40 Mg Tab PO 40 mg QHS LOVE Administration Dextrose 50 ml 09/06/20 10:55 Dextrose 50% In Water (25gm) 50 Ml Syringe IV Q30MIN PRN Hypoglycemia Protocol Sodium Chloride 500 mls @ 0 mls/hr 09/07/20 11:27 Nacl 0.9% 500 Ml IV 09/08/20 11:26 ONCE LOVE As Directed Pantoprazole Sodium 80 mg/ 100 mls @ 10 mls/hr 09/07/20 17:00 09/08/20 08:08 Sodium Chloride IV 8 mg/hr DIRECT LOVE 10 mls/hr Administration 8 MG/HR Insulin Human Regular 0 units 09/07/20 16:00 09/08/20 06:37 Insulin Regular, Human 100 Units/1 Ml SUB-Q Not Given Q6H LOVE Protocol Nitroglycerin 0.4 mg 09/07/20 10:00 09/07/20 10:58 Nitroglycerin 0.4 Mg Tab Subl SL Not Given QDAY LOVE Ondansetron HCl 4 mg 09/06/20 10:55 09/07/20 21:37 Ondansetron 4 Mg/2 Ml Inj IV 4 mg Q8H PRN Administration Nausea And Vomiting Polyethylene Glycol 17 gm 09/07/20 10:00 09/07/20 10:55 Polyethylene Glycol 3350 17 Gm Powder PO 17 gm QDAY LOVE Administration Sodium Chloride 10 ml 09/06/20 22:00 09/07/20 21:37 Sodium Chloride 0.9% 10 Ml Flush Syringe IV 10 ml BID LOVE Administration Sodium Chloride 10 ml 09/06/20 10:55 09/07/20 20:42 Sodium Chloride 0.9% 10 Ml Flush Syringe IV 10 ml PRN PRN Administration LINE FLUSH
[2020-09-08] MEDS: POLYETHYLENE GLYCOL 3350 17 GM POWDER PO SCH (10:48)
[2020-09-08] MEDS: NITROGLYCERIN 0.4 MG TAB SUBL SL SCH (10:48)
[2020-09-08 11:25] LABS: Total Cells Counted 100
[2020-09-08 11:26] LABS: Platelet Estimate Appears Decreased; RBC Morphology Normal
--- NOTE | 2020-09-08 15:06 | Progress Note ---
Assessment and Plan Improved Nonischemic cardiomyopathy -EF normal based on last echo 03/2020 Echo: LV ejection fraction of 50-55% [facility] 2015: normal coronaries, EF 35% Valvular disease with moderate mitral regurgitation and moderate tricuspid regurgitation Hx of SSS s/p pacemaker implant GI bleed Severe Anemia and thrombocytopenia Volume overload Pulmonary Htn End-stage renal disease on dialysis Diabetes Hypertension Prior left BKA Recommend: Continue current therapy Trasfuse with PRBCs as needed Proceed with needed GI evaluation including endoscopy/colonoscopy Subjective Date of service: 09/08/20 Principal diagnosis: GI Bleed Interval history: Ongoing anemia and thrombocytopenia noted. Objective Vital Signs Temp Pulse Resp BP Pulse Ox Pulse Ox 09/08/20 11:42 97.2 F L 82 24 101/39 89 09/08/20 11:00 77 09/08/20 08:34 99 09/08/20 08:13 97.5 F L 79 22 112/42 100 09/08/20 05:00 97.2 F L 81 18 134/42 100 09/08/20 03:39 97.2 F L 80 18 129/34 95 09/08/20 02:45 98.6 F 85 20 119/36 95 09/08/20 02:30 98.6 F 88 20 109/39 95 09/07/20 23:09 100.3 F H 86 20 113/40 95 09/07/20 22:00 86 09/07/20 20:48 98 09/07/20 19:50 100.1 F H 94 H 18 118/49 09/07/20 19:45 100 H 96/45 09/07/20 19:38 100.1 F H 88 20 101/45 99 09/07/20 19:30 100 H 98/46 09/07/20 19:15 102 H 102/47 09/07/20 19:00 98.6 F 88 20 109/39 09/07/20 18:45 96 H 115/52 09/07/20 18:35 98.2 F 97 H 20 111/51 09/07/20 18:30 97 H 111/51 09/07/20 18:20 98.2 F 90 20 119/49 09/07/20 18:15 90 119/49 09/07/20 18:11 97 09/07/20 18:00 98.0 F 88 20 116/50 09/07/20 17:45 90 112/50 09/07/20 17:35 97.5 F L 92 H 20 98/46 09/07/20 17:30 92 H 98/46 09/07/20 17:20 97.4 F L 93 H 20 107/48 09/07/20 17:15 93 H 107/48 09/07/20 17:00 89 100/49 09/07/20 16:45 87 99/49 09/07/20 16:40 97.5 F L 82 20 131/50 97 09/07/20 15:18 97.7 F 90 18 114/46 97 - Physical Examination HEENT: Positive: PERRL Neck: Positive: trachea midline Cardiac: Positive: Reg Rate and Rhythm Lungs: Positive: Decreased Breath Sounds - Labs and Meds CBC 09/07/20 09/08/20 Range/Units 23:24 08:19 WBC 18.1 H (4.5-11.0) K/mm3 RBC 2.03 L (3.65-5.03) M/mm3 Hgb 6.3 L 6.9 L (11.8-15.2) gm/dl Hct 18.5 L* 20.2 L (35.5-45.6) % Plt Count 27 L (140-440) K/mm3 Lymph # (Auto) Oxygen System Tester Mcminn # (Auto) Oxygen System Tester Eos # (Auto) Oxygen System Tester Baso # (Auto) Oxygen System Tester Comprehensive Metabolic Panel 09/08/20 Range/Units 02:20 Sodium 140 (137-145) mmol/L Potassium 4.5 (3.6-5.0) mmol/L Chloride 99.8 (98-107) mmol/L Carbon Dioxide 24 (22-30) mmol/L BUN 123 H (9-20) mg/dL Creatinine 7.6 H (0.8-1.3) mg/dL Glucose 192 H (75-100) mg/dL Calcium 7.0 L (8.4-10.2) mg/dL
--- NOTE | 2020-09-08 15:21 | Progress Note ---
Assessment and Plan Acute blood loss anemia -Presented with a H/H of 4.5/13.8 -S/p 6 units PRBC, Hb still 6.9 with active GI bleed with stool -Transfuse 2 more units for hemoglobin less than 7 -Trend CBC Acute GI bleed -Patient presented with coffee-ground emesis and dark tarry stool prior to admission and also today -GI consulted, appreciate recommendations -S/p 80 mg Protonix IV x1 in the ED -cont IV Protonix -Trend CBC -Supportive care -NPO after Midnight, clear liquid diet for now Supratherapeutic INR -Presented with INR of 1.4 -Patient's home medications include aspirin -Trend INR Leukocytosis -Presented with a WBC of 12.6 -Likely reactive -Trend CBC Thrombocytopenia -Presented with a platelet of 134 -Trend CBC -Transfuse as needed Lactic acidosis -S/p 500 mL normal saline in the ED -09/06 lactic acid 8 -Trend lactic acid -Patient has a history of CHF and ESRD Diabetes mellitus -SSI -Accu-Cheks every 4 while n.p.o. then AC at bedtime when we cleared for diet -clear liquid diet for now ESRD on HD -Per patient he believes his last HD session was 09/05 -Present to BUN/creatinine 7.3/88 -Nephrology consulted in the ED, appreciate recommendations -Renally dose medications -Avoid nephrotoxic medications -Strict intake and output -Daily weights -HD per nephrology Chronic [place] [address] -09/06 CXR shows 2-lead pacemaker device, stable borderline heart size, no pleural effusion or pneumothorax (imaging not available) -07/2019 echocardiogram showed severe LVH, diffuse global hypokinesis of the left ventricle, estimated ejection fraction 45 to 50%, diastolic dysfunction, severe MR, TR, severe pulmonary hypertension and RSVP is calculated at 72 mmHg -09/06 [place] [id number] -Cardiology consulted, appreciate recommendations Hypochloremia -Presented with a chloride of 93.4 -Trend BMP -Electrolyte correction per renal team with HD Hypocalcemia -Presented with a calcium of 7 -Electrolyte correction per renal team with HD DVT prophylaxis -SCDs to bilateral lower extremities while in bed -Chemical prophylaxis contraindicated in setting of acute GI bleed and anemia Full code daily course; 09/07: Hb 5.8 today, transfuse additional two unit. HD today, follow BMP and h/h. planned for EGD on Friday 09/08: Hb 6.9 today, will transfuse another unit of PRBC. follow h/h. plan for endoscopy tomorrow Subjective Date of service: 09/08/20 Principal diagnosis: GI Bleed Interval history: Patient seen and examined no active bleeding Hb further dropped today denies any abdominal pain Objective - Exam Narrative Exam: GENERAL: well-developed and well-nourished -[place] male lying on bed appeared to be in no discomfort. HEENT: Normocephalic. Atraumatic. No conjunctival congestion or icterus. Patient has moist mucous membranes. NECK: Supple. Trachea midline. CHEST/LUNGS: Clear to auscultated bilaterally, breathing nonlabored. No wheezes crackles or rhonchi. HEART/CARDIOVASCULAR: Regular in rate and rhythm. S1 and S2 positive. ABDOMEN: Abdomen is soft, nontender. Patient has normal bowel sounds. SKIN: There is no rash. Warm and dry. NEURO: No focal motor deficit. Follows command. MUSCULOSKELETAL: No joint effusion or tenderness. Left leg BKA EXTRIMITY: No edema, no cyanosis or clubbing. PSYCH: Cooperative. - Constitutional Vitals: Vital Signs - 12hr 09/08/20 09/08/20 09/08/20 03:39 05:00 08:13 Temperature 97.2 F L 97.2 F L 97.5 F L Pulse Rate 80 81 79 Respiratory 18 18 22 Rate Blood Pressure 129/34 134/42 112/42 O2 Sat by Pulse 95 100 100 Oximetry 09/08/20 09/08/20 09/08/20 08:34 11:00 11:42 Temperature 97.2 F L Pulse Rate 77 82 Respiratory 24 Rate Blood Pressure 101/39 O2 Sat by Pulse 99 89 Oximetry - Labs CBC & Chem 7: 09/08/20 08:19 09/09/20 08:20 Labs: Abnormal lab results 09/06/20 09/07/20 09/07/20 Range/Units 10:05 16:34 20:57 WBC (4.5-11.0) K/mm3 RBC (3.65-5.03) M/mm3 Hgb (11.8-15.2) gm/dl Hct (35.5-45.6) % MCV (84-94) fl MCH (28-32) pg Plt Count (140-440) K/mm3 Seg Neuts % (Manual) (40.0-70.0) % Lymphocytes % (Manual) (13.4-35.0) % Monocytes % (Manual) (0.0-7.3) % Nucleated RBC % (0.0-0.9) % Seg Neutrophils # Man (1.8-7.7) K/mm3 Lymphocytes # (Manual) (1.2-5.4) K/mm3 Monocytes # (Manual) (0.0-0.8) K/mm3 BUN (9-20) mg/dL Creatinine (0.8-1.3) mg/dL Glucose (75-100) mg/dL POC Glucose 167 H 183 H (70-105) mg/dL Calcium (8.4-10.2) mg/dL Crossmatch See Detail 09/07/20 09/08/20 09/08/20 Range/Units 23:24 02:20 06:21 WBC (4.5-11.0) K/mm3 RBC (3.65-5.03) M/mm3 Hgb 6.3 L (11.8-15.2) gm/dl Hct 18.5 L* (35.5-45.6) % MCV (84-94) fl MCH (28-32) pg Plt Count (140-440) K/mm3 Seg Neuts % (Manual) (40.0-70.0) % Lymphocytes % (Manual) (13.4-35.0) % Monocytes % (Manual) (0.0-7.3) % Nucleated RBC % (0.0-0.9) % Seg Neutrophils # Man (1.8-7.7) K/mm3 Lymphocytes # (Manual) (1.2-5.4) K/mm3 Monocytes # (Manual) (0.0-0.8) K/mm3 BUN 123 H (9-20) mg/dL Creatinine 7.6 H (0.8-1.3) mg/dL Glucose 192 H (75-100) mg/dL POC Glucose 215 H (70-105) mg/dL Calcium 7.0 L (8.4-10.2) mg/dL Crossmatch 09/08/20 09/08/20 Range/Units 08:19 11:39 WBC 18.1 H (4.5-11.0) K/mm3 RBC 2.03 L (3.65-5.03) M/mm3 Hgb 6.9 L (11.8-15.2) gm/dl Hct 20.2 L (35.5-45.6) % MCV 100 H (84-94) fl MCH 34 H (28-32) pg Plt Count 27 L (140-440) K/mm3 Seg Neuts % (Manual) 84.0 H (40.0-70.0) % Lymphocytes % (Manual) 6.0 L (13.4-35.0) % Monocytes % (Manual) 8.0 H (0.0-7.3) % Nucleated RBC % 1.0 H (0.0-0.9) % Seg Neutrophils # Man 15.2 H (1.8-7.7) K/mm3 Lymphocytes # (Manual) 1.1 L (1.2-5.4) K/mm3 Monocytes # (Manual) 1.4 H (0.0-0.8) K/mm3 BUN (9-20) mg/dL Creatinine (0.8-1.3) mg/dL Glucose (75-100) mg/dL POC Glucose 272 H (70-105) mg/dL Calcium (8.4-10.2) mg/dL Crossmatch
--- NOTE | 2020-09-08 15:41 | Progress Note ---
Assessment and Plan 1. Melena - worrisome for UGI bleed, doubt LGI source. Pt was transfused with 6 units pRBC thus far. Only has 2 BMs/d. Otherwise asymptomatic, and not tachycardic. - PPI drip - transfuse as needed, and monitor H/H - if requires urgent EGD, will need to transfer to other facility, as we do NOT have endoscopic capability until 09/09, AM. -EGD tomorrow Discussed with Dr. Conteh. Subjective Date of service: 09/08/20 Principal diagnosis: GI Bleed Interval history: Pt comfortable, in bed. States he had 2 black stools today as well. No abd p ain, N/V. Objective - Constitutional Vitals: Vital Signs - 12hr 09/08/20 09/08/20 09/08/20 05:00 08:13 08:34 Temperature 97.2 F L 97.5 F L Pulse Rate 81 79 Respiratory 18 22 Rate Blood Pressure 134/42 112/42 O2 Sat by Pulse 100 100 99 Oximetry 09/08/20 09/08/20 11:00 11:42 Temperature 97.2 F L Pulse Rate 77 82 Respiratory 24 Rate Blood Pressure 101/39 O2 Sat by Pulse 89 Oximetry General appearance: Present: no acute distress - EENT Eyes: PERRL, EOM intact ENT: hearing intact - Respiratory Respiratory effort: normal - Gastrointestinal General gastrointestinal: Present: soft, non-tender - Labs CBC & Chem 7: 09/08/20 08:19 09/08/20 02:20 Labs: Abnormal lab results 09/06/20 09/07/20 09/07/20 Range/Units 10:05 16:34 20:57 WBC (4.5-11.0) K/mm3 RBC (3.65-5.03) M/mm3 Hgb (11.8-15.2) gm/dl Hct (35.5-45.6) % MCV (84-94) fl MCH (28-32) pg Plt Count (140-440) K/mm3 Seg Neuts % (Manual) (40.0-70.0) % Lymphocytes % (Manual) (13.4-35.0) % Monocytes % (Manual) (0.0-7.3) % Nucleated RBC % (0.0-0.9) % Seg Neutrophils # Man (1.8-7.7) K/mm3 Lymphocytes # (Manual) (1.2-5.4) K/mm3 Monocytes # (Manual) (0.0-0.8) K/mm3 BUN (9-20) mg/dL Creatinine (0.8-1.3) mg/dL Glucose (75-100) mg/dL POC Glucose 167 H 183 H (70-105) mg/dL Calcium (8.4-10.2) mg/dL Crossmatch See Detail 09/07/20 09/08/20 09/08/20 Range/Units 23:24 02:20 06:21 WBC (4.5-11.0) K/mm3 RBC (3.65-5.03) M/mm3 Hgb 6.3 L (11.8-15.2) gm/dl Hct 18.5 L* (35.5-45.6) % MCV (84-94) fl MCH (28-32) pg Plt Count (140-440) K/mm3 Seg Neuts % (Manual) (40.0-70.0) % Lymphocytes % (Manual) (13.4-35.0) % Monocytes % (Manual) (0.0-7.3) % Nucleated RBC % (0.0-0.9) % Seg Neutrophils # Man (1.8-7.7) K/mm3 Lymphocytes # (Manual) (1.2-5.4) K/mm3 Monocytes # (Manual) (0.0-0.8) K/mm3 BUN 123 H (9-20) mg/dL Creatinine 7.6 H (0.8-1.3) mg/dL Glucose 192 H (75-100) mg/dL POC Glucose 215 H (70-105) mg/dL Calcium 7.0 L (8.4-10.2) mg/dL Crossmatch 09/08/20 09/08/20 Range/Units 08:19 11:39 WBC 18.1 H (4.5-11.0) K/mm3 RBC 2.03 L (3.65-5.03) M/mm3 Hgb 6.9 L (11.8-15.2) gm/dl Hct 20.2 L (35.5-45.6) % MCV 100 H (84-94) fl MCH 34 H (28-32) pg Plt Count 27 L (140-440) K/mm3 Seg Neuts % (Manual) 84.0 H (40.0-70.0) % Lymphocytes % (Manual) 6.0 L (13.4-35.0) % Monocytes % (Manual) 8.0 H (0.0-7.3) % Nucleated RBC % 1.0 H (0.0-0.9) % Seg Neutrophils # Man 15.2 H (1.8-7.7) K/mm3 Lymphocytes # (Manual) 1.1 L (1.2-5.4) K/mm3 Monocytes # (Manual) 1.4 H (0.0-0.8) K/mm3 BUN (9-20) mg/dL Creatinine (0.8-1.3) mg/dL Glucose (75-100) mg/dL POC Glucose 272 H (70-105) mg/dL Calcium (8.4-10.2) mg/dL Crossmatch Medications & Allergies - Medications Allergies/Adverse Reactions: Allergies No Known Allergies Allergy (Verified 07/21/19 08:02) Home Medications: Home Medications Medication Instructions Recorded Confirmed Last Taken Type AtorvaSTATin [Lipitor] 40 mg PO QHS 07/21/19 09/07/20 Unknown History Insulin Aspart (Nf) [NovoLOG 8 units SUB-Q TID 07/21/19 09/07/20 Unknown History Flexpen] Insulin Degludec [Tresiba 40 unit SQ QDAY 07/21/19 09/07/20 Unknown History Flextouch U-100] Isosorbide Dinitrate [Isordil] 20 mg PO TID 07/21/19 09/07/20 Unknown History Metoprolol [Lopressor TAB] 100 mg PO QDAY 07/21/19 09/07/20 Unknown History NIFEdipine [Nifedipine ER] 90 mg PO QDAY 07/21/19 09/07/20 Unknown History Nitroglycerin [Nitrostat] 0.4 mg SL QDAY 07/21/19 09/07/20 Unknown History hydrALAZINE [Apresoline TAB] 100 mg PO QDAY 07/21/19 09/07/20 Unknown History Aspirin [Aspirin BABY CHEW TAB] 81 mg PO QDAY #30 tab.chew 07/28/19 09/07/20 Unknown Rx Sodium Bicarbonate 650 mg PO TID #30 tablet 07/28/19 09/07/20 Unknown Rx metOLazone [Zaroxolyn] 5 mg PO QDAY #30 tablet 07/28/19 09/07/20 Unknown Rx polyethylene glycoL 3350 [Miralax 17 gm PO QDAY #10 powd.pack 07/28/19 09/07/20 Unknown Rx 3350] Cefdinir 300 mg PO Q48HR #5 capsule 07/15/20 09/07/20 Unknown Rx Sulfamethoxazole/Trimethoprim 1 each PO BID #14 tablet 08/17/20 09/07/20 Unknown Rx [Bactrim DS TAB] Clindamycin [Clindamycin CAP] 300 mg PO Q6H #28 capsule 09/03/20 09/07/20 Unknown Rx Active Medications: Generic Name Dose Route Start Last Admin Trade Name Freq PRN Reason Stop Dose Admin Acetaminophen 650 mg 09/06/20 10:55 09/07/20 20:42 Acetaminophen 650 Mg Rect Supp DC 650 mg Q6H PRN Administration Pain MILD(1-3)/Fever >100.5/MATHEW Albuterol 2.5 mg 09/06/20 10:55 Albuterol 2.5 Mg/3 Ml Nebu IH Q3HRT PRN Shortness Of Breath Atorvastatin Calcium 40 mg 09/06/20 22:00 09/07/20 21:37 Atorvastatin 40 Mg Tab PO 40 mg QHS LOVE Administration Dextrose 50 ml 09/06/20 10:55 Dextrose 50% In Water (25gm) 50 Ml Syringe IV Q30MIN PRN Hypoglycemia Protocol Pantoprazole Sodium 80 mg/ 100 mls @ 10 mls/hr 09/07/20 17:00 09/08/20 08:08 Sodium Chloride IV 8 mg/hr DIRECT LOVE 10 mls/hr Administration 8 MG/HR Sodium Chloride 500 mls @ 0 mls/hr 09/08/20 17:00 Nacl 0.9% 500 Ml IV 09/08/20 17:01 ONCE ONE As Directed Insulin Human Regular 0 units 09/08/20 12:00 09/08/20 14:24 Insulin Regular, Human 100 Units/1 Ml SUB-Q 3 units Q6H LOVE Administration Protocol Nitroglycerin 0.4 mg 09/07/20 10:00 09/08/20 10:48 Nitroglycerin 0.4 Mg Tab Subl SL Not Given QDAY LOVE Ondansetron HCl 4 mg 09/06/20 10:55 09/07/20 21:37 Ondansetron 4 Mg/2 Ml Inj IV 4 mg Q8H PRN Administration Nausea And Vomiting Polyethylene Glycol 17 gm 09/07/20 10:00 09/08/20 10:48 Polyethylene Glycol 3350 17 Gm Powder PO Not Given QDAY LOVE Sodium Chloride 10 ml 09/06/20 22:00 09/08/20 10:48 Sodium Chloride 0.9% 10 Ml Flush Syringe IV 10 ml BID LOVE Administration Sodium Chloride 10 ml 09/06/20 10:55 09/07/20 20:42 Sodium Chloride 0.9% 10 Ml Flush Syringe IV 10 ml PRN PRN Administration LINE FLUSH
[2020-09-09] MEDS: INSULIN REGULAR, HUMAN 100 UNITS/1 ML SUB-Q SCH ×3 (00:30→12:00)
[2020-09-09] MEDS: PANTOPRAZOLE 80 MG in SODIUM CHLORIDE 0.9% 100 ML IV SCH (02:09)
[2020-09-09 09:21] LABS: Calcium 6.8 mg/dL (8.4-10.2)
--- NOTE | 2020-09-09 09:34 | Progress Note ---
<KEMI HENDERSON - Last Filed: 09/09/20 14:55> Assessment and Plan Assessment and plan: Acute blood loss anemia/anemia of chronic disease, acute -Presented with a H/H of 4.5/13.8 -Stat type and cross in the ED -ED ordered 2 unit PRBC at admit -Posttransfusion CBC -Transfuse for hemoglobin less than 7 -Patient has received a total of 7 units PRBC during hospital stay -Trend CBC -09/09 H/H 5.4/16 -Transfuse 2 units of PRBC and obtain posttransfusion H&H GI bleed, acute -Patient presented with coffee-ground emesis and dark tarry stool prior to admission -GI consulted, appreciate recommendations -S/p 80 mg Protonix IV x1 in the ED -IV Protonix gtt -Trend CBC -Supportive care -CLD -09/09 EGD/colonoscopy pending Supratherapeutic INR.acute -Presented with INR of 1.4 -Patient's home medications include aspirin -Trend INR Hyperkalemia -09/09 potassium 6.6 -Patient is to have emergent hemodialysis -Trend BMP Leukocytosis, acute -Presented with a WBC of 12.6 -Trend CBC -09/06 BC x2 NGTD Thrombocytopenia, acute -Presented with a platelet of 134 -Trend CBC -Transfuse as needed CHF/volume overload, acute -Per cardiology: resolving nonischemic [place] [address] -09/06 CXR shows 2-lead pacemaker device, stable borderline heart size, no pleural effusion or pneumothorax (imaging not available) -07/2019 echocardiogram showed severe LVH, diffuse global hypokinesis of the left ventricle, estimated ejection fraction 45 to 50%, diastolic dysfunction, severe MR, TR, severe pulmonary hypertension and RSVP is calculated at 72 mmHg -09/06 [place] [address] -Cardiology and nephrology consulted, appreciate recommendations Pulmonary hypertension -09/2018 echocardiogram showed severe pulmonary hypertension -Per cardiology will need further pulmonary follow-up of his chronic pulmonary hypertension upon discharge Hypochloremia,acute -Presented with a chloride of 93.4 -Trend BMP -Electrolyte correction per renal team with HD Hypocalcemia, acute -Presented with a calcium of 7 -Electrolyte correction per renal team with HD Hyperkalemia, acute -09/10 potassium 6.6 -S/p calcium gluconate, 5 units insulin and D50 on 09/09 -Trend Potassium Diabetes mellitus, chronic -Advance diet as tolerated -SSI -Accu-Cheks -CC cardiac renal diet when cleared by GI ESRD on HD, chronic -Per patient he believes his last HD session was 09/05 -Present to BUN/creatinine 7.3/88 -Nephrology consulted in the ED, appreciate recommendations -Renally dose medications -Avoid nephrotoxic medications -Strict intake and output -Daily weights -HD per nephrology DVT prophylaxis -SCDs to bilateral lower extremities while in bed -Chemical prophylaxis contraindicated in setting of acute GI bleed and anemia Lactic acidosis, resolved -S/p 500 mL normal saline in the ED -09/06 lactic acid 8 -Trend lactic acid -Patient has a history of CHF and ESRD -09/06 LA 1.6 History Interval history: This is a 64-year old man with CVA, NE (1999, 2014), SSS s/p PPM/AICD, CVA (2006), hypertension, hyperlipidemia, CHF, ESRD on HD, anemia of chronic disease, left BKA, and arthritis who presents to the emergency department on 09/06 for black tarry stool on 09/05 and coffee-ground emesis, syncopal episode resulting in ground-level fall and liquid dark stool x2 however he states that he has dark stools from his multivitamin and iron supplementation.Work-up in the emergency department reveals acute blood loss anemia superimposed on anemia of chronic disease with an H/H of 4.5/13.8, GI bleed, supratherapeutic INR, lactic acidosis, leukocytosis, thrombocytopenia, elevated proBNP and hypochloremia and hypocalcemia. GI was consulted in the ED, nephrology GI, nephrology and cardiology were consulted. Patient will be admitted to the hospital service with acute blood loss anemia, GI bleed and acute exacerbation of congestive heart failure/volume overload. Today the patient complains of abd cramping and dizziness. His last H&H was 6.9.20.2 and is s/p PRBC transfusion and today we will obtain another h/h. He is also hyperkalemic today to 6.6 and received Calcium gluconate, insulin and D50. We will obtain a repeat K. 09/06: s/p 2 unit PRBC 09/07: Hb 5.8 today, transfuse additional two unit. HD today, follow BMP and h/h. planned for EGD on Wednesday, s/p 3 unit PRBC 09/08: Hb 6.9 today, will transfuse another unit of PRBC. follow h/h. plan for endoscopy tomorrow, s/p 2 units prbc Hospitalist Physical - Constitutional Vitals: Temp Pulse Resp BP Pulse Ox 98.6 F 77 18 114/44 100 09/09/20 04:32 09/09/20 04:32 09/09/20 04:32 09/09/20 04:32 09/09/20 04:32 General appearance: Present: no acute distress - EENT Eyes: Present: PERRL, EOM intact ENT: hearing intact, clear oral mucosa, dentition normal - Neck Neck: Present: normal ROM - Respiratory Respiratory effort: normal Respiratory: bilateral: CTA - Cardiovascular Rhythm: regular Heart Sounds: Present: S1 & S2. Absent: systolic murmur, diastolic murmur - Extremities Extremities: no ischemia, pulses intact, pulses symmetrical, No edema, normal temperature, normal color, Full ROM Peripheral Pulses: within normal limits - Abdominal General gastrointestinal: soft, non-tender, non-distended, normal bowel sounds - Psychiatric Psychiatric: appropriate mood/affect, cooperative - Neurologic Neurologic: CNII-XII intact, no focal deficits, moves all extremities - Allied Health Allied health notes reviewed: nursing, social work, case management Results - Labs CBC & Chem 7: 09/09/20 13:23 09/09/20 08:20 Labs: Laboratory Last Values WBC 18.1 K/mm3 (4.5-11.0) H 09/08/20 08:19 RBC 2.03 M/mm3 (3.65-5.03) L 09/08/20 08:19 Hgb 6.9 gm/dl (11.8-15.2) L 09/08/20 08:19 Hct 20.2 % (35.5-45.6) L 09/08/20 08:19 MCV 100 fl (84-94) H 09/08/20 08:19 MCH 34 pg (28-32) H 09/08/20 08:19 MCHC 34 % (32-34) 09/08/20 08:19 RDW 13.5 % (13.2-15.2) 09/08/20 08:19 Plt Count 27 K/mm3 (140-440) L 09/08/20 08:19 Lymph % (Auto) Cork Molder 09/08/20 08:19 Gooding % (Auto) Cork Molder 09/08/20 08:19 Eos % (Auto) Cork Molder 09/08/20 08:19 Baso % (Auto) Cork Molder 09/08/20 08:19 Lymph # (Auto) Cork Molder 09/08/20 08:19 Gooding # (Auto) Cork Molder 09/08/20 08:19 Eos # (Auto) Cork Molder 09/08/20 08:19 Baso # (Auto) Cork Molder 09/08/20 08:19 Add Manual Diff Complete 09/08/20 08:19 Total Counted 100 09/08/20 08:19 Seg Neutrophils % Cork Molder 09/08/20 08:19 Seg Neuts % (Manual) 84.0 % (40.0-70.0) H 09/08/20 08:19 Lymphocytes % (Manual) 6.0 % (13.4-35.0) L 09/08/20 08:19 Monocytes % (Manual) 8.0 % (0.0-7.3) H 09/08/20 08:19 Metamyelocytes % 2.0 % 09/08/20 08:19 Nucleated RBC % 1.0 % (0.0-0.9) H 09/08/20 08:19 Seg Neutrophils # Cork Molder 09/08/20 08:19 Seg Neutrophils # Man 15.2 K/mm3 (1.8-7.7) H 09/08/20 08:19 Band Neutrophils # 0.0 K/mm3 09/08/20 08:19 Lymphocytes # (Manual) 1.1 K/mm3 (1.2-5.4) L 09/08/20 08:19 Abs React Lymphs (Man) 0.0 K/mm3 09/08/20 08:19 Monocytes # (Manual) 1.4 K/mm3 (0.0-0.8) H 09/08/20 08:19 Eosinophils # (Manual) 0.0 K/mm3 (0.0-0.4) 09/08/20 08:19 Basophils # (Manual) 0.0 K/mm3 (0.0-0.1) 09/08/20 08:19 Metamyelocytes # 0.4 K/mm3 09/08/20 08:19 Myelocytes # 0.0 K/mm3 09/08/20 08:19 Promyelocytes # 0.0 K/mm3 09/08/20 08:19 Blast Cells # 0.0 K/mm3 09/08/20 08:19 WBC Morphology Not Reportable 09/08/20 08:19 WBC Morphology TNR 09/08/20 08:19 Hypersegmented Neuts Not Reportable 09/08/20 08:19 Hyposegmented Neuts Not Reportable 09/08/20 08:19 Hypogranular Neuts Not Reportable 09/08/20 08:19 Smudge Cells Not Reportable 09/08/20 08:19 Toxic Granulation Not Reportable 09/08/20 08:19 Toxic Vacuolation Not Reportable 09/08/20 08:19 Dohle Bodies Not Reportable 09/08/20 08:19 Pelger-Huet Anomaly Not Reportable 09/08/20 08:19 Trevon Rods Not Reportable 09/08/20 08:19 Platelet Estimate Appears decreased 09/08/20 08:19 Clumped Platelets Not Reportable 09/08/20 08:19 Plt Clumps, EDTA Not Reportable 09/08/20 08:19 Large Platelets Not Reportable 09/08/20 08:19 Giant Platelets Not Reportable 09/08/20 08:19 Platelet Satelliting Not Reportable 09/08/20 08:19 Plt Morphology Comment Not Reportable 09/08/20 08:19 RBC Morphology Normal 09/08/20 08:19 Dimorphic RBCs Not Reportable 09/08/20 08:19 Polychromasia Not Reportable 09/08/20 08:19 Hypochromasia Not Reportable 09/08/20 08:19 Poikilocytosis Not Reportable 09/08/20 08:19 Anisocytosis Not Reportable 09/08/20 08:19 Microcytosis Not Reportable 09/08/20 08:19 Macrocytosis Not Reportable 09/08/20 08:19 Spherocytes Not Reportable 09/08/20 08:19 Pappenheimer Bodies Not Reportable 09/08/20 08:19 Sickle Cells Not Reportable 09/08/20 08:19 Target Cells Not Reportable 09/08/20 08:19 Tear Drop Cells Not Reportable 09/08/20 08:19 Ovalocytes Not Reportable 09/08/20 08:19 Helmet Cells Not Reportable 09/08/20 08:19 Abdi-Bell Bodies Not Reportable 09/08/20 08:19 [place] Rings Not Reportable 09/08/20 08:19 [place] Cells Not Reportable 09/08/20 08:19 Bite Cells Not Reportable 09/08/20 08:19 Crenated Cell Not Reportable 09/08/20 08:19 Elliptocytes Not Reportable 09/08/20 08:19 Acanthocytes (Spur) Not Reportable 09/08/20 08:19 Rouleaux Not Reportable 09/08/20 08:19 Hemoglobin C Crystals Not Reportable 09/08/20 08:19 Schistocytes Not Reportable 09/08/20 08:19 Malaria parasites Not Reportable 09/08/20 08:19 Brooks Bodies Not Reportable 09/08/20 08:19 Hem Pathologist Commnt No 09/08/20 08:19 PT 17.1 Sec. (12.2-14.9) H 09/06/20 Unknown INR 1.40 (0.87-1.13) H 09/06/20 Unknown APTT 27.5 Sec. (24.2-36.6) 09/06/20 Unknown Sodium 140 mmol/L (137-145) 09/09/20 08:20 Potassium 6.6 mmol/L (3.6-5.0) H* D 09/09/20 08:20 Chloride 102.8 mmol/L (98-107) 09/09/20 08:20 Carbon Dioxide 22 mmol/L (22-30) 09/09/20 08:20 Anion Gap 22 mmol/L 09/09/20 08:20 BUN 164 mg/dL (9-20) H 09/09/20 08:20 Creatinine 11.1 mg/dL (0.8-1.3) H 09/09/20 08:20 Estimated GFR 6 ml/min 09/09/20 08:20 BUN/Creatinine Ratio 15 % 09/09/20 08:20 Glucose 202 mg/dL (75-100) H 09/09/20 08:20 POC Glucose 192 mg/dL (70-105) H 09/09/20 07:18 Lactic Acid 1.60 mmol/L (0.7-2.0) 09/06/20 23:38 Calcium 6.8 mg/dL (8.4-10.2) L 09/09/20 08:20 Phosphorus 3.50 mg/dL (2.5-4.5) 09/06/20 Unknown Magnesium 1.90 mg/dL (1.7-2.3) 09/06/20 Unknown Total Bilirubin 0.20 mg/dL (0.1-1.2) 09/06/20 Unknown Direct Bilirubin < 0.2 mg/dL (0-0.2) 09/06/20 Unknown Indirect Bilirubin 0.0 mg/dL 09/06/20 Unknown AST 25 units/L (5-40) 09/06/20 Unknown ALT 18 units/L (7-56) 09/06/20 Unknown Alkaline Phosphatase 98 units/L (35-129) 09/06/20 Unknown NT-Pro-B Natriuret Pep 69635 pg/mL (0-900) H 09/06/20 Unknown Total Protein 5.4 g/dL (6.3-8.2) L 09/06/20 Unknown Albumin 2.9 g/dL (3.9-5) L 09/06/20 Unknown Albumin/Globulin Ratio 1.2 % 09/06/20 Unknown Hepatitis A IgM Ab Non-reactive (NonReactive) 09/06/20 16:16 Hep Bs Antigen Non-reactive (Negative) 09/06/20 16:16 Hep B Core IgM Ab Non-reactive (NonReactive) 09/06/20 16:16 Hepatitis C Antibody Non-reactive (NonReactive) 09/06/20 16:16 Blood Type B POSITIVE 09/06/20 10:05 Antibody Screen Negative 09/06/20 10:05 Crossmatch See Detail 09/06/20 10:05 Microbiology: Microbiology 09/06/20 16:16 Peripheral/Venous Blood Culture - Preliminary NO GROWTH AFTER 48 HOURS 09/06/20 16:16 Peripheral/Venous Blood Culture - Preliminary NO GROWTH AFTER 48 HOURS Ramirez/IV: Voiding Method Urinal IV Catheter Type [Left Upper Peripheral IV arm] IV Catheter Type [Right Peripheral IV Subclavian] Active Medications - Current Medications Current Medications: Generic Name Dose Route Start Last Admin Trade Name Freq PRN Reason Stop Dose Admin Acetaminophen 650 mg 09/06/20 10:55 09/07/20 20:42 Acetaminophen 650 Mg Rect Supp PA 650 mg Q6H PRN Administration Pain MILD(1-3)/Fever >100.5/MATHEW Albuterol 2.5 mg 09/06/20 10:55 Albuterol 2.5 Mg/3 Ml Nebu IH Q3HRT PRN Shortness Of Breath Atorvastatin Calcium 40 mg 09/06/20 22:00 09/08/20 22:50 Atorvastatin 40 Mg Tab PO 40 mg QHS LOVE Administration Dextrose 50 ml 09/06/20 10:55 Dextrose 50% In Water (25gm) 50 Ml Syringe IV Q30MIN PRN Hypoglycemia Protocol Dextrose 50 ml 09/09/20 10:00 Dextrose 50% In Water (25gm) 50 Ml Syringe IV 09/09/20 10:01 ONCE ONE Protocol Pantoprazole Sodium 80 mg/ 100 mls @ 10 mls/hr 09/07/20 17:00 09/09/20 02:09 Sodium Chloride IV 8 mg/hr DIRECT LOVE 10 mls/hr Administration 8 MG/HR Calcium Gluconate 1,000 mg/ 110 mls @ 660 mls/hr 09/09/20 10:00 Sodium Chloride IV 09/09/20 10:09 ONCE ONE Insulin Human Regular 0 units 09/08/20 12:00 09/09/20 07:25 Insulin Regular, Human 100 Units/1 Ml SUB-Q 1 units Q6H LOVE Administration Protocol Insulin Human Regular 5 units 09/09/20 10:00 Insulin Regular, Human 100 Units/1 Ml IV 09/09/20 10:01 ONCE ONE Nitroglycerin 0.4 mg 09/07/20 10:00 09/08/20 10:48 Nitroglycerin 0.4 Mg Tab Subl SL Not Given QDAY LOVE Ondansetron HCl 4 mg 09/06/20 10:55 09/07/20 21:37 Ondansetron 4 Mg/2 Ml Inj IV 4 mg Q8H PRN Administration Nausea And Vomiting Polyethylene Glycol 17 gm 09/07/20 10:00 09/08/20 10:48 Polyethylene Glycol 3350 17 Gm Powder PO Not Given QDAY LOVE Sodium Chloride 10 ml 09/06/20 22:00 09/08/20 22:50 Sodium Chloride 0.9% 10 Ml Flush Syringe IV 10 ml BID LOVE Administration Sodium Chloride 10 ml 09/06/20 10:55 09/07/20 20:42 Sodium Chloride 0.9% 10 Ml Flush Syringe IV 10 ml PRN PRN Administration LINE FLUSH <ARIS RIVERA R - Last Filed: 09/11/20 10:41> Assessment and Plan Assessment and plan: I saw and evaluated the patient. I agree with the findings and the plan of care as documented in the Nurse Practitioner's~note, K level 6.6 today with Hb ~5, patient to get 2 units PRBC and emergent HD before getting endoscopy. Hospitalist Physical - Constitutional Vitals: Temp Pulse Resp BP Pulse Ox 97.7 F 73 16 119/60 99 09/11/20 08:45 09/11/20 10:15 09/11/20 08:45 09/11/20 10:15 09/11/20 07:39 Results - Labs CBC & Chem 7: 09/11/20 09:07 09/10/20 04:41 Labs: Laboratory Last Values WBC 15.2 K/mm3 (4.5-11.0) H 09/11/20 09:07 RBC 2.64 M/mm3 (3.65-5.03) L 09/11/20 09:07 Hgb 8.6 gm/dl (11.8-15.2) L 09/11/20 09:07 Hct 25.7 % (35.5-45.6) L 09/11/20 09:07 MCV 97 fl (84-94) H 09/11/20 09:07 MCH 33 pg (28-32) H 09/11/20 09:07 MCHC 33 % (32-34) 09/11/20 09:07 RDW 17.2 % (13.2-15.2) H 09/11/20 09:07 Plt Count 85 K/mm3 (140-440) L 09/11/20 09:07 Lymph % (Auto) Cork Molder 09/08/20 08:19 Gooding % (Auto) Cork Molder 09/08/20 08:19 Eos % (Auto) Cork Molder 09/08/20 08:19 Baso % (Auto) Cork Molder 09/08/20 08:19 Lymph # (Auto) Cork Molder 09/08/20 08:19 [place] # (Auto) Cork Molder 09/08/20 08:19 Eos # (Auto) Cork Molder 09/08/20 08:19 Baso # (Auto) Cork Molder 09/08/20 08:19 Add Manual Diff Complete 09/10/20 04:41 Total Counted 100 01/26/21 04:41 Seg Neutrophils % Cork Molder 09/08/20 08:19 Seg Neuts % (Manual) 61.0 % (40.0-70.0) 09/10/20 04:41 Lymphocytes % (Manual) 23.0 % (13.4-35.0) 09/10/20 04:41 Monocytes % (Manual) 10.0 % (0.0-7.3) H 09/10/20 04:41 Eosinophils % (Manual) 6.0 % (0.0-4.3) H 09/10/20 04:41 Metamyelocytes % 2.0 % 09/08/20 08:19 Nucleated RBC % Not Reportable 09/10/20 04:41 Seg Neutrophils # Cork Molder 09/08/20 08:19 Seg Neutrophils # Man 10.2 K/mm3 (1.8-7.7) H 09/10/20 04:41 Band Neutrophils # 0.0 K/mm3 09/10/20 04:41 Lymphocytes # (Manual) 3.8 K/mm3 (1.2-5.4) 09/10/20 04:41 Abs React Lymphs (Man) 0.0 K/mm3 09/10/20 04:41 Monocytes # (Manual) 1.7 K/mm3 (0.0-0.8) H 09/10/20 04:41 Eosinophils # (Manual) 1.0 K/mm3 (0.0-0.4) H 09/10/20 04:41 Basophils # (Manual) 0.0 K/mm3 (0.0-0.1) 09/10/20 04:41 Metamyelocytes # 0.0 K/mm3 09/10/20 04:41 Myelocytes # 0.0 K/mm3 09/10/20 04:41 Promyelocytes # 0.0 K/mm3 09/10/20 04:41 Blast Cells # 0.0 K/mm3 09/10/20 04:41 WBC Morphology Not Reportable 09/10/20 04:41 Hypersegmented Neuts Not Reportable 09/10/20 04:41 Hyposegmented Neuts Not Reportable 09/10/20 04:41 Hypogranular Neuts Not Reportable 09/10/20 04:41 Smudge Cells Not Reportable 09/10/20 04:41 Toxic Granulation Not Reportable 09/10/20 04:41 Toxic Vacuolation Not Reportable 09/10/20 04:41 Dohle Bodies Not Reportable 09/10/20 04:41 Pelger-Huet Anomaly Not Reportable 09/10/20 04:41 Trevon Rods Not Reportable 09/10/20 04:41 Platelet Estimate Consistent w auto 09/10/20 04:41 Clumped Platelets Not Reportable 09/10/20 04:41 Plt Clumps, EDTA Not Reportable 09/10/20 04:41 Large Platelets Not Reportable 09/10/20 04:41 Giant Platelets Not Reportable 09/10/20 04:41 Platelet Satelliting Not Reportable 09/10/20 04:41 Plt Morphology Comment Not Reportable 09/10/20 04:41 RBC Morphology Not Reportable 09/10/20 04:41 Dimorphic RBCs Not Reportable 09/10/20 04:41 Polychromasia Not Reportable 09/10/20 04:41 Hypochromasia Not Reportable 09/10/20 04:41 Poikilocytosis Not Reportable 09/10/20 04:41 Anisocytosis 1+ 09/10/20 04:41 Microcytosis Not Reportable 09/10/20 04:41 Macrocytosis Not Reportable 09/10/20 04:41 Spherocytes Not Reportable 09/10/20 04:41 Pappenheimer Bodies Not Reportable 09/10/20 04:41 Sickle Cells Not Reportable 09/10/20 04:41 Target Cells Not Reportable 09/10/20 04:41 Tear Drop Cells Not Reportable 09/10/20 04:41 Ovalocytes Not Reportable 09/10/20 04:41 Helmet Cells Not Reportable 09/10/20 04:41 Abdi-Bell Bodies Not Reportable 09/10/20 04:41 [place] Rings Not Reportable 09/10/20 04:41 [place]cell Cells Not Reportable 09/10/20 04:41 Bite Cells Not Reportable 09/10/20 04:41 Crenated Cell Not Reportable 09/10/20 04:41 Elliptocytes Not Reportable 09/10/20 04:41 Acanthocytes (Spur) Not Reportable 09/10/20 04:41 Rouleaux Not Reportable 09/10/20 04:41 Hemoglobin C Crystals Not Reportable 09/10/20 04:41 Schistocytes Not Reportable 09/10/20 04:41 Malaria parasites Not Reportable 09/10/20 04:41 Brooks Bodies Not Reportable 09/10/20 04:41 Hem Pathologist Commnt No 09/10/20 04:41 PT 15.7 Sec. (12.2-14.9) H 09/09/20 14:20 INR 1.25 (0.87-1.13) H 09/09/20 14:20 APTT 27.5 Sec. (24.2-36.6) 09/06/20 Unknown Sodium 136 mmol/L (137-145) L 09/10/20 04:41 Potassium 4.9 mmol/L (3.6-5.0) D 09/10/20 04:41 Chloride 99.1 mmol/L (98-107) 09/10/20 04:41 Carbon Dioxide 24 mmol/L (22-30) 09/10/20 04:41 Anion Gap 18 mmol/L 09/10/20 04:41 BUN 137 mg/dL (9-20) H 09/10/20 04:41 Creatinine 9.7 mg/dL (0.8-1.3) H 09/10/20 04:41 Estimated GFR 7 ml/min 09/10/20 04:41 BUN/Creatinine Ratio 14 % 09/10/20 04:41 Glucose 172 mg/dL (75-100) H 09/10/20 04:41 POC Glucose 184 mg/dL (70-105) H 09/11/20 05:44 Lactic Acid 1.60 mmol/L (0.7-2.0) 09/06/20 23:38 Calcium 6.9 mg/dL (8.4-10.2) L 09/10/20 04:41 Phosphorus 3.50 mg/dL (2.5-4.5) 09/06/20 Unknown Magnesium 1.90 mg/dL (1.7-2.3) 09/06/20 Unknown Total Bilirubin 0.20 mg/dL (0.1-1.2) 09/06/20 Unknown Direct Bilirubin < 0.2 mg/dL (0-0.2) 09/06/20 Unknown Indirect Bilirubin 0.0 mg/dL 09/06/20 Unknown AST 25 units/L (5-40) 09/06/20 Unknown ALT 18 units/L (7-56) 09/06/20 Unknown Alkaline Phosphatase 98 units/L (35-129) 09/06/20 Unknown NT-Pro-B Natriuret Pep 75172 pg/mL (0-900) H 09/06/20 Unknown Total Protein 5.4 g/dL (6.3-8.2) L 09/06/20 Unknown Albumin 2.9 g/dL (3.9-5) L 09/06/20 Unknown Albumin/Globulin Ratio 1.2 % 09/06/20 Unknown Coronavirus (PCR) Negative (Negative) 09/08/20 Unknown Hepatitis A IgM Ab Non-reactive (NonReactive) 09/06/20 16:16 Hep Bs Antigen Non-reactive (Negative) 09/06/20 16:16 Hep B Core IgM Ab Non-reactive (NonReactive) 09/06/20 16:16 Hepatitis C Antibody Non-reactive (NonReactive) 09/06/20 16:16 Blood Type B POSITIVE 09/09/20 14:20 Antibody Screen Negative 09/09/20 14:20 Crossmatch See Detail 09/09/20 14:20 Microbiology: Microbiology 09/06/20 16:16 Peripheral/Venous Blood Culture - Preliminary NO GROWTH AFTER 4 DAYS 09/06/20 16:16 Peripheral/Venous Blood Culture - Preliminary NO GROWTH AFTER 4 DAYS Ramirez/IV: Voiding Method Urinal IV Catheter Type [Right INT / Saline Lock Forearm] IV Catheter Type [Left Upper av fistula arm] IV Catheter Type [Right Peripheral IV Subclavian] Active Medications - Current Medications Current Medications: Generic Name Dose Route Start Last Admin Trade Name Freq PRN Reason Stop Dose Admin Acetaminophen 650 mg 09/06/20 10:55 09/10/20 15:18 Acetaminophen 650 Mg Rect Supp PA 650 mg Q6H PRN Administration Pain MILD(1-3)/Fever >100.5/MATHEW Acetaminophen 650 mg 09/10/20 23:16 09/11/20 00:57 Acetaminophen 325 Mg Tab PO 650 mg Q6H PRN Administration Pain, Mild (1-3) Albuterol 2.5 mg 09/06/20 10:55 Albuterol 2.5 Mg/3 Ml Nebu IH Q3HRT PRN Shortness Of Breath Atorvastatin Calcium 40 mg 09/06/20 22:00 09/10/20 22:39 Atorvastatin 40 Mg Tab PO 40 mg QHS LOVE Administration Dextrose 50 ml 09/06/20 10:55 Dextrose 50% In Water (25gm) 50 Ml Syringe IV Q30MIN PRN Hypoglycemia Protocol Epoetin Ben 20,000 unit 09/09/20 09:58 09/09/20 13:30 Epoetin Ben 20,000 Unit/1 Ml Inj IV 20,000 unit AUGIE PRN Administration hemodialysis Sodium Chloride 100 mls @ 999 mls/hr 09/09/20 10:00 Nacl 0.9% IV AUGIE PRN Hypotension Insulin Human Regular 0 units 09/08/20 12:00 09/11/20 06:51 Insulin Regular, Human 100 Units/1 Ml SUB-Q 1 units Q6H LOVE Administration Protocol Nitroglycerin 0.4 mg 09/07/20 10:00 09/10/20 10:07 Nitroglycerin 0.4 Mg Tab Subl SL Not Given QDAY [facility] Ondansetron HCl 4 mg 09/06/20 10:55 09/07/20 21:37 Ondansetron 4 Mg/2 Ml Inj IV 4 mg Q8H PRN Administration Nausea And Vomiting Pantoprazole Sodium 40 mg 09/11/20 10:00 Pantoprazole 40 Mg Inj IV QDAY LOVE Polyethylene Glycol 17 gm 09/07/20 10:00 09/10/20 09:50 Polyethylene Glycol 3350 17 Gm Powder PO Not Given QDAY LOVE Sodium Chloride 10 ml 09/06/20 22:00 09/10/20 22:40 Sodium Chloride 0.9% 10 Ml Flush Syringe IV 10 ml BID LOVE Administration Sodium Chloride 10 ml 09/06/20 10:55 09/10/20 15:18 Sodium Chloride 0.9% 10 Ml Flush Syringe IV 10 ml PRN PRN Administration LINE FLUSH
[2020-09-09] MEDS ORDERED: HEPARIN 1,000 UNIT/1 ML VIAL IV NR (09:58)
[2020-09-09] MEDS ORDERED: DEXTROSE 50% IN WATER (25GM) 50 ML SYRINGE IV ONE (10:00)
[2020-09-09] MEDS ORDERED: SODIUM CHLORIDE 0.9% 100 ML IV PRN (10:00)
[2020-09-09] MEDS ORDERED: INSULIN REGULAR, HUMAN 100 UNITS/1 ML IV ONE (10:00)
[2020-09-09] MEDS ORDERED: CALCIUM GLUCONATE 1,000 MG in SODIUM CHLORIDE 0.9% 100 ML IV ONE (10:00)
--- NOTE | 2020-09-09 10:43 | Progress Note ---
Assessment and Plan End Stage Renal Disease Severe Anemia GI Bleed Hypertension, now Hypotensive Diabetes Mellitus Plan: no indication for HD today Significantly elevated BUN level likely due to GI bleed Fluid restriction of 1 liter per day Anemia-transfuse as needed. Epogen dosing. GI onboard Renal diet when no longer NPO Obtain daily weights Monitor I/O's daily Assess dialysis needs daily Subjective Date of service: 09/09/20 Principal diagnosis: GI Bleed Interval history: no overnight events Objective - Vital Signs Vital signs: Vital Signs - 12hr 09/08/20 09/09/20 09/09/20 23:24 04:32 09:58 Temperature 98.0 F 98.6 F Pulse Rate 76 77 Respiratory 18 18 Rate Blood Pressure 106/48 114/44 O2 Sat by Pulse 100 100 96 Oximetry - Lab 09/08/20 08:19 09/09/20 08:20 Most recent lab results Calcium 6.8 mg/dL (8.4-10.2) L 09/09/20 08:20 Phosphorus 3.50 mg/dL (2.5-4.5) 09/06/20 Unknown Magnesium 1.90 mg/dL (1.7-2.3) 09/06/20 Unknown Medications & Allergies - Medications Allergies/Adverse Reactions: Allergies No Known Allergies Allergy (Verified 07/21/19 08:02) Home Medications: Home Medications Medication Instructions Recorded Confirmed Last Taken Type AtorvaSTATin [Lipitor] 40 mg PO QHS 07/21/19 09/07/20 Unknown History Insulin Aspart (Nf) [NovoLOG 8 units SUB-Q TID 07/21/19 09/07/20 Unknown History Flexpen] Insulin Degludec [Tresiba 40 unit SQ QDAY 07/21/19 09/07/20 Unknown History Flextouch U-100] Isosorbide Dinitrate [Isordil] 20 mg PO TID 07/21/19 09/07/20 Unknown History Metoprolol [Lopressor TAB] 100 mg PO QDAY 07/21/19 09/07/20 Unknown History NIFEdipine [Nifedipine ER] 90 mg PO QDAY 07/21/19 09/07/20 Unknown History Nitroglycerin [Nitrostat] 0.4 mg SL QDAY 07/21/19 09/07/20 Unknown History hydrALAZINE [Apresoline TAB] 100 mg PO QDAY 07/21/19 09/07/20 Unknown History Aspirin [Aspirin BABY CHEW TAB] 81 mg PO QDAY #30 tab.chew 07/28/19 09/07/20 Unknown Rx Sodium Bicarbonate 650 mg PO TID #30 tablet 07/28/19 09/07/20 Unknown Rx metOLazone [Zaroxolyn] 5 mg PO QDAY #30 tablet 07/28/19 09/07/20 Unknown Rx polyethylene glycoL 3350 [Miralax 17 gm PO QDAY #10 powd.pack 07/28/19 09/07/20 Unknown Rx 3350] Cefdinir 300 mg PO Q48HR #5 capsule 07/15/20 09/07/20 Unknown Rx Sulfamethoxazole/Trimethoprim 1 each PO BID #14 tablet 08/17/20 09/07/20 Unknown Rx [Bactrim DS TAB] Clindamycin [Clindamycin CAP] 300 mg PO Q6H #28 capsule 09/03/20 09/07/20 Unknown Rx Active Medications: Generic Name Dose Route Start Last Admin Trade Name Freq PRN Reason Stop Dose Admin Acetaminophen 650 mg 09/06/20 10:55 09/07/20 20:42 Acetaminophen 650 Mg Rect Supp [place] 650 mg Q6H PRN Administration Pain MILD(1-3)/Fever >100.5/MATHEW Albuterol 2.5 mg 09/06/20 10:55 Albuterol 2.5 Mg/3 Ml Nebu IH Q3HRT PRN Shortness Of Breath Atorvastatin Calcium 40 mg 09/06/20 22:00 09/08/20 22:50 Atorvastatin 40 Mg Tab PO 40 mg QHS LOVE Administration Dextrose 50 ml 09/06/20 10:55 Dextrose 50% In Water (25gm) 50 Ml Syringe IV Q30MIN PRN Hypoglycemia Protocol Epoetin Ben 20,000 unit 09/09/20 09:58 Epoetin Ben 20,000 Unit/1 Ml Inj IV AUGIE PRN hemodialysis Heparin Sodium (Porcine) 1,000 unit 09/09/20 09:58 Heparin 1,000 Unit/1 Ml Vial IV 09/09/20 20:00 ONCE NR Pantoprazole Sodium 80 mg/ 100 mls @ 10 mls/hr 09/07/20 17:00 09/09/20 02:09 Sodium Chloride IV 8 mg/hr DIRECT LOVE 10 mls/hr Administration 8 MG/HR Sodium Chloride 100 mls @ 999 mls/hr 09/09/20 10:00 Nacl 0.9% IV AUGIE PRN Hypotension Insulin Human Regular 0 units 09/08/20 12:00 09/09/20 07:25 Insulin Regular, Human 100 Units/1 Ml SUB-Q 1 units Q6H LOVE Administration Protocol Nitroglycerin 0.4 mg 09/07/20 10:00 09/08/20 10:48 Nitroglycerin 0.4 Mg Tab Subl SL Not Given QDAY [facility] Ondansetron HCl 4 mg 09/06/20 10:55 09/07/20 21:37 Ondansetron 4 Mg/2 Ml Inj IV 4 mg Q8H PRN Administration Nausea And Vomiting Polyethylene Glycol 17 gm 09/07/20 10:00 09/08/20 10:48 Polyethylene Glycol 3350 17 Gm Powder PO Not Given QDAY [facility] Sodium Chloride 10 ml 09/06/20 22:00 09/08/20 22:50 Sodium Chloride 0.9% 10 Ml Flush Syringe IV 10 ml BID LOVE Administration Sodium Chloride 10 ml 09/06/20 10:55 09/07/20 20:42 Sodium Chloride 0.9% 10 Ml Flush Syringe IV 10 ml PRN PRN Administration LINE FLUSH
[2020-09-09] MEDS: NITROGLYCERIN 0.4 MG TAB SUBL SL SCH (11:24)
[2020-09-09] MEDS: POLYETHYLENE GLYCOL 3350 17 GM POWDER PO SCH (11:24)
--- NOTE | 2020-09-09 12:04 | Progress Note ---
Assessment and Plan - Patient Problems (1) Shortness of breath Current Visit: Yes Status: Acute Plan to address problem: Patient presented with shortness of breath, weakness and hypotension due to intravascular depletion from severe anemia. GI endoscopic work-up is anticipated for further evaluation. (2) Nonischemic cardiomyopathy Current Visit: Yes Status: Acute Plan to address problem: Patient has a history of a resolving nonischemic cardiomyopathy. In 2014, a cardiac catheterization demonstrated normal coronary arteries, but a left ventricular ejection fraction of 30%. Follow-up echocardiogram a year ago showed near complete resolution of the cardiomyopathy with left ventricular ejection fraction improved to 45 to 50%. We will continue conservative cardiac follow-up. (3) Pulmonary hypertension Current Visit: Yes Status: Acute Plan to address problem: The patient has a history of severe pulmonary hypertension, with pulmonary artery pressures calculated at between 72 and 83 mmHg on both cardiac catheterization in 2014 and echocardiogram a year ago. At this time he is admitted with severe anemia due to GI bleed, which is undergoing further evaluation and management by gastroenterology and internal medicine. Long-term, he would need further pulmonary follow-up of his chronic pulmonary hypertension. Subjective Date of service: 09/09/20 Principal diagnosis: GI Bleed Interval history: Patient is comfortable, awaiting upper GI endoscopy for persistent anemia and GI bleed. His hematocrit today is still low at 20 after several units of blood transfusion. Objective Vital Signs Temp Pulse Resp BP Pulse Ox 09/09/20 09:58 96 09/09/20 04:32 98.6 F 77 18 114/44 100 09/08/20 23:24 98.0 F 76 18 106/48 100 09/08/20 22:00 20 09/08/20 21:56 104/42 09/08/20 21:55 98 09/08/20 19:17 98.5 F 73 18 115/43 100 09/08/20 18:35 108/45 09/08/20 15:58 98.3 F 78 22 101/45 98 - Physical Examination General: No Apparent Distress HEENT: Positive: PERRL Neck: Positive: trachea midline Cardiac: Positive: Reg Rate and Rhythm Lungs: Positive: Decreased Breath Sounds Neuro: Positive: Grossly Intact Abdomen: Positive: Soft Skin: Positive: Clear Extremities: Absent: edema - Labs and Meds Comprehensive Metabolic Panel 09/09/20 Range/Units 08:20 Sodium 140 (137-145) mmol/L Potassium 6.6 H* D (3.6-5.0) mmol/L Chloride 102.8 (98-107) mmol/L Carbon Dioxide 22 (22-30) mmol/L BUN 164 H (9-20) mg/dL Creatinine 11.1 H (0.8-1.3) mg/dL Glucose 202 H (75-100) mg/dL Calcium 6.8 L (8.4-10.2) mg/dL
--- NOTE | 2020-09-09 12:29 | Progress Note ---
Assessment and Plan 1. Melena - pt was to have EGD today, but cancelled as pt taken for emergency HD due to elevated K = 6.6. Worrisome for UGI bleed, doubt LGI source. Pt was transfused with 6 units pRBC thus far. Only has 2 BMs/d. Otherwise asymptomatic. - PPI drip - transfuse as needed, and monitor H/H - will delay EGD to tomorrow Discussed with Dr. Conteh. Subjective Date of service: 09/09/20 Principal diagnosis: GI Bleed Interval history: Pt comfortable, in bed. States he had 2 black stools today as well. No abd pain, N/V. Objective - Constitutional Vitals: Vital Signs - 12hr 09/09/20 09/09/20 04:32 09:58 Temperature 98.6 F Pulse Rate 77 Respiratory 18 Rate Blood Pressure 114/44 O2 Sat by Pulse 100 96 Oximetry General appearance: Present: no acute distress - EENT Eyes: PERRL, EOM intact ENT: hearing intact - Respiratory Respiratory effort: normal - Gastrointestinal General gastrointestinal: Present: soft, non-tender - Labs CBC & Chem 7: 09/08/20 08:19 09/09/20 08:20 Labs: Abnormal lab results 09/06/20 09/08/20 09/09/20 Range/Units 10:05 15:57 00:05 Potassium (3.6-5.0) mmol/L BUN (9-20) mg/dL Creatinine (0.8-1.3) mg/dL Glucose (75-100) mg/dL POC Glucose 299 H 214 H (70-105) mg/dL Calcium (8.4-10.2) mg/dL Crossmatch See Detail 09/09/20 09/09/20 09/09/20 Range/Units 07:18 08:20 11:28 Potassium 6.6 H* D (3.6-5.0) mmol/L BUN 164 H (9-20) mg/dL Creatinine 11.1 H (0.8-1.3) mg/dL Glucose 202 H (75-100) mg/dL POC Glucose 192 H 244 H (70-105) mg/dL Calcium 6.8 L (8.4-10.2) mg/dL Crossmatch Medications & Allergies - Medications Allergies/Adverse Reactions: Allergies No Known Allergies Allergy (Verified 07/21/19 08:02) Home Medications: Home Medications Medication Instructions Recorded Confirmed Last Taken Type AtorvaSTATin [Lipitor] 40 mg PO QHS 07/21/19 09/07/20 Unknown History Insulin Aspart (Nf) [NovoLOG 8 units SUB-Q TID 07/21/19 09/07/20 Unknown History Flexpen] Insulin Degludec [Tresiba 40 unit SQ QDAY 07/21/19 09/07/20 Unknown History Flextouch U-100] Isosorbide Dinitrate [Isordil] 20 mg PO TID 07/21/19 09/07/20 Unknown History Metoprolol [Lopressor TAB] 100 mg PO QDAY 07/21/19 09/07/20 Unknown History NIFEdipine [Nifedipine ER] 90 mg PO QDAY 07/21/19 09/07/20 Unknown History Nitroglycerin [Nitrostat] 0.4 mg SL QDAY 07/21/19 09/07/20 Unknown History hydrALAZINE [Apresoline TAB] 100 mg PO QDAY 07/21/19 09/07/20 Unknown History Aspirin [Aspirin BABY CHEW TAB] 81 mg PO QDAY #30 tab.chew 07/28/19 09/07/20 Unknown Rx Sodium Bicarbonate 650 mg PO TID #30 tablet 07/28/19 09/07/20 Unknown Rx metOLazone [Zaroxolyn] 5 mg PO QDAY #30 tablet 07/28/19 09/07/20 Unknown Rx polyethylene glycoL 3350 [Miralax 17 gm PO QDAY #10 powd.pack 07/28/19 09/07/20 Unknown Rx 3350] Cefdinir 300 mg PO Q48HR #5 capsule 07/15/20 09/07/20 Unknown Rx Sulfamethoxazole/Trimethoprim 1 each PO BID #14 tablet 08/17/20 09/07/20 Unknown Rx [Bactrim DS TAB] Clindamycin [Clindamycin CAP] 300 mg PO Q6H #28 capsule 09/03/20 09/07/20 Unknown Rx Active Medications: Generic Name Dose Route Start Last Admin Trade Name Freq PRN Reason Stop Dose Admin Acetaminophen 650 mg 09/06/20 10:55 09/07/20 20:42 Acetaminophen 650 Mg Rect Supp [place] 650 mg Q6H PRN Administration Pain MILD(1-3)/Fever >100.5/MATHEW Albuterol 2.5 mg 09/06/20 10:55 Albuterol 2.5 Mg/3 Ml Nebu IH Q3HRT PRN Shortness Of Breath Atorvastatin Calcium 40 mg 09/06/20 22:00 09/08/20 22:50 Atorvastatin 40 Mg Tab PO 40 mg QHS LOVE Administration Dextrose 50 ml 09/06/20 10:55 Dextrose 50% In Water (25gm) 50 Ml Syringe IV Q30MIN PRN Hypoglycemia Protocol Epoetin Ben 20,000 unit 09/09/20 09:58 Epoetin Ben 20,000 Unit/1 Ml Inj IV AUGIE PRN hemodialysis Heparin Sodium (Porcine) 1,000 unit 09/09/20 09:58 Heparin 1,000 Unit/1 Ml Vial IV 09/09/20 20:00 ONCE NR Pantoprazole Sodium 80 mg/ 100 mls @ 10 mls/hr 09/07/20 17:00 09/09/20 02:09 Sodium Chloride IV 8 mg/hr DIRECT LOVE 10 mls/hr Administration 8 MG/HR Sodium Chloride 100 mls @ 999 mls/hr 09/09/20 10:00 Nacl 0.9% IV AUGIE PRN Hypotension Insulin Human Regular 0 units 09/08/20 12:00 09/09/20 07:25 Insulin Regular, Human 100 Units/1 Ml SUB-Q 1 units Q6H LOVE Administration Protocol Nitroglycerin 0.4 mg 09/07/20 10:00 09/09/20 11:24 Nitroglycerin 0.4 Mg Tab Subl SL Not Given QDAY [facility] Ondansetron HCl 4 mg 09/06/20 10:55 09/07/20 21:37 Ondansetron 4 Mg/2 Ml Inj IV 4 mg Q8H PRN Administration Nausea And Vomiting Polyethylene Glycol 17 gm 09/07/20 10:00 09/09/20 11:24 Polyethylene Glycol 3350 17 Gm Powder PO Not Given QDAY [facility] Sodium Chloride 10 ml 09/06/20 22:00 09/08/20 22:50 Sodium Chloride 0.9% 10 Ml Flush Syringe IV 10 ml BID LOVE Administration Sodium Chloride 10 ml 09/06/20 10:55 09/07/20 20:42 Sodium Chloride 0.9% 10 Ml Flush Syringe IV 10 ml PRN PRN Administration LINE FLUSH
[2020-09-09] MEDS: EPOETIN ALFA 20,000 UNIT/1 ML INJ IV PRN (13:30)
[2020-09-09 13:51] LABS: Hemoglobin 5.4 gm/dl (11.8-15.2)
[2020-09-09] MEDS ORDERED: SODIUM CHLORIDE 0.9% 500 ML 500 ML IV NR ×2 (13:58→14:06)
[2020-09-09] MEDS ORDERED: SODIUM CHLORIDE 0.9% 250ML 250 ML ONE (14:55)
[2020-09-09 15:01] LABS: INR 1.25 (0.87-1.13)
--- NOTE | 2020-09-09 15:34 | Progress Note ---
Subjective Date of service: 09/09/20 Principal diagnosis: GI Bleed Objective - Constitutional Vitals: Vital Signs - 12hr 09/09/20 09/09/20 09/09/20 04:32 09:58 10:00 Temperature 98.6 F Pulse Rate 77 73 Respiratory 18 Rate Blood Pressure 114/44 O2 Sat by Pulse 100 96 Oximetry 09/09/20 09/09/20 09/09/20 12:45 13:00 13:15 Temperature Pulse Rate 80 80 74 Respiratory Rate Blood Pressure 106/52 120/54 101/51 O2 Sat by Pulse Oximetry 09/09/20 09/09/20 09/09/20 13:30 13:45 15:00 Temperature 98.8 F Pulse Rate 74 73 77 Respiratory 20 Rate Blood Pressure 113/48 122/52 122/50 O2 Sat by Pulse Oximetry 09/09/20 15:15 Temperature Pulse Rate 81 Respiratory Rate Blood Pressure 120/48 O2 Sat by Pulse Oximetry - Labs CBC & Chem 7: 09/09/20 13:23 09/09/20 08:20 Labs: Abnormal lab results 09/06/20 09/08/20 09/09/20 Range/Units 10:05 15:57 00:05 Hgb (11.8-15.2) gm/dl Hct (35.5-45.6) % PT (12.2-14.9) Sec. INR (0.87-1.13) Potassium (3.6-5.0) mmol/L BUN (9-20) mg/dL Creatinine (0.8-1.3) mg/dL Glucose (75-100) mg/dL POC Glucose 299 H 214 H (70-105) mg/dL Calcium (8.4-10.2) mg/dL Crossmatch See Detail 09/09/20 09/09/20 09/09/20 Range/Units 07:18 08:20 11:28 Hgb (11.8-15.2) gm/dl Hct (35.5-45.6) % PT (12.2-14.9) Sec. INR (0.87-1.13) Potassium 6.6 H* D (3.6-5.0) mmol/L BUN 164 H (9-20) mg/dL Creatinine 11.1 H (0.8-1.3) mg/dL Glucose 202 H (75-100) mg/dL POC Glucose 192 H 244 H (70-105) mg/dL Calcium 6.8 L (8.4-10.2) mg/dL Crossmatch 09/09/20 09/09/20 09/09/20 Range/Units 13:23 14:20 14:20 Hgb 5.4 L* (11.8-15.2) gm/dl Hct 16.0 L* (35.5-45.6) % PT 15.7 H (12.2-14.9) Sec. INR 1.25 H (0.87-1.13) Potassium (3.6-5.0) mmol/L BUN (9-20) mg/dL Creatinine (0.8-1.3) mg/dL Glucose (75-100) mg/dL POC Glucose (70-105) mg/dL Calcium (8.4-10.2) mg/dL Crossmatch See Detail
[2020-09-09 19:51] LABS: Hematocrit 22.3 % (35.5-45.6); Hemoglobin 7.5 gm/dl (11.8-15.2)
[2020-09-10] MEDS: INSULIN REGULAR, HUMAN 100 UNITS/1 ML SUB-Q SCH ×4 (00:37→18:00)
[2020-09-10] MEDS: PANTOPRAZOLE 80 MG in SODIUM CHLORIDE 0.9% 100 ML IV SCH (00:39)
[2020-09-10 05:29] LABS: Hemoglobin 6.6 gm/dl (11.8-15.2); Mean Corpuscular HGB Conc 33 % (32-34); Mean Corpuscular Volume 95 fl (84-94); Red Cell Distribution Width 16.9 % (13.2-15.2)
[2020-09-10 05:39] LABS: Platelet Count 53 K/mm3 (140-440)
[2020-09-10 05:51] LABS: Calcium 6.9 mg/dL (8.4-10.2)
[2020-09-10 06:28] LABS: Total Cells Counted 100
[2020-09-10 06:29] LABS: Anisocytosis 1+; Platelet Estimate Consistent w Auto
[2020-09-10] MEDS ORDERED: SODIUM CHLORIDE 0.9% 500 ML 500 ML IV NR (07:45)
--- NOTE | 2020-09-10 08:43 | Progress Note ---
Assessment and Plan End Stage Renal Disease Severe Anemia GI Bleed Hypertension, now Hypotensive Diabetes Mellitus Plan: HD done yesterdau for elevated K no indication for HD today Fluid restriction of 1 liter per day Anemia-transfuse as needed. Epogen dosing. GI onboard EGD today Obtain daily weights Monitor I/O's daily Assess dialysis needs daily Subjective Date of service: 09/10/20 Principal diagnosis: GI Bleed Interval history: denies acute issues, upper endoscopy was rescheduled for today Objective - Vital Signs Vital signs: Vital Signs - 12hr 09/09/20 09/09/20 09/10/20 22:00 23:44 04:20 Temperature 98.9 F 98.4 F Pulse Rate 62 74 78 Respiratory 20 20 20 Rate Blood Pressure 115/42 107/37 O2 Sat by Pulse 96 97 Oximetry 09/10/20 08:19 Temperature Pulse Rate Respiratory Rate Blood Pressure O2 Sat by Pulse 100 Oximetry - Lab 09/10/20 04:41 09/10/20 04:41 Most recent lab results Calcium 6.9 mg/dL (8.4-10.2) L 09/10/20 04:41 Phosphorus 3.50 mg/dL (2.5-4.5) 09/06/20 Unknown Magnesium 1.90 mg/dL (1.7-2.3) 09/06/20 Unknown Medications & Allergies - Medications Allergies/Adverse Reactions: Allergies No Known Allergies Allergy (Verified 07/21/19 08:02) Home Medications: Home Medications Medication Instructions Recorded Confirmed Last Taken Type AtorvaSTATin [Lipitor] 40 mg PO QHS 07/21/19 09/07/20 Unknown History Insulin Aspart (Nf) [NovoLOG 8 units SUB-Q TID 07/21/19 09/07/20 Unknown History Flexpen] Insulin Degludec [Tresiba 40 unit SQ QDAY 07/21/19 09/07/20 Unknown History Flextouch U-100] Isosorbide Dinitrate [Isordil] 20 mg PO TID 07/21/19 09/07/20 Unknown History Metoprolol [Lopressor TAB] 100 mg PO QDAY 07/21/19 09/07/20 Unknown History NIFEdipine [Nifedipine ER] 90 mg PO QDAY 07/21/19 09/07/20 Unknown History Nitroglycerin [Nitrostat] 0.4 mg SL QDAY 07/21/19 09/07/20 Unknown History hydrALAZINE [Apresoline TAB] 100 mg PO QDAY 07/21/19 09/07/20 Unknown History Aspirin [Aspirin BABY CHEW TAB] 81 mg PO QDAY #30 tab.chew 07/28/19 09/07/20 Unknown Rx Sodium Bicarbonate 650 mg PO TID #30 tablet 07/28/19 09/07/20 Unknown Rx metOLazone [Zaroxolyn] 5 mg PO QDAY #30 tablet 07/28/19 09/07/20 Unknown Rx polyethylene glycoL 3350 [Miralax 17 gm PO QDAY #10 powd.pack 07/28/19 09/07/20 Unknown Rx 3350] Cefdinir 300 mg PO Q48HR #5 capsule 07/15/20 09/07/20 Unknown Rx Sulfamethoxazole/Trimethoprim 1 each PO BID #14 tablet 08/17/20 09/07/20 Unknown Rx [Bactrim DS TAB] Clindamycin [Clindamycin CAP] 300 mg PO Q6H #28 capsule 09/03/20 09/07/20 Unknown Rx Active Medications: Generic Name Dose Route Start Last Admin Trade Name Freq PRN Reason Stop Dose Admin Acetaminophen 650 mg 09/06/20 10:55 09/07/20 20:42 Acetaminophen 650 Mg Rect Supp [place] 650 mg Q6H PRN Administration Pain MILD(1-3)/Fever >100.5/MATHEW Albuterol 2.5 mg 09/06/20 10:55 Albuterol 2.5 Mg/3 Ml Nebu IH Q3HRT PRN Shortness Of Breath Atorvastatin Calcium 40 mg 09/06/20 22:00 09/09/20 22:46 Atorvastatin 40 Mg Tab PO 40 mg QHS LOVE Administration Dextrose 50 ml 09/06/20 10:55 Dextrose 50% In Water (25gm) 50 Ml Syringe IV Q30MIN PRN Hypoglycemia Protocol Epoetin Ben 20,000 unit 09/09/20 09:58 09/09/20 13:30 Epoetin Ben 20,000 Unit/1 Ml Inj IV 20,000 unit AUGIE PRN Administration hemodialysis Pantoprazole Sodium 80 mg/ 100 mls @ 10 mls/hr 09/07/20 17:00 09/10/20 00:39 Sodium Chloride IV 8 mg/hr DIRECT LOEV 10 mls/hr Administration 8 MG/HR Sodium Chloride 100 mls @ 999 mls/hr 09/09/20 10:00 Nacl 0.9% IV AUGIE PRN Hypotension Sodium Chloride 500 mls @ 0 mls/hr 09/10/20 07:45 Nacl 0.9% 500 Ml IV 09/11/20 07:44 ONCE NR As Directed Insulin Human Regular 0 units 09/08/20 12:00 09/10/20 07:14 Insulin Regular, Human 100 Units/1 Ml SUB-Q 1 units Q6H LOVE Administration Protocol Nitroglycerin 0.4 mg 09/07/20 10:00 09/09/20 11:24 Nitroglycerin 0.4 Mg Tab Subl SL Not Given QDAY [facility] Ondansetron HCl 4 mg 09/06/20 10:55 09/07/20 21:37 Ondansetron 4 Mg/2 Ml Inj IV 4 mg Q8H PRN Administration Nausea And Vomiting Polyethylene Glycol 17 gm 09/07/20 10:00 09/09/20 11:24 Polyethylene Glycol 3350 17 Gm Powder PO Not Given QDAY LOVE Sodium Chloride 10 ml 09/06/20 22:00 09/09/20 22:46 Sodium Chloride 0.9% 10 Ml Flush Syringe IV 10 ml BID LOVE Administration Sodium Chloride 10 ml 09/06/20 10:55 09/07/20 20:42 Sodium Chloride 0.9% 10 Ml Flush Syringe IV 10 ml PRN PRN Administration LINE FLUSH
[2020-09-10] MEDS: POLYETHYLENE GLYCOL 3350 17 GM POWDER PO SCH (09:50)
--- NOTE | 2020-09-10 09:53 | Progress Note ---
Assessment and Plan Improved Nonischemic cardiomyopathy -EF normal based on last echo 03/2020 Echo: LV ejection fraction of 50-55% [facility] 2015: normal coronaries, EF 35% Valvular disease with moderate mitral regurgitation and moderate tricuspid regurgitation Hx of SSS s/p pacemaker implant GI bleed Severe Anemia and thrombocytopenia Volume overload Pulmonary Htn End-stage renal disease on dialysis Diabetes Hypertension Prior left BKA Patient is admitted with severe anemia due to GI bleed, which is undergoing further evaluation and management by gastroenterology and internal medicine. Conservative cardiac management. Subjective Date of service: 09/10/20 Principal diagnosis: GI Bleed Interval history: Patient is resting in bed comfortably. He denies chest pain, denies shortness of breath and denies palpitations. Awaits GI endoscopy. Stable sinus rhythm on telemetry. Objective Vital Signs Temp Pulse Resp BP Pulse Ox 09/10/20 08:23 98.3 F 75 18 107/36 100 09/10/20 08:19 100 09/10/20 04:20 98.4 F 78 20 107/37 97 09/09/20 23:44 98.9 F 74 20 115/42 96 09/09/20 22:00 62 20 09/09/20 19:50 98.1 F 74 18 116/47 96 09/09/20 16:50 98.5 F 81 18 134/50 100 09/09/20 16:35 98.9 F 87 18 157/62 09/09/20 15:45 74 150/59 09/09/20 15:30 78 144/58 09/09/20 15:15 81 120/48 09/09/20 15:00 77 122/50 09/09/20 14:45 76 116/43 09/09/20 14:30 89 98/42 09/09/20 14:15 81 120/48 09/09/20 14:00 77 122/50 09/09/20 13:45 73 122/52 09/09/20 13:30 98.8 F 74 20 113/48 09/09/20 13:15 74 101/51 09/09/20 13:00 80 120/54 09/09/20 12:45 80 106/52 09/09/20 11:30 98.2 F 78 18 129/37 99 09/09/20 10:00 73 09/09/20 09:58 96 - Physical Examination General: No Apparent Distress HEENT: Positive: PERRL Neck: Positive: trachea midline Cardiac: Positive: Reg Rate and Rhythm Lungs: Positive: Decreased Breath Sounds Neuro: Positive: Grossly Intact Extremities: Absent: edema - Labs and Meds Coagulation 09/09/20 Range/Units 14:20 PT 15.7 H (12.2-14.9) Sec. INR 1.25 H (0.87-1.13) CBC 09/09/20 09/09/20 09/10/20 Range/Units 13:23 19:38 04:41 WBC 16.7 H (4.5-11.0) K/mm3 RBC 2.10 L (3.65-5.03) M/mm3 Hgb 5.4 L* 7.5 L 6.6 L (11.8-15.2) gm/dl Hct 16.0 L* 22.3 L D 20.0 L (35.5-45.6) % Plt Count 53 L (140-440) K/mm3 Comprehensive Metabolic Panel 09/10/20 Range/Units 04:41 Sodium 136 L (137-145) mmol/L Potassium 4.9 D (3.6-5.0) mmol/L Chloride 99.1 (98-107) mmol/L Carbon Dioxide 24 (22-30) mmol/L BUN 137 H (9-20) mg/dL Creatinine 9.7 H (0.8-1.3) mg/dL Glucose 172 H (75-100) mg/dL Calcium 6.9 L (8.4-10.2) mg/dL
[2020-09-10] MEDS: NITROGLYCERIN 0.4 MG TAB SUBL SL SCH (10:07)
[2020-09-10] MEDS ORDERED: SODIUM CHLORIDE 0.9% 1000 ML 1,000 ML ONE (10:57)
[2020-09-10] MEDS ORDERED: BENZOCAINE 20% TOP SPRAY 0.5 ML UNIT DOSE MM ONE ×2 (11:41→11:43)
[2020-09-10] MEDS ORDERED: EPINEPHrine 1 MG/10 ML SYRINGE ONE (12:02)
--- NOTE | 2020-09-10 12:26 | Post Operative Note ---
Pre-op diagnosis: GI bleed Post-op diagnosis: other (Bleeding AVM in gastric fundus) Findings: 1. Actively oozing AVM in gastric fundus, posterior aspect. Found with great difficulty, after empirically injecting area with 10 ml Epi, then locating source and achieving hemostasis with a clip. 2. Otherwise normal EGD. Procedure: EGD with Epi injection and clip placement Anesthesia: other (Topical Hurricaine) Surgeon: MEHUL LEWIS Estimated blood loss: minimal Pathology: none Condition: stable Disposition: floor (Monitor H/H and transfuse as needed. If rebleeds, IR approach will need to be considered. Minimize heparin.)
--- NOTE | 2020-09-10 13:53 | Progress Note ---
<BEATRIZKEMI MarianelaTati - Last Filed: 09/10/20 13:49> Assessment and Plan Assessment and plan: Acute blood loss anemia/anemia of chronic disease, acute -Presented with a H/H of 4.5/13.8 -Stat type and cross in the ED -ED ordered 2 unit PRBC at admit -Posttransfusion CBC -Transfuse for hemoglobin less than 7 -Patient has received a total of 7 units PRBC during hospital stay -Trend CBC -09/09 H/H 5.4/16 -Transfuse 2 units of PRBC and obtain posttransfusion H&H -09/10 H&H 6.6/20, transfuse with 2 additional units of PRBC GI bleed, acute -Patient presented with coffee-ground emesis and dark tarry stool prior to admission -GI consulted, appreciate recommendations -S/p 80 mg Protonix IV x1 in the ED -IV Protonix -Trend CBC -Supportive care -CLD -09/09 EGD/colonoscopy showed an actively oozing AVM in gastric fundus, posterior aspect which was injected with 10 ml Epi then clipped Supratherapeutic INR, acute -Presented with INR of 1.4 -Patient's home medications include aspirin -Trend INR Leukocytosis, acute -Presented with a WBC of 12.6 -Trend CBC -09/06 BC x2 NGTD Thrombocytopenia, acute -Presented with a platelet of 134 -Trend CBC -Transfuse as needed CHF/volume overload, acute -Per cardiology: resolving nonischemic cardiomyopathy [place] [id number] -09/06 CXR shows 2-lead pacemaker device, stable borderline heart size, no pleural effusion or pneumothorax (imaging not available) -07/2019 echocardiogram showed severe LVH, diffuse global hypokinesis of the left ventricle, estimated ejection fraction 45 to 50%, diastolic dysfunction, severe MR, TR, severe pulmonary hypertension and RSVP is calculated at 72 mmHg -09/06 [place] [id number] -Cardiology and nephrology consulted, appreciate recommendations Pulmonary hypertension -09/2018 echocardiogram showed severe pulmonary hypertension -Per cardiology will need further pulmonary follow-up of his chronic pulmonary hypertension upon discharge Hypochloremia,acute -Presented with a chloride of 93.4 -Trend BMP -Electrolyte correction per renal team with HD Hypocalcemia, acute -Presented with a calcium of 7 -Electrolyte correction per renal team with HD Hyperkalemia, reolved -09/10 potassium 6.6 -S/p calcium gluconate, 5 units insulin and D50 on 09/09 -Trend Potassium -09/10 K 4.8 Diabetes mellitus, chronic -Advance diet as tolerated -SSI -Accu-Cheks -CC cardiac renal diet when cleared by GI ESRD on HD, chronic -Per patient he believes his last HD session was 09/05 -Present to BUN/creatinine 7.3/88 -Nephrology consulted in the ED, appreciate recommendations -Renally dose medications -Avoid nephrotoxic medications -Strict intake and output -Daily weights -HD per nephrology DVT prophylaxis -SCDs to bilateral lower extremities while in bed -Chemical prophylaxis contraindicated in setting of acute GI bleed and anemia Lactic acidosis, resolved -S/p 500 mL normal saline in the ED -09/06 lactic acid 8 -Trend lactic acid -Patient has a history of CHF and ESRD -09/06 LA 1.6 History Interval history: This is a 64-year old man with CVA, [place] (1999, 2014), SSS s/p PPM/AICD, CVA (2006), hypertension, hyperlipidemia, CHF, ESRD on HD, anemia of chronic disease, left BKA, and arthritis who presents to the emergency department on 09/06 for black tarry stool on 09/05 and coffee-ground emesis, syncopal episode resulting in ground-level fall and liquid dark stool x2 however he states that he has dark stools from his multivitamin and iron supplementation.Work-up in the emergency department reveals acute blood loss anemia superimposed on anemia of chronic disease with an H/H of 4.5/13.8, GI bleed, supratherapeutic INR, lactic acidosis, leukocytosis, thrombocytopenia, elevated proBNP and hypochloremia and hypocalcemia. GI was consulted in the ED, nephrology GI, nephrology and cardiology were consulted. Patient will be admitted to the hospital service with acute blood loss anemia, GI bleed and acute exacerbation of congestive heart failure/volume overload. Today his potassium is within normal limits and the patient is again anemic with a hemoglobin of 6.6. Patient was transfused additional 2 units of PRBC. He underwent an EGD today with GI and is s/p clipping of actively bleeding AVM 09/06: s/p 2 unit PRBC 09/07: Hb 5.8 today, transfuse additional two unit. HD today, follow BMP and h/h. planned for EGD on Wednesday, s/p 3 unit PRBC 09/08: Hb 6.9 today, will transfuse another unit of PRBC. follow h/h. plan for endoscopy tomorrow, s/p 2 units prbc Hospitalist Physical - Constitutional Vitals: Temp Pulse Resp BP Pulse Ox 98.7 F 81 19 109/21 100 09/10/20 11:25 09/10/20 11:25 09/10/20 11:25 09/10/20 11:25 09/10/20 11:25 General appearance: Present: no acute distress Results - Labs CBC & Chem 7: 09/10/20 04:41 09/10/20 04:41 Labs: Laboratory Last Values WBC 16.7 K/mm3 (4.5-11.0) H 09/10/20 04:41 RBC 2.10 M/mm3 (3.65-5.03) L 09/10/20 04:41 Hgb 6.6 gm/dl (11.8-15.2) L 09/10/20 04:41 Hct 20.0 % (35.5-45.6) L 09/10/20 04:41 MCV 95 fl (84-94) H 09/10/20 04:41 MCH 31 pg (28-32) 09/10/20 04:41 MCHC 33 % (32-34) 09/10/20 04:41 RDW 16.9 % (13.2-15.2) H 09/10/20 04:41 Plt Count 53 K/mm3 (140-440) L 09/10/20 04:41 Lymph % (Auto) Professor Of Environmental Studies 09/08/20 08:19 Prentiss % (Auto) Professor Of Environmental Studies 09/08/20 08:19 Eos % (Auto) Professor Of Environmental Studies 09/08/20 08:19 Baso % (Auto) Professor Of Environmental Studies 09/08/20 08:19 Lymph # (Auto) Professor Of Environmental Studies 09/08/20 08:19 Prentiss # (Auto) Professor Of Environmental Studies 09/08/20 08:19 Eos # (Auto) Professor Of Environmental Studies 09/08/20 08:19 Baso # (Auto) Professor Of Environmental Studies 09/08/20 08:19 Add Manual Diff Complete 09/10/20 04:41 Total Counted 100 09/10/20 04:41 Seg Neutrophils % Professor Of Environmental Studies 09/08/20 08:19 Seg Neuts % (Manual) 61.0 % (40.0-70.0) 09/10/20 04:41 Lymphocytes % (Manual) 23.0 % (13.4-35.0) 09/10/20 04:41 Monocytes % (Manual) 10.0 % (0.0-7.3) H 09/10/20 04:41 Eosinophils % (Manual) 6.0 % (0.0-4.3) H 09/10/20 04:41 Metamyelocytes % 2.0 % 09/08/20 08:19 Nucleated RBC % Not Reportable 09/10/20 04:41 Seg Neutrophils # Professor Of Environmental Studies 09/08/20 08:19 Seg Neutrophils # Man 10.2 K/mm3 (1.8-7.7) H 09/10/20 04:41 Band Neutrophils # 0.0 K/mm3 09/10/20 04:41 Lymphocytes # (Manual) 3.8 K/mm3 (1.2-5.4) 09/10/20 04:41 Abs React Lymphs (Man) 0.0 K/mm3 09/10/20 04:41 Monocytes # (Manual) 1.7 K/mm3 (0.0-0.8) H 09/10/20 04:41 Eosinophils # (Manual) 1.0 K/mm3 (0.0-0.4) H 09/10/20 04:41 Basophils # (Manual) 0.0 K/mm3 (0.0-0.1) 09/10/20 04:41 Metamyelocytes # 0.0 K/mm3 09/10/20 04:41 Myelocytes # 0.0 K/mm3 09/10/20 04:41 Promyelocytes # 0.0 K/mm3 09/10/20 04:41 Blast Cells # 0.0 K/mm3 09/10/20 04:41 WBC Morphology Not Reportable 09/10/20 04:41 Hypersegmented Neuts Not Reportable 09/10/20 04:41 Hyposegmented Neuts Not Reportable 09/10/20 04:41 Hypogranular Neuts Not Reportable 09/10/20 04:41 Smudge Cells Not Reportable 09/10/20 04:41 Toxic Granulation Not Reportable 09/10/20 04:41 Toxic Vacuolation Not Reportable 09/10/20 04:41 Dohle Bodies Not Reportable 09/10/20 04:41 Pelger-Huet Anomaly Not Reportable 09/10/20 04:41 Trevon Rods Not Reportable 09/10/20 04:41 Platelet Estimate Consistent w auto 09/10/20 04:41 Clumped Platelets Not Reportable 09/10/20 04:41 Plt Clumps, EDTA Not Reportable 09/10/20 04:41 Large Platelets Not Reportable 09/10/20 04:41 Giant Platelets Not Reportable 09/10/20 04:41 Platelet Satelliting Not Reportable 09/10/20 04:41 Plt Morphology Comment Not Reportable 09/10/20 04:41 RBC Morphology Not Reportable 09/10/20 04:41 Dimorphic RBCs Not Reportable 09/10/20 04:41 Polychromasia Not Reportable 09/10/20 04:41 Hypochromasia Not Reportable 09/10/20 04:41 Poikilocytosis Not Reportable 09/10/20 04:41 Anisocytosis 1+ 09/10/20 04:41 Microcytosis Not Reportable 09/10/20 04:41 Macrocytosis Not Reportable 09/10/20 04:41 Spherocytes Not Reportable 09/10/20 04:41 Pappenheimer Bodies Not Reportable 09/10/20 04:41 Sickle Cells Not Reportable 09/10/20 04:41 Target Cells Not Reportable 09/10/20 04:41 Tear Drop Cells Not Reportable 09/10/20 04:41 Ovalocytes Not Reportable 09/10/20 04:41 Helmet Cells Not Reportable 09/10/20 04:41 [place] Bodies Not Reportable 09/10/20 04:41 [place] Rings Not Reportable 09/10/20 04:41 [place] Cells Not Reportable 09/10/20 04:41 Bite Cells Not Reportable 09/10/20 04:41 Crenated Cell Not Reportable 09/10/20 04:41 Elliptocytes Not Reportable 09/10/20 04:41 Acanthocytes (Spur) Not Reportable 09/10/20 04:41 Rouleaux Not Reportable 09/10/20 04:41 Hemoglobin C Crystals Not Reportable 09/10/20 04:41 Schistocytes Not Reportable 09/10/20 04:41 Malaria parasites Not Reportable 09/10/20 04:41 Brooks Bodies Not Reportable 09/10/20 04:41 Hem Pathologist Commnt No 09/10/20 04:41 PT 15.7 Sec. (12.2-14.9) H 09/09/20 14:20 INR 1.25 (0.87-1.13) H 09/09/20 14:20 APTT 27.5 Sec. (24.2-36.6) 09/06/20 Unknown Sodium 136 mmol/L (137-145) L 09/10/20 04:41 Potassium 4.9 mmol/L (3.6-5.0) D 09/10/20 04:41 Chloride 99.1 mmol/L (98-107) 09/10/20 04:41 Carbon Dioxide 24 mmol/L (22-30) 09/10/20 04:41 Anion Gap 18 mmol/L 09/10/20 04:41 BUN 137 mg/dL (9-20) H 09/10/20 04:41 Creatinine 9.7 mg/dL (0.8-1.3) H 09/10/20 04:41 Estimated GFR 7 ml/min 09/10/20 04:41 BUN/Creatinine Ratio 14 % 09/10/20 04:41 Glucose 172 mg/dL (75-100) H 09/10/20 04:41 POC Glucose 155 mg/dL (70-105) H 09/10/20 06:05 Lactic Acid 1.60 mmol/L (0.7-2.0) 09/06/20 23:38 Calcium 6.9 mg/dL (8.4-10.2) L 09/10/20 04:41 Phosphorus 3.50 mg/dL (2.5-4.5) 09/06/20 Unknown Magnesium 1.90 mg/dL (1.7-2.3) 09/06/20 Unknown Total Bilirubin 0.20 mg/dL (0.1-1.2) 09/06/20 Unknown Direct Bilirubin < 0.2 mg/dL (0-0.2) 09/06/20 Unknown Indirect Bilirubin 0.0 mg/dL 09/06/20 Unknown AST 25 units/L (5-40) 09/06/20 Unknown ALT 18 units/L (7-56) 09/06/20 Unknown Alkaline Phosphatase 98 units/L (35-129) 09/06/20 Unknown NT-Pro-B Natriuret Pep 37503 pg/mL (0-900) H 09/06/20 Unknown Total Protein 5.4 g/dL (6.3-8.2) L 09/06/20 Unknown Albumin 2.9 g/dL (3.9-5) L 09/06/20 Unknown Albumin/Globulin Ratio 1.2 % 09/06/20 Unknown Coronavirus (PCR) Negative (Negative) 09/08/20 Unknown Hepatitis A IgM Ab Non-reactive (NonReactive) 09/06/20 16:16 Hep Bs Antigen Non-reactive (Negative) 09/06/20 16:16 Hep B Core IgM Ab Non-reactive (NonReactive) 09/06/20 16:16 Hepatitis C Antibody Non-reactive (NonReactive) 09/06/20 16:16 Blood Type B POSITIVE 09/09/20 14:20 Antibody Screen Negative 09/09/20 14:20 Crossmatch See Detail 09/09/20 14:20 Microbiology: Microbiology 09/06/20 16:16 Peripheral/Venous Blood Culture - Preliminary NO GROWTH AFTER 72 HOURS 09/06/20 16:16 Peripheral/Venous Blood Culture - Preliminary NO GROWTH AFTER 72 HOURS Ramirez/IV: Voiding Method Urinal IV Catheter Type [Left Upper av fistula arm] IV Catheter Type [Right Peripheral IV Subclavian] Active Medications - Current Medications Current Medications: Generic Name Dose Route Start Last Admin Trade Name Freq PRN Reason Stop Dose Admin Acetaminophen 650 mg 09/06/20 10:55 09/07/20 20:42 Acetaminophen 650 Mg Rect Supp ID 650 mg Q6H PRN Administration Pain MILD(1-3)/Fever >100.5/MATHEW Albuterol 2.5 mg 09/06/20 10:55 Albuterol 2.5 Mg/3 Ml Nebu IH Q3HRT PRN Shortness Of Breath Atorvastatin Calcium 40 mg 09/06/20 22:00 09/09/20 22:46 Atorvastatin 40 Mg Tab PO 40 mg QHS LOVE Administration Dextrose 50 ml 09/06/20 10:55 Dextrose 50% In Water (25gm) 50 Ml Syringe IV Q30MIN PRN Hypoglycemia Protocol Epoetin Ben 20,000 unit 09/09/20 09:58 09/09/20 13:30 Epoetin Ben 20,000 Unit/1 Ml Inj IV 20,000 unit AUGIE PRN Administration hemodialysis Sodium Chloride 100 mls @ 999 mls/hr 09/09/20 10:00 Nacl 0.9% IV AUGIE PRN Hypotension Sodium Chloride 500 mls @ 0 mls/hr 09/10/20 07:45 Nacl 0.9% 500 Ml IV 09/11/20 07:44 ONCE NR As Directed Insulin Human Regular 0 units 09/08/20 12:00 09/10/20 07:14 Insulin Regular, Human 100 Units/1 Ml SUB-Q 1 units Q6H LOVE Administration Protocol Nitroglycerin 0.4 mg 09/07/20 10:00 09/10/20 10:07 Nitroglycerin 0.4 Mg Tab Subl SL Not Given [facility] Ondansetron HCl 4 mg 09/06/20 10:55 09/07/20 21:37 Ondansetron 4 Mg/2 Ml Inj IV 4 mg Q8H PRN Administration Nausea And Vomiting Pantoprazole Sodium 40 mg 09/11/20 10:00 Pantoprazole 40 Mg Inj IV QDAY LOVE Polyethylene Glycol 17 gm 09/07/20 10:00 09/10/20 09:50 Polyethylene Glycol 3350 17 Gm Powder PO Not Given QDAY LOVE Sodium Chloride 10 ml 09/06/20 22:00 09/09/20 22:46 Sodium Chloride 0.9% 10 Ml Flush Syringe IV 10 ml BID LOVE Administration Sodium Chloride 10 ml 09/06/20 10:55 09/07/20 20:42 Sodium Chloride 0.9% 10 Ml Flush Syringe IV 10 ml PRN PRN Administration LINE FLUSH <ARIS RIVERA R - Last Filed: 09/11/20 10:43> Assessment and Plan Assessment and plan: I saw and evaluated the patient. I agree with the findings and the plan of care as documented in the Nurse Practitioner's~note, with the following corrections and additions. Noted EGD result, monitor h/h, follow clinically Hospitalist Physical - Constitutional Vitals: Temp Pulse Resp BP Pulse Ox 97.7 F 73 16 119/60 99 09/11/20 08:45 09/11/20 10:15 09/11/20 08:45 09/11/20 10:15 09/11/20 07:39 Results - Labs CBC & Chem 7: 09/11/20 09:07 09/10/20 04:41 Labs: Laboratory Last Values WBC 15.2 K/mm3 (4.5-11.0) H 09/11/20 09:07 RBC 2.64 M/mm3 (3.65-5.03) L 09/11/20 09:07 Hgb 8.6 gm/dl (11.8-15.2) L 09/11/20 09:07 Hct 25.7 % (35.5-45.6) L 09/11/20 09:07 MCV 97 fl (84-94) H 09/11/20 09:07 MCH 33 pg (28-32) H 09/11/20 09:07 MCHC 33 % (32-34) 09/11/20 09:07 RDW 17.2 % (13.2-15.2) H 09/11/20 09:07 Plt Count 85 K/mm3 (140-440) L 09/11/20 09:07 Lymph % (Auto) Professor Of Environmental Studies 09/08/20 08:19 Prentiss % (Auto) Professor Of Environmental Studies 09/08/20 08:19 Eos % (Auto) Professor Of Environmental Studies 09/08/20 08:19 Baso % (Auto) Professor Of Environmental Studies 09/08/20 08:19 Lymph # (Auto) Professor Of Environmental Studies 09/08/20 08:19 Prentiss # (Auto) Professor Of Environmental Studies 09/08/20 08:19 Eos # (Auto) Professor Of Environmental Studies 09/08/20 08:19 Baso # (Auto) Professor Of Environmental Studies 09/08/20 08:19 Add Manual Diff Complete 09/10/20 04:41 Total Counted 100 09/10/20 04:41 Seg Neutrophils % Professor Of Environmental Studies 09/08/20 08:19 Seg Neuts % (Manual) 61.0 % (40.0-70.0) 09/10/20 04:41 Lymphocytes % (Manual) 23.0 % (13.4-35.0) 09/10/20 04:41 Monocytes % (Manual) 10.0 % (0.0-7.3) H 09/10/20 04:41 Eosinophils % (Manual) 6.0 % (0.0-4.3) H 09/10/20 04:41 Metamyelocytes % 2.0 % 09/08/20 08:19 Nucleated RBC % Not Reportable 09/10/20 04:41 Seg Neutrophils # Professor Of Environmental Studies 09/08/20 08:19 Seg Neutrophils # Man 10.2 K/mm3 (1.8-7.7) H 09/10/20 04:41 Band Neutrophils # 0.0 K/mm3 09/10/20 04:41 Lymphocytes # (Manual) 3.8 K/mm3 (1.2-5.4) 09/10/20 04:41 Abs React Lymphs (Man) 0.0 K/mm3 09/10/20 04:41 Monocytes # (Manual) 1.7 K/mm3 (0.0-0.8) H 09/10/20 04:41 Eosinophils # (Manual) 1.0 K/mm3 (0.0-0.4) H 09/10/20 04:41 Basophils # (Manual) 0.0 K/mm3 (0.0-0.1) 09/10/20 04:41 Metamyelocytes # 0.0 K/mm3 09/10/20 04:41 Myelocytes # 0.0 K/mm3 09/10/20 04:41 Promyelocytes # 0.0 K/mm3 09/10/20 04:41 Blast Cells # 0.0 K/mm3 09/10/20 04:41 WBC Morphology Not Reportable 09/10/20 04:41 Hypersegmented Neuts Not Reportable 09/10/20 04:41 Hyposegmented Neuts Not Reportable 09/10/20 04:41 Hypogranular Neuts Not Reportable 09/10/20 04:41 Smudge Cells Not Reportable 09/10/20 04:41 Toxic Granulation Not Reportable 09/10/20 04:41 Toxic Vacuolation Not Reportable 09/10/20 04:41 Dohle Bodies Not Reportable 09/10/20 04:41 Pelger-Huet Anomaly Not Reportable 09/10/20 04:41 Trevon Rods Not Reportable 09/10/20 04:41 Platelet Estimate Consistent w auto 09/10/20 04:41 Clumped Platelets Not Reportable 09/10/20 04:41 Plt Clumps, EDTA Not Reportable 09/10/20 04:41 Large Platelets Not Reportable 09/10/20 04:41 Giant Platelets Not Reportable 09/10/20 04:41 Platelet Satelliting Not Reportable 09/10/20 04:41 Plt Morphology Comment Not Reportable 09/10/20 04:41 RBC Morphology Not Reportable 09/10/20 04:41 Dimorphic RBCs Not Reportable 09/10/20 04:41 Polychromasia Not Reportable 09/10/20 04:41 Hypochromasia Not Reportable 09/10/20 04:41 Poikilocytosis Not Reportable 09/10/20 04:41 Anisocytosis 1+ 09/10/20 04:41 Microcytosis Not Reportable 09/10/20 04:41 Macrocytosis Not Reportable 09/10/20 04:41 Spherocytes Not Reportable 09/10/20 04:41 Pappenheimer Bodies Not Reportable 09/10/20 04:41 Sickle Cells Not Reportable 09/10/20 04:41 Target Cells Not Reportable 09/10/20 04:41 Tear Drop Cells Not Reportable 09/10/20 04:41 Ovalocytes Not Reportable 09/10/20 04:41 Helmet Cells Not Reportable 09/10/20 04:41 [place] Bodies Not Reportable 09/10/20 04:41 [place] Rings Not Reportable 09/10/20 04:41 [place] Cells Not Reportable 09/10/20 04:41 Bite Cells Not Reportable 09/10/20 04:41 Crenated Cell Not Reportable 09/10/20 04:41 Elliptocytes Not Reportable 09/10/20 04:41 Acanthocytes (Spur) Not Reportable 09/10/20 04:41 Rouleaux Not Reportable 09/10/20 04:41 Hemoglobin C Crystals Not Reportable 09/10/20 04:41 Schistocytes Not Reportable 09/10/20 04:41 Malaria parasites Not Reportable 09/10/20 04:41 [place] Bodies Not Reportable 09/10/20 04:41 Hem Pathologist Commnt No 09/10/20 04:41 PT 15.7 Sec. (12.2-14.9) H 09/09/20 14:20 INR 1.25 (0.87-1.13) H 09/09/20 14:20 APTT 27.5 Sec. (24.2-36.6) 09/06/20 Unknown Sodium 136 mmol/L (137-145) L 09/10/20 04:41 Potassium 4.9 mmol/L (3.6-5.0) D 09/10/20 04:41 Chloride 99.1 mmol/L (98-107) 09/10/20 04:41 Carbon Dioxide 24 mmol/L (22-30) 09/10/20 04:41 Anion Gap 18 mmol/L 09/10/20 04:41 BUN 137 mg/dL (9-20) H 09/10/20 04:41 Creatinine 9.7 mg/dL (0.8-1.3) H 09/10/20 04:41 Estimated GFR 7 ml/min 09/10/20 04:41 BUN/Creatinine Ratio 14 % 09/10/20 04:41 Glucose 172 mg/dL (75-100) H 09/10/20 04:41 POC Glucose 184 mg/dL (70-105) H 09/11/20 05:44 Lactic Acid 1.60 mmol/L (0.7-2.0) 09/06/20 23:38 Calcium 6.9 mg/dL (8.4-10.2) L 09/10/20 04:41 Phosphorus 3.50 mg/dL (2.5-4.5) 09/06/20 Unknown Magnesium 1.90 mg/dL (1.7-2.3) 09/06/20 Unknown Total Bilirubin 0.20 mg/dL (0.1-1.2) 09/06/20 Unknown Direct Bilirubin < 0.2 mg/dL (0-0.2) 09/06/20 Unknown Indirect Bilirubin 0.0 mg/dL 09/06/20 Unknown AST 25 units/L (5-40) 09/06/20 Unknown ALT 18 units/L (7-56) 09/06/20 Unknown Alkaline Phosphatase 98 units/L (35-129) 09/06/20 Unknown NT-Pro-B Natriuret Pep 04428 pg/mL (0-900) H 09/06/20 Unknown Total Protein 5.4 g/dL (6.3-8.2) L 09/06/20 Unknown Albumin 2.9 g/dL (3.9-5) L 09/06/20 Unknown Albumin/Globulin Ratio 1.2 % 09/06/20 Unknown Coronavirus (PCR) Negative (Negative) 09/08/20 Unknown Hepatitis A IgM Ab Non-reactive (NonReactive) 09/06/20 16:16 Hep Bs Antigen Non-reactive (Negative) 09/06/20 16:16 Hep B Core IgM Ab Non-reactive (NonReactive) 09/06/20 16:16 Hepatitis C Antibody Non-reactive (NonReactive) 09/06/20 16:16 Blood Type B POSITIVE 09/09/20 14:20 Antibody Screen Negative 09/09/20 14:20 Crossmatch See Detail 09/09/20 14:20 Microbiology: Microbiology 09/06/20 16:16 Peripheral/Venous Blood Culture - Preliminary NO GROWTH AFTER 4 DAYS 09/06/20 16:16 Peripheral/Venous Blood Culture - Preliminary NO GROWTH AFTER 4 DAYS Ramirez/IV: Voiding Method Urinal IV Catheter Type [Right INT / Saline Lock Forearm] IV Catheter Type [Left Upper av fistula arm] IV Catheter Type [Right Peripheral IV Subclavian] Active Medications - Current Medications Current Medications: Generic Name Dose Route Start Last Admin Trade Name Freq PRN Reason Stop Dose Admin Acetaminophen 650 mg 09/06/20 10:55 09/10/20 15:18 Acetaminophen 650 Mg Rect Supp ID 650 mg Q6H PRN Administration Pain MILD(1-3)/Fever >100.5/MATHEW Acetaminophen 650 mg 09/10/20 23:16 09/11/20 00:57 Acetaminophen 325 Mg Tab PO 650 mg Q6H PRN Administration Pain, Mild (1-3) Albuterol 2.5 mg 09/06/20 10:55 Albuterol 2.5 Mg/3 Ml Nebu IH Q3HRT PRN Shortness Of Breath Atorvastatin Calcium 40 mg 09/06/20 22:00 09/10/20 22:39 Atorvastatin 40 Mg Tab PO 40 mg QHS LOVE Administration Dextrose 50 ml 09/06/20 10:55 Dextrose 50% In Water (25gm) 50 Ml Syringe IV Q30MIN PRN Hypoglycemia Protocol Epoetin Ben 20,000 unit 09/09/20 09:58 09/09/20 13:30 Epoetin Ben 20,000 Unit/1 Ml Inj IV 20,000 unit AUGIE PRN Administration hemodialysis Sodium Chloride 100 mls @ 999 mls/hr 09/09/20 10:00 Nacl 0.9% IV AUGIE PRN Hypotension Insulin Human Regular 0 units 09/08/20 12:00 09/11/20 06:51 Insulin Regular, Human 100 Units/1 Ml SUB-Q 1 units Q6H LOVE Administration Protocol Nitroglycerin 0.4 mg 09/07/20 10:00 09/10/20 10:07 Nitroglycerin 0.4 Mg Tab Subl SL Not Given [facility] Ondansetron HCl 4 mg 09/06/20 10:55 09/07/20 21:37 Ondansetron 4 Mg/2 Ml Inj IV 4 mg Q8H PRN Administration Nausea And Vomiting Pantoprazole Sodium 40 mg 09/11/20 10:00 Pantoprazole 40 Mg Inj IV [facility] Polyethylene Glycol 17 gm 09/07/20 10:00 09/10/20 09:50 Polyethylene Glycol 3350 17 Gm Powder PO Not Given [facility] Sodium Chloride 10 ml 09/06/20 22:00 09/10/20 22:40 Sodium Chloride 0.9% 10 Ml Flush Syringe IV 10 ml BID LOVE Administration Sodium Chloride 10 ml 09/06/20 10:55 09/10/20 15:18 Sodium Chloride 0.9% 10 Ml Flush Syringe IV 10 ml PRN PRN Administration LINE FLUSH
[2020-09-10] MEDS: ACETAMINOPHEN 650 MG RECT SUPP PR PRN (15:18)
[2020-09-10] MEDS ORDERED: ACETAMINOPHEN 325 MG TAB PO PRN (23:16)
[2020-09-10 23:57] LABS: Hematocrit 22.2 % (35.5-45.6); Hemoglobin 7.3 gm/dl (11.8-15.2)
[2020-09-11] MEDS: INSULIN REGULAR, HUMAN 100 UNITS/1 ML SUB-Q SCH ×3 (00:59→12:00)
[2020-09-11 09:20] LABS: Hematocrit 25.7 % (35.5-45.6); Hemoglobin 8.6 gm/dl (11.8-15.2); Mean Corpuscular HGB Conc 33 % (32-34); Mean Corpuscular Volume 97 fl (84-94); Red Blood Count 2.64 M/mm3 (3.65-5.03); Red Cell Distribution Width 17.2 % (13.2-15.2)
[2020-09-11 09:23] LABS: Platelet Count 85 K/mm3 (140-440)
[2020-09-11] MEDS: NITROGLYCERIN 0.4 MG TAB SUBL SL SCH (10:00)
[2020-09-11] MEDS ORDERED: PANTOPRAZOLE 40 MG INJ IV SCH (10:00)
--- NOTE | 2020-09-11 10:24 | Progress Note ---
Assessment and Plan Assessment: End Stage Renal Disease Severe Anemia GI Bleed Hypertension, now Hypotensive Diabetes Mellitus Plan: Hemodialysis today for UF and clearance Fluid restriction of 1 liter per day Anemia-Transfuse as needed. Epogen 20,000 units with HD. Actively oozing AVM-S/P Epi injection and clip placement on 09/10/20 Obtain daily weights Monitor I/O's daily Assess dialysis needs daily Subjective Date of service: 09/11/20 Principal diagnosis: GI Bleed Interval history: Patient seen in dialysis unit. Tolerating HD well. Objective - Vital Signs Vital signs: Vital Signs - 12hr 09/11/20 09/11/20 09/11/20 00:26 01:40 01:55 Temperature 98.2 F 96.8 F L 97.1 F L Pulse Rate 76 74 74 Respiratory 20 18 18 Rate Blood Pressure 92/55 124/53 125/52 O2 Sat by Pulse 97 100 99 Oximetry 09/11/20 09/11/20 09/11/20 02:25 02:55 03:25 Temperature 97.3 F L 97.4 F L 97.4 F L Pulse Rate 74 77 79 Respiratory 18 18 18 Rate Blood Pressure 124/53 128/53 130/55 O2 Sat by Pulse 99 100 100 Oximetry 09/11/20 09/11/20 09/11/20 03:55 04:59 07:39 Temperature 97.8 F 98.0 F 98.2 F Pulse Rate 80 75 74 Respiratory 18 20 18 Rate Blood Pressure 135/58 139/59 133/56 O2 Sat by Pulse 100 100 99 Oximetry 09/11/20 09/11/20 09/11/20 08:45 09:00 09:15 Temperature 97.7 F Pulse Rate 77 77 73 Respiratory 16 Rate Blood Pressure 150/69 150/69 137/67 O2 Sat by Pulse Oximetry 09/11/20 09/11/20 09/11/20 09:30 09:45 10:00 Temperature Pulse Rate 73 73 80 Respiratory Rate Blood Pressure 129/67 131/62 122/65 O2 Sat by Pulse Oximetry 09/11/20 10:15 Temperature Pulse Rate 73 Respiratory Rate Blood Pressure 119/60 O2 Sat by Pulse Oximetry - General Appearance General appearance: well-developed, appears stated age EENT: ATNC, PERRL, hearing intact, vision intact Neck: no JVD, supple Respiratory: Present: Decreased Breath Sounds Cardiology: S1S2 Gastrointestinal: normoactive bowel sounds Integumentary: warm and dry Neurologic: alert and oriented x3 Musculoskeletal: other (No edema) - Lab 09/11/20 09:07 09/10/20 04:41 Most recent lab results Calcium 6.9 mg/dL (8.4-10.2) L 09/10/20 04:41 Phosphorus 3.50 mg/dL (2.5-4.5) 09/06/20 Unknown Magnesium 1.90 mg/dL (1.7-2.3) 09/06/20 Unknown Medications & Allergies - Medications Allergies/Adverse Reactions: Allergies No Known Allergies Allergy (Verified 07/21/19 08:02) Home Medications: Home Medications Medication Instructions Recorded Confirmed Last Taken Type AtorvaSTATin [Lipitor] 40 mg PO QHS 07/21/19 09/07/20 Unknown History Insulin Aspart (Nf) [NovoLOG 8 units SUB-Q TID 07/21/19 09/07/20 Unknown History Flexpen] Insulin Degludec [Tresiba 40 unit SQ QDAY 07/21/19 09/07/20 Unknown History Flextouch U-100] Isosorbide Dinitrate [Isordil] 20 mg PO TID 07/21/19 09/07/20 Unknown History Metoprolol [Lopressor TAB] 100 mg PO QDAY 07/21/19 09/07/20 Unknown History NIFEdipine [Nifedipine ER] 90 mg PO QDAY 07/21/19 09/07/20 Unknown History Nitroglycerin [Nitrostat] 0.4 mg SL QDAY 07/21/19 09/07/20 Unknown History hydrALAZINE [Apresoline TAB] 100 mg PO QDAY 07/21/19 09/07/20 Unknown History Aspirin [Aspirin BABY CHEW TAB] 81 mg PO QDAY #30 tab.chew 07/28/19 09/07/20 Unknown Rx Sodium Bicarbonate 650 mg PO TID #30 tablet 07/28/19 09/07/20 Unknown Rx metOLazone [Zaroxolyn] 5 mg PO QDAY #30 tablet 07/28/19 09/07/20 Unknown Rx polyethylene glycoL 3350 [Miralax 17 gm PO QDAY #10 powd.pack 07/28/19 09/07/20 Unknown Rx 3350] Cefdinir 300 mg PO Q48HR #5 capsule 07/15/20 09/07/20 Unknown Rx Sulfamethoxazole/Trimethoprim 1 each PO BID #14 tablet 08/17/20 09/07/20 Unknown Rx [Bactrim DS TAB] Clindamycin [Clindamycin CAP] 300 mg PO Q6H #28 capsule 09/03/20 09/07/20 Un known Rx Active Medications: Generic Name Dose Route Start Last Admin Trade Name Freq PRN Reason Stop Dose Admin Acetaminophen 650 mg 09/06/20 10:55 09/10/20 15:18 Acetaminophen 650 Mg Rect Supp WV 650 mg Q6H PRN Administration Pain MILD(1-3)/Fever >100.5/MATHEW Acetaminophen 650 mg 09/10/20 23:16 09/11/20 00:57 Acetaminophen 325 Mg Tab PO 650 mg Q6H PRN Administration Pain, Mild (1-3) Albuterol 2.5 mg 09/06/20 10:55 Albuterol 2.5 Mg/3 Ml Nebu IH Q3HRT PRN Shortness Of Breath Atorvastatin Calcium 40 mg 09/06/20 22:00 09/10/20 22:39 Atorvastatin 40 Mg Tab PO 40 mg QHS LOVE Administration Dextrose 50 ml 09/06/20 10:55 Dextrose 50% In Water (25gm) 50 Ml Syringe IV Q30MIN PRN Hypoglycemia Protocol Epoetin Ben 20,000 unit 09/09/20 09:58 09/09/20 13:30 Epoetin Ben 20,000 Unit/1 Ml Inj IV 20,000 unit AUGIE PRN Administration hemodialysis Sodium Chloride 100 mls @ 999 mls/hr 09/09/20 10:00 Nacl 0.9% IV AUGIE PRN Hypotension Insulin Human Regular 0 units 09/08/20 12:00 09/11/20 06:51 Insulin Regular, Human 100 Units/1 Ml SUB-Q 1 units Q6H LOVE Administration Protocol Nitroglycerin 0.4 mg 09/07/20 10:00 09/10/20 10:07 Nitroglycerin 0.4 Mg Tab Subl SL Not Given QDAY [facility] Ondansetron HCl 4 mg 09/06/20 10:55 09/07/20 21:37 Ondansetron 4 Mg/2 Ml Inj IV 4 mg Q8H PRN Administration Nausea And Vomiting Pantoprazole Sodium 40 mg 09/11/20 10:00 Pantoprazole 40 Mg Inj IV QDAY LOVE Polyethylene Glycol 17 gm 09/07/20 10:00 09/10/20 09:50 Polyethylene Glycol 3350 17 Gm Powder PO Not Given QDAY LOVE Sodium Chloride 10 ml 09/06/20 22:00 09/10/20 22:40 Sodium Chloride 0.9% 10 Ml Flush Syringe IV 10 ml BID LOVE Administration Sodium Chloride 10 ml 09/06/20 10:55 09/10/20 15:18 Sodium Chloride 0.9% 10 Ml Flush Syringe IV 10 ml PRN PRN Administration LINE FLUSH
[2020-09-11] MEDS: EPOETIN ALFA 20,000 UNIT/1 ML INJ IV PRN (11:14)
--- NOTE | 2020-09-11 11:21 | Progress Note ---
Assessment and Plan Improved Nonischemic cardiomyopathy -EF normal based on last echo 03/2020 Echo: LV ejection fraction of 50-55% [facility] 2015: normal coronaries, EF 35% Valvular disease with moderate mitral regurgitation and moderate tricuspid regurgitation Hx of SSS s/p pacemaker implant GI bleed s/p EGD with Epi injection and clip placement Severe Anemia and thrombocytopenia Volume overload Pulmonary Htn End-stage renal disease on dialysis Diabetes Hypertension Prior left BKA Conservative cardiac management. Subjective Date of service: 09/11/20 Principal diagnosis: GI Bleed Interval history: In dialysis. Patient is resting in bed comfortably. Stable sinus rhythm on telemetry. Objective Vital Signs Temp Pulse Resp BP Pulse Ox 09/11/20 11:00 73 144/70 09/11/20 10:45 73 119/61 09/11/20 10:30 73 121/62 09/11/20 10:15 73 119/60 09/11/20 10:00 80 122/65 09/11/20 09:45 73 131/62 09/11/20 09:30 73 129/67 09/11/20 09:15 73 137/67 09/11/20 09:00 77 150/69 09/11/20 08:45 97.7 F 77 16 150/69 09/11/20 07:39 98.2 F 74 18 133/56 99 09/11/20 04:59 98.0 F 75 20 139/59 100 09/11/20 03:55 97.8 F 80 18 135/58 100 09/11/20 03:25 97.4 F L 79 18 130/55 100 09/11/20 02:55 97.4 F L 77 18 128/53 100 09/11/20 02:25 97.3 F L 74 18 124/53 99 09/11/20 01:55 97.1 F L 74 18 125/52 99 09/11/20 01:40 96.8 F L 74 18 124/53 100 09/11/20 00:26 98.2 F 76 20 92/55 97 09/10/20 22:00 74 20 09/10/20 21:50 98 09/10/20 19:38 98.4 F 80 20 86/52 98 09/10/20 18:57 74 20 124/46 99 09/10/20 18:49 73 20 124/46 100 09/10/20 18:36 74 18 120/52 98 09/10/20 18:30 97.4 F L 74 18 120/52 99 09/10/20 18:00 97.4 F L 77 20 94/49 100 09/10/20 17:32 77 20 94/40 99 09/10/20 17:30 97.4 F L 77 20 94/40 98 09/10/20 17:17 77 100 09/10/20 17:00 98.1 F 77 18 137/56 94 09/10/20 16:33 80 90 09/10/20 16:30 98.4 F 75 18 129/51 97 09/10/20 16:17 79 18 97 09/10/20 16:03 77 18 129/50 97 09/10/20 16:00 98.2 F 77 18 129/50 94 09/10/20 15:47 97.9 F 81 18 120/55 99 09/10/20 15:33 81 18 109/19 97 09/10/20 12:40 80 20 107/21 100 09/10/20 12:20 73 20 106/27 100 09/10/20 11:25 98.7 F 81 19 109/21 100 - Physical Examination General: No Apparent Distress HEENT: Positive: PERRL Neck: Positive: trachea midline Cardiac: Positive: Reg Rate and Rhythm Lungs: Positive: Decreased Breath Sounds Neuro: Positive: Grossly Intact, Other (left BKA) Extremities: Absent: edema - Labs and Meds CBC 09/10/20 09/11/20 Range/Units 23:28 09:07 WBC 15.2 H (4.5-11.0) K/mm3 RBC 2.64 L (3.65-5.03) M/mm3 Hgb 7.3 L 8.6 L (11.8-15.2) gm/dl Hct 22.2 L 25.7 L (35.5-45.6) % Plt Count 85 L (140-440) K/mm3
[2020-09-11 12:39] VITALS: BP 150/68
[2020-09-11] MEDS: POLYETHYLENE GLYCOL 3350 17 GM POWDER PO SCH (13:00)
--- NOTE | 2020-09-11 14:22 | Discharge Summary ---
Providers - Providers Date of Admission: 09/06/20 10:30 Attending physician: ARIS RIVERA 09/06/20 10:22 Consult to Physician [CONS] Urgent Comment: Consulting Provider: DALIA BASILIO Physician Instructions: Reason For Exam: GI bleeding, hypotension, hemoglobin of 4 09/06/20 10:23 Consult to Physician [CONS] Urgent Comment: Consulting Provider: FELIX BRADFORD Physician Instructions: Reason For Exam: Dialysis patient with GI bleeding being transfused 09/06/20 10:55 Consult to Physician [CONS] Routine Comment: Consulting Provider: MARLEY PONCE Physician Instructions: Reason For Exam: acute chf 09/10/20 09:54 Consult to Wound/ET Nurse [CONS] Routine Reason For Exam: wound eval; heel wound 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 care 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 Hospitalization Condition: Stable Hospital course: This is a 64-year old man with CVA, RI (1999, 2014), SSS s/p PPM/AICD, CVA (2006), hypertension, hyperlipidemia, CHF, ESRD on HD, anemia of chronic diseas e, left BKA, and arthritis who presents to the emergency department on 09/06 for black tarry stool on 09/05 and coffee-ground emesis, syncopal episode resulting in ground-level fall and liquid dark stool x2 however he states that he has dark stools from his multivitamin and iron supplementation.Work-up in the emergency department reveals acute blood loss anemia superimposed on anemia of chronic disease with an H/H of 4.5/13.8, GI bleed, supratherapeutic INR, lactic acidosis, leukocytosis, thrombocytopenia, elevated proBNP and hypochloremia and hypocalcemia. GI was consulted in the ED, nephrology GI, nephrology and cardiology were consulted. Patient will be admitted to the hospital service with acute blood loss anemia, GI bleed and acute exacerbation of congestive heart failure/volume overload. During the course of his stay patient received 10 units PRBC for symptomatic anemia and his discharge H/H is 8.6/25.7. 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 Patient will need to maintain his outpatient hemodialysis schedule. Assessment and plan: Acute blood loss anemia, resolved -Presented with a H/H of 4.5/13.8 -S/p 10 units PRBC transfusion -Discharge H/H 8./.7 GI bleed, acute -Patient presented with coffee-ground emesis and dark tarry stool prior to admission -GI consulted, appreciate recommendations -S/p 80 mg Protonix IV x1 in the ED -09/09 EGD/colonoscopy showed an actively oozing AVM in gastric fundus, posterior aspect which was injected with 10 ml Epi then clipped -s/p 10 units PRBC -DC H/H 8./.7 -Advance diet as tolerated -Follow-up with GI within 1-2 as of discharge Supratherapeutic INR, acute -Presented with INR of 1.4 -Patient's home medications include aspirin -Discharge INR 1.2 Leukocytosis, acute -Presented with a WBC of 12.6 -09/06 BC x2 negative Thrombocytopenia, acute -Presented with a platelet of 134 -Discharge platelets 85 -Follow-up with PCP within 1 to 2 weeks of discharge CHF/volume overload, acute -Per cardiology: resolving nonischemic cardiomyopathy [place] [address] -09/06 CXR shows 2-lead pacemaker device, stable borderline heart size, no pleural effusion or pneumothorax (imaging not available) -07/2019 echocardiogram showed severe LVH, diffuse global hypokinesis of the left ventricle, estimated ejection fraction 45 to 50%, diastolic dysfunction, severe MR, TR, severe pulmonary hypertension and RSVP is calculated at 72 mmHg -09/06 [place] [id number] -Cardiology and nephrology consulted, appreciate recommendations -Per cardiology: 03/2020 Echo: LV ejection fraction of 50-55% , [facility] 2014: normal coronaries, EF 35%, Valvular disease with moderate mitral regurgitation and mode rate tricuspid regurgitation, Pulmonary Htn -Continue current cardiac medical management -Follow-up with cardiology within 1 to 2 weeks of discharge Pulmonary hypertension, chronic -09/2018 echocardiogram showed severe pulmonary hypertension -Per cardiology will need further pulmonary follow-up of his chronic pulmonary hypertension upon discharge Hypocalcemia, acute -Presented with a calcium of 7 -Electrolyte correction per renal team with HD Diabetes mellitus, chronic -Continue carb controlled cardiac renal diet -Resume home antidiabetic regimen -Follow-up with primary care physician within 1-2 as of discharge -Blood glucose monitoring per PCP instructions ESRD on HD, chronic -Per patient he believes his last HD session was 09/05 -Present to BUN/creatinine 7.3/88 -Nephrology consulted in the ED, appreciate recommendations -Renally dose medications -Avoid nephrotoxic medications -Strict intake and output -Daily weights -HD per nephrology Lactic acidosis, resolved -S/p 500 mL normal saline in the ED -09/06 lactic acid 8 -Trend lactic acid -Patient has a history of CHF and ESRD -09/06 LA 1.6 Hypochloremia, resolved -Presented with a chloride of 93.4 -09/08 chloride 99.8 Hyperkalemia, reolved -09/10 potassium 6.6 -S/p calcium gluconate, 5 units insulin and D50 on 09/09 -Trend Potassium -09/10 K 4.8 Disposition: DC/TX-06 HOME UNDER HOME [facility] Time spent for discharge: 35 Core Measure Documentation - Palliative Care Palliative Care/ Comfort Measures: Not Applicable - Core Measures Any of the following diagnoses?: history only Exam - Physical Exam Narrative exam: PE: HEENT: PERRL, EOM intact, hearing intact, supple neck Resp: CTA, RRR CV: S1 & S2, RRR, no murmur, rub, click appreciated, PPP GI: NTND, BS x4, soft : does not void per pt MS: MAEx4, equal strength, BKA Psych: Appropriate mood/affect, cooperative Neuro: No focal deficits, moves all extremities, follows commands, A, A, O x4 - Constitutional Vitals: Temp Pulse Resp BP Pulse Ox 98.0 F 76 16 150/68 99 09/11/20 12:37 09/11/20 12:37 09/11/20 12:37 09/11/20 12:37 09/11/20 07:39 Plan Activity: advance as tolerated Diet: low fat, low cholesterol, low salt, diabetic, renal Special Instructions: restrict fluid intake to, record daily weights, record daily BP diary, record blood sugar diary, physical therapy, occupational therapy, home health RN Additional Instructions: Plan to nearest emergency department or contact primary care physician if you experience worsening symptoms. Follow-up with your primary care physician, nephrology, cardiology, gastroenterology within 1 to 2 weeks of discharge. Follow up with: PRIMARY MD MAE [Primary Care Provider] - 3-5 Days MARLEY PONEC MD [Staff Physician] - 7 Days MEHUL LEIWS MD [Staff Physician] - 7 Days FELIX BRADFORD MD [Staff Physician] - 7 Days Prescriptions: AtorvaSTATin [Lipitor] 40 mg PO QHS #30
== END 2020-09-11 18:12 | disposition home health service (06) | DRG 377 ==
LOC: ED 07:11 → IMCU 10:30 → 4A 09-07 11:37
PROVIDERS: ADMIT Internal Medicine; ATTEND Internal Medicine
PROC: 30233N1 Transfusion of Nonautologous Red Blood Cells into Peripheral Vein, Percutaneous Approach (ICD-10-PCS; 2020-09-06)
PROC: 5A1D70Z Performance of Urinary Filtration, Intermittent, Less than 6 Hours Per Day (ICD-10-PCS; principal; 2020-09-07)
PROC: 5A1D70Z Performance of Urinary Filtration, Intermittent, Less than 6 Hours Per Day (ICD-10-PCS; 2020-09-09)
PROC: 0W3P8ZZ Control Bleeding in Gastrointestinal Tract, Via Natural or Artificial Opening Endoscopic (ICD-10-PCS; 2020-09-10)
PROC: 5A1D70Z Performance of Urinary Filtration, Intermittent, Less than 6 Hours Per Day (ICD-10-PCS; 2020-09-11)
DX: K31.811 Angiodysplasia of stomach and duodenum with bleeding (principal); N18.6 End stage renal disease; D62 Acute posthemorrhagic anemia; E87.2 Acidosis; I13.2 Hypertensive heart and chronic kidney disease with heart failure and with stage 5 chronic kidney disease, or end stage renal disease; I42.9 Cardiomyopathy, unspecified; I50.9 Heart failure, unspecified; Z20.822 Contact with and (suspected) exposure to COVID-19; D63.1 Anemia in chronic kidney disease; E87.8 Other disorders of electrolyte and fluid balance, not elsewhere classified; I27.20 Pulmonary hypertension, unspecified; I49.5 Sick sinus syndrome; E87.5 Hyperkalemia; E11.22 Type 2 diabetes mellitus with diabetic chronic kidney disease; D69.6 Thrombocytopenia, unspecified; Z79.4 Long term (current) use of insulin; Z79.899 Other long term (current) drug therapy; I25.2 Old myocardial infarction; Z99.2 Dependence on renal dialysis; Z86.73 Personal history of transient ischemic attack (TIA), and cerebral infarction without residual deficits; Z89.512 Acquired absence of left leg below knee; Z79.82 Long term (current) use of aspirin; Z95.810 Presence of automatic (implantable) cardiac defibrillator; Z82.49 Family history of ischemic heart disease and other diseases of the circulatory system
CPT/HCPCS: 36415; 36430; 71045; 80048; 80074; 80076; 82140; 82962; 83735; 83880; 84100; 85007; 85014; 85018; 85025; 85027; 85610; 85730; 86850; 86900; 86901; 86920; 87040; 93005; 94760; 96374; G0378; A9270-GY; C9113; J0171; J0610; J0885; J1815; J2405; J7030; J7040; J7050; P9016; U0003

== ENCOUNTER 2020-10-13 11:57 | Emergency (ER) | payer MEDICARE ==
--- NOTE | 2020-10-13 12:09 | Event Note ---
ED Screening Note Date of service: 10/13/20 Time: 12:07 ED Screening Note: 65-year-old male with a PICC line to the left anterior chest presents for PICC line getting clogged and needing to have it flushed. No other complaints This initial assessment/diagnostic orders/clinical plan/treatment(s) is/are subject to change based on patients health status, clinical progression and re- assessment by fellow clinical providers in the ED. Further treatment and workup at subsequent clinical providers discretion. Patient/guardian urged not to elope from the ED as their condition may be serious if not clinically assessed and managed. Initial orders includes: Page PICC line nurse
--- NOTE | 2020-10-13 12:16 | Emergency Department Report ---
Blank Doc - Documentation Documentation: 65-year-old male that presents with worsening right foot wound. Patient was s ent by PCP. 1- This initial assessment/diagnostic orders/clinical plan/ treatment(s) is/are subject to change based on pt's health status, clinical progression and re- assessment by fellow clinical providers in the ED. Further treatment and workup at subsequent clinical provers discretion. Patient/guardians urged not to elope from ED as their condition may be serious if not clinically assessed and managed. 2-labs 3-wound culture 4-x-ray
[2020-10-13 12:55] LABS: Basophils # (Auto) 0.1 K/mm3 (0.0-0.1); Basophils % (Auto) 0.8 % (0.0-1.8); Eosinophils # (Auto) 0.3 K/mm3 (0.0-0.4); Eosinophils % (Auto) 2.8 % (0.0-4.3); Hematocrit 37.9 % (35.5-45.6); Hemoglobin 12.2 gm/dl (11.8-15.2); Lymphocytes % (Auto) 9.2 % (13.4-35.0); Mean Corpuscular HGB Conc 32 % (32-34); Mean Corpuscular Volume 98 fl (84-94); Monocytes # (Auto) 1.1 K/mm3 (0.0-0.8); Monocytes % (Auto) 9.4 % (0.0-7.3); Platelet Count 247 K/mm3 (140-440); Red Blood Count 3.85 M/mm3 (3.65-5.03); Red Cell Distribution Width 17.3 % (13.2-15.2)
--- NOTE | 2020-10-13 13:04 | XRay Report ---
RIGHT FOOT 3 VIEWS INDICATION: right foot sore. COMPARISON: 09/03/2020 FINDINGS: No acute cortical destruction is seen. There is mild soft tissue swelling at the heel pad. No soft ti ssue gas. Advanced Monckeberg type vascular calcifications are again noted. Mild osteoarthrosis ventura es are noted. IMPRESSION: 1. Heel pad soft tissue swelling, no cortical destruction is seen to suggest acute osteomyelitis. Signer Name: Marshal Odell MD Signed: 10/13/2020 1:00 PM Workstation Name: [id number]
--- NOTE | 2020-10-13 13:42 | Emergency Department Report ---
ED Extremity Problem HPI - General Chief complaint: Extremity Injury, Lower Stated complaint: RT FOOT SOAR Time Seen by Provider: 10/13/20 12:04 Source: patient Mode of arrival: Ambulatory Limitations: No Limitations - History of Present Illness Initial comments: 65-year-old male with history of diabetes, ESRD, hypertension, CHF, CAD, presents to the ED for ulcer on right heel. Patient states he had an appointment with his PCP today. Patient reports that he was seen by the nurse practitioner and due to concern for an ulcer on the right heel was advised to come to the emergency room. Patient states it has been present for 1 week now. He reports some mild pain. Patient states he has been using wound cleanser, Betadine, and changing the bandages regularly. Patient also states he has a home health nurse that comes by weekly as well. Patient denies any fever, nausea, vomiting. MD Complaint: other -: week(s) (1) Location: right, lower extremity Severity scale (0 -10): 8 Quality: aching Consistency: intermittent Improves with: nothing Worsens with: nothing Associated Symptoms: denies: fever - Related Data Home Medications Medication Instructions Recorded Confirmed Last Taken Insulin Aspart (Nf) [NovoLOG 8 units SUB-Q TID 07/21/19 09/07/20 Unknown Flexpen] Insulin Degludec [Tresiba 40 unit SQ QDAY 07/21/19 09/07/20 Unknown Flextouch U-100] Isosorbide Dinitrate [Isordil] 20 mg PO TID 07/21/19 09/07/20 Unknown Metoprolol [Lopressor TAB] 100 mg PO QDAY 07/21/19 09/07/20 Unknown NIFEdipine [Nifedipine ER] 90 mg PO QDAY 07/21/19 09/07/20 Unknown Nitroglycerin [Nitrostat] 0.4 mg SL QDAY 07/21/19 09/07/20 Unknown hydrALAZINE [Apresoline TAB] 100 mg PO QDAY 07/21/19 09/07/20 Unknown Previous Rx's Medication Instructions Recorded Last Taken Type Aspirin [Aspirin BABY CHEW TAB] 81 mg PO QDAY #30 tab.chew 07/28/19 Unknown Rx Sodium Bicarbonate 650 mg PO TID #30 tablet 07/28/19 Unknown Rx metOLazone [Zaroxolyn] 5 mg PO QDAY #30 tablet 07/28/19 Unknown Rx polyethylene glycoL 3350 [Miralax 17 gm PO QDAY #10 powd.pack 07/28/19 Unknown Rx 3350] Acetaminophen [Acetaminophen TAB] 650 mg PO Q6H PRN tablet 09/11/20 Unknown Rx AtorvaSTATin [Lipitor] 40 mg PO QHS #30 09/11/20 Unknown Rx Docusate Sodium [Colace] 100 mg PO QDAY #30 capsule 09/11/20 Unknown Rx Epoetin Ebn 20,000 Unit [Procrit] 20,000 unit IV AUGIE PRN vial 09/11/20 Unknown Rx Ferrous Sulfate [Iron 325 MG] 325 mg PO DAILY #30 tablet 09/11/20 Unknown Rx Multivitamin 1 each PO DAILY #30 tablet 09/11/20 Unknown Rx Pantoprazole [Protonix] 40 mg PO QDAY #30 tablet 09/11/20 Unknown Rx Sulfamethoxazole/Trimethoprim 1 each PO BID 10 Days #20 tablet 10/13/20 Unknown Rx [Bactrim DS TAB] cephALEXin [Keflex] 500 mg PO Q12HR 10 Days #20 cap 10/13/20 Unknown Rx Allergies Allergy/AdvReac Type Severity Reaction Status Date / Time No Known Allergies Allergy Verified 07/21/19 08:02 ED Review of Systems ROS: Stated complaint: RT FOOT SOAR Other details as noted in HPI Comment: All other systems reviewed and negative Constitutional: denies: fever Skin: as per HPI ED Past Medical Hx - Past Medical History Previous Medical History?: Yes Hx Hypertension: Yes Hx CVA: Yes (mini stroke) Hx Heart Attack/AMI: Yes (1999) Hx Congestive Heart Failure: Yes Hx Diabetes: Yes Hx Arthritis: Yes Additional medical history: h/o staph infection 2009 - Surgical History Past Surgical History?: Yes Hx Pacemaker: Yes Hx Internal Defibrillator: Yes Additional Surgical History: L BKA, L arm fistula - Social History Smoking Status: Never Smoker Substance Use Type: None - Medications Home Medications: Home Medications Medication Instructions Recorded Confirmed Last Taken Type Insulin Aspart (Nf) [NovoLOG 8 units SUB-Q TID 07/21/19 09/07/20 Unknown History Flexpen] Insulin Degludec [Tresiba 40 unit SQ QDAY 07/21/19 09/07/20 Unknown History Flextouch U-100] Isosorbide Dinitrate [Isordil] 20 mg PO TID 07/21/19 09/07/20 Unknown History Metoprolol [Lopressor TAB] 100 mg PO QDAY 07/21/19 09/07/20 Unknown History NIFEdipine [Nifedipine ER] 90 mg PO QDAY 07/21/19 09/07/20 Unknown History Nitroglycerin [Nitrostat] 0.4 mg SL QDAY 07/21/19 09/07/20 Unknown History hydrALAZINE [Apresoline TAB] 100 mg PO QDAY 07/21/19 09/07/20 Unknown History Aspirin [Aspirin BABY CHEW TAB] 81 mg PO QDAY #30 tab.chew 07/28/19 09/07/20 Unknown Rx Sodium Bicarbonate 650 mg PO TID #30 tablet 07/28/19 09/07/20 Unknown Rx metOLazone [Zaroxolyn] 5 mg PO QDAY #30 tablet 07/28/19 09/07/20 Unknown Rx polyethylene glycoL 3350 [Miralax 17 gm PO QDAY #10 powd.pack 07/28/19 09/07/20 Unknown Rx 3350] Acetaminophen [Acetaminophen TAB] 650 mg PO Q6H PRN tablet 09/11/20 Unknown Rx AtorvaSTATin [Lipitor] 40 mg PO QHS #30 09/11/20 Unknown Rx Docusate Sodium [Colace] 100 mg PO QDAY #30 capsule 09/11/20 Unknown Rx Epoetin Ben 20,000 Unit [Procrit] 20,000 unit IV AUGIE PRN vial 09/11/20 Un known Rx Ferrous Sulfate [Iron 325 MG] 325 mg PO DAILY #30 tablet 09/11/20 Unknown Rx Multivitamin 1 each PO DAILY #30 tablet 09/11/20 Unknown Rx Pantoprazole [Protonix] 40 mg PO QDAY #30 tablet 09/11/20 Unknown Rx Sulfamethoxazole/Trimethoprim 1 each PO BID 10 Days #20 tablet 10/13/20 Unknown Rx [Bactrim DS TAB] cephALEXin [Keflex] 500 mg PO Q12HR 10 Days #20 cap 10/13/20 Unknown Rx ED Physical Exam - General Limitations: No Limitations General appearance: alert, in no apparent distress - Head Head exam: Present: atraumatic, normocephalic - Eye Eye exam: Present: normal appearance, EOMI - ENT ENT exam: Present: mucous membranes moist - Neck Neck exam: Present: normal inspection - Respiratory Respiratory exam: Present: normal lung sounds bilaterally. Absent: respiratory distress - Cardiovascular Cardiovascular Exam: Present: regular rate, normal rhythm - GI/Abdominal GI/Abdominal exam: Absent: distended - Extremities Exam Extremities exam: Present: other (left BKA present; quarter-sized wound present on lateral aspect of right heel; no purulent discharge or foul smell present) - Neurological Exam Neurological exam: Present: alert, oriented X3 - Psychiatric Psychiatric exam: Present: normal affect, normal mood - Skin Skin exam: Present: warm, dry ED Course Vital Signs 10/13/20 10/13/20 10/13/20 12:14 14:05 14:11 Temperature 98 F Pulse Rate 73 73 Respiratory 20 20 20 Rate Blood Pressure 118/54 124/50 [Right] O2 Sat by Pulse 96 96 100 Oximetry ED Medical Decision Making - Lab Data Result diagrams: 10/13/20 12:33 10/13/20 12:33 - Radiology Data Radiology results: report reviewed, image reviewed - Medical Decision Making 65-year-old male, history of diabetes, presents to ED with small ulcer to right lateral heel. Patient is afebrile, WBCs essentially normal. X-ray is negative for any bony involvement. Patient will be placed on antibiotics. Advised to continue wound care at home. Outpatient follow-up advised. Return precautions given. - Differential Diagnosis Infected ulcer, osteomyelitis Critical care attestation.: If time is entered above; I have spent that time in minutes in the direct care of this critically ill patient, excluding procedure time. ED Disposition Clinical Impression: Heel ulcer Disposition: - TO HOME OR SELFCARE Is pt being admited?: No Condition: Stable Instructions: Diabetes Mellitus and Foot Care Prescriptions: Sulfamethoxazole/Trimethoprim [Bactrim DS TAB] 1 each PO BID 10 Days #20 tablet cephALEXin [Keflex] 500 mg PO Q12HR 10 Days #20 cap Referrals: PRIMARY CARE, [Referring] - 3-5 Days Time of Disposition: 13:41
[2020-10-13 14:11] VITALS: BP 124/50
== END 2020-10-13 14:21 | disposition home or self-care (01) ==
LOC: ED 11:57
DX: L97.419 Non-pressure chronic ulcer of right heel and midfoot with unspecified severity (principal); I11.0 Hypertensive heart disease with heart failure; I50.9 Heart failure, unspecified; I25.2 Old myocardial infarction; E11.9 Type 2 diabetes mellitus without complications; M19.91 Primary osteoarthritis, unspecified site; Z98.890 Other specified postprocedural states; Z86.73 Personal history of transient ischemic attack (TIA), and cerebral infarction without residual deficits; Z79.4 Long term (current) use of insulin; Z79.899 Other long term (current) drug therapy
CPT/HCPCS: 36415; 80048; 85025

== ENCOUNTER 2021-05-13 04:57 | Emergency (ER) | payer MEDICARE ==
[2021-05-13 05:11] VITALS: BP 149/82
--- NOTE | 2021-05-13 05:13 | Emergency Department Report ---
ED N/V/D HPI - General Chief complaint: Nausea/Vomiting/Diarrhea Stated complaint: DIARRHEA Source: patient Mode of arrival: Wheelchair Limitations: No Limitations - History of Present Illness Initial comments: Patient presents with a 5-day history of diarrhea. He describes it as loose and watery stools. Again, this is been present for 5 days. It happens every time he eats or drinks anything. He has just been on antibiotics for a foot infection involving the right foot. He still has a wound VAC in place. Patient has had no sick contacts. Has not been out of the country. He has no cramps with this. There is no nausea or vomiting. He has not had bloody stools or melanotic stool. He was concerned because of the amount and frequency of diarrhea. - Related Data Home Medications Medication Instructions Recorded Confirmed Last Taken Insulin Aspart (Nf) [NovoLOG 8 units SUB-Q TID 07/21/19 09/07/20 Unknown Flexpen] Insulin Degludec [Tresiba 40 unit SQ QDAY 07/21/19 09/07/20 Unknown Flextouch U-100] Isosorbide Dinitrate [Isordil] 20 mg PO TID 07/21/19 09/07/20 Unknown Metoprolol [Lopressor TAB] 100 mg PO QDAY 07/21/19 09/07/20 Unknown NIFEdipine [Nifedipine ER] 90 mg PO QDAY 07/21/19 09/07/20 Unknown Nitroglycerin [Nitrostat] 0.4 mg SL QDAY 07/21/19 09/07/20 Unknown hydrALAZINE [Apresoline TAB] 100 mg PO QDAY 07/21/19 09/07/20 Unknown Previous Rx's Medication Instructions Recorded Last Taken Type Aspirin [Aspirin BABY CHEW TAB] 81 mg PO QDAY #30 tab.chew 07/28/19 Unknown Rx Sodium Bicarbonate 650 mg PO TID #30 tablet 07/28/19 Unknown Rx metOLazone [Zaroxolyn] 5 mg PO QDAY #30 tablet 07/28/19 Unknown Rx polyethylene glycoL 3350 [Miralax 17 gm PO QDAY #10 powd.pack 07/28/19 Unknown Rx 3350] Acetaminophen [Acetaminophen TAB] 650 mg PO Q6H PRN tablet 09/11/20 Unknown Rx AtorvaSTATin [Lipitor] 40 mg PO QHS #30 09/11/20 Unknown Rx Docusate Sodium [Colace] 100 mg PO QDAY #30 capsule 09/11/20 Unknown Rx Epoetin Ben 20,000 Unit [Procrit] 20,000 unit IV AUGIE PRN vial 09/11/20 Unknown Rx Ferrous Sulfate [Iron 325 MG] 325 mg PO DAILY #30 tablet 09/11/20 Unknown Rx Multivitamin 1 each PO DAILY #30 tablet 09/11/20 Unknown Rx Pantoprazole [Protonix] 40 mg PO QDAY #30 tablet 09/11/20 Unknown Rx Sulfamethoxazole/Trimethoprim 1 each PO BID 10 Days #20 tablet 10/13/20 Unknown Rx [Bactrim DS TAB] cephALEXin [Keflex] 500 mg PO Q12HR 10 Days #20 cap 10/13/20 Unknown Rx Allergies Allergy/AdvReac Type Severity Reaction Status Date / Time No Known Allergies Allergy Verified 05/13/21 05:06 ED Review of Systems ROS: Stated complaint: DIARRHEA Other details as noted in HPI Comment: All other systems reviewed and negative Constitutional: denies: fever Eyes: denies: vision change ENT: denies: throat pain Respiratory: denies: cough Cardiovascular: denies: chest pain Endocrine: denies: unexplained weight loss Gastrointestinal: as per HPI Musculoskeletal: denies: back pain Skin: denies: rash Neurological: denies: headache Hematological/Lymphatic: denies: easy bruising ED Past Medical Hx - Past Medical History Hx Hypertension: Yes Hx CVA: Yes (mini stroke) Hx Heart Attack/AMI: Yes (1999) Hx Congestive Heart Failure: Yes Hx Diabetes: Yes Hx Arthritis: Yes Additional medical history: h/o staph infection 2009 - Surgical History Hx Pacemaker: Yes Hx Internal Defibrillator: Yes Additional Surgical History: L BKA, L arm fistula - Family History Family history: hypertension - Social History Smoking Status: Never Smoker Substance Use Type: None - Medications Home Medications: Home Medications Medication Instructions Recorded Confirmed Last Taken Type Insulin Aspart (Nf) [NovoLOG 8 units SUB-Q TID 07/21/19 09/07/20 Unknown History Flexpen] Insulin Degludec [Tresiba 40 unit SQ QDAY 07/21/19 09/07/20 Unknown History Flextouch U-100] Isosorbide Dinitrate [Isordil] 20 mg PO TID 07/21/19 09/07/20 Unknown History Metoprolol [Lopressor TAB] 100 mg PO QDAY 07/21/19 09/07/20 Unknown History NIFEdipine [Nifedipine ER] 90 mg PO QDAY 07/21/19 09/07/20 Unknown History Nitroglycerin [Nitrostat] 0.4 mg SL QDAY 07/21/19 09/07/20 Unknown History hydrALAZINE [Apresoline TAB] 100 mg PO QDAY 07/21/19 09/07/20 Unknown History Aspirin [Aspirin BABY CHEW TAB] 81 mg PO QDAY #30 tab.chew 07/28/19 09/07/20 Unknown Rx Sodium Bicarbonate 650 mg PO TID #30 tablet 07/28/19 09/07/20 Unknown Rx metOLazone [Zaroxolyn] 5 mg PO QDAY #30 tablet 07/28/19 09/07/20 Unknown Rx polyethylene glycoL 3350 [Miralax 17 gm PO QDAY #10 powd.pack 07/28/19 09/07/20 Unknown Rx 3350] Acetaminophen [Acetaminophen TAB] 650 mg PO Q6H PRN tablet 09/11/20 Unknown Rx AtorvaSTATin [Lipitor] 40 mg PO QHS #30 09/11/20 Unknown Rx Docusate Sodium [Colace] 100 mg PO QDAY #30 capsule 09/11/20 Unknown Rx Epoetin Ben 20,000 Unit [Procrit] 20,000 unit IV AUGIE PRN vial 09/11/20 Unknown Rx Ferrous Sulfate [Iron 325 MG] 325 mg PO DAILY #30 tablet 09/11/20 Unknown Rx Multivitamin 1 each PO DAILY #30 tablet 09/11/20 Unknown Rx Pantoprazole [Protonix] 40 mg PO QDAY #30 tablet 09/11/20 Unknown Rx Sulfamethoxazole/Trimethoprim 1 each PO BID 10 Days #20 tablet 10/13/20 Unknown Rx [Bactrim DS TAB] cephALEXin [Keflex] 500 mg PO Q12HR 10 Days #20 cap 10/13/20 Unknown Rx ED Physical Exam - General Limitations: No Limitations, Other ( Pulse ox was noted and normal. Is not hypoxic.) General appearance: alert, in no apparent distress - Head Head exam: Present: atraumatic, normocephalic, normal inspection - Eye Eye exam: Present: normal appearance, EOMI - ENT ENT exam: Present: normal external ear exam - Neck Neck exam: Present: normal inspection - Respiratory Respiratory exam: Present: normal lung sounds bilaterally. Absent: respiratory distress - Cardiovascular Cardiovascular Exam: Present: regular rate, normal rhythm - GI/Abdominal GI/Abdominal exam: Present: soft. Absent: distended, tenderness - Extremities Exam Extremities exam: Present: normal capillary refill - Neurological Exam Neurological exam: Present: alert, oriented X3, CN II-XII intact - Psychiatric Psychiatric exam: Present: normal affect, normal mood - Skin Skin exam: Present: warm, dry ED Course Vital Signs 05/13/21 05:07 Temperature 98.4 F Pulse Rate 63 Respiratory 18 Rate Blood Pressure 149/82 [Left] O2 Sat by Pulse 95 Oximetry - Reevaluation(s) Reevaluation #1: 05/13/21 05:11 C. difficile was ordered. Patient was subsequently discharged. ED Medical Decision Making - Medical Decision Making Patient presents with diarrhea after being on antibiotics. Certainly, the concern for C. difficile. He does not have abdominal tenderness that would suggest bowel obstruction, tumor, mass, or peritonitis. He has no left lower quadrant tenderness to suggest diverticular disease. There is no nausea or vomiting that would have suggested any type of gastroenteritis or food poisoning. There is no pain in the abdomen suggestive of ischemic colitis. Critical Care Time: No Critical care attestation.: If time is entered above; I have spent that time in minutes in the direct care of this critically ill patient, excluding procedure time. ED Disposition Clinical Impression: Diarrhea Qualifiers: Diarrhea type: unspecified type Qualified Code(s): R19.7 - Diarrhea, unspecified Disposition: 01 HOME / SELF CARE / HOMELESS Is pt being admited?: No Does the pt Need Aspirin: No Condition: Stable Instructions: Diarrhea, Adult Additional Instructions: Drink plenty of water. Have a bland diet. Have a high-fiber diet. Eat yogurt. Return for problems. Follow-up with your regular doctor for test results. Take Imodium [id number]. Referrals: PRIMARY MD MAE [Referring] - 3-5 Days ANTHONY DELGADO MD [Staff Physician] - 3-5 Days
== END 2021-05-13 08:05 | disposition home or self-care (01) ==
LOC: ED 04:57
DX: R19.7 Diarrhea, unspecified (principal); Z86.79 Personal history of other diseases of the circulatory system; I25.2 Old myocardial infarction; I10 Essential (primary) hypertension; E11.8 Type 2 diabetes mellitus with unspecified complications
CPT/HCPCS: 99282

== ENCOUNTER 2021-06-13 10:03 | Outpatient (CLI) | payer MEDICARE ==
--- NOTE | 2021-06-13 13:04 | Nuclear Medicine Report ---
NUCLEAR MEDICINE PERFUSION LUNG SCAN INDICATION / CLINICAL INFORMATION: CHEST PAIN. TECHNIQUE: 5.1 mCi of Tc-99m MAA were given by IV. COMPARISON: Chest radiograph dated 06/13/2021. FINDINGS: PERFUSION: No significant perfusion defects. ADDITIONAL FINDINGS: None. IMPRESSION: 1. Low probability for pulmonary embolism. Signer Name: Toin Love MD Signed: 06/13/2021 12:12 PM Workstation Name: [id number]
--- NOTE | 2021-06-13 13:29 | XRay Report ---
CHEST 2 VIEWS INDICATION / CLINICAL INFORMATION: CARDIOMYOPATHY,UNSPECIFIED. COMPARISON: Chest x-ray 09/06/2020 FINDINGS: SUPPORT DEVICES: Left subclavian pacemaker, unchanged HEART / MEDIASTINUM: Stable cardiomegaly LUNGS / PLEURA: No significant pulmonary or pleural abnormality. No pneumothorax. ADDITIONAL FINDINGS: No significant additional findings. IMPRESSION: 1. Cardiomegaly without CHF Signer Name: Curt Aguiar MD Signed: 06/13/2021 1:25 PM Workstation Name: [id number]
== END 2021-06-13 10:04 | disposition home or self-care (01) ==
LOC: NM 10:03
PROVIDERS: ATTEND Specialist
DX: I51.7 Cardiomegaly (principal); I42.9 Cardiomyopathy, unspecified; R07.9 Chest pain, unspecified
CPT/HCPCS: 71046; 78580; A9540

== ENCOUNTER 2021-10-11 09:08 | Inpatient (IN) | payer MEDICARE ==
--- NOTE | 2021-10-11 09:34 | Emergency Department Report ---
ED GI Bleed HPI - General Chief complaint: GI Bleed Stated complaint: BLACK STOOL Time Seen by Provider: 10/11/21 09:22 Source: patient, family Mode of arrival: Wheelchair Limitations: Physical Limitation - History of Present Illness Initial comments: Patient presents from dialysis secondary to rectal bleeding. He was at dialysis. They could not finish his dialysis because he had copious diarrhea. He admits that he has had diarrhea for 4 days. It has been black in dark looking. He has had this before. While at dialysis today, he had black stools as well. They sent him here for GI bleed. Patient has had a GI bleed before. He had an AVM that required intervention several months ago at this facility. Patient states that he is on iron. He has been on iron for over a year. Regardless, he just started having diarrhea with black stools. He states that he does feel somewhat weak. He has no chest pain or shortness of breath currently. There has been no vomiting. He is not bleeding from other sites. He denies current abdominal pain. - Related Data Home Medications Medication Instructions Recorded Confirmed Last Taken Insulin Aspart (Nf) [NovoLOG 8 units SUB-Q TID 07/21/19 09/07/20 Unknown Flexpen] Insulin Degludec [Tresiba 40 unit SQ QDAY 07/21/19 09/07/20 Unknown Flextouch U-100] Isosorbide Dinitrate [Isordil] 20 mg PO TID 07/21/19 09/07/20 Unknown Metoprolol [Lopressor TAB] 100 mg PO QDAY 07/21/19 09/07/20 Unknown NIFEdipine [Nifedipine ER] 90 mg PO QDAY 07/21/19 09/07/20 Unknown Nitroglycerin [Nitrostat] 0.4 mg SL QDAY 07/21/19 09/07/20 Unknown hydrALAZINE [Apresoline TAB] 100 mg PO QDAY 07/21/19 09/07/20 Unknown Previous Rx's Medication Instructions Recorded Last Taken Type Aspirin [Aspirin BABY CHEW TAB] 81 mg PO QDAY #30 tab.chew 07/28/19 Unknown Rx Sodium Bicarbonate 650 mg PO TID #30 tablet 07/28/19 Unknown Rx metOLazone [Zaroxolyn] 5 mg PO QDAY #30 tablet 07/28/19 Unknown Rx polyethylene glycoL 3350 [Miralax 17 gm PO QDAY #10 powd.pack 07/28/19 Unknown Rx 3350] Acetaminophen [Acetaminophen TAB] 650 mg PO Q6H PRN tablet 09/11/20 Unknown Rx AtorvaSTATin [Lipitor] 40 mg PO QHS #30 09/11/20 Unknown Rx Docusate Sodium [Colace] 100 mg PO QDAY #30 capsule 09/11/20 Unknown Rx Epoetin Ben 20,000 Unit [Procrit] 20,000 unit IV AUGIE PRN vial 09/11/20 Unknown Rx Ferrous Sulfate [Iron 325 MG] 325 mg PO DAILY #30 tablet 09/11/20 Unknown Rx Multivitamin 1 each PO DAILY #30 tablet 09/11/20 Unknown Rx Pantoprazole [Protonix] 40 mg PO QDAY #30 tablet 09/11/20 Unknown Rx Sulfamethoxazole/Trimethoprim 1 each PO BID 10 Days #20 tablet 10/13/20 Unknown Rx [Bactrim DS TAB] cephALEXin [Keflex] 500 mg PO Q12HR 10 Days #20 cap 10/13/20 Unknown Rx Allergies Allergy/AdvReac Type Severity Reaction Status Date / Time No Known Allergies Allergy Verified 05/13/21 05:06 ED Review of Systems ROS: Stated complaint: BLACK STOOL Other details as noted in HPI Comment: All other systems reviewed and negative Constitutional: denies: fever Eyes: denies: vision change ENT: denies: throat pain Respiratory: denies: cough Cardiovascular: denies: chest pain Endocrine: denies: unexplained weight loss Gastrointestinal: as per HPI Musculoskeletal: denies: back pain Skin: denies: rash Neurological: denies: headache Hematological/Lymphatic: denies: easy bruising ED Past Medical Hx - Past Medical History Previous Medical History?: Yes Hx Hypertension: Yes Hx CVA: Yes (mini stroke) Hx Heart Attack/AMI: Yes (1999) Hx Congestive Heart Failure: Yes Hx Diabetes: Yes Hx Arthritis: Yes Additional medical history: h/o staph infection 2009 - Surgical History Past Surgical History?: Yes Hx Pacemaker: Yes Hx Internal Defibrillator: Yes Additional Surgical History: L BKA, L arm fistula - Social History Smoking Status: Former Smoker Substance Use Type: Alcohol, Prescribed - Medications Home Medications: Home Medications Medication Instructions Recorded Confirmed Last Taken Type Insulin Aspart (Nf) [NovoLOG 8 units SUB-Q TID 07/21/19 09/07/20 Unknown History Flexpen] Insulin Degludec [Tresiba 40 unit SQ QDAY 07/21/19 09/07/20 Unknown History Flextouch U-100] Isosorbide Dinitrate [Isordil] 20 mg PO TID 07/21/19 09/07/20 Unknown History Metoprolol [Lopressor TAB] 100 mg PO QDAY 07/21/19 09/07/20 Unknown History NIFEdipine [Nifedipine ER] 90 mg PO QDAY 07/21/19 09/07/20 Unknown History Nitroglycerin [Nitrostat] 0.4 mg SL QDAY 07/21/19 09/07/20 Unknown History hydrALAZINE [Apresoline TAB] 100 mg PO QDAY 07/21/19 09/07/20 Unknown History Aspirin [Aspirin BABY CHEW TAB] 81 mg PO QDAY #30 tab.chew 07/28/19 09/07/20 Unk nown Rx Sodium Bicarbonate 650 mg PO TID #30 tablet 07/28/19 09/07/20 Unknown Rx metOLazone [Zaroxolyn] 5 mg PO QDAY #30 tablet 07/28/19 09/07/20 Unknown Rx polyethylene glycoL 3350 [Miralax 17 gm PO QDAY #10 powd.pack 07/28/19 09/07/20 Unknown Rx 3350] Acetaminophen [Acetaminophen TAB] 650 mg PO Q6H PRN tablet 09/11/20 Unknown Rx AtorvaSTATin [Lipitor] 40 mg PO QHS #30 09/11/20 Unknown Rx Docusate Sodium [Colace] 100 mg PO QDAY #30 capsule 09/11/20 Unknown Rx Epoetin Ben 20,000 Unit [Procrit] 20,000 unit IV AUGIE PRN vial 09/11/20 Unknown Rx Ferrous Sulfate [Iron 325 MG] 325 mg PO DAILY #30 tablet 09/11/20 Unknown Rx Multivitamin 1 each PO DAILY #30 tablet 09/11/20 Unknown Rx Pantoprazole [Protonix] 40 mg PO QDAY #30 tablet 09/11/20 Unknown Rx Sulfamethoxazole/Trimethoprim 1 each PO BID 10 Days #20 tablet 10/13/20 Unknown Rx [Bactrim DS TAB] cephALEXin [Keflex] 500 mg PO Q12HR 10 Days #20 cap 10/13/20 Unknown Rx ED Physical Exam - General Limitations: Physical Limitation (Left leg amputation), Other (Pulse ox noted and normal) General appearance: alert, in no apparent distress - Head Head exam: Present: atraumatic, normocephalic - Eye Eye exam: Present: normal appearance, EOMI. Absent: scleral icterus - ENT ENT exam: Present: mucous membranes dry, normal external ear exam - Neck Neck exam: Present: normal inspection. Absent: meningismus - Respiratory Respiratory exam: Present: normal lung sounds bilaterally. Absent: respiratory distress - Cardiovascular Cardiovascular Exam: Present: regular rate, normal rhythm - GI/Abdominal GI/Abdominal exam: Present: soft. Absent: distended, tenderness - Rectal Rectal exam: Present: normal rectal tone, black stool, other (Hemoccult positive. Controls were checked.). Absent: tenderness - Extremities Exam Extremities exam: Present: normal capillary refill - Back Exam Back exam: Absent: CVA tenderness (R), CVA tenderness (L) - Neurological Exam Neurological exam: Present: alert, oriented X3, CN II-XII intact - Psychiatric Psychiatric exam: Present: normal affect, normal mood - Skin Skin exam: Present: warm, dry ED Course Vital Signs 10/11/21 09:13 Temperature 97.5 F L Pulse Rate 64 Respiratory 20 Rate Blood Pressure 167/58 O2 Sat by Pulse 97 Oximetry - Reevaluation(s) Reevaluation #1: 10/11/21 09:33 Labs were ordered. Old records noted. Reevaluation #2: 10/11/21 10:23 Hemoccult was positive. Controls were checked. Reevaluation #3: 10/11/21 11:38 Labs are noted. Patient will be admitted. ED Medical Decision Making - Lab Data Result diagrams: 10/11/21 09:52 10/11/21 09:52 Rhythm strip: Normal sinus rhythm without ectopy per monitor observe 10 seconds. - Medical Decision Making Patient presents with diarrhea and black stools. He was found to have heme positive stools at this time consistent with melena. Patient will be admitted for ongoing symptoms. He does have a prior history of GI bleed secondary to AVM. He has been started on medication. Hospitalist and GI have both been paged. He is not hypotensive. He is not anemic to the point of requiring transfusion. The hypoglycemia has been verified and addressed. He was asymptomatic. Critical Care Time: Yes (40 minutes exclusive of all procedures) Critical care attestation.: If time is entered above; I have spent that time in minutes in the direct care of this critically ill patient, excluding procedure time. ED Disposition Clinical Impression: ESRD on dialysis, UGI bleed, Hypoglycemia Diarrhea Qualifiers: Diarrhea type: unspecified type Qualified Code(s): R19.7 - Diarrhea, unspecified Disposition: 09 ADMITTED INPATIENT Is pt being admited?: Yes Condition: Stable Forms: Accompanied Note
[2021-10-11] MEDS ORDERED: PANTOPRAZOLE 40 MG INJ IV ONE (10:22)
[2021-10-11 10:51] LABS: INR 1.29 (0.87-1.13)
[2021-10-11 10:53] LABS: Partial Thromboplastin Time 29.7 Sec. (24.2-36.6)
[2021-10-11] MEDS ORDERED: PANTOPRAZOLE 80 MG in SODIUM CHLORIDE 0.9% 100 ML IV SCH (11:00)
[2021-10-11 11:02] LABS: Calcium 8.2 mg/dL (8.4-10.2)
[2021-10-11] MEDS ORDERED: DEXTROSE 50% IN WATER (25GM) 50 ML SYRINGE IV ONE (11:08)
[2021-10-11 11:24] LABS: Basophils # (Auto) 0.1 K/mm3 (0.0-0.1); Basophils % (Auto) 0.8 % (0.0-1.8); Eosinophils % (Auto) 0.3 % (0.0-4.3); Hematocrit 32.4 % (35.5-45.6); Hemoglobin 10.3 gm/dl (11.8-15.2); Lymphocytes # (Auto) 1.2 K/mm3 (1.2-5.4); Lymphocytes % (Auto) 13.7 % (13.4-35.0); Mean Corpuscular HGB Conc 32 % (32-34); Mean Corpuscular Volume 105 fl (84-94); Monocytes # (Auto) 0.8 K/mm3 (0.0-0.8); Monocytes % (Auto) 8.8 % (0.0-7.3); Platelet Count 192 K/mm3 (140-440); Red Blood Count 3.07 M/mm3 (3.65-5.03); Red Cell Distribution Width 17.3 % (13.2-15.2)
[2021-10-11] MEDS ORDERED: GLUCAGON (HUMAN RECOMBINANT) 1 MG/ML INJ IV ONE ×2 (11:44→13:00)
[2021-10-11] MEDS ORDERED: DEXTROSE 10% *Hypoglycemia IV PRN (12:00)
--- NOTE | 2021-10-11 12:12 | History and Physical Report ---
History of Present Illness Date of examination: 10/11/21 Date of admission: 10/11/21 Chief complaint: Black stools since 4 days History of present illness: 66-year-old -[place] male with multiple medical problems including end- stage renal disease, anemia, hypertension, CAD, insulin-dependent diabetes and s/p left BKA with a prosthesis sent from dialysis center for black stools. Patient was undergoing hemodialysis while he had copious loose watery bowel mo vements which are black in color. Patient states he has been having intermittent black stools for the last 4 days. No abdominal pain. Patient is also on iron pills for the last 1 year. Patient had a AVM in the upper GI tract which required intervention several months ago. Patient also feels weak and lightheaded. No chest pain. No shortness of breath. No hematemesis. No abdominal pain. - Past Medical History --Previous Medical History?: Yes --Hypertension: Yes --CVA: Yes (mini stroke) --Heart Attack/AMI: Yes (1999) --Congestive Heart Failure: Yes --Diabetes: Yes --Arthritis: Yes --Additional medical history: h/o staph infection 2009 - Surgical History --Past Surgical History?: Yes --Pacemaker: Yes --Internal Defibrillator: Yes -- L BKA, L arm fistula - Social History --Smoking Status: Former Smoker --Substance Use Type: Alcohol, Prescribed -Family history --Htn Review of Systems ROS: Stated complaint: BLACK STOOL Other details as noted in HPI Comment: All other systems reviewed and negative Constitutional: denies: fever Eyes: denies: vision change ENT: denies: throat pain Respiratory: denies: cough Cardiovascular: denies: chest pain Endocrine: denies: unexplained weight loss Gastrointestinal: as per HPI Musculoskeletal: denies: back pain Skin: denies: rash Neurological: denies: headache Hematological/Lymphatic: denies: easy bruising Medications and Allergies Allergies Allergy/AdvReac Type Severity Reaction Status Date / Time No Known Allergies Allergy Verified 05/13/21 05:06 Home Medications Medication Instructions Recorded Confirmed Last Taken Type Insulin Aspart (Nf) [NovoLOG 8 units SUB-Q TID 07/21/19 09/07/20 Unknown History Flexpen] Insulin Degludec [Tresiba 40 unit SQ QDAY 07/21/19 09/07/20 Unknown History Flextouch U-100] Isosorbide Dinitrate [Isordil] 20 mg PO TID 07/21/19 09/07/20 Unknown History Metoprolol [Lopressor TAB] 100 mg PO QDAY 07/21/19 09/07/20 Unknown History NIFEdipine [Nifedipine ER] 90 mg PO QDAY 07/21/19 09/07/20 Unknown History Nitroglycerin [Nitrostat] 0.4 mg SL QDAY 07/21/19 09/07/20 Unknown History hydrALAZINE [Apresoline TAB] 100 mg PO QDAY 07/21/19 09/07/20 Unknown History Aspirin [Aspirin BABY CHEW TAB] 81 mg PO QDAY #30 tab.chew 07/28/19 09/07/20 Unknown Rx Sodium Bicarbonate 650 mg PO TID #30 tablet 07/28/19 09/07/20 Unknown Rx metOLazone [Zaroxolyn] 5 mg PO QDAY #30 tablet 07/28/19 09/07/20 Unknown Rx polyethylene glycoL 3350 [Miralax 17 gm PO QDAY #10 powd.pack 07/28/19 09/07/20 Unknown Rx 3350] Acetaminophen [Acetaminophen TAB] 650 mg PO Q6H PRN tablet 09/11/20 Unknown Rx AtorvaSTATin [Lipitor] 40 mg PO QHS #30 09/11/20 Unknown Rx Docusate Sodium [Colace] 100 mg PO QDAY #30 capsule 09/11/20 Unknown Rx Epoetin Ben 20,000 Unit [Procrit] 20,000 unit IV AUGIE PRN vial 09/11/20 Unknown Rx Ferrous Sulfate [Iron 325 MG] 325 mg PO DAILY #30 tablet 09/11/20 Unknown Rx Multivitamin 1 each PO DAILY #30 tablet 09/11/20 Unknown Rx Pantoprazole [Protonix] 40 mg PO QDAY #30 tablet 09/11/20 Unknown Rx Sulfamethoxazole/Trimethoprim 1 each PO BID 10 Days #20 tablet 10/13/20 Unknown Rx [Bactrim DS TAB] cephALEXin [Keflex] 500 mg PO Q12HR 10 Days #20 cap 10/13/20 Unknown Rx Active Meds: Active Medications Dextrose (Dextrose 10% *Hypoglycemia) 0 ml IV PRN PRN PRN Reason: Hypoglycemia Last Admin: 10/11/21 11:39 Dose: 125 ml Pantoprazole Sodium 80 mg/ (Sodium Chloride) 100 mls @ 10 mls/hr IV DIRECT LOVE Last Admin: 10/11/21 10:55 Dose: 8 mg/hr, 10 mls/hr Exam - Constitutional Vitals: Temp Pulse Resp BP Pulse Ox 97.5 F L 99 H 22 129/61 96 10/11/21 09:13 10/11/21 12:01 10/11/21 12:01 10/11/21 12:01 10/11/21 12:01 General appearance: Present: no acute distress, well-nourished - EENT Eyes: Present: PERRL ENT: hearing intact, clear oral mucosa - Neck Neck: Present: supple, normal ROM - Respiratory Respiratory effort: normal Respiratory: bilateral: CTA - Cardiovascular Heart rate: 88 Rhythm: regular Heart Sounds: Present: S1 & S2. Absent: rub, click - Extremities Extremities: pulses symmetrical, No edema, abnormal (Left BKA with prosthesis) Peripheral Pulses: within normal limits - Abdominal General gastrointestinal: Present: soft, non-tender, non-distended, normal bowel sounds Male genitourinary: Present: normal - Rectal Rectal Exam: stool dark (Occult blood positive) - Integumentary Integumentary: Present: clear, warm, dry - Musculoskeletal Musculoskeletal: gait normal, strength equal bilaterally - Psychiatric Psychiatric: appropriate mood/affect, intact judgment & insight - Neurologic Neurologic: CNII-XII intact, moves all extremities HEART Score - HEART Score History: Slightly suspicious Age: > 65 Risk factors: > 3 risk factors or hx of atherosclerotic disease Troponin: < normal limit - Critical Actions Critical Actions: 0-3 pts:0.9-1.7%risk of adverse cardiac event.Candidate for discharge Results - Labs CBC & Chem 7: 10/11/21 09:52 10/12/21 04:58 Labs: Laboratory Last Values WBC 8.9 K/mm3 (4.5-11.0) 10/11/21 09:52 RBC 3.07 M/mm3 (3.65-5.03) L 10/11/21 09:52 Hgb 10.3 gm/dl (11.8-15.2) L 10/11/21 09:52 Hct 32.4 % (35.5-45.6) L 10/11/21 09:52 MCV 105 fl (84-94) H 10/11/21 09:52 MCH 34 pg (28-32) H 10/11/21 09:52 MCHC 32 % (32-34) 10/11/21 09:52 RDW 17.3 % (13.2-15.2) H 10/11/21 09:52 Plt Count 192 K/mm3 (140-440) 10/11/21 09:52 Lymph % (Auto) 13.7 % (13.4-35.0) 10/11/21 09:52 Holt % (Auto) 8.8 % (0.0-7.3) H 10/11/21 09:52 Eos % (Auto) 0.3 % (0.0-4.3) 10/11/21 09:52 Baso % (Auto) 0.8 % (0.0-1.8) 10/11/21 09:52 Lymph # (Auto) 1.2 K/mm3 (1.2-5.4) 10/11/21 09:52 Holt # (Auto) 0.8 K/mm3 (0.0-0.8) 10/11/21 09:52 Eos # (Auto) 0.0 K/mm3 (0.0-0.4) 10/11/21 09:52 Baso # (Auto) 0.1 K/mm3 (0.0-0.1) 10/11/21 09:52 Seg Neutrophils % 76.4 % (40.0-70.0) H 10/11/21 09:52 Seg Neutrophils # 6.8 K/mm3 (1.8-7.7) 10/11/21 09:52 PT 17.6 Sec. (12.2-14.9) H 10/11/21 09:52 INR 1.29 (0.87-1.13) H 10/11/21 09:52 APTT 29.7 Sec. (24.2-36.6) 10/11/21 09:52 Sodium 144 mmol/L (137-145) 10/11/21 09:52 Potassium 5.3 mmol/L (3.6-5.0) H 10/11/21 09:52 Chloride 94.2 mmol/L (98-107) L 10/11/21 09:52 Carbon Dioxide 23 mmol/L (22-30) 10/11/21 09:52 Anion Gap 32 mmol/L 10/11/21 09:52 BUN 97 mg/dL (9-20) H 10/11/21 09:52 Creatinine 6.8 mg/dL (0.8-1.3) H 10/11/21 09:52 Estimated GFR 10 ml/min 10/11/21 09:52 BUN/Creatinine Ratio 14 % 10/11/21 09:52 Glucose 39 mg/dL (75-100) L* 10/11/21 09:52 POC Glucose 112 mg/dL (70-105) H 10/11/21 12:02 Calcium 8.2 mg/dL (8.4-10.2) L 10/11/21 09:52 Blood Type B POSITIVE 10/11/21 11:31 Antibody Screen Negative 10/11/21 11:31 Short CBC 10/11/21 Range/Units 09:52 WBC 8.9 (4.5-11.0) K/mm3 Hgb 10.3 L (11.8-15.2) gm/dl Hct 32.4 L (35.5-45.6) % Plt Count 192 (140-440) K/mm3 [facility] 10/11/21 09:52 Sodium 144 Potassium 5.3 H Chloride 94.2 L Carbon Dioxide 23 BUN 97 H Creatinine 6.8 H Glucose 39 L* Calcium 8.2 L Short CBC 10/11/21 Range/Units 09:52 WBC 8.9 (4.5-11.0) K/mm3 Hgb 10.3 L (11.8-15.2) gm/dl Hct 32.4 L (35.5-45.6) % Plt Count 192 (140-440) K/mm3 [facility] 10/11/21 10/12/21 09:52 04:58 Sodium 144 141 Potassium 5.3 H 5.4 H Chloride 94.2 L 95.9 L Carbon Dioxide 23 22 BUN 97 H 106 H Creatinine 6.8 H 8.1 H Glucose 39 L* 207 H Calcium 8.2 L 7.5 L Assessment and Plan Advance Directives: Yes VTE prophylaxis?: Mechanical Contraindication Mechanical VTE Prophylaxis: Contraindicated Plan of care discussed with patient/family: Yes - Patient Problems (1) Upper GI bleeding Current Visit: Yes Status: Acute Plan to address problem: Patient initiated on IV Protonix drip GI consult requested Patient had upper GI AVMs in the past and intervention was done at this facility Patient on Protonix orally (2) Hypoglycemia Current Visit: Yes Status: Acute Plan to address problem: Patient given D50 W and IV glucagon Monitor glucose levels closely (3) Diarrhea Current Visit: Yes Status: Acute Qualifiers: Diarrhea type: unspecified type Qualified Code(s): R19.7 - Diarrhea, unspecified Plan to address problem: Check stools for C. difficile, white blood cells etc. (4) ESRD on dialysis Current Visit: Yes Status: Chronic Plan to address problem: Continue hemodialysis as per schedule. (5) Hypertension Current Visit: Yes Status: Chronic Qualifiers: Hypertension type: primary hypertension Qualified Code(s): I10 - Essential (primary) hypertension Plan to address problem: Antihypertensives on hold Catapres patch if necessary (6) Hyperkalemia Current Visit: No Status: Acute Plan to address problem: Mild Should correct with hemodialysis (7) GERD (gastroesophageal reflux disease) Current Visit: Yes Status: Chronic Qualifiers: Esophagitis presence: with esophagitis Plan to address problem: Patient on oral Protonix IV Protonix for now (8) Coronary artery disease Current Visit: Yes Status: Chronic Qualifiers: Coronary Disease-Associated Artery/Lesion type: [place] artery [place] vs. transplanted heart: [place] heart Associated angina: without angina Qualified Code(s): I25.10 - Atherosclerotic heart disease of [place] coronary artery without angina pectoris Plan to address problem: Continue isosorbide mononitrate and hold aspirin (9) IDDM (insulin dependent diabetes mellitus) Current Visit: Yes Status: Chronic Plan to address problem: On coverage for now Check hemoglobin A1c (10) Anemia Current Visit: Yes Status: Chronic Qualifiers: Anemia type: due to chronic kidney disease Plan to address problem: Patient on Epogen Hemoglobin is around 10 No need for blood transfusion at this point (11) DVT prophylaxis Current Visit: Yes Status: Acute Plan to address problem: On SCDs and GI prophylaxis (12) Advance care planning Current Visit: Yes Status: Acute Plan to address problem: Disease education conducted care plan discussed with the patient and diagnosis was discussed. Prognosis discussed. Patient is full code. Patient acknowledges understanding and agreement with care plan. +30 minutes.
[2021-10-11] MEDS ORDERED: METOCLOPRAMIDE 10 MG/2 ML INJ IV PRN ×2 (12:16→13:00)
[2021-10-11] MEDS: D5W/0.9% NACL 1,000 ML IV SCH ×2 (12:48→21:36)
[2021-10-11] MEDS ORDERED: MORPHINE 2 MG/1 ML INJ IV PRN (13:00)
[2021-10-11] MEDS ORDERED: ONDANSETRON 4 MG/2 ML INJ IV PRN (13:00)
--- NOTE | 2021-10-11 16:32 | Gastroenterology Consultation ---
History of Present Illness - Reason for Consult Consult date: 10/11/21 ABLA Requesting physician: ARLET AGOSTO - History of Present Illness The patient is a 66 yo male sent from HD today for dark stools, which have been present for a few days. He had no N/V/abdominal pain/low BP. He has felt weakness but no fevers or chills. He is on oral iron. In 2020 he had an AVM treated with cautery, and in 2017 he had multiple large colon polyps removed that showed high grade dysplasia (no surveillance per patient). He denies NSAIDs or blood thinners for his heart, but presumably receives heparin at HD. He has a long hx of anemia with ESRD, but has not been transfused in over a year per his report. He was on PPI and ASA therapy in the past, but denies that currently. Past History Past Medical History: atrial fib, diabetes, ESRD, heart failure, hypertension, hyperlipidemia, other (GI Bleed (AVM, colon polyps)) Past Surgical History: Other (Pacemaker) Social history: denies: alcohol abuse, prescription drug abuse Family history: no significant family history Medications and Allergies Allergies Allergy/AdvReac Type Severity Reaction Status Date / Time No Known Allergies Allergy Verified 05/13/21 05:06 Home Medications Medication Instructions Recorded Confirmed Last Taken Type Insulin Aspart (Nf) [NovoLOG 8 units SUB-Q TID 07/21/19 09/07/20 Unknown History Flexpen] Insulin Degludec [Tresiba 40 unit SQ QDAY 07/21/19 09/07/20 Unknown History Flextouch U-100] Isosorbide Dinitrate [Isordil] 20 mg PO TID 07/21/19 09/07/20 Unknown History Metoprolol [Lopressor TAB] 100 mg PO QDAY 07/21/19 09/07/20 Unknown History NIFEdipine [Nifedipine ER] 90 mg PO QDAY 07/21/19 09/07/20 Unknown History Nitroglycerin [Nitrostat] 0.4 mg SL QDAY 07/21/19 09/07/20 Unknown History hydrALAZINE [Apresoline TAB] 100 mg PO QDAY 07/21/19 09/07/20 Unknown History Aspirin [Aspirin BABY CHEW TAB] 81 mg PO QDAY #30 tab.chew 07/28/19 09/07/20 Unknown Rx Sodium Bicarbonate 650 mg PO TID #30 tablet 07/28/19 09/07/20 Unknown Rx metOLazone [Zaroxolyn] 5 mg PO QDAY #30 tablet 07/28/19 09/07/20 Unknown Rx polyethylene glycoL 3350 [Miralax 17 gm PO QDAY #10 powd.pack 07/28/19 09/07/20 Unknown Rx 3350] Acetaminophen [Acetaminophen TAB] 650 mg PO Q6H PRN tablet 09/11/20 Unknown Rx AtorvaSTATin [Lipitor] 40 mg PO QHS #30 09/11/20 Unknown Rx Docusate Sodium [Colace] 100 mg PO QDAY #30 capsule 09/11/20 Unknown Rx Epoetin Ben 20,000 Unit [Procrit] 20,000 unit IV AUGIE PRN vial 09/11/20 Unknown Rx Ferrous Sulfate [Iron 325 MG] 325 mg PO DAILY #30 tablet 09/11/20 Unknown Rx Multivitamin 1 each PO DAILY #30 tablet 09/11/20 Unknown Rx Pantoprazole [Protonix] 40 mg PO QDAY #30 tablet 09/11/20 Unknown Rx Sulfamethoxazole/Trimethoprim 1 each PO BID 10 Days #20 tablet 10/13/20 Unknown Rx [Bactrim DS TAB] cephALEXin [Keflex] 500 mg PO Q12HR 10 Days #20 cap 10/13/20 Unknown Rx Active Meds: Active Medications Acetaminophen (Acetaminophen 325 Mg Tab) 650 mg PO Q4H PRN PRN Reason: Pain MILD(1-3)/Fever >100.5/MATHEW Dextrose (Dextrose 10% *Hypoglycemia) 0 ml IV PRN PRN PRN Reason: Hypoglycemia Last Admin: 10/11/21 11:39 Dose: 125 ml Hydromorphone HCl (Hydromorphone 1 Mg/1 Ml Inj) 0.5 mg IV Q3H PRN PRN Reason: Pain , Severe (7-10) Pantoprazole Sodium 80 mg/ (Sodium Chloride) 100 mls @ 10 mls/hr IV DIRECT LOVE Last Admin: 10/11/21 10:55 Dose: 8 mg/hr, 10 mls/hr Dextrose/Sodium Chloride (D5ns) 1,000 mls @ 42 mls/hr IV DIRECT LOVE Stop: 10/12/21 09:00 Last Admin: 10/11/21 12:48 Dose: 42 mls/hr Metoclopramide HCl (Metoclopramide 10 Mg/2 Ml Inj) 5 mg IV Q6H PRN PRN Reason: Nausea And Vomiting Morphine Sulfate (Morphine 2 Mg/1 Ml Inj) 2 mg IV Q4H PRN PRN Reason: Pain, Moderate (4-6) Ondansetron HCl (Ondansetron 4 Mg/2 Ml Inj) 4 mg IV Q3H PRN PRN Reason: Nausea And Vomiting Sodium Chloride (Sodium Chloride 0.9% 10 Ml Flush Syringe) 10 ml IV BID LOVE Sodium Chloride (Sodium Chloride 0.9% 10 Ml Flush Syringe) 10 ml IV PRN PRN PRN Reason: LINE FLUSH I HAVE REVIEWED/RECONCILED MEDICATIONS Review of Systems - Review of Systems All systems: negative (as noted in the HPI.) Exam - Constitutional Vital Signs: Temp Pulse Resp BP Pulse Ox 97.5 F L 99 H 20 129/61 98 10/11/21 09:13 10/11/21 12:01 10/11/21 13:04 10/11/21 12:01 10/11/21 13:04 General appearance: no acute distress - EENT Eyes: PERRL, EOM intact ENT: hearing intact, clear oral mucosa, no thrush - Neck Neck: supple, normal ROM - Respiratory Respiratory effort: normal Respiratory: bilateral: CTA - Cardiovascular Rhythm: regularly irregular Heart Sounds: Present: S1 & S2 Extremities: no ischemia, No edema Extremity abnormal: other (ESRD access present in UE) - Gastrointestinal General gastrointestinal: Present: soft, non-tender, non-distended - Integumentary Integumentary: Present: clear, warm, dry - Neurologic Neurological: alert and oriented x3 - Labs CBC & Chem 7: 10/11/21 09:52 10/11/21 09:52 Lab Results: Laboratory Results - last 24 hr 10/11/21 10/11/21 10/11/21 09:52 09:52 09:52 WBC 8.9 RBC 3.07 L Hgb 10.3 L Hct 32.4 L MCV 105 H MCH 34 H MCHC 32 RDW 17.3 H Plt Count 192 Lymph % (Auto) 13.7 Snyder % (Auto) 8.8 H Eos % (Auto) 0.3 Baso % (Auto) 0.8 Lymph # (Auto) 1.2 Snyder # (Auto) 0.8 Eos # (Auto) 0.0 Baso # (Auto) 0.1 Seg Neutrophils % 76.4 H Seg Neutrophils # 6.8 PT 17.6 H INR 1.29 H APTT 29.7 Sodium 144 Potassium 5.3 H Chloride 94.2 L Carbon Dioxide 23 Anion Gap 32 BUN 97 H Creatinine 6.8 H Estimated GFR 10 BUN/Creatinine Ratio 14 Glucose 39 L* POC Glucose Calcium 8.2 L Blood Type Antibody Screen 10/11/21 10/11/21 10/11/21 11:08 11:31 12:02 WBC RBC Hgb Hct MCV MCH MCHC RDW Plt Count Lymph % (Auto) Snyder % (Auto) Eos % (Auto) Baso % (Auto) Lymph # (Auto) Snyder # (Auto) Eos # (Auto) Baso # (Auto) Seg Neutrophils % Seg Neutrophils # PT INR APTT Sodium Potassium Chloride Carbon Dioxide Anion Gap BUN Creatinine Estimated GFR BUN/Creatinine Ratio Glucose POC Glucose 32 L 112 H Calcium Blood Type B POSITIVE Antibody Screen Negative 10/11/21 10/11/21 13:13 16:19 WBC RBC Hgb Hct MCV MCH MCHC RDW Plt Count Lymph % (Auto) Snyder % (Auto) Eos % (Auto) Baso % (Auto) Lymph # (Auto) Snyder # (Auto) Eos # (Auto) Baso # (Auto) Seg Neutrophils % Seg Neutrophils # PT INR APTT Sodium Potassium Chloride Carbon Dioxide Anion Gap BUN Creatinine Estimated GFR BUN/Creatinine Ratio Glucose POC Glucose 136 H 92 Calcium Blood Type Antibody Screen Assessment and Plan - Patient Problems (1) Acute blood loss anemia (ABLA) Current Visit: Yes Status: Acute Plan to address problem: - Given the history of multiple large polyps that contained high grade dysplasi a, and AVM in the stomach, we will repeat the EGD and colonoscopy after preparation. - Since he has CHF/AF/pacemaker, will ask Cardiology for a Risk Assessment. - Continue protonix for now; may have regular diet today, switching to clears in AM for bowel prep. - Will plan HD Wednesday PM after procedure.
[2021-10-11] MEDS: HYDROmorphone 1 MG/1 ML INJ IV PRN (21:35)
[2021-10-12 06:10] LABS: Calcium 7.5 mg/dL (8.4-10.2)
[2021-10-12] MEDS ORDERED: CALCIUM GLUCONATE 2,000 MG in SODIUM CHLORIDE 0.9% 100 ML IV ONE (06:49)
[2021-10-12] MEDS: INSULIN LISPRO 100 UNIT/ML SUB-Q SCH ×3 (08:29→17:14)
[2021-10-12] MEDS ORDERED: CALC GLUCONATE 1GM/NS 100 ML 1 GM/100 ML BAG IV SCH (08:30)
[2021-10-12] MEDS: IPRATROPIUM/ALBUTEROL SULFATE 3 ML AMPUL.NEB IH SCH ×3 (08:33→20:40)
--- NOTE | 2021-10-12 08:37 | XRay Report ---
CHEST 1 VIEW 10/12/2021 8:12 AM INDICATION / CLINICAL INFORMATION: Shortness of breath. COMPARISON: 2 views of the chest from 06/13/2021. FINDINGS: SUPPORT DEVICES: Unchanged left pacemaker. HEART / MEDIASTINUM: Similar cardiomegaly without other significant abnormalities. LUNGS / PLEURA: There are bilateral interstitial opacities as well as a probable small right pleural effusion. No pneumothorax. ADDITIONAL FINDINGS: No significant additional findings. IMPRESSION: 1. Suspected cardiogenic pulmonary edema with a probable small right pleural effusion. 2. Stable cardiomegaly. No other significant interval changes. Signer Name: Toni Love MD Signed: 10/12/2021 8:32 AM Workstation Name: [id number]
[2021-10-12 08:42] LABS: Hematocrit 28.6 % (35.5-45.6)
[2021-10-12] MEDS: PANTOPRAZOLE 40 MG TAB PO SCH (09:12)
[2021-10-12] MEDS: HYDROmorphone 1 MG/1 ML INJ IV PRN (09:19)
--- NOTE | 2021-10-12 10:02 | Consultation ---
History of Present Illness - Reason for Consult Consult date: 10/12/21 end stage renal disease - History of Present Illness RFC: ESRD on HD HPI: 66 year old M admitted with black stools. Pt is on iron pills at home. He has had generalized weakness and lightheadedness. He currently denies CP, SHOB, Belly pain. ROS: As in HPI otherwise 12 point review of systems -ve Past History Past Medical History: atrial fib, diabetes, ESRD, heart failure, hypertension, hyperlipidemia, other (GI Bleed (AVM, colon polyps)) Past Surgical History: Other (Pacemaker) Social history: denies: alcohol abuse, prescription drug abuse Family history: no significant family history Medications and Allergies Allergies Allergy/AdvReac Type Severity Reaction Status Date / Time No Known Allergies Allergy Verified 05/13/21 05:06 Home Medications Medication Instructions Recorded Confirmed Last Taken Type Insulin Aspart (Nf) [NovoLOG 8 units SUB-Q TID 07/21/19 09/07/20 Unknown History Flexpen] Insulin Degludec [Tresiba 40 unit SQ QDAY 07/21/19 09/07/20 Unknown History Flextouch U-100] Isosorbide Dinitrate [Isordil] 20 mg PO TID 07/21/19 09/07/20 Unknown History Metoprolol [Lopressor TAB] 100 mg PO QDAY 07/21/19 09/07/20 Unknown History NIFEdipine [Nifedipine ER] 90 mg PO QDAY 07/21/19 09/07/20 Unknown History Nitroglycerin [Nitrostat] 0.4 mg SL QDAY 07/21/19 09/07/20 Unknown History hydrALAZINE [Apresoline TAB] 100 mg PO QDAY 07/21/19 09/07/20 Unknown History Aspirin [Aspirin BABY CHEW TAB] 81 mg PO QDAY #30 tab.chew 07/28/19 09/07/20 Unknown Rx Sodium Bicarbonate 650 mg PO TID #30 tablet 07/28/19 09/07/20 Unknown Rx metOLazone [Zaroxolyn] 5 mg PO QDAY #30 tablet 07/28/19 09/07/20 Unknown Rx polyethylene glycoL 3350 [Miralax 17 gm PO QDAY #10 powd.pack 07/28/19 09/07/20 Unknown Rx 3350] Acetaminophen [Acetaminophen TAB] 650 mg PO Q6H PRN tablet 09/11/20 Unknown Rx AtorvaSTATin [Lipitor] 40 mg PO QHS #30 09/11/20 Unknown Rx Docusate Sodium [Colace] 100 mg PO QDAY #30 capsule 09/11/20 Unknown Rx Epoetin Ben 20,000 Unit [Procrit] 20,000 unit IV AUGIE PRN vial 09/11/20 Unknown Rx Ferrous Sulfate [Iron 325 MG] 325 mg PO DAILY #30 tablet 09/11/20 Unknown Rx Multivitamin 1 each PO DAILY #30 tablet 09/11/20 Unknown Rx Pantoprazole [Protonix] 40 mg PO QDAY #30 tablet 09/11/20 Unknown Rx Sulfamethoxazole/Trimethoprim 1 each PO BID 10 Days #20 tablet 10/13/20 Unknown Rx [Bactrim DS TAB] cephALEXin [Keflex] 500 mg PO Q12HR 10 Days #20 cap 10/13/20 Unknown Rx Active Meds: Active Medications Acetaminophen (Acetaminophen 325 Mg Tab) 650 mg PO Q4H PRN PRN Reason: Pain MILD(1-3)/Fever >100.5/MATHEW Albuterol/Ipratropium (Ipratropium/Albuterol Sulfate 3 Ml Ampul.Neb) 1 ampul IH TIDRT [facility] Last Admin: 10/12/21 08:33 Dose: 1 ampul Dextrose (Dextrose 10% *Hypoglycemia) 0 ml IV PRN PRN PRN Reason: Hypoglycemia Last Admin: 10/11/21 11:39 Dose: 125 ml Insulin Human Lispro (Insulin Lispro 100 Unit/Ml) 0 unit SUB-Q Q6HR [facility]; Protocol Last Admin: 10/12/21 08:29 Dose: Not Given Ondansetron HCl (Ondansetron 4 Mg/2 Ml Inj) 4 mg IV Q3H PRN PRN Reason: Nausea And Vomiting Last Admin: 10/12/21 09:19 Dose: 4 mg Pantoprazole Sodium (Pantoprazole 40 Mg Tab) 40 mg PO QDAC [facility] Last Admin: 10/12/21 09:12 Dose: 40 mg Sodium Chloride (Sodium Chloride 0.9% 10 Ml Flush Syringe) 10 ml IV BID [facility] Last Admin: 10/12/21 09:12 Dose: 10 ml Sodium Chloride (Sodium Chloride 0.9% 10 Ml Flush Syringe) 10 ml IV PRN PRN PRN Reason: LINE FLUSH Exam - Vital Signs Vital signs: Vital Signs Temp Pulse Resp BP Pulse Ox 97.5 F L 64 20 167/58 97 10/11/21 09:13 10/11/21 09:13 10/11/21 09:13 10/11/21 09:13 10/11/21 09:13 - Physical Exam Narrative exam: General appearance: Present: no acute distress, well-nourished - EENT Eyes: Present: PERRL ENT: hearing intact, clear oral mucosa - Neck Neck: Present: supple, normal ROM - Respiratory Respiratory effort: normal Respiratory: bilateral: CTA - Cardiovascular Heart rate: 88 Rhythm: regular Heart Sounds: Present: S1 & S2. Absent: rub, click - Extremities Extremities: pulses symmetrical, No edema, abnormal (Left BKA with prosthesis) Peripheral Pulses: within normal limits - Abdominal General gastrointestinal: Present: soft, non-tender, non-distended, normal bowel sounds Male genitourinary: Present: normal - Rectal Rectal Exam: stool dark (Occult blood positive) - Integumentary Integumentary: Present: clear, warm, dry - Musculoskeletal Musculoskeletal: gait normal, strength equal bilaterally - Psychiatric Psychiatric: appropriate mood/affect, intact judgment & insight - Neurologic Neurologic: CNII-XII intact, moves all extremities Results - Lab Results 10/12/21 12:43 10/12/21 04:58 Most recent lab results Calcium 7.5 mg/dL (8.4-10.2) L 10/12/21 04:58 Assessment and Plan (1) Upper GI bleeding (2) Hypoglycemia (3) Diarrhea (4) ESRD on dialysis (5) Hypertension (6) Hyperkalemia (7) GERD (gastroesophageal reflux disease) (8) Coronary artery disease (9) IDDM (insulin dependent diabetes mellitus) (10) Anemia -CXR congested, has hyperkalemia as well -HD today -Pt agrees to and consents for dialysis while inpatient -Monitor Hg for epogen need -Renally dose all meds -Strict I/Os
[2021-10-12] MEDS ORDERED: SODIUM CHLORIDE 0.9% 100 ML IV PRN (11:00)
[2021-10-12 13:10] LABS: Hematocrit 28.8 % (35.5-45.6); Hemoglobin 9.1 gm/dl (11.8-15.2)
[2021-10-12 13:41] LABS: Hepatitis B Surface Antigen Non-Reactive (Negative); Hepatitis C Virus Antibody Non-Reactive (NonReactive)
--- NOTE | 2021-10-12 14:42 | Consultation ---
History of Present Illness Consult date: 10/12/21 Consult reason: pre op evaluation History of present illness: The patient is a 66-year-old man with end-stage renal disease on hemodialysis, referred for cardiac preop assessment for upper and lower GI endoscopy. He was admitted with bloody diarrhea, which has caused a drop in his hematocrit from 32-28. Patient has an extensive cardiac history, of a dilated nonischemic cardiomyopathy which has undergone partial resolution on medical management. His left ventricular systolic ejection fraction was 30% on a cardiac catheteriza tion 2014, but on most recent echocardiogram was 45 to 50%. He has a drop chamber pacemaker in situ for sinus node dysfunction. He has paroxysmal atrial fibrillation on rhythm control strategy, but due to his chronic anemia and GI bleeding in the past, he was determined a high risk for long-term oral anticoagulation. Comorbidities include severe pulmonary hypertension, with pulmonary artery sys tolic pressure of 83 on right heart catheterization in 2014. On the current presentation, he has no chest pain, no shortness of breath, no palpitations, no lower extremity edema. EKG is pending, but on telemetry strips he appears to have intermittent atrial fibrillation with an underlying bundle branch block. Past History Past Medical History: atrial fib, diabetes, ESRD, heart failure, hypertension, hyperlipidemia, other (GI Bleed (AVM, colon polyps)) Past Surgical History: Other (Pacemaker) Social history: denies: alcohol abuse, prescription drug abuse Family history: no significant family history Medications and Allergies Allergies Allergy/AdvReac Type Severity Reaction Status Date / Time No Known Allergies Allergy Verified 05/13/21 05:06 Home Medications Medication Instructions Recorded Confirmed Last Taken Type Insulin Aspart (Nf) [NovoLOG 8 units SUB-Q TID 07/21/19 09/07/20 Unknown History Flexpen] Insulin Degludec [Tresiba 40 unit SQ QDAY 07/21/19 09/07/20 Unknown History Flextouch U-100] Isosorbide Dinitrate [Isordil] 20 mg PO TID 07/21/19 09/07/20 Unknown History Metoprolol [Lopressor TAB] 100 mg PO QDAY 07/21/19 09/07/20 Unknown History NIFEdipine [Nifedipine ER] 90 mg PO QDAY 07/21/19 09/07/20 Unknown History Nitroglycerin [Nitrostat] 0.4 mg SL QDAY 07/21/19 09/07/20 Unknown History hydrALAZINE [Apresoline TAB] 100 mg PO QDAY 07/21/19 09/07/20 Unknown History Aspirin [Aspirin BABY CHEW TAB] 81 mg PO QDAY #30 tab.chew 07/28/19 09/07/20 Unknown Rx Sodium Bicarbonate 650 mg PO TID #30 tablet 07/28/19 09/07/20 Unknown Rx metOLazone [Zaroxolyn] 5 mg PO QDAY #30 tablet 07/28/19 09/07/20 Unknown Rx polyethylene glycoL 3350 [Miralax 17 gm PO QDAY #10 powd.pack 07/28/19 09/07/20 Unknown Rx 3350] Acetaminophen [Acetaminophen TAB] 650 mg PO Q6H PRN tablet 09/11/20 Unknown Rx AtorvaSTATin [Lipitor] 40 mg PO QHS #30 09/11/20 Unknown Rx Docusate Sodium [Colace] 100 mg PO QDAY #30 capsule 09/11/20 Unknown Rx Epoetin Ben 20,000 Unit [Procrit] 20,000 unit IV AUGIE PRN vial 09/11/20 Unknown Rx Ferrous Sulfate [Iron 325 MG] 325 mg PO DAILY #30 tablet 09/11/20 Unknown Rx Multivitamin 1 each PO DAILY #30 tablet 09/11/20 Unknown Rx Pantoprazole [Protonix] 40 mg PO QDAY #30 tablet 09/11/20 Unknown Rx Sulfamethoxazole/Trimethoprim 1 each PO BID 10 Days #20 tablet 10/13/20 Unknown Rx [Bactrim DS TAB] cephALEXin [Keflex] 500 mg PO Q12HR 10 Days #20 cap 10/13/20 Unknown Rx Active Meds: Active Medications Acetaminophen (Acetaminophen 325 Mg Tab) 650 mg PO Q4H PRN PRN Reason: Pain MILD(1-3)/Fever >100.5/MATHEW Albuterol/Ipratropium (Ipratropium/Albuterol Sulfate 3 Ml Ampul.Neb) 1 ampul IH TIDRT [facility] Last Admin: 10/12/21 08:33 Dose: 1 ampul Dextrose (Dextrose 10% *Hypoglycemia) 0 ml IV PRN PRN PRN Reason: Hypoglycemia Last Admin: 10/11/21 11:39 Dose: 125 ml Sodium Chloride (Nacl 0.9%) 100 mls @ 999 mls/hr IV AUGIE PRN PRN Reason: Hypotension Insulin Human Lispro (Insulin Lispro 100 Unit/Ml) 0 unit SUB-Q Q6HR [facility]; Protocol Last Admin: 10/12/21 11:44 Dose: Not Given Ondansetron HCl (Ondansetron 4 Mg/2 Ml Inj) 4 mg IV Q3H PRN PRN Reason: Nausea And Vomiting Last Admin: 10/12/21 09:19 Dose: 4 mg Ondansetron HCl (Ondansetron 4 Mg/2 Ml Inj) 4 mg IV Q6H PRN PRN Reason: Nausea And Vomiting Pantoprazole Sodium (Pantoprazole 40 Mg Tab) 40 mg PO QDAC [facility] Last Admin: 10/12/21 09:12 Dose: 40 mg Sodium Chloride (Sodium Chloride 0.9% 10 Ml Flush Syringe) 10 ml IV BID [facility] Last Admin: 10/12/21 09:12 Dose: 10 ml Sodium Chloride (Sodium Chloride 0.9% 10 Ml Flush Syringe) 10 ml IV PRN PRN PRN Reason: LINE FLUSH Review of Systems Cardiovascular: shortness of breath, no chest pain, no orthopnea, no palpitations, no rapid/irregular heart beat, no edema, no syncope, no lightheadedness Physical Examination Vital Signs Temp Pulse Resp BP Pulse Ox 97.5 F L 64 20 167/58 97 10/11/21 09:13 10/11/21 09:13 10/11/21 09:13 10/11/21 09:13 10/11/21 09:13 General appearance: no acute distress HEENT: Positive: PERRL Neck: Positive: neck supple Cardiac: Positive: Irregularly Regular Lungs: Positive: Decreased Breath Sounds Neuro: Positive: Grossly Intact Abdomen: Positive: Soft Male genitourinary: Positive: deferred Skin: Positive: Clear Extremities: Absent: edema Results 10/12/21 12:43 10/12/21 04:58 CBC 10/12/21 10/12/21 Range/Units 07:10 12:43 Hgb 9.0 L 9.1 L (11.8-15.2) gm/dl Hct 28.6 L 28.8 L (35.5-45.6) % Comprehensive Metabolic Panel 10/12/21 Range/Units 04:58 Sodium 141 (137-145) mmol/L Potassium 5.4 H (3.6-5.0) mmol/L Chloride 95.9 L (98-107) mmol/L Carbon Dioxide 22 (22-30) mmol/L BUN 106 H (9-20) mg/dL Creatinine 8.1 H (0.8-1.3) mg/dL Glucose 207 H (75-100) mg/dL Calcium 7.5 L (8.4-10.2) mg/dL EKG interpretations - Telemetry EKG Rhythm: Atrial Fibrillation Assessment and Plan - Patient Problems (1) Pre-op evaluation Current Visit: Yes Status: Acute Plan to address problem: Patient is at low cardiac risk for GI endoscopic procedures, okay to proceed. We will order a twelve-lead EKG, and continue medical therapy for rhythm control of atrial fibrillation.
--- NOTE | 2021-10-12 17:20 | Gastroenterology Progress Note ---
Assessment and Plan - Patient Problems (1) Acute blood loss anemia (ABLA) Current Visit: Yes Status: Acute Plan to address problem: - Given the history of multiple large polyps that contained high grade dysplasia, and AVM in the stomach, we will repeat the EGD and colonoscopy after preparation. Can only do the EGD on Wednesday since did not prep for the colon. - Cardiology note appreciated. - Continue protonix for now. - Patient rec'd HD today without event. Subjective Date of service: 10/12/21 Principal diagnosis: Sympatomatic anemia Interval history: The patient has had no N/V/abdominal pain/severe bleeding today. Was on regular diet tonight, not clears as ordered. Objective - Constitutional Vitals: Temp Pulse Resp BP Pulse Ox 98.7 F 88 18 135/69 97 10/12/21 16:36 10/12/21 16:36 10/12/21 16:36 10/12/21 16:36 10/12/21 16:36 General appearance: no acute distress - Respiratory Respiratory effort: normal Respiratory: bilateral: CTA - Cardiovascular Rhythm: regular Heart Sounds: Present: S1 & S2 - Gastrointestinal General gastrointestinal: Present: soft, non-tender, non-distended - Neurologic Neurological: alert and oriented x3 - Labs CBC & Chem 7: 10/12/21 12:43 10/12/21 04:58 Labs: Laboratory Results - last 24 hr 10/11/21 10/12/21 10/12/21 20:36 04:58 07:10 Hgb 9.0 L Hct 28.6 L Sodium 141 Potassium 5.4 H Chloride 95.9 L Carbon Dioxide 22 Anion Gap 29 BUN 106 H Creatinine 8.1 H Estimated GFR 8 BUN/Creatinine Ratio 13 Glucose 207 H POC Glucose 209 H Calcium 7.5 L Hepatitis A IgM Ab Hep Bs Antigen Hep B Core IgM Ab Hepatitis C Antibody 10/12/21 10/12/21 10/12/21 07:52 11:35 12:43 Hgb 9.1 L Hct 28.8 L Sodium Potassium Chloride Carbon Dioxide Anion Gap BUN Creatinine Estimated GFR BUN/Creatinine Ratio Glucose POC Glucose 162 H 160 H Calcium Hepatitis A IgM Ab Hep Bs Antigen Hep B Core IgM Ab Hepatitis C Antibody 10/12/21 10/12/21 12:43 16:32 Hgb Hct Sodium Potassium Chloride Carbon Dioxide Anion Gap BUN Creatinine Estimated GFR BUN/Creatinine Ratio Glucose POC Glucose 129 H Calcium Hepatitis A IgM Ab Non-reactive Hep Bs Antigen Non-reactive Hep B Core IgM Ab Non-reactive Hepatitis C Antibody Non-reactive
[2021-10-12] MEDS: ACETAMINOPHEN 325 MG TAB PO PRN (17:55)
[2021-10-12] MEDS ORDERED: diphenhydrAMINE 25 MG/10 ML ORAL LIQUID PO ONE (18:00)
--- NOTE | 2021-10-12 19:18 | Progress Note ---
Assessment and Plan Assessment and plan: 66-year-old -[place] male with multiple medical problems including end- stage renal disease on hemodialysis T/T/S, anemia on iron therapy, hypertension, nonischemic cardiomyopathy/CHF, recent EF 40 to 45%, chronic A. fibnot a candidate for anticoagulation, pacemaker placement, chronic right foot wounds since 01/2021 being followed by wound care, insulin-dependent diabetes and s/p left BKA with a prosthesis sent and history of GI bleed from gastric AVMs treated in 2020 and colon polyp removed in 2018 with high-grade dysplasia sent to ED from dialysis center for black stools since 3 to 4 days. Patient was undergoing hemodialysis while he had copious loose watery bowel movements which are black in color. No abdominal pain. Patient is also on iron pills for the last 1 year. Reportedly, he was previously on aspirin and PPI but not currently.. No NSAID use. Patient also feels weak and lightheaded. No chest pain. No shortness of breath. No hematemesis. No abdominal pain. In ED, BP 167/58, heart rate 100, hemoglobin 10. WBC normal. GI consulted and admitted. (1) diarrhea and melena x4 days with history of gastric AVMs Nausea and vomiting Current Visit: Yes Status: Acute Plan to address problem: Stooling heme positive according to ED physician note. Patient initiated on IV Protonix drip GI consult requested Patient had upper GI AVMs in 2020 and intervention was done at this facility History of colon polyps with high-grade dysplasia in 2018 Patient not currently on PPI? Hemoglobin 10 on 10/11 and 9, 9 on 09/16 16 Scheduled for EGD and colonoscopy, cardiology cleared BP stable but afebrile with RVR 100-1 10. Patient currently having significant nausea and retching, will make him n.p.o. (2) Hypoglycemia with history of diabetes Current Visit: Yes Status: Acute Plan to address problem: Patient given D50 W and IV glucagon No hypoglycemia today Monitor glucose levels closely (3) Diarrhea Current Visit: Yes Status: Acute Qualifiers: Diarrhea type: unspecified type Qualified Code(s): R19.7 - Diarrhea, unspecified Plan to address problem: Check stools for C. difficile, white blood cells etc. (4) ESRD on dialysis on T/T/S Current Visit: Yes Status: Chronic Plan to address problem: Continue hemodialysis as per schedule. Has mild volume overload with mild dyspnea Is waiting to go for dialysis today (5) Hypertension Current Visit: Yes Status: Chronic Qualifiers: Hypertension type: primary hypertension Qualified Code(s): I10 - Essential (primary) hypertension Plan to address problem: Antihypertensives on hold Catapres patch if necessary (6) Hyperkalemia Current Visit: No Status: Acute Plan to address problem: Mild, 5.3 and 5.4 Should correct with hemodialysis today (7) GERD (gastroesophageal reflux disease) Current Visit: Yes Status: Chronic Qualifiers: Esophagitis presence: with esophagitis Plan to address problem: Patient currently off oral Protonix IV Protonix for now (8) nonischemic cardiomyopathy/heart failure Current Visit: Yes Status: Chronic Qualifiers: Coronary Disease-Associated Artery/Lesion type: [place] artery [place] vs. transplanted heart: [place] heart Associated angina: without angina Qualified Code(s): I25.10 - Atherosclerotic heart disease of [place] coronary artery without angina pectoris Plan to address problem: Continue isosorbide mononitrate Reported not taking aspirin currently Improvement of LVEF on recent echoes, 40 to 45% Has mild volume overload and dyspnea, awaiting dialysis today Cardiology is following (9) IDDM (insulin dependent diabetes mellitus) Current Visit: Yes Status: Chronic Plan to address problem: On coverage for now Check hemoglobin A1c (10) chronic anemia Current Visit: Yes Status: Chronic Qualifiers: Anemia type: due to chronic kidney disease Plan to address problem: Patient on Epogen and iron Hemoglobin is 10, 9, 9 Transfuse as needed Receive PRBC transfusion recently Local wound care ordered (11) chronic right foot wound since 01/2021, followed by wound care Left BKA, uses prosthesis Local wound care ordered and discussed this with the nursing staff at bedside (12) chronic A. fib, pacemaker in place Current heart rate 100-110, on telemetry Cardiology following DVT prophylaxis Current Visit: Yes Status: Acute Plan to address problem: On SCDs and GI prophylaxis Advance care planning Current Visit: Yes Status: Acute Plan to address problem: Disease education conducted care plan discussed with the patient and diagnosis was discussed. Prognosis discussed. Patient is full code. Patient acknowledges understanding and agreement with care plan. +30 minutes. History Interval history: Patient is currently experiencing significant nausea but denies abdominal pain. He has mild dyspnea and ready to go for hemodialysis today. Appears to have atrial fibrillation with RVR. Cardiology is evaluating and cleared for endosc opy tomorrow. Patient denies chest pains or palpitations. He does have history of nonischemic cardiomyopathy and A. fib with a pacemaker in place. He denies dizziness/lightheadedness. Is fairly alert and oriented. Answers appropriately. Hemoglobin 10 and 9 today. He has a chronic right foot wound since January 2021. BP stable. Heart rate 100 110. Glucose 162. Hospitalist Physical - Constitutional Vitals: Temp Pulse Resp BP Pulse Ox 98.2 F 60 18 151/79 98 10/12/21 17:23 10/12/21 17:23 10/12/21 17:23 10/12/21 17:23 10/12/21 17:23 General appearance: Present: mild distress, obese - EENT Eyes: Present: PERRL, EOM intact ENT: clear oral mucosa - Neck Neck: Present: supple - Respiratory Respiratory effort: other (Mild dyspnea) Respiratory: bilateral: diminished, negative: rales, rhonchi, wheezing - Cardiovascular Rhythm: other (Irregular with the tachycardia) - Extremities Extremity abnormal: edema (Trace bilateral pretibial edema), other (Right foot: Atrophic skin changes. Left foot gauze dressings in place with history of chronic wounds since 01/2001) - Abdominal General gastrointestinal: soft, non-tender, non-distended - Psychiatric Psychiatric: appropriate mood/affect - Neurologic Neurologic: moves all extremities, other (Awake and oriented. Normal speech. Answers appropriately.) HEART Score - HEART Score Age: > 65 Risk factors: > 3 risk factors or hx of atherosclerotic disease Troponin: < normal limit - Critical Actions Critical Actions: 0-3 pts:0.9-1.7%risk of adverse cardiac event.Candidate for discharge Results - Labs CBC & Chem 7: 10/12/21 12:43 10/12/21 04:58 Labs: Laboratory Last Values WBC 8.9 K/mm3 (4.5-11.0) 10/11/21 09:52 RBC 3.07 M/mm3 (3.65-5.03) L 10/11/21 09:52 Hgb 9.1 gm/dl (11.8-15.2) L 10/12/21 12:43 Hct 28.8 % (35.5-45.6) L 10/12/21 12:43 MCV 105 fl (84-94) H 10/11/21 09:52 MCH 34 pg (28-32) H 10/11/21 09:52 MCHC 32 % (32-34) 10/11/21 09:52 RDW 17.3 % (13.2-15.2) H 10/11/21 09:52 Plt Count 192 K/mm3 (140-440) 10/11/21 09:52 Lymph % (Auto) 13.7 % (13.4-35.0) 10/11/21 09:52 Early % (Auto) 8.8 % (0.0-7.3) H 10/11/21 09:52 Eos % (Auto) 0.3 % (0.0-4.3) 10/11/21 09:52 Baso % (Auto) 0.8 % (0.0-1.8) 10/11/21 09:52 Lymph # (Auto) 1.2 K/mm3 (1.2-5.4) 10/11/21 09:52 Early # (Auto) 0.8 K/mm3 (0.0-0.8) 10/11/21 09:52 Eos # (Auto) 0.0 K/mm3 (0.0-0.4) 10/11/21 09:52 Baso # (Auto) 0.1 K/mm3 (0.0-0.1) 10/11/21 09:52 Seg Neutrophils % 76.4 % (40.0-70.0) H 10/11/21 09:52 Seg Neutrophils # 6.8 K/mm3 (1.8-7.7) 10/11/21 09:52 PT 17.6 Sec. (12.2-14.9) H 10/11/21 09:52 INR 1.29 (0.87-1.13) H 10/11/21 09:52 APTT 29.7 Sec. (24.2-36.6) 10/11/21 09:52 Sodium 141 mmol/L (137-145) 10/12/21 04:58 Potassium 5.4 mmol/L (3.6-5.0) H 10/12/21 04:58 Chloride 95.9 mmol/L (98-107) L 10/12/21 04:58 Carbon Dioxide 22 mmol/L (22-30) 10/12/21 04:58 Anion Gap 29 mmol/L 10/12/21 04:58 BUN 106 mg/dL (9-20) H 10/12/21 04:58 Creatinine 8.1 mg/dL (0.8-1.3) H 10/12/21 04:58 Estimated GFR 8 ml/min 10/12/21 04:58 BUN/Creatinine Ratio 13 % 10/12/21 04:58 Glucose 207 mg/dL (75-100) H 10/12/21 04:58 POC Glucose 129 mg/dL (70-105) H 10/12/21 16:32 Calcium 7.5 mg/dL (8.4-10.2) L 10/12/21 04:58 Hepatitis A IgM Ab Non-reactive (NonReactive) 10/12/21 12:43 Hep Bs Antigen Non-reactive (Negative) 10/12/21 12:43 Hep B Core IgM Ab Non-reactive (NonReactive) 10/12/21 12:43 Hepatitis C Antibody Non-reactive (NonReactive) 10/12/21 12:43 Blood Type B POSITIVE 10/11/21 11:31 Antibody Screen Negative 10/11/21 11:31 Ramirez/IV: Voiding Method Urinal Active Medications - Current Medications Current Medications: Generic Name Dose Route Start Last Admin Trade Name Freq PRN Reason Stop Dose Admin Acetaminophen 650 mg 10/11/21 13:00 10/12/21 17:55 Acetaminophen 325 Mg Tab PO 650 mg Q4H PRN Administration Pain MILD(1-3)/Fever >100.5/MATHEW Albuterol/Ipratropium 1 ampul 10/12/21 08:30 10/12/21 16:32 Ipratropium/Albuterol Sulfate 3 Ml Ampul.Neb IH Not Given TIDRT [facility] Dextrose 0 ml 10/11/21 12:00 10/11/21 11:39 Dextrose 10% *Hypoglycemia IV 125 ml PRN PRN Administration Hypoglycemia Sodium Chloride 100 mls @ 999 mls/hr 10/12/21 11:00 Nacl 0.9% IV AUGIE PRN Hypotension Insulin Human Lispro 0 unit 10/12/21 07:30 10/12/21 17:14 Insulin Lispro 100 Unit/Ml SUB-Q Not Given Q6HR [facility] Protocol Ondansetron HCl 4 mg 10/11/21 13:00 10/12/21 09:19 Ondansetron 4 Mg/2 Ml Inj IV 4 mg Q3H PRN Administration Nausea And Vomiting Ondansetron HCl 4 mg 10/12/21 12:35 Ondansetron 4 Mg/2 Ml Inj IV Q6H PRN Nausea And Vomiting Pantoprazole Sodium 40 mg 10/12/21 07:30 10/12/21 09:12 Pantoprazole 40 Mg Tab PO 40 mg QDAC LOVE Administration Sodium Chloride 10 ml 10/11/21 22:00 10/12/21 09:12 Sodium Chloride 0.9% 10 Ml Flush Syringe IV 10 ml BID LOVE Administration Sodium Chloride 10 ml 10/11/21 13:00 Sodium Chloride 0.9% 10 Ml Flush Syringe IV PRN PRN LINE FLUSH
[2021-10-13] MEDS: INSULIN LISPRO 100 UNIT/ML SUB-Q SCH ×4 (00:39→18:31)
[2021-10-13] MEDS: ACETAMINOPHEN 325 MG TAB PO PRN (04:38)
[2021-10-13 05:31] LABS: Basophils # (Auto) 0.2 K/mm3 (0.0-0.1); Basophils % (Auto) 2.9 % (0.0-1.8); Eosinophils # (Auto) 0.1 K/mm3 (0.0-0.4); Eosinophils % (Auto) 1.3 % (0.0-4.3); Hemoglobin 9.1 gm/dl (11.8-15.2); Lymphocytes # (Auto) 0.9 K/mm3 (1.2-5.4); Lymphocytes % (Auto) 14.9 % (13.4-35.0); Mean Corpuscular HGB Conc 31 % (32-34); Mean Corpuscular Volume 106 fl (84-94); Monocytes # (Auto) 0.7 K/mm3 (0.0-0.8); Monocytes % (Auto) 11.1 % (0.0-7.3); Platelet Count 206 K/mm3 (140-440); Red Blood Count 2.73 M/mm3 (3.65-5.03); Red Cell Distribution Width 17.3 % (13.2-15.2)
[2021-10-13 05:58] LABS: Albumin 3.3 g/dL (3.9-5); Calcium 8.3 mg/dL (8.4-10.2)
[2021-10-13] MEDS: IPRATROPIUM/ALBUTEROL SULFATE 3 ML AMPUL.NEB IH SCH ×3 (08:10→23:15)
[2021-10-13] MEDS ORDERED: WATER FOR IRRIG STERILE 1,000 ML BOTTLE ONE (08:57)
[2021-10-13] MEDS ORDERED: WATER FOR IRRIG STERILE 250 ML BOTTLE IR ONE (08:57)
[2021-10-13] MEDS ORDERED: SODIUM CHLORIDE 0.9% 1000 ML 1,000 ML ONE (08:57)
--- NOTE | 2021-10-13 08:58 | Anesthesia Consultation ---
Anesthesia Consult and Med Hx Date of service: 10/13/21 - Airway Anesthetic Teeth Evaluation: Partials ROM Head & Neck: Adequate Mental/Hyoid Distance: Adequate Mallampati Class: Class III Intubation Access Assessment: Possibly Difficult - Pulmonary Exam CTA: Yes - Cardiac Exam Cardiac Exam: No Murmur (regular rate on asculation) - Pre-Operative Health Status ASA Pre-Surgery Classification: ASA4 Proposed Anesthetic Plan: MAC - Pulmonary Hx Smoking: Yes (former smoker quit >20yrs) Hx Respiratory Symptoms: No - Cardiovascular System Hx Hypertension: Yes Hx Heart Attack/AMI: Yes (x2, most recent 2004; EF 45-50%) Hx Percutaneous Transluminal Coronary Angioplasty (PTCA): No Hx Cardia Arrhythmia: Yes (sinus node dysfuction s/p PPM; paroxysmal a-fib) Hx Pacemaker: Yes Hx Peripheral Vascular Disease: Yes - Central Nervous System 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
--- NOTE | 2021-10-13 09:01 | Anesthesia Day of Surgery ---
Anesthesia Day of Surgery - Day of Surgery Patient Examined: Yes Patient H&P Reviewed: Yes Patient is NPO: Yes Cardiac Clearance: Yes
[2021-10-13] MEDS ORDERED: LIDOCAINE MPF (2%) 20 MG/1 ML VIAL 5 ML ONE (09:07)
[2021-10-13] MEDS ORDERED: propofoL 200 MG/20 ML VIAL IV ONE (09:07)
[2021-10-13] MEDS ORDERED: fentaNYL 100 MCG/2 ML INJ ONE (09:08)
--- NOTE | 2021-10-13 09:21 | Post Operative Note ---
Pre-op diagnosis: ABLA Post-op diagnosis: other (Gastropathy) Findings: 1. No active bleeding 2. Appearance c/w gastropathy, with erythema in stomach; cold bx of antrum 3. No varices or ulcers 4. Normal esophagus and duodenum Procedure: EGD with cold biopsy Anesthesia: MAC Surgeon: DALIA BASILIO Estimated blood loss: minimal Pathology: list (1. Gastric Antrum) Specimen disposition: to lab Condition: stable Disposition: floor (Recs: 1. Advance diet. 2. Protonix daily therapy; avoid NSAIDs other than cardiac ASA. 3. OK to discharge home per our service. 4. F/U in the clinic for colonoscopy.)
[2021-10-13] MEDS ORDERED: PHENYLEPHRINE/NS 1,000 MCG/10 ML SYRINGE (OR USE) IV ONE (09:31)
--- NOTE | 2021-10-13 10:00 | Operative Report ---
DATE OF SURGERY: 10/13/2021 PROCEDURE PERFORMED: Esophagogastroduodenoscopy with cold biopsy. PREOPERATIVE DIAGNOSIS: Acute blood loss anemia. POSTOPERATIVE DIAGNOSIS: Gastropathy. ENDOSCOPIST: Ousmane Groves MD INSTRUMENT: Olympus video endoscope. MEDICATIONS: MAC anesthesia by Anesthesia services. COMPLICATIONS: No apparent complications. ESTIMATED BLOOD LOSS: Minimal. SPECIMENS: Gastric antrum, rule out gastritis. IMPLANTS: None. ASSISTANTS: None. CONDITION AT COMPLETION: Stable. DESCRIPTION OF PROCEDURE: The patient was informed of the risks and benefits of the procedure. He signed the informed consent to proceed. He was placed in the left lateral decubitus position. The above sedative medications were given. His vital signs remained stable throughout the procedure. The instrument was advanced from the mouth to the second portion of the duodenum under direct visualization. At that point, the bowel was insufflated and the endoscope was slowly withdrawn. FINDINGS: 1. No blood clots and no active bleeding in the upper gastrointestinal tract. 2. Normal esophagus and duodenum without evidence of varices or ulcers. 3. The appearance of the stomach was consistent with gastropathy such as portal hypertensive gastropathy or NSAID gastropathy with erythema scattered throughout the stomach; cold biopsies were taken of the antrum. A. There was no discrete vascular lesion that appeared to be the culprit in the patient's bleeding. RECOMMENDATIONS: 1. Advance to renal diet. 2. Protonix daily therapy; avoid NSAIDs other than cardiac aspirin. 3. Okay to discharge home per our service. 4. Follow up in the clinic to schedule a colonoscopy as the patient is due for surveillance. TID: [id number] RECEIPT: [id number] DAPHNE/SHANNON
--- NOTE | 2021-10-13 10:09 | Post Anesthesia Evaluation ---
- Post Anesthesia Evaluation Patient Participated: Yes Airway Patent: Yes Stable Respiratory Function: Yes Nausea/Vomiting: No Temp > 96.8F: Yes Pain Manageable: Yes Adequeate Hydration: Yes Anesthesia Complications: No
[2021-10-13] MEDS ORDERED: AMIODARONE 150 MG in DEXTROSE 5% IN WATER 100 ML IV ONE (11:33)
--- NOTE | 2021-10-13 11:33 | Progress Note ---
Assessment and Plan - Patient Problems (1) Pre-op evaluation Current Visit: Yes Status: Acute Plan to address problem: Patient is status post GI endoscopic procedure. Continue conservative cardiac follow-up and management. (2) Paroxysmal atrial fibrillation Current Visit: Yes Status: Acute Plan to address problem: Patient had a history of paroxysmal atrial fibrillation, atrial fibrillation has persisted on this presentation. He is not a candidate for oral anticoagulation, we will maintain rate control strategy at this time with beta-blockers, add amiodarone as necessary. Subjective Date of service: 10/13/21 Principal diagnosis: Sympatomatic anemia Interval history: Patient is comfortable, no acute distress, he has completed GI endoscopic procedures. Objective Vital Signs Temp Pulse Pulse Resp Resp BP BP 10/13/21 09:50 116 H 18 107/66 10/13/21 09:39 113 H 18 110/37 10/13/21 09:29 103 H 18 95/44 10/13/21 09:24 106 H 18 91/39 10/13/21 09:19 97.8 F 100 H 16 91/43 10/13/21 08:40 98 F 120 H 20 117/65 10/13/21 08:10 10/13/21 05:39 97.7 F 93 H 20 98/64 10/13/21 01:00 10/12/21 23:54 98.6 F 99 H 18 122/70 10/12/21 20:43 10/12/21 20:41 85 16 10/12/21 18:54 97.6 F 86 20 125/69 10/12/21 17:23 98.2 F 60 18 151/79 10/12/21 16:36 98.7 F 88 18 135/69 10/12/21 15:30 55 L 132/64 10/12/21 15:15 88 121/73 10/12/21 15:00 95 H 128/82 10/12/21 14:45 85 130/65 10/12/21 14:30 86 115/71 10/12/21 14:15 86 124/71 10/12/21 14:00 86 121/67 10/12/21 13:45 55 L 129/62 10/12/21 13:30 53 L 119/58 10/12/21 13:15 63 128/66 10/12/21 13:00 51 L 126/69 10/12/21 12:50 66 154/65 10/12/21 12:35 97.2 F L 87 18 129/63 Pulse Ox Pulse Ox 10/13/21 09:50 97 10/13/21 09:39 97 10/13/21 09:29 100 10/13/21 09:24 100 10/13/21 09:19 100 10/13/21 08:40 99 10/13/21 08:10 100 10/13/21 05:39 95 10/13/21 01:00 96 10/12/21 23:54 96 10/12/21 20:43 94 10/12/21 20:41 10/12/21 18:54 94 10/12/21 17:23 98 10/12/21 16:36 97 10/12/21 15:30 10/12/21 15:15 10/12/21 15:00 10/12/21 14:45 10/12/21 14:30 10/12/21 14:15 10/12/21 14:00 10/12/21 13:45 10/12/21 13:30 10/12/21 13:15 10/12/21 13:00 10/12/21 12:50 10/12/21 12:35 98 - Physical Examination HEENT: Positive: PERRL Neck: Positive: neck supple Cardiac: Positive: irregularly irregular Lungs: Positive: Decreased Breath Sounds Neuro: Positive: Grossly Intact Abdomen: Positive: Soft Skin: Positive: Clear Extremities: Absent: edema - Labs and Meds Cardiac Enzymes 10/13/21 Range/Units 05:06 AST 32 (5-40) units/L CBC 10/12/21 10/13/21 Range/Units 12:43 05:06 WBC 6.0 (4.5-11.0) K/mm3 RBC 2.73 L (3.65-5.03) M/mm3 Hgb 9.1 L 9.1 L (11.8-15.2) gm/dl Hct 28.8 L 29.0 L (35.5-45.6) % Plt Count 206 (140-440) K/mm3 Lymph # (Auto) 0.9 L (1.2-5.4) K/mm3 Hughes # (Auto) 0.7 (0.0-0.8) K/mm3 Eos # (Auto) 0.1 (0.0-0.4) K/mm3 Baso # (Auto) 0.2 H (0.0-0.1) K/mm3 Comprehensive Metabolic Panel 10/13/21 Range/Units 05:06 Sodium 143 (137-145) mmol/L Potassium 4.4 (3.6-5.0) mmol/L Chloride 98.0 (98-107) mmol/L Carbon Dioxide 23 (22-30) mmol/L BUN 70 H (9-20) mg/dL Creatinine 6.5 H (0.8-1.3) mg/dL Glucose 126 H (75-100) mg/dL Calcium 8.3 L (8.4-10.2) mg/dL AST 32 (5-40) units/L ALT 28 (7-56) units/L Alkaline Phosphatase 308 H (35-129) units/L Total Protein 7.6 (6.3-8.2) g/dL Albumin 3.3 L (3.9-5) g/dL
--- NOTE | 2021-10-13 12:18 | Progress Note ---
Assessment and Plan (1) Upper GI bleeding (2) Hypoglycemia (3) Diarrhea (4) ESRD on dialysis (5) Hypertension (6) Hyperkalemia (7) GERD (gastroesophageal reflux disease) (8) Coronary artery disease (9) IDDM (insulin dependent diabetes mellitus) (10) Anemia -no indication for HD today, ordered for tomorrow -Pt agrees to and consents for dialysis while inpatient -Monitor Hg for epogen need -Renally dose all meds -Strict I/Os Subjective Date of service: 10/13/21 Principal diagnosis: Sympatomatic anemia Interval history: tolerated HD yesterday Objective - Vital Signs Vital signs: Vital Signs - 12hr 10/13/21 10/13/21 10/13/21 01:00 05:39 08:10 Temperature 97.7 F Pulse Rate 93 H Respiratory 20 Rate Blood Pressure 98/64 O2 Sat by Pulse 96 95 100 Oximetry 10/13/21 10/13/21 10/13/21 08:40 09:19 09:24 Temperature 98 F 97.8 F Pulse Rate 120 H 100 H 106 H Respiratory 20 16 18 Rate Blood Pressure 117/65 91/43 91/39 O2 Sat by Pulse 99 100 100 Oximetry 10/13/21 10/13/21 10/13/21 09:29 09:39 09:50 Temperature Pulse Rate 103 H 113 H 116 H Respiratory 18 18 18 Rate Blood Pressure 95/44 110/37 107/66 O2 Sat by Pulse 100 97 97 Oximetry - General Appearance General appearance: well-developed, well-nourished EENT: ATNC, PERRL Neck: no JVD Respiratory: Present: Clear to Ascultation Cardiology: regular, S1S2 Gastrointestinal: normoactive bowel sounds, no tenderness, no distended, no masses Integumentary: no rash, warm and dry Neurologic: no focal deficit, no asterixis Musculoskeletal: other Psychiatric: cooperative - Lab 10/13/21 05:06 10/13/21 05:06 Most recent lab results Calcium 8.3 mg/dL (8.4-10.2) L 10/13/21 05:06 Magnesium 2.30 mg/dL (1.7-2.3) 10/13/21 05:06 Medications & Allergies - Medications Allergies/Adverse Reactions: Allergies No Known Allergies Allergy (Verified 05/13/21 05:06) Home Medications: Home Medications Medication Instructions Recorded Confirmed Last Taken Type Insulin Aspart (Nf) [NovoLOG 8 units SUB-Q TID 07/21/19 09/07/20 Unknown History Flexpen] Insulin Degludec [Tresiba 40 unit SQ QDAY 07/21/19 09/07/20 Unknown History Flextouch U-100] Isosorbide Dinitrate [Isordil] 20 mg PO TID 07/21/19 09/07/20 Unknown History Metoprolol [Lopressor TAB] 100 mg PO QDAY 07/21/19 09/07/20 Unknown History NIFEdipine [Nifedipine ER] 90 mg PO QDAY 07/21/19 09/07/20 Unknown History Nitroglycerin [Nitrostat] 0.4 mg SL QDAY 07/21/19 09/07/20 Unknown History hydrALAZINE [Apresoline TAB] 100 mg PO QDAY 07/21/19 09/07/20 Unknown History Aspirin [Aspirin BABY CHEW TAB] 81 mg PO QDAY #30 tab.chew 07/28/19 09/07/20 Unknown Rx Sodium Bicarbonate 650 mg PO TID #30 tablet 07/28/19 09/07/20 Unknown Rx metOLazone [Zaroxolyn] 5 mg PO QDAY #30 tablet 07/28/19 09/07/20 Unknown Rx polyethylene glycoL 3350 [Miralax 17 gm PO QDAY #10 powd.pack 07/28/19 09/07/20 Unknown Rx 3350] Acetaminophen [Acetaminophen TAB] 650 mg PO Q6H PRN tablet 09/11/20 Unknown Rx AtorvaSTATin [Lipitor] 40 mg PO QHS #30 09/11/20 Unknown Rx Docusate Sodium [Colace] 100 mg PO QDAY #30 capsule 09/11/20 Unknown Rx Epoetin Ben 20,000 Unit [Procrit] 20,000 unit IV AUGIE PRN vial 09/11/20 Unknown Rx Ferrous Sulfate [Iron 325 MG] 325 mg PO DAILY #30 tablet 09/11/20 Unknown Rx Multivitamin 1 each PO DAILY #30 tablet 09/11/20 Unknown Rx Pantoprazole [Protonix] 40 mg PO QDAY #30 tablet 09/11/20 Unknown Rx Sulfamethoxazole/Trimethoprim 1 each PO BID 10 Days #20 tablet 10/13/20 Unknown Rx [Bactrim DS TAB] cephALEXin [Keflex] 500 mg PO Q12HR 10 Days #20 cap 10/13/20 Unknown Rx Active Medications: Generic Name Dose Route Start Last Admin Trade Name Freq PRN Reason Stop Dose Admin Acetaminophen 650 mg 10/11/21 13:00 10/13/21 04:38 Acetaminophen 325 Mg Tab PO 650 mg Q4H PRN Administration Pain MILD(1-3)/Fever >100.5/MATHEW Albuterol/Ipratropium 1 ampul 10/12/21 08:30 10/13/21 08:10 Ipratropium/Albuterol Sulfate 3 Ml Ampul.Neb IH Not Given TIDRT LOVE Amiodarone HCl 200 mg 10/13/21 12:00 Amiodarone 200 Mg Tab PO BID LOVE Dextrose 0 ml 10/11/21 12:00 10/11/21 11:39 Dextrose 10% *Hypoglycemia IV 125 ml PRN PRN Administration Hypoglycemia Sodium Chloride 100 mls @ 999 mls/hr 10/12/21 11:00 Nacl 0.9% IV AUGIE PRN Hypotension Insulin Human Lispro 0 unit 10/12/21 07:30 10/13/21 06:00 Insulin Lispro 100 Unit/Ml SUB-Q Not Given Q6HR [facility] Protocol Ondansetron HCl 4 mg 10/12/21 12:35 Ondansetron 4 Mg/2 Ml Inj IV Q6H PRN Nausea And Vomiting Pantoprazole Sodium 40 mg 10/12/21 07:30 10/12/21 09:12 Pantoprazole 40 Mg Tab PO 40 mg QDAC LOVE Administration Sodium Chloride 10 ml 10/11/21 22:00 10/12/21 23:50 Sodium Chloride 0.9% 10 Ml Flush Syringe IV 10 ml BID LOVE Administration Sodium Chloride 10 ml 10/11/21 13:00 Sodium Chloride 0.9% 10 Ml Flush Syringe IV PRN PRN LINE FLUSH
--- NOTE | 2021-10-13 12:36 | Electrocardiograph Report ---
[facility] Test Date: 2021-10-13 Test Time: 07:38:45 Pat Name: JERRY CRUZ Department: Room: A459 1 Gender: M [employer] Dipper: NUSRAT : 1955 Requested By: RAMIREZ GRADY Order Number: [id number] Reading MD: Hawa Batista Measurements Intervals [place] Rate: 118 P: 91 AK: 158 QRS: 256 QRSD: 120 T: 77 QT: 381 QTc: 543 Interpretive Statements Atrial fibrillation Nonspecific IVCD with LAD Anterior infarct, old No previous ECG available for comparison Electronically Signed On 10-13-2021 12:35:59 EST by Hawa Batista
[2021-10-13] MEDS: AMIODARONE 200 MG TAB PO SCH ×2 (14:48→22:05)
[2021-10-13] MEDS: PANTOPRAZOLE 40 MG TAB PO SCH (14:48)
[2021-10-13] MEDS: HYDROcodone/ACETAMINOPHEN 5-325 MG TAB PO PRN (16:45)
--- NOTE | 2021-10-13 20:32 | Progress Note ---
Assessment and Plan Assessment and plan: 66-year-old -[place] male with multiple medical problems including end- stage renal disease on hemodialysis T/T/S, anemia on iron therapy, hypertension, nonischemic cardiomyopathy/CHF, recent EF 40 to 45%, chronic A. fibnot a candidate for anticoagulation, pacemaker placement, chronic right foot wounds since 01/2021 being followed by wound care, insulin-dependent diabetes and s/p left BKA with a prosthesis sent and history of GI bleed from gastric AVMs treated in 2020 and colon polyp removed in 2018 with high-grade dysplasia sent to ED from dialysis center for black stools since 3 to 4 days. Patient was undergoing hemodialysis while he had copious loose watery bowel movements which are black in color. No abdominal pain. Patient is also on iron pills for the last 1 year. Reportedly, he was previously on aspirin and PPI but not currently.. No NSAID use. Patient also feels weak and lightheaded. No chest pain. No shortness of breath. No hematemesis. No abdominal pain. In ED, BP 167/58, heart rate 100, hemoglobin 10. WBC normal. GI consulted and admitted. (1) nausea, vomiting, diarrhea x4 days Black stools on chronic current therapy with history of gastric AVMs Current Visit: Yes Status: Acute Plan to address problem: Stool heme positive according to ED physician note. Patient initiated on IV Protonix drip GI consult requested Patient had upper GI AVMs in 2020 and intervention was done at this facility History of colon polyps with high-grade dysplasia in 2018 Patient not currently on home PPI? Hemoglobin stable without early transfusion EGD on 10/13 showed gastropathy, hold biopsies taken. No active bleeding identified. Afebrile, BP stable, afebrile with RVR 100-115 GI symptoms resolving, patient is able to tolerate diet today. (2) Hypoglycemia with history of diabetes Current Visit: Yes Status: Acute Plan to address problem: Patient given D50 W and IV glucagon No hypoglycemia reported since Monitor glucose levels closely (3) chronic A. fib, pacemaker in place, RVR Current heart rate 100-115, on telemetry Cardiology following Started IV amiodarone today for rate control (4) ESRD on dialysis on T/T/S Current Visit: Yes Status: Chronic Plan to address problem: Continue hemodialysis as per schedule. Has mild volume overload with mild dyspnea Is waiting to go for dialysis today (5) Hypertension Current Visit: Yes Status: Chronic Qualifiers: Hypertension type: primary hypertension Qualified Code(s): I10 - Essential (primary) hypertension Plan to address problem: Antihypertensives on hold Catapres patch if necessary (6) Hyperkalemia Current Visit: No Status: Acute Plan to address problem: Mild, 5.3 and 5.4 Should correct with hemodialysis today (7) GERD (gastroesophageal reflux disease) Current Visit: Yes Status: Chronic Qualifiers: Esophagitis presence: with esophagitis Plan to address problem: Patient currently off oral Protonix IV Protonix for now (8) nonischemic cardiomyopathy/heart failure Current Visit: Yes Status: Chronic Qualifiers: Coronary Disease-Associated Artery/Lesion type: [place] artery [place] vs. transplanted heart: [place] heart Associated angina: without angina Qualified Code(s): I25.10 - Atherosclerotic heart disease of [place] coronary artery without angina pectoris Plan to address problem: Continue isosorbide mononitrate Reported not taking aspirin currently Improvement of LVEF on recent echoes, 40 to 45% Has mild volume overload and dyspnea, awaiting dialysis today Cardiology is following (9) IDDM (insulin dependent diabetes mellitus) Current Visit: Yes Status: Chronic Plan to address problem: On coverage for now Check hemoglobin A1c (10) chronic anemia Current Visit: Yes Status: Chronic Qualifiers: Anemia type: due to chronic kidney disease Plan to address problem: Patient on Epogen and iron Hemoglobin is 10, 9, 9 Transfuse as needed Receive PRBC transfusion recently Local wound care ordered (11) chronic right foot wound since 01/2021, followed by wound care Left BKA, uses prosthesis Local wound care ordered and discussed this with the nursing staff at bedside Superficial healthy healing ulcer noted over right heel Patient is followed by wound care provider once every 2 weeks. DVT prophylaxis Current Visit: Yes Status: Acute Plan to address problem: On SCDs and GI prophylaxis Advance care planning Current Visit: Yes Status: Acute Plan to address problem: Disease education conducted care plan discussed with the patient and diagnosis was discussed. Prognosis discussed. Patient is full code. Patient acknowledges understanding and agreement with care plan. +30 minutes. Disposition: Discharge deferred due to initiation of IV amiodarone therapy today for A. fib/RVR rate control Discussed with the nurse, patient and the CM History Interval history: Nausea, vomiting and diarrhea resolving. Tolerating diet. EGD today showed gastropathy but no active bleeding. Biopsies taken. Discharge deferred since cardiology started today IV amiodarone for A. fib with RVR up to 115. Remains afebrile. BP stable. Mentating well. No chest pains or palpitations. Right foot dressing changed todaysuperficial wound over right heel healing well, dry, looking healthy. Hospitalist Physical - Constitutional Vitals: Temp Pulse Resp BP Pulse Ox 97.9 F 72 16 123/88 95 10/13/21 16:53 10/13/21 16:53 10/13/21 16:53 10/13/21 16:53 10/13/21 16:53 General appearance: Present: no acute distress, obese - EENT Eyes: Present: PERRL, EOM intact ENT: hearing intact, clear oral mucosa - Neck Neck: Present: supple - Respiratory Respiratory effort: normal Respiratory: bilateral: CTA - Cardiovascular Rhythm: irregularly irregular - Extremities Extremities: No edema - Abdominal General gastrointestinal: soft, non-tender - Psychiatric Psychiatric: other (Mildly anxious) - Neurologic Neurologic: moves all extremities, other (Alert and oriented, normal speech) HEART Score - HEART Score Age: > 65 Risk factors: > 3 risk factors or hx of atherosclerotic disease Troponin: < normal limit - Critical Actions Critical Actions: 0-3 pts:0.9-1.7%risk of adverse cardiac event.Candidate for discharge Results - Labs CBC & Chem 7: 10/13/21 05:06 10/13/21 05:06 Labs: Laboratory Last Values WBC 6.0 K/mm3 (4.5-11.0) 10/13/21 05:06 RBC 2.73 M/mm3 (3.65-5.03) L 10/13/21 05:06 Hgb 9.1 gm/dl (11.8-15.2) L 10/13/21 05:06 Hct 29.0 % (35.5-45.6) L 10/13/21 05:06 MCV 106 fl (84-94) H 10/13/21 05:06 MCH 33 pg (28-32) H 10/13/21 05:06 MCHC 31 % (32-34) L 10/13/21 05:06 RDW 17.3 % (13.2-15.2) H 10/13/21 05:06 Plt Count 206 K/mm3 (140-440) 10/13/21 05:06 Lymph % (Auto) 14.9 % (13.4-35.0) 10/13/21 05:06 [place] % (Auto) 11.1 % (0.0-7.3) H 10/13/21 05:06 Eos % (Auto) 1.3 % (0.0-4.3) 10/13/21 05:06 Baso % (Auto) 2.9 % (0.0-1.8) H 10/13/21 05:06 Lymph # (Auto) 0.9 K/mm3 (1.2-5.4) L 10/13/21 05:06 [place] # (Auto) 0.7 K/mm3 (0.0-0.8) 10/13/21 05:06 Eos # (Auto) 0.1 K/mm3 (0.0-0.4) 10/13/21 05:06 Baso # (Auto) 0.2 K/mm3 (0.0-0.1) H 10/13/21 05:06 Seg Neutrophils % 69.8 % (40.0-70.0) 10/13/21 05:06 Seg Neutrophils # 4.2 K/mm3 (1.8-7.7) 10/13/21 05:06 PT 17.6 Sec. (12.2-14.9) H 10/11/21 09:52 INR 1.29 (0.87-1.13) H 10/11/21 09:52 APTT 29.7 Sec. (24.2-36.6) 10/11/21 09:52 Sodium 143 mmol/L (137-145) 10/13/21 05:06 Potassium 4.4 mmol/L (3.6-5.0) 10/13/21 05:06 Chloride 98.0 mmol/L (98-107) 10/13/21 05:06 Carbon Dioxide 23 mmol/L (22-30) 10/13/21 05:06 Anion Gap 26 mmol/L 10/13/21 05:06 BUN 70 mg/dL (9-20) H 10/13/21 05:06 Creatinine 6.5 mg/dL (0.8-1.3) H 10/13/21 05:06 Estimated GFR 10 ml/min 10/13/21 05:06 BUN/Creatinine Ratio 11 % 10/13/21 05:06 Glucose 126 mg/dL (75-100) H 10/13/21 05:06 POC Glucose 131 mg/dL (70-105) H 10/13/21 15:56 Calcium 8.3 mg/dL (8.4-10.2) L 10/13/21 05:06 Magnesium 2.30 mg/dL (1.7-2.3) 10/13/21 05:06 Total Bilirubin 1.00 mg/dL (0.1-1.2) 10/13/21 05:06 AST 32 units/L (5-40) 10/13/21 05:06 ALT 28 units/L (7-56) 10/13/21 05:06 Alkaline Phosphatase 308 units/L (35-129) H 10/13/21 05:06 Total Protein 7.6 g/dL (6.3-8.2) 10/13/21 05:06 Albumin 3.3 g/dL (3.9-5) L 10/13/21 05:06 Albumin/Globulin Ratio 0.8 % 10/13/21 05:06 Hepatitis A IgM Ab Non-reactive (NonReactive) 10/12/21 12:43 Hep Bs Antigen Non-reactive (Negative) 10/12/21 12:43 Hep B Core IgM Ab Non-reactive (NonReactive) 10/12/21 12:43 Hepatitis C Antibody Non-reactive (NonReactive) 10/12/21 12:43 Blood Type B POSITIVE 10/11/21 11:31 Antibody Screen Negative 10/11/21 11:31 Ramirez/IV: Voiding Method Urinal Active Medications - Current Medications Current Medications: Generic Name Dose Route Start Last Admin Trade Name Freq PRN Reason Stop Dose Admin Acetaminophen 650 mg 10/11/21 13:00 10/13/21 04:38 Acetaminophen 325 Mg Tab PO 650 mg Q4H PRN Administration Pain MILD(1-3)/Fever >100.5/MATHEW Hydrocodone Bitart/Acetaminophen 1 each 10/13/21 16:31 10/13/21 16:45 Hydrocodone/Acetaminophen 5-325 Mg Tab PO 1 each Q6H PRN Administration Pain, Moderate (4-6) Albuterol/Ipratropium 1 ampul 10/12/21 08:30 10/13/21 08:10 Ipratropium/Albuterol Sulfate 3 Ml Ampul.Neb IH Not Given TIDRT [facility] Amiodarone HCl 200 mg 10/13/21 12:00 10/13/21 14:48 Amiodarone 200 Mg Tab PO 200 mg BID LOVE Administration Dextrose 0 ml 10/11/21 12:00 10/11/21 11:39 Dextrose 10% *Hypoglycemia IV 125 ml PRN PRN Administration Hypoglycemia Sodium Chloride 100 mls @ 999 mls/hr 10/12/21 11:00 Nacl 0.9% IV AUGIE PRN Hypotension Insulin Human Lispro 0 unit 10/12/21 07:30 10/13/21 06:00 Insulin Lispro 100 Unit/Ml SUB-Q Not Given Q6HR [facility] Protocol Ondansetron HCl 4 mg 10/12/21 12:35 Ondansetron 4 Mg/2 Ml Inj IV Q6H PRN Nausea And Vomiting Pantoprazole Sodium 40 mg 10/12/21 07:30 10/13/21 14:48 Pantoprazole 40 Mg Tab PO 40 mg QDAC LOVE Administration Sodium Chloride 10 ml 10/11/21 22:00 10/13/21 10:59 Sodium Chloride 0.9% 10 Ml Flush Syringe IV 10 ml BID LOVE Administration Sodium Chloride 10 ml 10/11/21 13:00 Sodium Chloride 0.9% 10 Ml Flush Syringe IV PRN PRN LINE FLUSH
[2021-10-14] MEDS: INSULIN LISPRO 100 UNIT/ML SUB-Q SCH ×4 (00:11→18:20)
[2021-10-14] MEDS: IPRATROPIUM/ALBUTEROL SULFATE 3 ML AMPUL.NEB IH SCH ×3 (08:34→21:24)
[2021-10-14] MEDS: PANTOPRAZOLE 40 MG TAB PO SCH (09:09)
[2021-10-14] MEDS: ONDANSETRON 4 MG/2 ML INJ IV PRN (09:09)
--- NOTE | 2021-10-14 09:11 | Progress Note ---
Assessment and Plan Assessment and plan: 66-year-old -[place] male with multiple medical problems including end- stage renal disease on hemodialysis T/T/S, anemia on iron therapy, hypertension, nonischemic cardiomyopathy/CHF, recent EF 40 to 45%, chronic A. fibnot a candidate for anticoagulation, pacemaker placement, chronic right foot wounds since 01/2021 being followed by wound care, insulin-dependent diabetes and s/p left BKA with a prosthesis sent and history of GI bleed from gastric AVMs treated in 2020 and colon polyp removed in 2018 with high-grade dysplasia sent to ED from dialysis center for black stools since 3 to 4 days. Patient was undergoing hemodialysis while he had copious loose watery bowel movements which are black in color. No abdominal pain. Patient is also on iron pills for the last 1 year. Reportedly, he was previously on aspirin and PPI but not currently.. No NSAID use. Patient also feels weak and lightheaded. No chest pain. No shortness of breath. No hematemesis. No abdominal pain. In ED, BP 167/58, heart rate 100, hemoglobin 10. WBC normal. GI consulted and admitted. (1) nausea, vomiting, diarrhea x4 days Black stools on chronic current therapy with history of gastric AVMs Current Visit: Yes Status: Acute Plan to address problem: Stool heme positive according to ED physician note. Patient initiated on IV Protonix drip Patient had upper GI AVMs in 2020 and intervention was done at this facility History of colon polyps with high-grade dysplasia in 2018 Patient not currently on home PPI? Hemoglobin stable without early transfusion EGD on 10/13 showed gastropathy, hold biopsies taken. No active bleeding identified. GI symptoms resolving, patient started on a diet yesterday (10/13) (2) Hypoglycemia with history of diabetes Current Visit: Yes Status: Acute Plan to address problem: Patient given D50 W and IV glucagon No hypoglycemia reported since Monitor glucose levels closely (3) chronic A. fib, pacemaker in place, RVR Current heart rate 100-115, on telemetry Cardiology following Started IV amiodarone yesterday for rate control (4) ESRD on dialysis on T/T/S Current Visit: Yes Status: Chronic Plan to address problem: Continue hemodialysis as per schedule. Has mild volume overload with mild dyspnea Is waiting to go for dialysis today (5) Hypertension Current Visit: Yes Status: Chronic Qualifiers: Hypertension type: primary hypertension Qualified Code(s): I10 - Essential (primary) hypertension Plan to address problem: Antihypertensives on hold Catapres patch if necessary (6) Hyperkalemia Current Visit: No Status: Acute Plan to address problem: Resolved (7) GERD (gastroesophageal reflux disease) Current Visit: Yes Status: Chronic Qualifiers: Esophagitis presence: with esophagitis Plan to address problem: Patient currently off oral Protonix IV Protonix for now (8) nonischemic cardiomyopathy/heart failure Current Visit: Yes Status: Chronic Qualifiers: Coronary Disease-Associated Artery/Lesion type: [place] artery [place] vs. transplanted heart: [place] heart Associated angina: without angina Qualified Code(s): I25.10 - Atherosclerotic heart disease of [place] coronary artery without angina pectoris Plan to address problem: Continue isosorbide mononitrate Reported not taking aspirin currently Improvement of LVEF on recent echoes, 40 to 45% Has mild volume overload and dyspnea, awaiting dialysis today Cardiology is following (9) IDDM (insulin dependent diabetes mellitus) Current Visit: Yes Status: Chronic Plan to address problem: On coverage for now Check hemoglobin A1c (10) chronic anemia Current Visit: Yes Status: Chronic Qualifiers: Anemia type: due to chronic kidney disease Plan to address problem: Patient on Epogen and iron Hemoglobin is 10, 9, 9 Transfuse as needed Receive PRBC transfusion recently Local wound care ordered (11) chronic right foot wound since 01/2021, followed by wound care Left BKA, uses prosthesis Local wound care ordered and discussed this with the nursing staff at bedside Superficial healthy healing ulcer noted over right heel Patient is followed by wound care provider once every 2 weeks. DVT prophylaxis Current Visit: Yes Status: Acute Plan to address problem: On SCDs and GI prophylaxis History Interval history: No new issues overnight. Hospitalist Physical - Constitutional Vitals: Temp Pulse Resp BP Pulse Ox 97.9 F 94 H 18 151/64 96 10/14/21 08:05 10/14/21 08:05 10/14/21 08:05 10/14/21 08:05 10/14/21 08:35 General appearance: Present: no acute distress, obese - EENT Eyes: Present: PERRL, EOM intact ENT: hearing intact, clear oral mucosa, dentition normal - Neck Neck: Present: supple, normal ROM - Respiratory Respiratory effort: normal Respiratory: bilateral: CTA - Cardiovascular Rhythm: regular Heart Sounds: Present: S1 & S2. Absent: gallop, rub - Extremities Extremities: no ischemia, No edema, Full ROM - Abdominal General gastrointestinal: soft, non-tender, non-distended, normal bowel sounds - Integumentary Integumentary: Present: clear, warm, dry - Neurologic Neurologic: CNII-XII intact, moves all extremities HEART Score - HEART Score Age: > 65 Risk factors: > 3 risk factors or hx of atherosclerotic disease Troponin: < normal limit - Critical Actions Critical Actions: 0-3 pts:0.9-1.7%risk of adverse cardiac event.Candidate for discharge Results - Labs CBC & Chem 7: 10/13/21 05:06 10/13/21 05:06 Labs: Laboratory Last Values WBC 6.0 K/mm3 (4.5-11.0) 10/13/21 05:06 RBC 2.73 M/mm3 (3.65-5.03) L 10/13/21 05:06 Hgb 9.1 gm/dl (11.8-15.2) L 10/13/21 05:06 Hct 29.0 % (35.5-45.6) L 10/13/21 05:06 MCV 106 fl (84-94) H 10/13/21 05:06 MCH 33 pg (28-32) H 10/13/21 05:06 MCHC 31 % (32-34) L 10/13/21 05:06 RDW 17.3 % (13.2-15.2) H 10/13/21 05:06 Plt Count 206 K/mm3 (140-440) 10/13/21 05:06 Lymph % (Auto) 14.9 % (13.4-35.0) 10/13/21 05:06 [place] % (Auto) 11.1 % (0.0-7.3) H 10/13/21 05:06 Eos % (Auto) 1.3 % (0.0-4.3) 10/13/21 05:06 Baso % (Auto) 2.9 % (0.0-1.8) H 10/13/21 05:06 Lymph # (Auto) 0.9 K/mm3 (1.2-5.4) L 10/13/21 05:06 [place] # (Auto) 0.7 K/mm3 (0.0-0.8) 10/13/21 05:06 Eos # (Auto) 0.1 K/mm3 (0.0-0.4) 10/13/21 05:06 Baso # (Auto) 0.2 K/mm3 (0.0-0.1) H 10/13/21 05:06 Seg Neutrophils % 69.8 % (40.0-70.0) 10/13/21 05:06 Seg Neutrophils # 4.2 K/mm3 (1.8-7.7) 10/13/21 05:06 PT 17.6 Sec. (12.2-14.9) H 10/11/21 09:52 INR 1.29 (0.87-1.13) H 10/11/21 09:52 APTT 29.7 Sec. (24.2-36.6) 10/11/21 09:52 Sodium 143 mmol/L (137-145) 10/13/21 05:06 Potassium 4.4 mmol/L (3.6-5.0) 10/13/21 05:06 Chloride 98.0 mmol/L (98-107) 10/13/21 05:06 Carbon Dioxide 23 mmol/L (22-30) 10/13/21 05:06 Anion Gap 26 mmol/L 10/13/21 05:06 BUN 70 mg/dL (9-20) H 10/13/21 05:06 Creatinine 6.5 mg/dL (0.8-1.3) H 10/13/21 05:06 Estimated GFR 10 ml/min 10/13/21 05:06 BUN/Creatinine Ratio 11 % 10/13/21 05:06 Glucose 126 mg/dL (75-100) H 10/13/21 05:06 POC Glucose 152 mg/dL (70-105) H 10/13/21 23:27 Calcium 8.3 mg/dL (8.4-10.2) L 10/13/21 05:06 Magnesium 2.30 mg/dL (1.7-2.3) 10/13/21 05:06 Total Bilirubin 1.00 mg/dL (0.1-1.2) 10/13/21 05:06 AST 32 units/L (5-40) 10/13/21 05:06 ALT 28 units/L (7-56) 10/13/21 05:06 Alkaline Phosphatase 308 units/L (35-129) H 10/13/21 05:06 Total Protein 7.6 g/dL (6.3-8.2) 10/13/21 05:06 Albumin 3.3 g/dL (3.9-5) L 10/13/21 05:06 Albumin/Globulin Ratio 0.8 % 10/13/21 05:06 Hepatitis A IgM Ab Non-reactive (NonReactive) 10/12/21 12:43 Hep Bs Antigen Non-reactive (Negative) 10/12/21 12:43 Hep B Core IgM Ab Non-reactive (NonReactive) 10/12/21 12:43 Hepatitis C Antibody Non-reactive (NonReactive) 10/12/21 12:43 Blood Type B POSITIVE 10/11/21 11:31 Antibody Screen Negative 10/11/21 11:31 Ramirez/IV: Voiding Method Urinal Active Medications - Current Medications Current Medications: Generic Name Dose Route Start Last Admin Trade Name Freq PRN Reason Stop Dose Admin Acetaminophen 650 mg 10/11/21 13:00 10/13/21 04:38 Acetaminophen 325 Mg Tab PO 650 mg Q4H PRN Administration Pain MILD(1-3)/Fever >100.5/MATHEW Hydrocodone Bitart/Acetaminophen 1 each 10/13/21 16:31 10/13/21 16:45 Hydrocodone/Acetaminophen 5-325 Mg Tab PO 1 each Q6H PRN Administration Pain, Moderate (4-6) Albuterol/Ipratropium 1 ampul 10/12/21 08:30 10/14/21 08:34 Ipratropium/Albuterol Sulfate 3 Ml Ampul.Neb IH 1 ampul TIDRT LOVE Administration Amiodarone HCl 200 mg 10/13/21 12:00 10/13/21 22:05 Amiodarone 200 Mg Tab PO 200 mg BID LOVE Administration Dextrose 0 ml 10/11/21 12:00 10/11/21 11:39 Dextrose 10% *Hypoglycemia IV 125 ml PRN PRN Administration Hypoglycemia Sodium Chloride 100 mls @ 999 mls/hr 10/12/21 11:00 Nacl 0.9% IV AUGIE PRN Hypotension Insulin Human Lispro 0 unit 10/12/21 07:30 10/14/21 07:07 Insulin Lispro 100 Unit/Ml SUB-Q 3 unit Q6HR LOVE Administration Protocol Ondansetron HCl 4 mg 10/12/21 12:35 Ondansetron 4 Mg/2 Ml Inj IV Q6H PRN Nausea And Vomiting Pantoprazole Sodium 40 mg 10/12/21 07:30 10/13/21 14:48 Pantoprazole 40 Mg Tab PO 40 mg QDAC LOVE Administration Sodium Chloride 10 ml 10/11/21 22:00 10/13/21 22:06 Sodium Chloride 0.9% 10 Ml Flush Syringe IV 10 ml BID LOVE Administration Sodium Chloride 10 ml 10/11/21 13:00 Sodium Chloride 0.9% 10 Ml Flush Syringe IV PRN PRN LINE FLUSH
--- NOTE | 2021-10-14 09:16 | Progress Note ---
Assessment and Plan Assessment Upper GI bleeding Hypoglycemia Diarrhea ESRD on dialysis Hypertension Hyperkalemia GERD (gastroesophageal reflux disease) Coronary artery disease IDDM (insulin dependent diabetes mellitus) Anemia Plan: -Hemodialysis today for UF and clearance -Fluid restriction of 1 liter per day -Renally dose all medications -Strict I/O's daily -Obtain daily weights -Assess dialysis needs daily -Plan of care reviewed by Dr. Corral Subjective Date of service: 10/14/21 Principal diagnosis: Sympatomatic anemia Interval history: Patient seen lying in bed. Awake. No family at bedside. Objective - Vital Signs Vital signs: Vital Signs - 12hr 10/13/21 10/14/21 10/14/21 21:45 00:26 03:29 Temperature 97.8 F Pulse Rate 56 L Pulse Rate [ 98 H Throughout] Respiratory 16 Rate Respiratory 16 Rate [ Throughout] Blood Pressure 140/38 O2 Sat by Pulse 96 98 93 Oximetry 10/14/21 10/14/21 10/14/21 08:00 08:05 08:35 Temperature 97.9 F Pulse Rate 94 H Pulse Rate [ 95 H Throughout] Respiratory 18 Rate Respiratory 18 Rate [ Throughout] Blood Pressure 151/64 O2 Sat by Pulse 93 96 Oximetry - General Appearance General appearance: well-developed, appears stated age EENT: ATNC, PERRL, hearing intact, vision intact Neck: no JVD, supple Respiratory: Present: Decreased Breath Sounds Cardiology: S1S2 Gastrointestinal: normoactive bowel sounds Integumentary: ulcer, chronic venous stasis Neurologic: alert and oriented x3 Musculoskeletal: other (Wound to left lower foot. Left AVF has positive bruit and thrill) Psychiatric: cooperative - Lab 10/13/21 05:06 10/13/21 05:06 Most recent lab results Calcium 8.3 mg/dL (8.4-10.2) L 10/13/21 05:06 Magnesium 2.30 mg/dL (1.7-2.3) 10/13/21 05:06 Medications & Allergies - Medications Allergies/Adverse Reactions: Allergies gabapentin Adverse Reaction (Verified 10/14/21 08:57) Hallucinations Patient says "it makes me go crazy" Home Medications: Home Medications Medication Instructions Recorded Confirmed Last Taken Type Insulin Degludec [Tresiba 40 unit SQ QDAY 07/21/19 10/14/21 10/10/21 History Flextouch U-100] Isosorbide Dinitrate [Isordil] 20 mg PO TID 07/21/19 10/14/21 10/10/21 History Metoprolol [Lopressor TAB] 100 mg PO QDAY 07/21/19 10/14/21 10/10/21 History NIFEdipine [Nifedipine ER] 90 mg PO QDAY 07/21/19 10/14/21 10/10/21 History hydrALAZINE [Apresoline TAB] 100 mg PO QDAY 07/21/19 10/14/21 10/10/21 History Aspirin [Aspirin BABY CHEW TAB] 81 mg PO QDAY #30 tab.chew 07/28/19 10/14/21 10/10/21 Rx Sodium Bicarbonate 650 mg PO TID #30 tablet 07/28/19 10/14/21 10/10/21 Rx metOLazone [Zaroxolyn] 5 mg PO QDAY #30 tablet 07/28/19 10/14/21 10/10/21 Rx Acetaminophen [Acetaminophen TAB] 650 mg PO Q6H PRN tablet 09/11/20 10/14/21 10/10/21 Rx AtorvaSTATin [Lipitor] 40 mg PO QHS #30 09/11/20 10/14/21 10/10/21 Rx Ferrous Sulfate [Iron 325 MG] 325 mg PO DAILY #30 tablet 09/11/20 10/14/21 10/10/21 Rx Multivitamin 1 each PO DAILY #30 tablet 09/11/20 10/14/21 10/10/21 Rx Pantoprazole [Protonix] 40 mg PO QDAY #30 tablet 09/11/20 10/14/21 10/10/21 Rx cephALEXin [Keflex] 500 mg PO Q12HR 10 Days #20 cap 10/13/20 10/14/21 10/10/21 Rx HYDROcodone/APAP 7.5-325 [[place] 1 each PO Q12H 10/14/21 10/14/21 10/10/21 History 7.5/325] Insulin Aspart [Insulin Aspart 8 unit SQ TID 10/14/21 10/14/21 10/10/21 History Flexpen] Active Medications: Generic Name Dose Route Start Last Admin Trade Name Freq PRN Reason Stop Dose Admin Acetaminophen 650 mg 10/11/21 13:00 10/13/21 04:38 Acetaminophen 325 Mg Tab PO 650 mg Q4H PRN Administration Pain MILD(1-3)/Fever >100.5/MATHEW Hydrocodone Bitart/Acetaminophen 1 each 10/13/21 16:31 10/13/21 16:45 Hydrocodone/Acetaminophen 5-325 Mg Tab PO 1 each Q6H PRN Administration Pain, Moderate (4-6) Albuterol/Ipratropium 1 ampul 10/12/21 08:30 10/14/21 08:34 Ipratropium/Albuterol Sulfate 3 Ml Ampul.Neb IH 1 ampul TIDRT LOVE Administration Amiodarone HCl 200 mg 10/13/21 12:00 10/13/21 22:05 Amiodarone 200 Mg Tab PO 200 mg BID LOVE Administration Dextrose 0 ml 10/11/21 12:00 10/11/21 11:39 Dextrose 10% *Hypoglycemia IV 125 ml PRN PRN Administration Hypoglycemia Sodium Chloride 100 mls @ 999 mls/hr 10/12/21 11:00 Nacl 0.9% IV AUGIE PRN Hypotension Insulin Human Lispro 0 unit 10/12/21 07:30 10/14/21 07:07 Insulin Lispro 100 Unit/Ml SUB-Q 3 unit Q6HR LOVE Administration Protocol Ondansetron HCl 4 mg 10/12/21 12:35 10/14/21 09:09 Ondansetron 4 Mg/2 Ml Inj IV 4 mg Q6H PRN Administration Nausea And Vomiting Pantoprazole Sodium 40 mg 10/12/21 07:30 10/14/21 09:09 Pantoprazole 40 Mg Tab PO 40 mg QDAC LOVE Administration Sodium Chloride 10 ml 10/11/21 22:00 10/13/21 22:06 Sodium Chloride 0.9% 10 Ml Flush Syringe IV 10 ml BID LOVE Administration Sodium Chloride 10 ml 10/11/21 13:00 Sodium Chloride 0.9% 10 Ml Flush Syringe IV PRN PRN LINE FLUSH
--- NOTE | 2021-10-14 11:10 | Progress Note ---
Assessment and Plan - Patient Problems (1) Pre-op evaluation Current Visit: Yes Status: Acute Plan to address problem: Patient is status post GI endoscopic procedure. Continue conservative cardiac follow-up and management. (2) Paroxysmal atrial fibrillation Current Visit: Yes Status: Acute Plan to address problem: Patient had a history of paroxysmal atrial fibrillation, atrial fibrillation has persisted on this presentation. He is not a candidate for oral anticoagulation, we will maintain rate control strategy at this time with beta-blockers, add amiodarone as necessary. The patient has sinus beats interspersed with short bursts of PAT or PAF on amiodarone. We note that while his liver transaminases are normal, there is a mild elevation of his alkaline phosphatase, also noted on prior admissions. If this persists, we will stop amiodarone after he establishes stable sinus rhythm and switch to oral beta-blockers. Subjective Date of service: 10/14/21 Principal diagnosis: Sympatomatic anemia Interval history: Patient is comfortable, no cardiac complaints, currently undergoing hemodialysis. On the cfo controller, he has sinus beats, interspersed with short bursts of PAT or PAF. He is currently on oral amiodarone. Objective Vital Signs Temp Pulse Pulse Resp Resp BP BP 10/14/21 08:35 10/14/21 08:05 97.9 F 94 H 18 151/64 10/14/21 08:00 95 H 18 10/14/21 03:29 97.8 F 56 L 16 140/38 10/14/21 00:26 10/13/21 21:45 98 H 16 10/13/21 19:45 98.0 F 111 H 20 100/54 10/13/21 16:53 97.9 F 72 16 123/88 10/13/21 13:00 Pulse Ox 10/14/21 08:35 96 10/14/21 08:05 93 10/14/21 08:00 10/14/21 03:29 93 10/14/21 00:26 98 10/13/21 21:45 96 10/13/21 19:45 98 10/13/21 16:53 95 10/13/21 13:00 97 - Physical Examination HEENT: Positive: PERRL Neck: Positive: neck supple Cardiac: Positive: Irregularly Regular Lungs: Positive: Decreased Breath Sounds Neuro: Positive: Grossly Intact Abdomen: Positive: Soft Skin: Positive: Clear Extremities: Absent: edema
[2021-10-14] MEDS: HYDROcodone/ACETAMINOPHEN 5-325 MG TAB PO PRN (18:37)
[2021-10-14] MEDS: AMIODARONE 200 MG TAB PO SCH ×2 (18:40→22:21)
[2021-10-15] MEDS: INSULIN LISPRO 100 UNIT/ML SUB-Q SCH ×4 (00:37→18:59)
[2021-10-15 06:37] LABS: Calcium 8.1 mg/dL (8.4-10.2)
[2021-10-15] MEDS: IPRATROPIUM/ALBUTEROL SULFATE 3 ML AMPUL.NEB IH SCH ×3 (08:32→20:06)
[2021-10-15] MEDS: PANTOPRAZOLE 40 MG TAB PO SCH (09:19)
[2021-10-15] MEDS: AMIODARONE 200 MG TAB PO SCH ×2 (09:19→21:43)
--- NOTE | 2021-10-15 09:19 | Progress Note ---
Assessment and Plan (1) Upper GI bleeding (2) Hypoglycemia (3) Diarrhea (4) ESRD on dialysis (5) Hypertension (6) Hyperkalemia (7) GERD (gastroesophageal reflux disease) (8) Coronary artery disease (9) IDDM (insulin dependent diabetes mellitus) (10) Anemia -s/p HD yesterday, no HD today, HD tomorrow. -Pt agreed to and consented for dialysis while inpatient -Monitor Hg for epogen need -Renally dose all meds -Strict I/Os Subjective Date of service: 10/15/21 Principal diagnosis: Sympatomatic anemia Interval history: Tolerated HD yesterday, NAD. Objective - Exam Narrative Exam: General appearance: Present: no acute distress, well-nourished - EENT Eyes: Present: PERRL ENT: hearing intact, clear oral mucosa - Neck Neck: Present: supple, normal ROM - Respiratory Respiratory effort: normal Respiratory: bilateral: CTA - Cardiovascular Heart rate: 88 Rhythm: regular Heart Sounds: Present: S1 & S2. Absent: rub, click - Extremities Extremities: pulses symmetrical, No edema, abnormal (Left BKA with prosthesis) Peripheral Pulses: within normal limits - Abdominal General gastrointestinal: Present: soft, non-tender, non-distended, normal bowel sounds Male genitourinary: Present: normal - Rectal Rectal Exam: stool dark (Occult blood positive) - Integumentary Integumentary: Present: clear, warm, dry - Musculoskeletal Musculoskeletal: gait normal, strength equal bilaterally - Psychiatric Psychiatric: appropriate mood/affect, intact judgment & insight - Neurologic Neurologic: CNII-XII intact, moves all extremities - Vital Signs Vital signs: Vital Signs - 12hr 10/14/21 10/14/21 10/15/21 21:25 23:47 01:00 Temperature 98.2 F Pulse Rate 110 H Pulse Rate [ 60 Throughout] Respiratory 20 Rate Respiratory 14 Rate [ Throughout] Blood Pressure 134/89 O2 Sat by Pulse 100 98 Oximetry 10/15/21 10/15/21 10/15/21 05:04 08:14 08:32 Temperature 98.4 F 98.3 F Pulse Rate 104 H 125 H Pulse Rate [ 57 L Throughout] Respiratory 20 18 Rate Respiratory 18 Rate [ Throughout] Blood Pressure 128/75 123/45 O2 Sat by Pulse 100 94 Oximetry - Lab 10/13/21 05:06 10/15/21 05:54 Most recent lab results Calcium 8.1 mg/dL (8.4-10.2) L 10/15/21 05:54 Magnesium 2.30 mg/dL (1.7-2.3) 10/13/21 05:06 Medications & Allergies - Medications Allergies/Adverse Reactions: Allergies gabapentin Adverse Reaction (Verified 10/14/21 08:57) Hallucinations Patient says "it makes me go crazy" Home Medications: Home Medications Medication Instructions Recorded Confirmed Last Taken Type Insulin Degludec [Tresiba 40 unit SQ QDAY 07/21/19 10/14/21 10/10/21 History Flextouch U-100] Isosorbide Dinitrate [Isordil] 20 mg PO TID 07/21/19 10/14/21 10/10/21 History Metoprolol [Lopressor TAB] 100 mg PO QDAY 07/21/19 10/14/21 10/10/21 History NIFEdipine [Nifedipine ER] 90 mg PO QDAY 07/21/19 10/14/21 10/10/21 History hydrALAZINE [Apresoline TAB] 100 mg PO QDAY 07/21/19 10/14/21 10/10/21 History Aspirin [Aspirin BABY CHEW TAB] 81 mg PO QDAY #30 tab.chew 07/28/19 10/14/21 10/10/21 Rx Sodium Bicarbonate 650 mg PO TID #30 tablet 07/28/19 10/14/21 10/10/21 Rx metOLazone [Zaroxolyn] 5 mg PO QDAY #30 tablet 07/28/19 10/14/21 10/10/21 Rx Acetaminophen [Acetaminophen TAB] 650 mg PO Q6H PRN tablet 09/11/20 10/14/21 10/10/21 Rx AtorvaSTATin [Lipitor] 40 mg PO QHS #30 09/11/20 10/14/21 10/10/21 Rx Ferrous Sulfate [Iron 325 MG] 325 mg PO DAILY #30 tablet 09/11/20 10/14/21 10/10/21 Rx Multivitamin 1 each PO DAILY #30 tablet 09/11/20 10/14/21 10/10/21 Rx Pantoprazole [Protonix] 40 mg PO QDAY #30 tablet 09/11/20 10/14/21 10/10/21 Rx cephALEXin [Keflex] 500 mg PO Q12HR 10 Days #20 cap 10/13/20 10/14/21 10/10/21 Rx HYDROcodone/APAP 7.5-325 [[place] 1 each PO Q12H 10/14/21 10/14/21 10/10/21 History 7.5/325] Insulin Aspart [Insulin Aspart 8 unit SQ TID 10/14/21 10/14/21 10/10/21 History Flexpen] Active Medications: Generic Name Dose Route Start Last Admin Trade Name Freq PRN Reason Stop Dose Admin Acetaminophen 650 mg 10/11/21 13:00 10/13/21 04:38 Acetaminophen 325 Mg Tab PO 650 mg Q4H PRN Administration Pain MILD(1-3)/Fever >100.5/MATHEW Hydrocodone Bitart/Acetaminophen 1 each 10/13/21 16:31 10/14/21 18:37 Hydrocodone/Acetaminophen 5-325 Mg Tab PO 1 each Q6H PRN Administration Pain, Moderate (4-6) Albuterol/Ipratropium 1 ampul 10/12/21 08:30 10/15/21 08:32 Ipratropium/Albuterol Sulfate 3 Ml Ampul.Neb IH 1 ampul TIDRT LOVE Administration Amiodarone HCl 200 mg 10/13/21 12:00 10/14/21 22:21 Amiodarone 200 Mg Tab PO 200 mg BID LOVE Administration Dextrose 0 ml 10/11/21 12:00 10/11/21 11:39 Dextrose 10% *Hypoglycemia IV 125 ml PRN PRN Administration Hypoglycemia Sodium Chloride 100 mls @ 999 mls/hr 10/12/21 11:00 Nacl 0.9% IV AUGIE PRN Hypotension Insulin Human Lispro 0 unit 10/12/21 07:30 10/15/21 06:27 Insulin Lispro 100 Unit/Ml SUB-Q Not Given Q6HR [facility] Protocol Ondansetron HCl 4 mg 10/12/21 12:35 10/14/21 09:09 Ondansetron 4 Mg/2 Ml Inj IV 4 mg Q6H PRN Administration Nausea And Vomiting Pantoprazole Sodium 40 mg 10/12/21 07:30 10/14/21 09:09 Pantoprazole 40 Mg Tab PO 40 mg QDAC LOVE Administration Sodium Chloride 10 ml 10/11/21 22:00 10/14/21 22:21 Sodium Chloride 0.9% 10 Ml Flush Syringe IV 10 ml BID LOVE Administration Sodium Chloride 10 ml 10/11/21 13:00 Sodium Chloride 0.9% 10 Ml Flush Syringe IV PRN PRN LINE FLUSH
--- NOTE | 2021-10-15 10:03 | Progress Note ---
Assessment and Plan Assessment and plan: 66-year-old -Spanish male with multiple medical problems including end- stage renal disease on hemodialysis T/T/S, anemia on iron therapy, hypertension, nonischemic cardiomyopathy/CHF, recent EF 40 to 45%, chronic A. fibnot a candidate for anticoagulation, pacemaker placement, chronic right foot wounds since 01/2021 being followed by wound care, insulin-dependent diabetes and s/p left BKA with a prosthesis sent and history of GI bleed from gastric AVMs treated in 2020 and colon polyp removed in 2018 with high-grade dysplasia sent to ED from dialysis center for black stools since 3 to 4 days. Patient was undergoing hemodialysis while he had copious loose watery bowel movements which are black in color. No abdominal pain. Patient is also on iron pills for the last 1 year. Reportedly, he was previously on aspirin and PPI but not currently.. No NSAID use. Patient also feels weak and lightheaded. No chest pain. No shortness of breath. No hematemesis. No abdominal pain. In ED, BP 167/58, heart rate 100, hemoglobin 10. WBC normal. GI consulted and admitted. Melena on chronic current therapy with history of gastric AVMs Stool heme positive according to ED physician note. Patient initiated on IV Protonix drip Patient had upper GI AVMs in 2020 and intervention was done at this facility History of colon polyps with high-grade dysplasia in 2018 Patient not currently on home PPI? Hemoglobin stable without early transfusion EGD on 10/13 showed gastropathy, hold biopsies taken. No active bleeding identified. GI symptoms resolving, patient started on a diet yesterday (10/13) chronic A. fib, pacemaker in place, RVR Cardiology following Currently with amiodarone for rate control ESRD on dialysis on T/T/S Continue hemodialysis as per schedule. Hypertension Hyperkalemia Resolved GERD (gastroesophageal reflux disease) IV Protonix nonischemic cardiomyopathy acute on chronic systolic heart failure Continue isosorbide mononitrate Improvement of LVEF on recent echoes, 40 to 45% Cardiology is following IDDM (insulin dependent diabetes mellitus) On coverage for now Check hemoglobin A1c chronic anemia Patient on Epogen and iron Transfuse as needed chronic right foot wound since 01/2021, followed by wound care Left BKA, uses prosthesis Local wound care Superficial healthy healing ulcer noted over right heel Patient is followed by wound care provider once every 2 weeks. 10/15/2021. Cardiology reports patient is not a candidate for anticoagulation. Continue rate control with beta-blockers and amiodarone. Cardiology concerned about mild elevation of alkaline phosphatase and potentially discontinuing amiodarone. Continue wound care History Interval history: No new issues overnight. Hospitalist Physical - Constitutional Vitals: Temp Pulse Resp BP Pulse Ox 98.3 F 57 L 18 123/45 94 10/15/21 08:14 10/15/21 08:32 10/15/21 08:32 10/15/21 08:14 10/15/21 08:14 General appearance: Present: no acute distress, obese - EENT Eyes: Present: PERRL, EOM intact ENT: hearing intact, clear oral mucosa, dentition normal - Neck Neck: Present: supple, normal ROM - Respiratory Respiratory effort: normal Respiratory: bilateral: CTA - Cardiovascular Rhythm: regular Heart Sounds: Present: S1 & S2. Absent: gallop, rub - Extremities Extremities: no ischemia, No edema, Full ROM - Abdominal General gastrointestinal: soft, non-tender, non-distended, normal bowel sounds - Integumentary Integumentary: Present: clear, warm, dry - Neurologic Neurologic: CNII-XII intact, moves all extremities HEART Score - HEART Score Age: > 65 Risk factors: > 3 risk factors or hx of atherosclerotic disease Troponin: < normal limit - Critical Actions Critical Actions: 0-3 pts:0.9-1.7%risk of adverse cardiac event.Candidate for discharge Results - Labs CBC & Chem 7: 10/13/21 05:06 10/15/21 05:54 Labs: Laboratory Last Values WBC 6.0 K/mm3 (4.5-11.0) 10/13/21 05:06 RBC 2.73 M/mm3 (3.65-5.03) L 10/13/21 05:06 Hgb 9.1 gm/dl (11.8-15.2) L 10/13/21 05:06 Hct 29.0 % (35.5-45.6) L 10/13/21 05:06 MCV 106 fl (84-94) H 10/13/21 05:06 MCH 33 pg (28-32) H 10/13/21 05:06 MCHC 31 % (32-34) L 10/13/21 05:06 RDW 17.3 % (13.2-15.2) H 10/13/21 05:06 Plt Count 206 K/mm3 (140-440) 10/13/21 05:06 Lymph % (Auto) 14.9 % (13.4-35.0) 10/13/21 05:06 [place] % (Auto) 11.1 % (0.0-7.3) H 10/13/21 05:06 Eos % (Auto) 1.3 % (0.0-4.3) 10/13/21 05:06 Baso % (Auto) 2.9 % (0.0-1.8) H 10/13/21 05:06 Lymph # (Auto) 0.9 K/mm3 (1.2-5.4) L 10/13/21 05:06 [place] # (Auto) 0.7 K/mm3 (0.0-0.8) 10/13/21 05:06 Eos # (Auto) 0.1 K/mm3 (0.0-0.4) 10/13/21 05:06 Baso # (Auto) 0.2 K/mm3 (0.0-0.1) H 10/13/21 05:06 Seg Neutrophils % 69.8 % (40.0-70.0) 10/13/21 05:06 Seg Neutrophils # 4.2 K/mm3 (1.8-7.7) 10/13/21 05:06 PT 17.6 Sec. (12.2-14.9) H 10/11/21 09:52 INR 1.29 (0.87-1.13) H 10/11/21 09:52 APTT 29.7 Sec. (24.2-36.6) 10/11/21 09:52 Sodium 145 mmol/L (137-145) 10/15/21 05:54 Potassium 4.5 mmol/L (3.6-5.0) 10/15/21 05:54 Chloride 99.9 mmol/L (98-107) 10/15/21 05:54 Carbon Dioxide 26 mmol/L (22-30) 10/15/21 05:54 Anion Gap 24 mmol/L 10/15/21 05:54 BUN 56 mg/dL (9-20) H 10/15/21 05:54 Creatinine 6.5 mg/dL (0.8-1.3) H 10/15/21 05:54 Estimated GFR 10 ml/min 10/15/21 05:54 BUN/Creatinine Ratio 9 % 10/15/21 05:54 Glucose 124 mg/dL (75-100) H 10/15/21 05:54 POC Glucose 134 mg/dL (70-105) H 10/15/21 08:14 Calcium 8.1 mg/dL (8.4-10.2) L 10/15/21 05:54 Magnesium 2.30 mg/dL (1.7-2.3) 10/13/21 05:06 Total Bilirubin 1.00 mg/dL (0.1-1.2) 10/13/21 05:06 AST 32 units/L (5-40) 10/13/21 05:06 ALT 28 units/L (7-56) 10/13/21 05:06 Alkaline Phosphatase 308 units/L (35-129) H 10/13/21 05:06 Total Protein 7.6 g/dL (6.3-8.2) 10/13/21 05:06 Albumin 3.3 g/dL (3.9-5) L 10/13/21 05:06 Albumin/Globulin Ratio 0.8 % 10/13/21 05:06 Hepatitis A IgM Ab Non-reactive (NonReactive) 10/12/21 12:43 Hep Bs Antigen Non-reactive (Negative) 10/12/21 12:43 Hep B Core IgM Ab Non-reactive (NonReactive) 10/12/21 12:43 Hepatitis C Antibody Non-reactive (NonReactive) 10/12/21 12:43 Blood Type B POSITIVE 10/11/21 11:31 Antibody Screen Negative 10/11/21 11:31 Ramirez/IV: Voiding Method Bedside Commode Active Medications - Current Medications Current Medications: Generic Name Dose Route Start Last Admin Trade Name Freq PRN Reason Stop Dose Admin Acetaminophen 650 mg 10/11/21 13:00 10/13/21 04:38 Acetaminophen 325 Mg Tab PO 650 mg Q4H PRN Administration Pain MILD(1-3)/Fever >100.5/MATHEW Hydrocodone Bitart/Acetaminophen 1 each 10/13/21 16:31 10/14/21 18:37 Hydrocodone/Acetaminophen 5-325 Mg Tab PO 1 each Q6H PRN Administration Pain, Moderate (4-6) Albuterol/Ipratropium 1 ampul 10/12/21 08:30 10/15/21 08:32 Ipratropium/Albuterol Sulfate 3 Ml Ampul.Neb IH 1 ampul TIDRT LOVE Administration Amiodarone HCl 200 mg 10/13/21 12:00 10/15/21 09:19 Amiodarone 200 Mg Tab PO 200 mg BID LOVE Administration Dextrose 0 ml 10/11/21 12:00 10/11/21 11:39 Dextrose 10% *Hypoglycemia IV 125 ml PRN PRN Administration Hypoglycemia Sodium Chloride 100 mls @ 999 mls/hr 10/12/21 11:00 Nacl 0.9% IV AUGIE PRN Hypotension Insulin Human Lispro 0 unit 10/12/21 07:30 10/15/21 06:27 Insulin Lispro 100 Unit/Ml SUB-Q Not Given Q6HR [facility] Protocol Ondansetron HCl 4 mg 10/12/21 12:35 10/14/21 09:09 Ondansetron 4 Mg/2 Ml Inj IV 4 mg Q6H PRN Administration Nausea And Vomiting Pantoprazole Sodium 40 mg 10/12/21 07:30 10/15/21 09:19 Pantoprazole 40 Mg Tab PO 40 mg QDAC LOVE Administration Sodium Chloride 10 ml 10/11/21 22:00 10/15/21 09:19 Sodium Chloride 0.9% 10 Ml Flush Syringe IV 10 ml BID LOVE Administration Sodium Chloride 10 ml 10/11/21 13:00 Sodium Chloride 0.9% 10 Ml Flush Syringe IV PRN PRN LINE FLUSH
--- NOTE | 2021-10-15 12:55 | Progress Note ---
Assessment and Plan - Patient Problems (1) Pre-op evaluation Current Visit: Yes Status: Acute Plan to address problem: Patient is status post GI endoscopic procedure. Stable cardiac status post procedure. (2) Paroxysmal atrial fibrillation Current Visit: Yes Status: Acute Plan to address problem: Patient had a history of paroxysmal atrial fibrillation, atrial fibrillation has persisted on this presentation. He is not a candidate for oral anticoagulation, we will maintain rate control strategy at this time with beta-blockers, add amiodarone as necessary. We will optimize rate control therapy for atrial fibrillation. Subjective Date of service: 10/15/21 Principal diagnosis: Sympatomatic anemia Interval history: Patient is comfortable, no cardiac complaints, currently undergoing hemodialysis. On the media monitor today he has atrial fibrillation with a rapid ventricular rate 130s. He is currently on oral amiodarone. Objective Vital Signs Temp Pulse Pulse Pulse Resp Resp BP 10/15/21 12:17 98.3 F 132 H 15 132/53 10/15/21 11:06 140 H 18 10/15/21 08:32 57 L 18 10/15/21 08:14 98.3 F 125 H 18 123/45 10/15/21 05:04 98.4 F 104 H 20 128/75 10/15/21 01:00 10/14/21 23:47 98.2 F 110 H 20 134/89 10/14/21 21:25 60 14 10/14/21 19:56 97.6 F 109 H 20 118/62 10/14/21 14:48 95.7 F L 18 47/27 10/14/21 13:43 97.6 F 82 20 125/68 10/14/21 13:20 73 128/60 10/14/21 13:15 83 119/59 10/14/21 13:00 77 118/63 Pulse Ox Pulse Ox 10/15/21 12:17 91 10/15/21 11:06 97 10/15/21 08:32 10/15/21 08:14 94 10/15/21 05:04 100 10/15/21 01:00 98 10/14/21 23:47 100 10/14/21 21:25 10/14/21 19:56 100 10/14/21 14:48 10/14/21 13:43 98 10/14/21 13:20 10/14/21 13:15 10/14/21 13:00 97 - Physical Examination HEENT: Positive: PERRL Neck: Positive: neck supple Cardiac: Positive: irregularly irregular Lungs: Positive: Decreased Breath Sounds Neuro: Positive: Grossly Intact Abdomen: Positive: Soft Skin: Positive: Clear Extremities: Absent: edema - Labs and Meds Comprehensive Metabolic Panel 10/15/21 Range/Units 05:54 Sodium 145 (137-145) mmol/L Potassium 4.5 (3.6-5.0) mmol/L Chloride 99.9 (98-107) mmol/L Carbon Dioxide 26 (22-30) mmol/L BUN 56 H (9-20) mg/dL Creatinine 6.5 H (0.8-1.3) mg/dL Glucose 124 H (75-100) mg/dL Calcium 8.1 L (8.4-10.2) mg/dL
[2021-10-15] MEDS ORDERED: METOPROLOL TARTRATE 5 MG/5 ML INJ IV PRN (13:00)
[2021-10-15] MEDS: METOPROLOL TARTRATE 25 MG TAB PO SCH ×2 (13:39→19:01)
[2021-10-15] MEDS: HYDROcodone/ACETAMINOPHEN 5-325 MG TAB PO PRN (14:46)
[2021-10-15] MEDS ORDERED: diphenhydrAMINE 50 MG/ML VIAL IV ONE (19:50)
[2021-10-16] MEDS: METOPROLOL TARTRATE 25 MG TAB PO SCH ×4 (00:16→21:24)
[2021-10-16] MEDS: INSULIN LISPRO 100 UNIT/ML SUB-Q SCH ×4 (00:19→18:09)
[2021-10-16] MEDS ORDERED: diphenhydrAMINE 50 MG/ML VIAL IV ONE (05:20)
[2021-10-16] MEDS: IPRATROPIUM/ALBUTEROL SULFATE 3 ML AMPUL.NEB IH SCH ×3 (08:03→19:31)
--- NOTE | 2021-10-16 09:10 | Progress Note ---
Assessment and Plan (1) Upper GI bleeding (2) Hypoglycemia (3) Diarrhea (4) ESRD on dialysis (5) Hypertension (6) Hyperkalemia (7) GERD (gastroesophageal reflux disease) (8) Coronary artery disease (9) IDDM (insulin dependent diabetes mellitus) (10) Anemia -HD today for clearance and volume removal -Pt agreed to and consented for dialysis while inpatient -Monitor Hg for epogen need -Renally dose Subjective Date of service: 10/16/21 Principal diagnosis: Sympatomatic anemia Interval history: no overnight events Objective - Vital Signs Vital signs: Vital Signs - 12hr 10/15/21 10/15/21 10/16/21 23:00 23:09 00:16 Temperature 98.0 F Pulse Rate 117 H 117 H Pulse Rate [ 86 From Monitor] Pulse Rate [ Throughout] Respiratory 16 20 Rate Respiratory Rate [ Throughout] Blood Pressure 111/62 O2 Sat by Pulse 99 95 Oximetry 10/16/21 10/16/21 10/16/21 05:17 07:38 08:03 Temperature 98.0 F 97.5 F L Pulse Rate 95 H 78 Pulse Rate [ From Monitor] Pulse Rate [ 94 H Throughout] Respiratory 20 20 Rate Respiratory 18 Rate [ Throughout] Blood Pressure 132/86 127/69 O2 Sat by Pulse 96 96 Oximetry - Lab 10/13/21 05:06 10/15/21 05:54 Most recent lab results Calcium 8.1 mg/dL (8.4-10.2) L 10/15/21 05:54 Magnesium 2.30 mg/dL (1.7-2.3) 10/13/21 05:06 Medications & Allergies - Medications Allergies/Adverse Reactions: Allergies gabapentin Adverse Reaction (Verified 10/14/21 08:57) Hallucinations Patient says "it makes me go crazy" Home Medications: Home Medications Medication Instructions Recorded Confirmed Last Taken Type Insulin Degludec [Tresiba 40 unit SQ QDAY 07/21/19 10/14/21 10/10/21 History Flextouch U-100] Isosorbide Dinitrate [Isordil] 20 mg PO TID 07/21/19 10/14/21 10/10/21 History Metoprolol [Lopressor TAB] 100 mg PO QDAY 07/21/19 10/14/21 10/10/21 History NIFEdipine [Nifedipine ER] 90 mg PO QDAY 07/21/19 10/14/21 10/10/21 History hydrALAZINE [Apresoline TAB] 100 mg PO QDAY 07/21/19 10/14/21 10/10/21 History Aspirin [Aspirin BABY CHEW TAB] 81 mg PO QDAY #30 tab.chew 07/28/19 10/14/21 10/10/21 Rx Sodium Bicarbonate 650 mg PO TID #30 tablet 07/28/19 10/14/21 10/10/21 Rx metOLazone [Zaroxolyn] 5 mg PO QDAY #30 tablet 07/28/19 10/14/21 10/10/21 Rx Acetaminophen [Acetaminophen TAB] 650 mg PO Q6H PRN tablet 09/11/20 10/14/21 10/10/21 Rx AtorvaSTATin [Lipitor] 40 mg PO QHS #30 09/11/20 10/14/21 10/10/21 Rx Ferrous Sulfate [Iron 325 MG] 325 mg PO DAILY #30 tablet 09/11/20 10/14/21 10/10/21 Rx Multivitamin 1 each PO DAILY #30 tablet 09/11/20 10/14/21 10/10/21 Rx Pantoprazole [Protonix] 40 mg PO QDAY #30 tablet 09/11/20 10/14/21 10/10/21 Rx cephALEXin [Keflex] 500 mg PO Q12HR 10 Days #20 cap 10/13/20 10/14/21 10/10/21 Rx HYDROcodone/APAP 7.5-325 [[place] 1 each PO Q12H 10/14/21 10/14/21 10/10/21 History 7.5/325] Insulin Aspart [Insulin Aspart 8 unit SQ TID 10/14/21 10/14/21 10/10/21 History Flexpen] Active Medications: Generic Name Dose Route Start Last Admin Trade Name Freq PRN Reason Stop Dose Admin Acetaminophen 650 mg 10/11/21 13:00 10/13/21 04:38 Acetaminophen 325 Mg Tab PO 650 mg Q4H PRN Administration Pain MILD(1-3)/Fever >100.5/MATHEW Hydrocodone Bitart/Acetaminophen 1 each 10/13/21 16:31 10/15/21 14:46 Hydrocodone/Acetaminophen 5-325 Mg Tab PO 1 each Q6H PRN Administration Pain, Moderate (4-6) Albuterol/Ipratropium 1 ampul 10/12/21 08:30 10/16/21 08:03 Ipratropium/Albuterol Sulfate 3 Ml Ampul.Neb IH 1 ampul TIDRT LOVE Administration Amiodarone HCl 200 mg 10/13/21 12:00 10/15/21 21:43 Amiodarone 200 Mg Tab PO 200 mg BID LOVE Administration Dextrose 0 ml 10/11/21 12:00 10/11/21 11:39 Dextrose 10% *Hypoglycemia IV 125 ml PRN PRN Administration Hypoglycemia Sodium Chloride 100 mls @ 999 mls/hr 10/12/21 11:00 Nacl 0.9% IV AUGIE PRN Hypotension Insulin Human Lispro 0 unit 10/12/21 07:30 10/16/21 06:07 Insulin Lispro 100 Unit/Ml SUB-Q Not Given Q6HR [facility] Protocol Metoprolol Tartrate 25 mg 10/15/21 13:00 10/16/21 06:06 Metoprolol Tartrate 25 Mg Tab PO 25 mg Q6H LOVE Administration Metoprolol Tartrate 2.5 mg 10/15/21 13:00 Metoprolol Tartrate 5 Mg/5 Ml Inj IV Q6H PRN HR>130 Ondansetron HCl 4 mg 10/12/21 12:35 10/14/21 09:09 Ondansetron 4 Mg/2 Ml Inj IV 4 mg Q6H PRN Administration Nausea And Vomiting Pantoprazole Sodium 40 mg 10/12/21 07:30 10/15/21 09:19 Pantoprazole 40 Mg Tab PO 40 mg QDAC LOVE Administration Sodium Chloride 10 ml 10/11/21 22:00 10/15/21 23:54 Sodium Chloride 0.9% 10 Ml Flush Syringe IV Not Given BID LOVE Sodium Chloride 10 ml 10/11/21 13:00 Sodium Chloride 0.9% 10 Ml Flush Syringe IV PRN PRN LINE FLUSH
--- NOTE | 2021-10-16 10:19 | Progress Note ---
Assessment and Plan Assessment and plan: 66-year-old -[place] male with multiple medical problems including end- stage renal disease on hemodialysis T/T/S, anemia on iron therapy, hypertension, nonischemic cardiomyopathy/CHF, recent EF 40 to 45%, chronic A. fibnot a candidate for anticoagulation, pacemaker placement, chronic right foot wounds since 01/2021 being followed by wound care, insulin-dependent diabetes and s/p left BKA with a prosthesis sent and history of GI bleed from gastric AVMs treated in 2020 and colon polyp removed in 2018 with high-grade dysplasia sent to ED from dialysis center for black stools since 3 to 4 days. Patient was undergoing hemodialysis while he had copious loose watery bowel movements which are black in color. No abdominal pain. Patient is also on iron pills for the last 1 year. Reportedly, he was previously on aspirin and PPI but not currently.. No NSAID use. Patient also feels weak and lightheaded. No chest pain. No shortness of breath. No hematemesis. No abdominal pain. In ED, BP 167/58, heart rate 100, hemoglobin 10. WBC normal. GI consulted and admitted. Melena on chronic current therapy with history of gastric AVMs Stool heme positive according to ED physician note. Patient initiated on IV Protonix drip Patient had upper GI AVMs in 2020 and intervention was done at this facility History of colon polyps with high-grade dysplasia in 2018 Patient not currently on home PPI? Hemoglobin stable without early transfusion EGD on 10/13 showed gastropathy, hold biopsies taken. No active bleeding identified. GI symptoms resolving, patient started on a diet yesterday (10/13) chronic A. fib, pacemaker in place, RVR Cardiology following Currently with amiodarone for rate control ESRD on dialysis on T/T/S Continue hemodialysis as per schedule. Hypertension Hyperkalemia Resolved GERD (gastroesophageal reflux disease) IV Protonix nonischemic cardiomyopathy acute on chronic systolic heart failure Continue isosorbide mononitrate Improvement of LVEF on recent echoes, 40 to 45% Cardiology is following IDDM (insulin dependent diabetes mellitus) On coverage for now Check hemoglobin A1c chronic anemia Patient on Epogen and iron Transfuse as needed chronic right foot wound since 01/2021, followed by wound care Left BKA, uses prosthesis Local wound care Superficial healthy healing ulcer noted over right heel Patient is followed by wound care provider once every 2 weeks. 10/15/2021. Cardiology reports patient is not a candidate for anticoagulation. Continue rate control with beta-blockers and amiodarone. Cardiology concerned about mild elevation of alkaline phosphatase and potentially discontinuing amiodarone. Continue wound care 10/16/2021. Continue hemodialysis per nephrology recommendations. Continue rate control with beta-blockers and amiodarone. Cardiology concerned about mild elevation of alkaline phosphatase and potentially discontinuing amiodarone. Continue wound care History Interval history: No new issues overnight. Hospitalist Physical - Constitutional Vitals: Temp Pulse Resp BP Pulse Ox 97.5 F L 94 H 18 127/69 96 10/16/21 07:38 10/16/21 08:03 10/16/21 08:03 10/16/21 07:38 10/16/21 07:38 General appearance: Present: no acute distress, obese - EENT Eyes: Present: PERRL, EOM intact ENT: hearing intact, clear oral mucosa, dentition normal - Neck Neck: Present: supple, normal ROM - Respiratory Respiratory effort: normal Respiratory: bilateral: CTA - Cardiovascular Rhythm: regular Heart Sounds: Present: S1 & S2. Absent: gallop, rub - Extremities Extremities: no ischemia, No edema, Full ROM - Abdominal General gastrointestinal: soft, non-tender, non-distended, normal bowel sounds - Integumentary Integumentary: Present: clear, warm, dry - Neurologic Neurologic: CNII-XII intact, moves all extremities HEART Score - HEART Score Age: > 65 Risk factors: > 3 risk factors or hx of atherosclerotic disease Troponin: < normal limit - Critical Actions Critical Actions: 0-3 pts:0.9-1.7%risk of adverse cardiac event.Candidate for discharge Results - Labs CBC & Chem 7: 10/13/21 05:06 10/15/21 05:54 Labs: Laboratory Last Values WBC 6.0 K/mm3 (4.5-11.0) 10/13/21 05:06 RBC 2.73 M/mm3 (3.65-5.03) L 10/13/21 05:06 Hgb 9.1 gm/dl (11.8-15.2) L 10/13/21 05:06 Hct 29.0 % (35.5-45.6) L 10/13/21 05:06 MCV 106 fl (84-94) H 10/13/21 05:06 MCH 33 pg (28-32) H 10/13/21 05:06 MCHC 31 % (32-34) L 10/13/21 05:06 RDW 17.3 % (13.2-15.2) H 10/13/21 05:06 Plt Count 206 K/mm3 (140-440) 10/13/21 05:06 Lymph % (Auto) 14.9 % (13.4-35.0) 10/13/21 05:06 [place] % (Auto) 11.1 % (0.0-7.3) H 10/13/21 05:06 Eos % (Auto) 1.3 % (0.0-4.3) 10/13/21 05:06 Baso % (Auto) 2.9 % (0.0-1.8) H 10/13/21 05:06 Lymph # (Auto) 0.9 K/mm3 (1.2-5.4) L 10/13/21 05:06 [place] # (Auto) 0.7 K/mm3 (0.0-0.8) 10/13/21 05:06 Eos # (Auto) 0.1 K/mm3 (0.0-0.4) 10/13/21 05:06 Baso # (Auto) 0.2 K/mm3 (0.0-0.1) H 10/13/21 05:06 Seg Neutrophils % 69.8 % (40.0-70.0) 10/13/21 05:06 Seg Neutrophils # 4.2 K/mm3 (1.8-7.7) 10/13/21 05:06 PT 17.6 Sec. (12.2-14.9) H 10/11/21 09:52 INR 1.29 (0.87-1.13) H 10/11/21 09:52 APTT 29.7 Sec. (24.2-36.6) 10/11/21 09:52 Sodium 145 mmol/L (137-145) 10/15/21 05:54 Potassium 4.5 mmol/L (3.6-5.0) 10/15/21 05:54 Chloride 99.9 mmol/L (98-107) 10/15/21 05:54 Carbon Dioxide 26 mmol/L (22-30) 10/15/21 05:54 Anion Gap 24 mmol/L 10/15/21 05:54 BUN 56 mg/dL (9-20) H 10/15/21 05:54 Creatinine 6.5 mg/dL (0.8-1.3) H 10/15/21 05:54 Estimated GFR 10 ml/min 10/15/21 05:54 BUN/Creatinine Ratio 9 % 10/15/21 05:54 Glucose 124 mg/dL (75-100) H 10/15/21 05:54 POC Glucose 62 mg/dL (70-105) L 10/16/21 06:53 Calcium 8.1 mg/dL (8.4-10.2) L 10/15/21 05:54 Magnesium 2.30 mg/dL (1.7-2.3) 10/13/21 05:06 Total Bilirubin 1.00 mg/dL (0.1-1.2) 10/13/21 05:06 AST 32 units/L (5-40) 10/13/21 05:06 ALT 28 units/L (7-56) 10/13/21 05:06 Alkaline Phosphatase 308 units/L (35-129) H 10/13/21 05:06 Total Protein 7.6 g/dL (6.3-8.2) 10/13/21 05:06 Albumin 3.3 g/dL (3.9-5) L 10/13/21 05:06 Albumin/Globulin Ratio 0.8 % 10/13/21 05:06 Hepatitis A IgM Ab Non-reactive (NonReactive) 10/12/21 12:43 Hep Bs Antigen Non-reactive (Negative) 10/12/21 12:43 Hep B Core IgM Ab Non-reactive (NonReactive) 10/12/21 12:43 Hepatitis C Antibody Non-reactive (NonReactive) 10/12/21 12:43 Blood Type B POSITIVE 10/11/21 11:31 Antibody Screen Negative 10/11/21 11:31 Ramirez/IV: Voiding Method Incontinent Active Medications - Current Medications Current Medications: Generic Name Dose Route Start Last Admin Trade Name Freq PRN Reason Stop Dose Admin Acetaminophen 650 mg 10/11/21 13:00 10/13/21 04:38 Acetaminophen 325 Mg Tab PO 650 mg Q4H PRN Administration Pain MILD(1-3)/Fever >100.5/MATHEW Hydrocodone Bitart/Acetaminophen 1 each 10/13/21 16:31 10/15/21 14:46 Hydrocodone/Acetaminophen 5-325 Mg Tab PO 1 each Q6H PRN Administration Pain, Moderate (4-6) Albuterol/Ipratropium 1 ampul 10/12/21 08:30 10/16/21 08:03 Ipratropium/Albuterol Sulfate 3 Ml Ampul.Neb IH 1 ampul TIDRT LOVE Administration Amiodarone HCl 200 mg 10/13/21 12:00 10/15/21 21:43 Amiodarone 200 Mg Tab PO 200 mg BID LOVE Administration Dextrose 0 ml 10/11/21 12:00 10/11/21 11:39 Dextrose 10% *Hypoglycemia IV 125 ml PRN PRN Administration Hypoglycemia Sodium Chloride 100 mls @ 999 mls/hr 10/12/21 11:00 Nacl 0.9% IV AUGIE PRN Hypotension Insulin Human Lispro 0 unit 10/12/21 07:30 10/16/21 06:07 Insulin Lispro 100 Unit/Ml SUB-Q Not Given Q6HR [facility] Protocol Metoprolol Tartrate 25 mg 10/15/21 13:00 10/16/21 06:06 Metoprolol Tartrate 25 Mg Tab PO 25 mg Q6H LOVE Administration Metoprolol Tartrate 2.5 mg 10/15/21 13:00 Metoprolol Tartrate 5 Mg/5 Ml Inj IV Q6H PRN HR>130 Ondansetron HCl 4 mg 10/12/21 12:35 10/14/21 09:09 Ondansetron 4 Mg/2 Ml Inj IV 4 mg Q6H PRN Administration Nausea And Vomiting Pantoprazole Sodium 40 mg 10/12/21 07:30 10/15/21 09:19 Pantoprazole 40 Mg Tab PO 40 mg QDAC LOVE Administration Sodium Chloride 10 ml 10/11/21 22:00 10/15/21 23:54 Sodium Chloride 0.9% 10 Ml Flush Syringe IV Not Given BID LOVE Sodium Chloride 10 ml 10/11/21 13:00 Sodium Chloride 0.9% 10 Ml Flush Syringe IV PRN PRN LINE FLUSH
--- NOTE | 2021-10-16 11:50 | Progress Note ---
Assessment and Plan - Patient Problems (1) Pre-op evaluation Current Visit: Yes Status: Acute Plan to address problem: Patient is status post GI endoscopic procedure. Stable cardiac status post procedure. (2) Paroxysmal atrial fibrillation Current Visit: Yes Status: Acute Plan to address problem: Patient had a history of paroxysmal atrial fibrillation, atrial fibrillation has persisted on this presentation. He is not a candidate for oral anticoagulation, we will maintain rate control strategy at this time with beta-blockers, add amiodarone as necessary. We will continue rate control therapy for atrial fibrillation. Subjective Date of service: 10/16/21 Principal diagnosis: Sympatomatic anemia Interval history: Patient is comfortable, no new cardiac complaints. On academic director, he has an atrial fibrillation, with well-controlled ventricular rate, occasional ventricular paced beats on demand. Objective Vital Signs Temp Pulse Pulse Pulse Resp Resp BP 10/16/21 08:03 94 H 18 10/16/21 07:38 97.5 F L 78 20 127/69 10/16/21 05:17 98.0 F 95 H 20 132/86 10/16/21 00:16 117 H 10/15/21 23:09 98.0 F 117 H 20 111/62 10/15/21 23:00 86 16 10/15/21 20:09 98 H 19 10/15/21 18:50 97.5 F L 95 H 20 124/73 10/15/21 15:54 98.7 F 100 H 18 130/52 10/15/21 14:27 63 19 10/15/21 14:00 128 H 10/15/21 13:39 130 H 132/53 10/15/21 12:17 98.3 F 132 H 15 132/53 Pulse Ox 10/16/21 08:03 10/16/21 07:38 96 10/16/21 05:17 96 10/16/21 00:16 10/15/21 23:09 95 10/15/21 23:00 99 10/15/21 20:09 10/15/21 18:50 94 10/15/21 15:54 94 10/15/21 14:27 10/15/21 14:00 10/15/21 13:39 10/15/21 12:17 91 - Physical Examination HEENT: Positive: PERRL Neck: Positive: neck supple Cardiac: Positive: irregularly irregular Lungs: Positive: Decreased Breath Sounds Neuro: Positive: Grossly Intact Abdomen: Positive: Soft Skin: Positive: Clear Extremities: Absent: edema
[2021-10-16] MEDS: ONDANSETRON 4 MG/2 ML INJ IV PRN (12:26)
[2021-10-16] MEDS: AMIODARONE 200 MG TAB PO SCH ×2 (12:30→21:24)
[2021-10-16] MEDS: PANTOPRAZOLE 40 MG TAB PO SCH (12:31)
[2021-10-16] MEDS: HYDROcodone/ACETAMINOPHEN 5-325 MG TAB PO PRN (12:58)
[2021-10-17] MEDS: METOPROLOL TARTRATE 25 MG TAB PO SCH ×3 (01:00→13:00)
--- NOTE | 2021-10-17 08:43 | Discharge Summary ---
Providers - Providers Date of Admission: 10/11/21 12:14 Date of discharge: 10/17/21 Attending physician: BLANCA ALVAREZ 10/11/21 12:25 Consult to Physician [CONS] Routine Comment: Consulting Provider: DALIA BASILIO Physician Instructions: Reason For Exam: ugib 10/11/21 16:41 Consult to Physician [CONS] Routine Comment: Consulting Provider: MARLEY PONCE Physician Instructions: Reason For Exam: Cardiac Risk Stratification 10/12/21 06:30 Consult to Physician [CONS] Routine Comment: Consulting Provider: FELIX BRADFORD Physician Instructions: Reason For Exam: End-stage renal disease on hemodialysis Primary care physician: BENCH TECHNICIAN Hospitalization Reason for admission: GIB Condition: Stable Hospital course: 66-year-old -[place] male with multiple medical problems including end- stage renal disease on hemodialysis T/T/S, anemia on iron therapy, hypertension, nonischemic cardiomyopathy/CHF, recent EF 40 to 45%, chronic A. fibnot a candidate for anticoagulation, pacemaker placement, chronic right foot wounds since 01/2021 being followed by wound care, insulin-dependent diabetes and s/p left BKA with a prosthesis sent and history of GI bleed from gastric AVMs treated in 2020 and colon polyp removed in 2018 with high-grade dysplasia sent to ED from dialysis center for black stools since 3 to 4 days. Patient was undergoing hemodialysis while he had copious loose watery bowel movements which are black in color. No abdominal pain. Patient is also on iron pills for the last 1 year. Reportedly, he was previously on aspirin and PPI but not currently.. No NSAID use. Patient also feels weak and lightheaded. No chest pain. No shortness of breath. No hematemesis. No abdominal pain. In ED, BP 167/58, heart rate 100, hemoglobin 10. WBC normal. GI consulted and admitted with diagnosis below: Hospital course by diagnosis: Melena on chronic current therapy with history of gastric AVMs Stool heme positive according to ED physician note. Patient initiated on IV Protonix drip then transition to Protonix p.o. Patient had upper GI AVMs in 2020 and intervention was done at this facility History of colon polyps with high-grade dysplasia in 2018 Hemoglobin remained stable without transfusion EGD on 10/13 showed gastropathy, hold biopsies taken. No active bleeding identified. GI symptoms resolved, patient started on a diet(10/13) with no issues chronic A. fib, pacemaker in place, RVR Cardiology consulted and rate was controlled with amiodarone and metoprolol Cardiology reports patient is not a candidate for anticoagulation. ESRD on dialysis on T/T/S Continue hemodialysis as per schedule per nephrology. Hypertension Blood pressure control with antihypertensive medication Hyperkalemia Resolved GERD (gastroesophageal reflux disease) IV Protonix nonischemic cardiomyopathy acute on chronic systolic heart failure Continue isosorbide mononitrate Improvement of LVEF on recent echoes, 40 to 45% Cardiology was consulted IDDM (insulin dependent diabetes mellitus) On coverage for now Check hemoglobin A1c chronic anemia Patient on Epogen and iron Transfuse as needed chronic right foot wound since 01/2021, followed by wound care Left BKA, uses prosthesis Local wound care Superficial healthy healing ulcer noted over right heel Patient is followed by wound care provider once every 2 weeks. Dedicated discharge time 35 minutes Disposition: 03 [facility] Final Discharge Diagnosis (Prints w/discharge instructions): GI bleed, melena, gastric AVMs, chronic A. fib, pacemaker, ESRD on hemodialysis, hypertension, acute on chronic systolic heart failure, nonischemic cardiomyopathy, insulin- dependent diabetes mellitus, chronic anemia, chronic right foot wound Core Measure Documentation - Palliative Care Palliative Care/ Comfort Measures: Not Applicable - Core Measures Any of the following diagnoses?: none Exam - Constitutional Vitals: Temp Pulse Resp BP Pulse Ox 97.7 F 89 20 108/43 100 10/17/21 04:07 10/17/21 07:33 10/17/21 04:07 10/17/21 07:33 10/17/21 07:33 General appearance: Present: no acute distress, well-nourished - EENT Eyes: Present: PERRL ENT: hearing intact, clear oral mucosa - Neck Neck: Present: supple, normal ROM - Respiratory Respiratory effort: normal Respiratory: bilateral: CTA - Cardiovascular Heart Sounds: Present: S1 & S2. Absent: rub, click - Extremities Extremities: pulses symmetrical, No edema Peripheral Pulses: within normal limits - Abdominal General gastrointestinal: Present: soft, non-tender, non-distended, normal bowel sounds Male genitourinary: Present: normal - Integumentary Integumentary: Present: clear, warm, dry - Musculoskeletal Musculoskeletal: gait normal, strength equal bilaterally - Psychiatric Psychiatric: appropriate mood/affect, intact judgment & insight - Neurologic Neurologic: CNII-XII intact, moves all extremities Plan Activity: advance as tolerated Weight Bearing Status: Weight Bear as Tolerated Diet: diabetic Follow up with: PRIMARY CARE, [Primary Care Provider] - 3-5 Days Forms: Accompanied Note Prescriptions: Aspirin [Aspirin BABY CHEW TAB] 81 mg PO QDAY #30 tab.chew Amiodarone [Cordarone 200 MG TAB] 200 mg PO BID #60 tab Ferrous Sulfate [Iron 325 MG] 325 mg PO DAILY #30 tablet Isosorbide Dinitrate [Isordil] 20 mg PO TID #90 AtorvaSTATin [Lipitor] 40 mg PO QHS #30 Metoprolol [Lopressor TAB] 25 mg PO Q6H #120 Pantoprazole [Protonix TAB] 40 mg PO QDAY #30 tablet Sodium Bicarbonate 650 mg PO TID #30 tablet
[2021-10-17] MEDS: IPRATROPIUM/ALBUTEROL SULFATE 3 ML AMPUL.NEB IH SCH ×2 (08:59→15:34)
[2021-10-17] MEDS: INSULIN LISPRO 100 UNIT/ML SUB-Q SCH ×3 (09:39→12:00)
[2021-10-17] MEDS: ONDANSETRON 4 MG/2 ML INJ IV PRN (09:43)
[2021-10-17] MEDS: PANTOPRAZOLE 40 MG TAB PO SCH (09:44)
[2021-10-17] MEDS: AMIODARONE 200 MG TAB PO SCH (09:44)
--- NOTE | 2021-10-17 11:43 | Progress Note ---
Assessment and Plan Assessment Upper GI bleeding Hypoglycemia Diarrhea ESRD on dialysis Hypertension Hyperkalemia GERD (gastroesophageal reflux disease) Coronary artery disease IDDM (insulin dependent diabetes mellitus) Anemia Plan: -Received hemodialysis yesterday for UF and clearance -Fluid restriction of 1 liter per day -Renally dose all medications -Strict I/O's daily -Obtain daily weights -Assess dialysis needs daily -Possible discharge today -Plan of care reviewed by Dr. Corral Subjective Date of service: 10/17/21 Principal diagnosis: Sympatomatic anemia Interval history: Patient seen lying in bed. Awake. No family at bedside. Objective - Vital Signs Vital signs: Vital Signs - 12hr 10/16/21 10/17/21 10/17/21 23:56 04:07 07:33 Temperature 97.7 F Pulse Rate 100 H 89 Pulse Rate [ 90 From Monitor] Pulse Rate [ Throughout] Respiratory 20 Rate Respiratory Rate [ Throughout] Blood Pressure 113/78 108/43 O2 Sat by Pulse 95 96 100 Oximetry 10/17/21 08:59 Temperature Pulse Rate Pulse Rate [ From Monitor] Pulse Rate [ 75 Throughout] Respiratory Rate Respiratory 16 Rate [ Throughout] Blood Pressure O2 Sat by Pulse Oximetry - General Appearance General appearance: well-developed, appears stated age EENT: ATNC, PERRL, hearing intact, vision intact Neck: no JVD, supple Respiratory: Present: Decreased Breath Sounds Cardiology: S1S2 Gastrointestinal: normoactive bowel sounds Integumentary: warm and dry Neurologic: alert and oriented x3 Musculoskeletal: other (wound to foot) Psychiatric: cooperative - Lab 10/13/21 05:06 10/15/21 05:54 Most recent lab results Calcium 8.1 mg/dL (8.4-10.2) L 10/15/21 05:54 Magnesium 2.30 mg/dL (1.7-2.3) 10/13/21 05:06 Medications & Allergies - Medications Allergies/Adverse Reactions: Allergies gabapentin Adverse Reaction (Verified 10/14/21 08:57) Hallucinations Patient says "it makes me go crazy" Home Medications: Home Medications Medication Instructions Recorded Confirmed Last Taken Type Insulin Degludec [Tresiba 40 unit SQ QDAY 07/21/19 10/14/21 10/10/21 History Flextouch U-100] hydrALAZINE [Apresoline TAB] 100 mg PO QDAY 1210/14/21 10/10/21 History metOLazone [Zaroxolyn] 5 mg PO QDAY #30 tablet 07/28/19 10/14/21 10/10/21 Rx Acetaminophen [Acetaminophen TAB] 650 mg PO Q6H PRN tablet 09/11/20 10/14/21 10/10/21 Rx Multivitamin 1 each PO DAILY #30 tablet 09/11/20 10/14/21 10/10/21 Rx Insulin Aspart [Insulin Aspart 8 unit SQ TID 10/14/21 10/14/21 10/10/21 History Flexpen] Amiodarone [Cordarone 200 MG TAB] 200 mg PO BID #60 tab 10/17/21 Unknown Rx Amiodarone [Cordarone 200 MG TAB] 200 mg PO BID #60 tablet 10/17/21 Unknown Rx Aspirin [Aspirin BABY CHEW TAB] 81 mg PO QDAY #30 tab.chew 10/17/21 Unknown Rx AtorvaSTATin [Lipitor] 40 mg PO QHS #30 10/17/21 Unknown Rx Ferrous Sulfate [Iron 325 MG] 325 mg PO DAILY #30 tablet 10/17/21 Unknown Rx Isosorbide Dinitrate [Isordil] 20 mg PO TID #90 10/17/21 Unknown Rx Metoprolol [Lopressor TAB] 25 mg PO Q6H #120 10/17/21 Unknown Rx Metoprolol [Lopressor TAB] 25 mg PO Q6H #120 tablet 10/17/21 Unknown Rx Pantoprazole [Protonix TAB] 40 mg PO QDAC tablet 10/17/21 Unknown Rx Pantoprazole [Protonix TAB] 40 mg PO QDAY #30 tablet 10/17/21 Unknown Rx Sodium Bicarbonate 650 mg PO TID #30 tablet 10/17/21 Unknown Rx Active Medications: Generic Name Dose Route Start Last Admin Trade Name Freq PRN Reason Stop Dose Admin Acetaminophen 650 mg 10/11/21 13:00 10/13/21 04:38 Acetaminophen 325 Mg Tab PO 650 mg Q4H PRN Administration Pain MILD(1-3)/Fever >100.5/MATHEW Hydrocodone Bitart/Acetaminophen 1 each 10/13/21 16:31 10/16/21 12:58 Hydrocodone/Acetaminophen 5-325 Mg Tab PO 1 each Q6H PRN Administration Pain, Moderate (4-6) Albuterol/Ipratropium 1 ampul 10/12/21 08:30 10/17/21 08:59 Ipratropium/Albuterol Sulfate 3 Ml Ampul.Neb IH 1 ampul TIDRT LOVE Administration Amiodarone HCl 200 mg 10/13/21 12:00 10/17/21 09:44 Amiodarone 200 Mg Tab PO 200 mg BID LOVE Administration Dextrose 0 ml 10/11/21 12:00 10/11/21 11:39 Dextrose 10% *Hypoglycemia IV 125 ml PRN PRN Administration Hypoglycemia Sodium Chloride 100 mls @ 999 mls/hr 10/12/21 11:00 Nacl 0.9% IV AUGIE PRN Hypotension Insulin Human Lispro 0 unit 10/17/21 07:30 10/17/21 09:39 Insulin Lispro 100 Unit/Ml SUB-Q Not Given ACHS [facility] Protocol Metoprolol Tartrate 25 mg 10/15/21 13:00 10/17/21 09:39 Metoprolol Tartrate 25 Mg Tab PO Not Given Q6H [facility] Metoprolol Tartrate 2.5 mg 10/15/21 13:00 Metoprolol Tartrate 5 Mg/5 Ml Inj IV Q6H PRN HR>130 Ondansetron HCl 4 mg 10/12/21 12:35 10/17/21 09:43 Ondansetron 4 Mg/2 Ml Inj IV 4 mg Q6H PRN Administration Nausea And Vomiting Pantoprazole Sodium 40 mg 10/12/21 07:30 10/17/21 09:44 Pantoprazole 40 Mg Tab PO 40 mg QDAC LOVE Administration Sodium Chloride 10 ml 10/11/21 22:00 10/16/21 21:24 Sodium Chloride 0.9% 10 Ml Flush Syringe IV 10 ml BID LOVE Administration Sodium Chloride 10 ml 10/11/21 13:00 Sodium Chloride 0.9% 10 Ml Flush Syringe IV PRN PRN LINE FLUSH
[2021-10-17 12:39] VITALS: BP 130/68
--- NOTE | 2021-10-17 13:00 | Progress Note ---
Assessment and Plan - Patient Problems (1) Paroxysmal atrial fibrillation Current Visit: Yes Status: Acute Plan to address problem: Patient had a history of paroxysmal atrial fibrillation, atrial fibrillation has persisted on this presentation. He is not a candidate for oral anticoagulation, due to his previous history of recurrent GI bleed and anemia, and his current presentation with bloody diarrhea. We will maintain rate control strategy at this time with beta-blockers and amiodarone as necessary. He has a dual-chamber pacemaker in situ for history of sinus node dysfunction. Cardiac stable and asymptomatic on current medical therapy. Stable for cardiac discharge, recommend follow up with primary outpatient golf cart repairer in 7 days. (2) Pre-op evaluation Current Visit: Yes Status: Acute Plan to address problem: Patient is status post GI endoscopic procedure. Stable cardiac status post procedure. Subjective Date of service: 10/17/21 Principal diagnosis: Sympatomatic anemia Interval history: Patient is comfortable, no cardiac complaints. He reports that he has intermittent nausea. Telemetry shows atrial fibrillation with well-controlled ventricular rate on current medications. Objective Vital Signs Temp Pulse Pulse Pulse Resp Resp BP 10/17/21 11:54 97.7 F 100 H 18 130/68 10/17/21 08:59 75 16 10/17/21 07:33 89 108/43 10/17/21 04:07 97.7 F 100 H 20 113/78 10/16/21 23:56 90 10/16/21 23:24 97.7 F 95 H 20 109/68 10/16/21 20:00 90 10/16/21 19:32 94 H 16 10/16/21 19:25 98.0 F 95 H 18 104/67 10/16/21 17:15 98.2 F 92 H 18 121/68 10/16/21 17:00 100 H 20 123/73 10/16/21 16:30 96 H 110/63 10/16/21 16:15 96 H 105/67 10/16/21 16:00 95 H 133/60 10/16/21 15:45 89 105/60 10/16/21 15:30 94 H 105/57 10/16/21 15:00 94 H 107/61 10/16/21 14:45 94 H 108/55 10/16/21 14:30 99 H 119/61 10/16/21 14:15 94 H 110/64 10/16/21 14:00 92 H 116/68 10/16/21 13:45 92 H 111/64 10/16/21 13:30 98.2 F 100 H 18 109/60 10/16/21 13:06 106 H Pulse Ox Pulse Ox 10/17/21 11:54 95 10/17/21 08:59 10/17/21 07:33 100 10/17/21 04:07 96 10/16/21 23:56 95 10/16/21 23:24 90 10/16/21 20:00 10/16/21 19:32 10/16/21 19:25 95 10/16/21 17:15 98 10/16/21 17:00 95 10/16/21 16:30 10/16/21 16:15 10/16/21 16:00 10/16/21 15:45 10/16/21 15:30 10/16/21 15:00 10/16/21 14:45 10/16/21 14:30 10/16/21 14:15 10/16/21 14:00 10/16/21 13:45 10/16/21 13:30 98 10/16/21 13:06 - Physical Examination HEENT: Positive: PERRL Neck: Positive: neck supple Cardiac: Positive: irregularly irregular Lungs: Positive: Decreased Breath Sounds Neuro: Positive: Grossly Intact Abdomen: Positive: Soft Skin: Positive: Clear Extremities: Absent: edema
== END 2021-10-17 16:30 | disposition home health service (06) | DRG 377 ==
LOC: ED 09:08 → 4A 12:14
PROVIDERS: ADMIT Internal Medicine; ATTEND Hospitalist
PROC: 5A1D70Z Performance of Urinary Filtration, Intermittent, Less than 6 Hours Per Day (ICD-10-PCS; 2021-10-12)
PROC: 0DB68ZX Excision of Stomach, Via Natural or Artificial Opening Endoscopic, Diagnostic (ICD-10-PCS; principal; 2021-10-13)
PROC: 5A1D70Z Performance of Urinary Filtration, Intermittent, Less than 6 Hours Per Day (ICD-10-PCS; 2021-10-14)
PROC: 5A1D70Z Performance of Urinary Filtration, Intermittent, Less than 6 Hours Per Day (ICD-10-PCS; 2021-10-16)
DX: K92.1 Melena (principal); N18.6 End stage renal disease; I50.23 Acute on chronic systolic (congestive) heart failure; D62 Acute posthemorrhagic anemia; I13.2 Hypertensive heart and chronic kidney disease with heart failure and with stage 5 chronic kidney disease, or end stage renal disease; I42.8 Other cardiomyopathies; I48.20 Chronic atrial fibrillation, unspecified; R19.7 Diarrhea, unspecified; E11.22 Type 2 diabetes mellitus with diabetic chronic kidney disease; I25.10 Atherosclerotic heart disease of native coronary artery without angina pectoris; E87.5 Hyperkalemia; E11.649 Type 2 diabetes mellitus with hypoglycemia without coma; Z88.8 Allergy status to other drugs, medicaments and biological substances; Z79.4 Long term (current) use of insulin; Z86.73 Personal history of transient ischemic attack (TIA), and cerebral infarction without residual deficits; Z89.512 Acquired absence of left leg below knee; Z95.0 Presence of cardiac pacemaker; I25.2 Old myocardial infarction; Z87.891 Personal history of nicotine dependence; D63.1 Anemia in chronic kidney disease; K21.00 Gastro-esophageal reflux disease with esophagitis, without bleeding; I48.91 Unspecified atrial fibrillation; E78.5 Hyperlipidemia, unspecified; I48.0 Paroxysmal atrial fibrillation
CPT/HCPCS: 36415; 71045; 80048; 80053; 80074; 82962; 83735; 85014; 85018; 85025; 85610; 85730; 86850; 86900; 86901; 88305; 88342; 93005; 93010; 94640; G0378; J3490; J7060; J7120; Q0162; Q9967; C9113; J0282; J1170; J1200; J1610; J1815; J2370; J2405; J2704; J3010; J7030; J7042; Q0163

== ENCOUNTER 2021-11-20 02:36 | Emergency (ER) | payer MEDICARE ==
--- NOTE | 2021-11-20 02:58 | Emergency Department Report ---
HPI - General Chief Complaint: Dyspnea/Respdistress Time Seen by Provider: 11/20/21 02:47 - HPI HPI: For the last 8 hours Mr. Peres has been complaining of shortness of breath, mild to moderate associated with a mild dry cough. He denies chest pain nausea vomiting diaphoresis or any other associated symptoms. Nothing makes it worse but to hit off his sisters albuterol MDI made him feel a lot better prior to the ambulance arriving to bring him to the emergency department. He has a history of congestive heart failure and diabetes as well as some COPD. ED Past Medical Hx - Past Medical History Hx Hypertension: Yes Hx CVA: Yes (mini stroke) Hx Heart Attack/AMI: Yes (x2, most recent 2004; EF 45-50%) Hx Congestive Heart Failure: Yes Hx Diabetes: Yes Hx Liver Disease: No Hx Arthritis: Yes Additional medical history: h/o staph infection 2009 - Surgical History Hx Pacemaker: Yes Hx Internal Defibrillator: Yes Additional Surgical History: L BKA, L arm fistula - Social History Smoking Status: Former Smoker - Medications Home Medications: Home Medications Medication Instructions Recorded Confirmed Last Taken Type Insulin Degludec [Tresiba 40 unit SQ QDAY 07/21/19 10/14/21 10/10/21 History Flextouch U-100] hydrALAZINE [Apresoline TAB] 100 mg PO QDAY 07/21/19 10/14/21 10/10/21 History metOLazone [Zaroxolyn] 5 mg PO QDAY #30 tablet 07/28/19 10/14/21 10/10/21 Rx Acetaminophen [Acetaminophen TAB] 650 mg PO Q6H PRN tablet 09/11/20 10/14/21 10/10/21 Rx Multivitamin 1 each PO DAILY #30 tablet 09/11/20 10/14/21 10/10/21 Rx Insulin Aspart [Insulin Aspart 8 unit SQ TID 10/14/21 10/14/21 10/10/21 History Flexpen] Amiodarone [Cordarone 200 MG TAB] 200 mg PO BID #60 tab 10/17/21 Unknown Rx Amiodarone [Cordarone 200 MG TAB] 200 mg PO BID #60 tablet 10/17/21 Unknown Rx Aspirin [Aspirin BABY CHEW TAB] 81 mg PO QDAY #30 tab.chew 10/17/21 Unknown Rx AtorvaSTATin [Lipitor] 40 mg PO QHS #30 10/17/21 Unknown Rx Ferrous Sulfate [Iron 325 MG] 325 mg PO DAILY #30 tablet 10/17/21 Unknown Rx Isosorbide Dinitrate [Isordil] 20 mg PO TID #90 10/17/21 Unknown Rx Metoprolol [Lopressor TAB] 25 mg PO Q6H #120 10/17/21 Unknown Rx Metoprolol [Lopressor TAB] 25 mg PO Q6H #120 tablet 10/17/21 Unknown Rx Pantoprazole [Protonix TAB] 40 mg PO QDAC tablet 10/17/21 Unknown Rx Pantoprazole [Protonix TAB] 40 mg PO QDAY #30 tablet 10/17/21 Unknown Rx Sodium Bicarbonate 650 mg PO TID #30 tablet 10/17/21 Unknown Rx Clotrimazole 1 applicatio TP QDAY 20 Days gm 11/20/21 Unknown Rx ED Review of Systems ROS: Stated complaint: SONIA X 8 HRS Other details as noted in HPI Comment: All other systems reviewed and negative Physical Exam - Physical Exam Vital Signs: Reviewed and charted by nursing. Physical Exam: Physical Exam Constitutional: General: No acute distress. Appearance: No diaphoresis. HENT: Head: Normocephalic. Eyes: Pupils: Pupils are equal, round, and reactive to light. Neck: Musculoskeletal: Normal range of motion. Cardiovascular: Rate and Rhythm: Normal rate and regular rhythm. Pulses: Intact distal pulses. Heart sounds: Normal heart sounds. No murmur. Pulmonary: Effort: No respiratory distress. Breath sounds: No wheezing or rales. Chest: Chest wall: No tenderness. Abdominal: General: There is no distension. Palpations: There is no mass. Tenderness: There is no abdominal tenderness. There is no guarding or rebound. Musculoskeletal: Normal range of motion. Left BKA Skin: General: Skin is warm and dry. Neurological: Mental Status: Alert and oriented to person, place, and time. Psychiatric: Mood and Affect: Mood and affect normal. Cognition and Memory: Memory normal. Judgment: Judgment normal. ED Course - Reevaluation(s) Reevaluation #1: 11/20/21 03:34 EKG done interpreted at 315 shows a rate of 74, normal. The rhythm is atrial p aced. There is a nonspecific intraventricular conduction defect with left axis deviation. 11/20/21 04:23 The patient had no more shortness of breath the emergency department after the albuterol MDI that he used prior to arrival. I think this is likely mild bronchospasm. He is also complaining of diffuse rash that looks allergic and we will put him on a steroid for 5 days to help with the rash. His troponin was elevated but it is always chronically elevated. Even when it was as high as 1 back in 2018 he was admitted for this and it was deemed as a chronic elevation. His chest x-ray is within normal limits. And will discharge him so he can make his hemodialysis today. He also complains of a rash between his buttocks and there is an area there consistent with tinea crura's in the intergluteal fold of his lower back. I will put him on clotrimazole for this and he knows to keep the area dry. ED Medical Decision Making - Lab Data Result diagrams: 11/20/21 02:57 11/20/21 02:57 Critical care attestation.: If time is entered above; I have spent that time in minutes in the direct care o f this critically ill patient, excluding procedure time. ED Disposition Clinical Impression: Dyspnea, Bronchospasm, SOB (shortness of breath) Disposition: 01 HOME / SELF CARE / HOMELESS Is pt being admited?: No Does the pt Need Aspirin: No Condition: Stable Instructions: Shortness of Breath, Adult, [id number], Bronchospasm, Adult, [id number] Prescriptions: Clotrimazole 1 applicatio TP QDAY 20 Days gm Referrals: PRIMARY CARE, [Primary Care Provider] - 3-5 Days Time of Disposition: 04:25
--- NOTE | 2021-11-20 03:22 | XRay Report ---
CHEST 1 VIEW 11/20/2021 2:13 AM INDICATION / CLINICAL INFORMATION: Chest Pain. COMPARISON: 09/22/2021 FINDINGS: SUPPORT DEVICES: Unchanged pacemaker HEART / MEDIASTINUM: Stable mild cardiomegaly. LUNGS / PLEURA: No significant pulmonary or pleural abnormality. No pneumothorax. ADDITIONAL FINDINGS: No significant additional findings. IMPRESSION: 1. No acute findings. Signer Name: Kuldeep Long MD Signed: 11/20/2021 3:17 AM Workstation Name: [id number]
[2021-11-20 03:31] LABS: Basophils # (Auto) 0.1 K/mm3 (0.0-0.1); Basophils % (Auto) 1.2 % (0.0-1.8); Eosinophils # (Auto) 0.4 K/mm3 (0.0-0.4); Eosinophils % (Auto) 6.4 % (0.0-4.3); Hematocrit 33.9 % (35.5-45.6); Hemoglobin 10.6 gm/dl (11.8-15.2); Lymphocytes # (Auto) 0.7 K/mm3 (1.2-5.4); Lymphocytes % (Auto) 10.8 % (13.4-35.0); Mean Corpuscular HGB Conc 31 % (32-34); Mean Corpuscular Volume 101 fl (84-94); Monocytes # (Auto) 0.9 K/mm3 (0.0-0.8); Monocytes % (Auto) 13.6 % (0.0-7.3); Platelet Count 158 K/mm3 (140-440); Red Blood Count 3.35 M/mm3 (3.65-5.03); Red Cell Distribution Width 15.2 % (13.2-15.2)
[2021-11-20 03:40] LABS: Albumin 3.1 g/dL (3.9-5); Calcium 8.7 mg/dL (8.4-10.2)
[2021-11-20 04:23] LABS: Chol/HDL Ratio 3.27 %
[2021-11-20] MEDS ORDERED: LOPERAMIDE 2 MG CAP PO ONE (05:09)
[2021-11-20 05:29] VITALS: BP 110/78
--- NOTE | 2021-11-20 10:44 | Electrocardiograph Report ---
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
== END 2021-11-20 05:20 | disposition home or self-care (01) ==
LOC: ED 02:36
DX: R06.00 Dyspnea, unspecified (principal); J98.01 Acute bronchospasm; R06.02 Shortness of breath; I10 Essential (primary) hypertension; Z87.891 Personal history of nicotine dependence
CPT/HCPCS: 36415; 71045; 80053; 80061; 83880; 84484; 85025; 93005; 99284